=== PATIENT | male | born 1940 | race Caucasian/White ===

== ENCOUNTER → 2018-05-25 08:36 | Outpatient (CLI) | payer OTHER, SELFPAY ==
[2018-05-25 09:26] LABS: Add Manual Diff / Slide Review NO; Basophils Percent Auto 4.7 % (0-2); Eosinophils Percent Auto 2.5 % (2-4); Hematocrit 41.4 % (41-53); Hemoglobin 14.2 g/dL (13.5-17.5); Lymphocytes Percent Auto 19.8 % (25-40); Mean Corpuscular HGB Conc 34.2 % (30-36); Mean Corpuscular Hemoglobin 30.3 PG (26-34); Mean Corpuscular Volume 88.7 fL (80-100); Monocytes Percent Auto 8.4 % (3-14); Neutrophils Absolute Auto 4200 /uL (3000-5900); Neutrophils Percent Auto 64.6 % (50-75); Platelet Count 232 X10^3/uL (150-400); Red Blood Cell Count 4.67 X10^6/uL (4.5-5.9); Red Cell Distribution Width 13.8 % (11.6-14.8); White Blood Cell Count 6.6 X10^3/uL (4.5-11.0)
[2018-05-25 09:45] LABS: Alanine Aminotransferase 18 IU/L (21-72); Albumin 4.5 g/dL (3.5-5.0); Albumin Globulin Ratio 1.3 (1.0-2.8); Alkaline Phosphatase 52 U/L (38-126); Aspartate Aminotransferase 26 IU/L (17-59); BUN Creatinine Ratio 22.1 (6-22); Blood Urea Nitrogen 31 mg/dL (9-20); Calcium 9.9 mg/dL (8.4-10.2); Carbon Dioxide 29 mmol/L (22-32); Chloride 100 mmol/L (98-107); Cholesterol 155 mg/dL (140-199); Estimated Glomerular Filt Rate 49.4 mL/min (>60); Globulin 3.5 g/dL (1.7-4.1); Glucose 101 mg/dL (80-110); HDL Cholesterol 62 mg/dL (40-60); HEMOLYSIS < 15 (0-50); LDL Cholesterol Calculated 82 mg/dL (<100); Potassium 4.8 mmol/L (3.4-5.1); Sodium 141 mmol/L (137-145); Triglycerides 55 mg/dL (35-150)
[2018-05-25 10:20] LABS: Thyroid Stimulating Hormone 1.38 uIU/mL (0.47-4.68)
== END ==
PROVIDERS: PCP Family Medicine; Visit Provider Family Medicine
DX: E78.5 Hyperlipidemia, unspecified (principal); I10 Essential (primary) hypertension; K21.0 Gastro-esophageal reflux disease with esophagitis; K44.9 Diaphragmatic hernia without obstruction or gangrene; Z12.5 Encounter for screening for malignant neoplasm of prostate
CPT/HCPCS: 80053; 80061; 84153; 84443; 85025

== ENCOUNTER → 2018-07-05 09:41 | Outpatient (CLI) | payer OTHER, SELFPAY ==
[2018-07-05 09:57] LABS: Add Manual Diff / Slide Review NO; Eosinophils Percent Auto 1.9 % (2-4); Hematocrit 40.9 % (41-53); Hemoglobin 13.7 g/dL (13.5-17.5); Lymphocytes Percent Auto 26.1 % (25-40); Mean Corpuscular HGB Conc 33.6 % (30-36); Mean Corpuscular Hemoglobin 30.6 PG (26-34); Mean Corpuscular Volume 91.1 fL (80-100); Monocytes Percent Auto 9.1 % (3-14); Neutrophils Absolute Auto 5000 /uL (3000-5900); Neutrophils Percent Auto 61.9 % (50-75); Platelet Count 197 X10^3/uL (150-400); Red Blood Cell Count 4.49 X10^6/uL (4.5-5.9); Red Cell Distribution Width 13.5 % (11.6-14.8)
[2018-07-05 10:07] LABS: D Dimer 301 ng/mL (<230)
[2018-07-05 10:13] LABS: Blood Urea Nitrogen 22 mg/dL (9-20); Calcium 9.4 mg/dL (8.4-10.2); Carbon Dioxide 26 mmol/L (22-32); Chloride 102 mmol/L (98-107); Estimated Glomerular Filt Rate > 60.0 mL/min (>60); Glucose 93 mg/dL (80-110); HEMOLYSIS < 15 (0-50); Potassium 4.8 mmol/L (3.4-5.1); Sodium 140 mmol/L (137-145)
== END ==
PROVIDERS: Family Provider Family Medicine; PCP Family Medicine; Visit Provider Physician Assistant
DX: M79.89 Other specified soft tissue disorders (principal)
CPT/HCPCS: 36415; 80048; 85025; 85379

== ENCOUNTER → 2018-07-05 15:31 | Outpatient (CLI) | payer OTHER, SELFPAY ==
--- NOTE | 2018-07-05 15:32 | DI.US.S_ITS ---
PROCEDURE: US PERIPH VENOUS LOW EXTREM LT INDICATIONS: Left lower extremity swelling and bruising TECHNIQUE: Real-time imaging, as well as color and pulse Doppler interrogation, were performed of the lower extremity deep veins from the inguinal ligament to the popliteal fossa. COMPARISON: None. FINDINGS: The deep veins are normally compressible, and free of intraluminal thrombus. Color and pulse Doppler demonstrate normal phasic intraluminal flow. There is normal augmentation response to distal compression maneuver. IMPRESSION: No DVT found. Dictated by: Edgardo Quinonez M.D. on 07/05/2018 at 16:11 Approved by: Edgardo Quinonez M.D. on 07/05/2018 at 16:12
== END ==
PROVIDERS: Family Provider Family Medicine; PCP Family Medicine; Visit Provider Physician Assistant
DX: M79.89 Other specified soft tissue disorders (principal)
CPT/HCPCS: 36415; 80048; 85025; 85379; 93971

== ENCOUNTER → 2018-07-16 09:07 | Outpatient (CLI) | payer OTHER, SELFPAY ==
--- NOTE | 2018-07-16 | DI.US.S_ITS ---
PROCEDURE: US RENAL COMPLETE INDICATIONS: CHRONIC KIDNEY DISEASE TECHNIQUE: Real-time scanning was performed of the kidneys and bladder, with image documentation. COMPARISON: [facility], CT, ABDOMEN/PELVIS WITH CONTRAST, 02/21/2016, 1:14. [facility], US, ABDOMEN COMPLETE, 02/21/2016, 1:09. [facility], CT, ABDOMEN/PELVIS WITH CONTRAST, 05/15/2016, 2:42. FINDINGS: Kidneys: Kidneys are normal in size. Right kidney measures 10.6 cm long; left kidney measures 11.1 cm long. Right renal cortical thickness is 1.7 cm; left renal cortical thickness is 1.5 cm. Renal cortical echotexture is normal. No hydronephrosis or nephrolithiasis. No suspicious solid mass lesions. There is a 2.9 cm simple cyst in the superior pole of the left kidney. Bladder: Pre-void bladder volume is 800 mL. Post-void residual is 531 mL. Pre-void images demonstrate no intraluminal masses or stones. On pre-void images, both ureteral jets are noted with color Doppler interrogation. (Of note, ureteral jets may not be detectable in up to 25% of cases due to insufficient differences in specific gravity between ureteral and bladder urine). Miscellaneous: No free pelvic fluid. IMPRESSION: 1. No hydronephrosis. 2. A 2.8 cm simple cyst in the superior pole of the left kidney. 3. Large post void residual in the bladder suggesting bladder outlet obstruction. Dictated by: Kale Kearns M.D. on 07/16/2018 at 11:21 Approved by: Kale Kearns M.D. on 07/16/2018 at 11:25
== END ==
PROVIDERS: Family Provider Family Medicine; PCP Family Medicine; Visit Provider Student in an Organized Health Care Education/Training Program
DX: N18.3 Chronic kidney disease, stage 3 (moderate) (principal); N28.1 Cyst of kidney, acquired
CPT/HCPCS: 76770

== ENCOUNTER → 2018-08-04 14:26 | Outpatient (CLI) | payer OTHER, SELFPAY ==
[2018-08-04 14:50] LABS: Bacteria Urine None Seen; RBC Urine None Seen (0-5/HPF); WBC Urine None Seen (0-5/HPF)
[2018-08-04 15:17] LABS: Appearance Urine UA CLEAR; Bilirubin Urine UA NEGATIVE (NEGATIVE); Color Urine UA YELLOW; Glucose Urine UA NEGATIVE (Normal); Ketones Urine UA NEGATIVE (NEGATIVE); Leukocyte Esterase Urine UA NEGATIVE (NEGATIVE); Nitrite Urine UA NEGATIVE (Negative); Occult Blood Urine UA NEGATIVE (Negative); Protein Urine UA NEGATIVE (Negative); Urobilinogen Urine UA 0.2 E.U./dL (0.2); pH Urine UA 6.5 (4.5-8.0)
[2018-08-04 15:23] LABS: Culture Indicated Urine Cult Not Indicated; Urine Comments Microscopic Normal
[2018-08-04 15:37] LABS: Hemoglobin 13.7 g/dL (13.5-17.5)
[2018-08-04 15:38] LABS: HEMOLYSIS < 15 (0-50); Iron 72 ug/dL (49-181)
[2018-08-04 15:41] LABS: BUN Creatinine Ratio 21.7 (6-22); Blood Urea Nitrogen 26 mg/dL (9-20); Calcium 9.4 mg/dL (8.4-10.2); Carbon Dioxide 28 mmol/L (22-32); Chloride 104 mmol/L (98-107); Glucose 112 mg/dL (80-110); HEMOLYSIS < 15 (0-50); Phosphorous 4.5 mg/dL (2.3-3.7); Potassium 5.1 mmol/L (3.4-5.1); Sodium 143 mmol/L (137-145)
[2018-08-04 15:42] LABS: Creatinine Urine Random 53.1 mg/dL; Protein (Total) Urine Random 7 mg/dL (0-12); Protein Creatinine Ratio Urine 0.13 GRAM/24H
[2018-08-04 15:49] LABS: Percent Iron Saturation 22 % (20-50); Total Iron Binding Capacity 333 ug/dL (261-462); Transferrin 267 mg/dL (206-381)
[2018-08-04 16:16] LABS: Ferritin 43.8 ng/mL (17.9-464)
[2018-08-07 12:25] LABS: Parathyroid Hormone Int 77 pg/mL (14-64)
== END ==
PROVIDERS: PCP Family Medicine; Visit Provider Student in an Organized Health Care Education/Training Program
DX: N05.9 Unspecified nephritic syndrome with unspecified morphologic changes (principal); D50.0 Iron deficiency anemia secondary to blood loss (chronic); D64.9 Anemia, unspecified; E83.30 Disorder of phosphorus metabolism, unspecified; N25.81 Secondary hyperparathyroidism of renal origin; N30.00 Acute cystitis without hematuria; R80.9 Proteinuria, unspecified
CPT/HCPCS: 36415; 80048; 81001; 82570; 82728; 83540; 83550; 83970; 84100; 84156; 85014; 85018; 87086

== ENCOUNTER → 2018-09-13 07:53 | Outpatient (CLI) | payer OTHER, SELFPAY | PROVIDERS: Family Provider Family Medicine; PCP Family Medicine; Visit Provider Specialist | DX: N40.1 Benign prostatic hyperplasia with lower urinary tract symptoms (principal) | CPT/HCPCS: 36415; 84153 ==

== ENCOUNTER → 2018-12-15 12:09 | Outpatient (CLI) | payer OTHER, SELFPAY ==
[2018-12-15 12:33] LABS: Hemoglobin 12.8 g/dL (13.5-17.5)
[2018-12-15 12:44] LABS: BUN Creatinine Ratio 15.4 (6-22); Blood Urea Nitrogen 20 mg/dL (9-20); Calcium 8.8 mg/dL (8.4-10.2); Carbon Dioxide 25 mmol/L (22-32); Chloride 102 mmol/L (98-107); Estimated Glomerular Filt Rate 53.7 mL/min (>60); Glucose 119 mg/dL (80-110); HEMOLYSIS < 15 (0-50); Potassium 4.7 mmol/L (3.4-5.1); Sodium 136 mmol/L (137-145)
[2018-12-15 13:13] LABS: HEMOLYSIS < 15 (0-50); Iron 67 ug/dL (49-181)
[2018-12-15 13:24] LABS: Percent Iron Saturation 22 % (20-50); Total Iron Binding Capacity 300 ug/dL (261-462); Transferrin 230 mg/dL (206-381)
[2018-12-15 16:02] LABS: Creatinine Urine Random 53.1 mg/dL; Protein (Total) Urine Random 96 mg/dL (0-12)
[2018-12-18 16:17] LABS: Parathyroid Hormone Int 151 pg/mL (14-64)
== END ==
PROVIDERS: Family Provider Family Medicine; PCP Family Medicine; Visit Provider Student in an Organized Health Care Education/Training Program
DX: N05.9 Unspecified nephritic syndrome with unspecified morphologic changes (principal); D50.0 Iron deficiency anemia secondary to blood loss (chronic); D64.9 Anemia, unspecified; N25.81 Secondary hyperparathyroidism of renal origin; R80.9 Proteinuria, unspecified
CPT/HCPCS: 36415; 80048; 82570; 82728; 83540; 83550; 83970; 84156; 85014; 85018

== ENCOUNTER → 2019-01-12 12:11 | Outpatient (CLI) | payer OTHER, SELFPAY ==
[2019-01-12 13:54] LABS: Alanine Aminotransferase 21 IU/L (21-72); Albumin 4.1 g/dL (3.5-5.0); Albumin Globulin Ratio 1.3 (1.0-2.8); Alkaline Phosphatase 55 U/L (38-126); Aspartate Aminotransferase 23 IU/L (17-59); BUN Creatinine Ratio 22.5 (6-22); Bilirubin Total 0.8 mg/dL (0.2-1.3); Blood Urea Nitrogen 27 mg/dL (9-20); Calcium 9.8 mg/dL (8.4-10.2); Carbon Dioxide 27 mmol/L (22-32); Chloride 101 mmol/L (98-107); Cholesterol 151 mg/dL (140-199); Estimated Glomerular Filt Rate 58.9 mL/min (>60); Globulin 3.2 g/dL (1.7-4.1); Glucose 129 mg/dL (80-110); HDL Cholesterol 59 mg/dL (40-60); HEMOLYSIS < 15 (0-50); LDL Cholesterol Calculated 71 mg/dL (<100); Potassium 4.9 mmol/L (3.4-5.1); Sodium 137 mmol/L (137-145); Total Protein 7.3 g/dL (6.3-8.2); Triglycerides 104 mg/dL (35-150)
[2019-01-12 14:20] LABS: Prostate Specific Antigen 0.614 ng/mL (0.10-4.00)
== END ==
PROVIDERS: Family Provider Family Medicine; PCP Family Medicine; Visit Provider Specialist
DX: N40.1 Benign prostatic hyperplasia with lower urinary tract symptoms (principal); E78.5 Hyperlipidemia, unspecified; I10 Essential (primary) hypertension
CPT/HCPCS: 36415; 80053; 80061; 84153

== ENCOUNTER → 2019-04-13 08:40 | Outpatient (CLI) | payer OTHER, SELFPAY ==
[2019-04-13 08:54] LABS: Bacteria Urine None Seen; RBC Urine None Seen (0-5/HPF)
[2019-04-13 09:10] LABS: Hematocrit 42.5 % (41-53); Hemoglobin 14.3 g/dL (13.5-17.5)
[2019-04-13 09:21] LABS: BUN Creatinine Ratio 20.8 (6-22); Blood Urea Nitrogen 27 mg/dL (9-20); Calcium 9.6 mg/dL (8.4-10.2); Carbon Dioxide 28 mmol/L (22-32); Chloride 101 mmol/L (98-107); Estimated Glomerular Filt Rate 53.7 mL/min (>60); Glucose 97 mg/dL (80-110); HEMOLYSIS < 15 (0-50); Potassium 5.2 mmol/L (3.4-5.1); Sodium 138 mmol/L (137-145)
[2019-04-13 09:30] LABS: Appearance Urine UA CLEAR; Bilirubin Urine UA NEGATIVE (NEGATIVE); Color Urine UA YELLOW; Glucose Urine UA NEGATIVE (Negative); Ketones Urine UA NEGATIVE (NEGATIVE); Leukocyte Esterase Urine UA TRACE (NEGATIVE); Nitrite Urine UA NEGATIVE (Negative); Occult Blood Urine UA NEGATIVE (Negative); Protein Urine UA NEGATIVE (Negative); Specific Gravity Urine UA 1.015 (1.000-1.035); Urobilinogen Urine UA 0.2 E.U./dL (0.2); pH Urine UA 6.5 (4.5-8.0)
[2019-04-13 09:36] LABS: Culture Indicated Urine Cult Not Indicated; Squamous Epithelial Cell Urine 1-5 /HPF (0-5/HPF); WBC Urine 0-1/HPF (0-5/HPF)
[2019-04-13 09:52] LABS: Creatinine Urine Random 98.3 mg/dL; Protein (Total) Urine Random 14 mg/dL (0-12); Protein Creatinine Ratio Urine 0.14 GRAM/24H
[2019-04-16 16:55] LABS: Parathyroid Hormone Int 33 pg/mL (14-64)
== END ==
PROVIDERS: Family Provider Family Medicine; PCP Family Medicine; Visit Provider Student in an Organized Health Care Education/Training Program
DX: R80.9 Proteinuria, unspecified (principal); N30.00 Acute cystitis without hematuria; N25.81 Secondary hyperparathyroidism of renal origin; D64.9 Anemia, unspecified; N05.9 Unspecified nephritic syndrome with unspecified morphologic changes
CPT/HCPCS: 36415; 80048; 81001; 82570; 83970; 84156; 85014; 85018

== ENCOUNTER → 2019-04-28 14:16 | Outpatient (CLI) | payer OTHER, SELFPAY ==
[2019-04-28 14:57] LABS: Hemoglobin A1C% w Est Avg Glu 5.9 % (4.0-6.0)
[2019-04-28 15:25] LABS: Alanine Aminotransferase 19 IU/L (21-72); Albumin 3.9 g/dL (3.5-5.0); Albumin Globulin Ratio 1.2 (1.0-2.8); Alkaline Phosphatase 49 U/L (38-126); Aspartate Aminotransferase 24 IU/L (17-59); Bilirubin Total 0.6 mg/dL (0.2-1.3); Blood Urea Nitrogen 26 mg/dL (9-20); Calcium 9.6 mg/dL (8.4-10.2); Carbon Dioxide 29 mmol/L (22-32); Chloride 100 mmol/L (98-107); Estimated Glomerular Filt Rate 53.7 mL/min (>60); Globulin 3.2 g/dL (1.7-4.1); Glucose 105 mg/dL (80-110); HEMOLYSIS < 15 (0-50); Potassium 4.4 mmol/L (3.4-5.1); Sodium 137 mmol/L (137-145); Total Protein 7.1 g/dL (6.3-8.2)
== END ==
PROVIDERS: Family Provider Family Medicine; PCP Family Medicine; Visit Provider Student in an Organized Health Care Education/Training Program
DX: E87.5 Hyperkalemia (principal); I10 Essential (primary) hypertension; R73.9 Hyperglycemia, unspecified
CPT/HCPCS: 36415; 80053; 83036

== ENCOUNTER → 2019-05-06 14:25 | Outpatient (CLI) | payer OTHER, SELFPAY ==
[2019-05-06 15:20] LABS: Cholesterol 169 mg/dL (140-199); HDL Cholesterol 53 mg/dL (40-60); LDL Cholesterol Calculated 78 mg/dL (<100); Triglycerides 191 mg/dL (35-150)
== END ==
PROVIDERS: Family Provider Family Medicine; PCP Family Medicine; Visit Provider Internal Medicine Cardiovascular Disease
DX: I48.91 Unspecified atrial fibrillation (principal); I48.0 Paroxysmal atrial fibrillation; E78.2 Mixed hyperlipidemia
CPT/HCPCS: 36415; 80061

== ENCOUNTER → 2019-06-06 09:31 | Outpatient (CLI) | payer OTHER, SELFPAY ==
[2019-06-06 09:42] LABS: RBC Urine None Seen (0-5/HPF); WBC Urine None Seen (0-5/HPF)
[2019-06-06 10:42] LABS: Appearance Urine UA CLEAR; Bilirubin Urine UA NEGATIVE (NEGATIVE); Color Urine UA YELLOW; Glucose Urine UA NEGATIVE (Negative); Ketones Urine UA NEGATIVE (NEGATIVE); Leukocyte Esterase Urine UA NEGATIVE (NEGATIVE); Nitrite Urine UA NEGATIVE (Negative); Occult Blood Urine UA NEGATIVE (Negative); Protein Urine UA NEGATIVE (Negative); Specific Gravity Urine UA <=1.005 (1.000-1.035); Urobilinogen Urine UA 0.2 E.U./dL (0.2)
[2019-06-06 10:54] LABS: Bacteria Urine Occasional (0-1); Culture Indicated Urine Cult Not Indicated; Squamous Epithelial Cell Urine 0-1 /HPF (0-5/HPF)
== END ==
PROVIDERS: Family Provider Family Medicine; PCP Family Medicine; Visit Provider Specialist
DX: N39.0 Urinary tract infection, site not specified (principal)
CPT/HCPCS: 81001

== ENCOUNTER → 2019-06-08 08:58 | Outpatient (CLI) | payer OTHER, SELFPAY ==
[2019-06-08 09:35] LABS: Add Manual Diff / Slide Review NO; Basophils Absolute Auto 100 /uL (0-100); Basophils Percent Auto 1.1 % (0-2); Eosinophils Absolute Auto 100 /uL (0-450); Eosinophils Percent Auto 1.3 % (2-4); Hematocrit 41.5 % (41-53); Lymphocytes Absolute Auto 1400 /uL (1100-4500); Lymphocytes Percent Auto 23.7 % (25-40); Mean Corpuscular HGB Conc 33.8 % (30-36); Mean Corpuscular Hemoglobin 30.4 PG (26-34); Mean Corpuscular Volume 89.8 fL (80-100); Monocytes Absolute Auto 500 /uL (0-900); Monocytes Percent Auto 8.7 % (3-14); Neutrophils Absolute Auto 3900 /uL (1500-7000); Neutrophils Percent Auto 65.2 % (50-75); Platelet Count 188 X10^3/uL (150-400); Red Blood Cell Count 4.62 X10^6/uL (4.5-5.9); Red Cell Distribution Width 14.2 % (11.6-14.8); White Blood Cell Count 6.1 X10^3/uL (4.5-11.0)
[2019-06-08 09:46] LABS: Alanine Aminotransferase 20 IU/L (21-72); Albumin 4.4 g/dL (3.5-5.0); Albumin Globulin Ratio 1.1 (1.0-2.8); Alkaline Phosphatase 64 U/L (38-126); Aspartate Aminotransferase 27 IU/L (17-59); BUN Creatinine Ratio 19.2 (6-22); Bilirubin Total 1.1 mg/dL (0.2-1.3); Blood Urea Nitrogen 23 mg/dL (9-20); Calcium 9.5 mg/dL (8.4-10.2); Carbon Dioxide 29 mmol/L (22-32); Chloride 99 mmol/L (98-107); Estimated Glomerular Filt Rate 58.9 mL/min (>60); Glucose 103 mg/dL (80-110); HEMOLYSIS < 15 (0-50); Potassium 5.1 mmol/L (3.4-5.1); Sodium 137 mmol/L (137-145); Total Protein 8.4 g/dL (6.3-8.2)
--- NOTE | 2019-06-08 10:06 | DI.CT.S_ITS ---
PROCEDURE: CT ABDOMEN PELVIS W CON INDICATIONS: Abdominal pain TECHNIQUE: After the administration of intravenous contrast, 5 mm thick sections acquired from the diaphragm to the symphysis. 5 mm coronal and sagittal reformats were acquired. For radiation dose reduction, the following was used: automated exposure control, adjustment of mA and/or kV according to patient size. COMPARISON: [facility], CT, ABDOMEN/PELVIS WITH CONTRAST, 10/27/2015, 15:24. [facility], US, ABDOMEN LIMITED, 02/25/2016, 12:44. [facility], CT, ABDOMEN/PELVIS WITH CONTRAST, 02/21/2016, 1:14. [facility], CT, ABDOMEN/PELVIS WITH CONTRAST, 05/15/2016, 2:42. FINDINGS: Image quality: Excellent. ABDOMEN: Lung bases: Lung bases are clear. Heart size is normal. Small hiatal hernia. Solid organs: There is a 1.9 cm hyperenhancing mass in the inferior liver (segment 6), unchanged in size since 02/21/2016. There is mild diffuse hepatic fatty infiltration. Liver is normal in size. Gallbladder is surgically absent. Biliary system is non dilated. Pancreas enhances normally. Spleen is normal in size and contains multiple calcified granulomas. No adrenal nodules. Kidneys demonstrate normal size and enhancement, without hydronephrosis. There is a 2.7 cm cyst in the superior pole of the left kidney. Peritoneum and bowel: There are innumerable colonic diverticula. There is mild focal thickening and pericolonic stranding in sigmoid colon, consistent with acute diverticulitis. There is no fluid collections to suggest diverticula abscess. No free fluid or air. Nodes and vessels: No retroperitoneal or mesenteric adenopathy by size criteria. Aorta and inferior vena cava are normal in size. Moderate to severe atherosclerosis. Miscellaneous: Small ventral hernia containing part of the small intestine. Tiny umbilical hernia. PELVIS: Genitourinary: Bladder wall may be mildly thickened concentrically. Prostate is enlarged. There is a defect in the prostatic urethra, presumably related to TURP. Miscellaneous: No inguinal hernias or adenopathy. Bones: No suspicious bony lesions. No vertebral body compression fractures. Degenerative disc and facet disease in the lower lumbar spine. IMPRESSION: 1. Colonic diverticulosis and mild acute sigmoid diverticulitis. No diverticular abscess. 2. Stable 1.9 cm enhancing lesion in the inferior liver (segment 6). 3. Mild concentric thickening of the urinary bladder may be secondary to bladder outlet outpouchin. There is a defect in the prostatic urethra, presumably related to TURP. 4. Remote granulomatous disease of spleen. 5. Small ventral hernia and tiny umbilical hernia. No findings to suggest small bowel obstruction. 6. Small hiatal hernia. Dictated by: Kale Kearns M.D. on 06/08/2019 at 10:34 Approved by: Kale Kearns M.D. on 06/08/2019 at 10:51
== END ==
PROVIDERS: PCP Family Medicine; Visit Provider Family Medicine
DX: R10.9 Unspecified abdominal pain (principal); K57.32 Diverticulitis of large intestine without perforation or abscess without bleeding; N28.1 Cyst of kidney, acquired; K76.9 Liver disease, unspecified; K44.9 Diaphragmatic hernia without obstruction or gangrene; K43.9 Ventral hernia without obstruction or gangrene; Z90.49 Acquired absence of other specified parts of digestive tract
CPT/HCPCS: 36415; 74177; 80053; 85025; Q9967

== ENCOUNTER → 2019-10-28 07:15 | Outpatient (CLI) | payer OTHER, SELFPAY ==
[2019-10-28 07:53] LABS: Hematocrit 40.4 % (41-53); Hemoglobin 13.6 g/dL (13.5-17.5)
[2019-10-28 08:13] LABS: BUN Creatinine Ratio 22.5 (6-22); Blood Urea Nitrogen 27 mg/dL (9-20); Calcium 9.6 mg/dL (8.4-10.2); Carbon Dioxide 27 mmol/L (22-32); Chloride 102 mmol/L (98-107); Estimated Glomerular Filt Rate 58.7 mL/min (>60); Glucose 112 mg/dL (80-110); HEMOLYSIS < 15 (0-50); Potassium 4.7 mmol/L (3.4-5.1); Sodium 138 mmol/L (137-145)
[2019-10-28 08:15] LABS: Creatinine Urine Random 77.9 mg/dL; Protein (Total) Urine Random 10 mg/dL (0-12); Protein Creatinine Ratio Urine 0.12 GRAM/24H
[2019-11-04 07:33] LABS: Parathyroid Hormone Int 49 pg/mL (14-64)
== END ==
PROVIDERS: PCP Family Medicine; Referring Provider Student in an Organized Health Care Education/Training Program; Visit Provider Student in an Organized Health Care Education/Training Program
DX: R80.9 Proteinuria, unspecified (principal); N05.9 Unspecified nephritic syndrome with unspecified morphologic changes; D64.9 Anemia, unspecified; N25.81 Secondary hyperparathyroidism of renal origin
CPT/HCPCS: 36415; 80048; 82570; 83970; 84156; 85014; 85018

== ENCOUNTER → 2020-04-19 12:17 | Outpatient (CLI) | payer OTHER, SELFPAY | PROVIDERS: PCP Family Medicine; Referring Provider Specialist; Visit Provider Specialist | DX: N40.0 Benign prostatic hyperplasia without lower urinary tract symptoms (principal) | CPT/HCPCS: 36415; 84153 ==

== ENCOUNTER → 2020-07-05 14:04 | Outpatient (CLI) | payer OTHER, SELFPAY ==
[2020-07-05 14:45] LABS: Hematocrit 39.6 % (41-53); Hemoglobin 13.3 g/dL (13.5-17.5)
[2020-07-05 14:57] LABS: BUN Creatinine Ratio 24.4 (6-22); Blood Urea Nitrogen 31 mg/dL (9-20); Calcium 9.2 mg/dL (8.4-10.2); Carbon Dioxide 29 mmol/L (22-32); Chloride 105 mmol/L (98-107); Glucose 92 mg/dL (80-110); HEMOLYSIS 15 (0-50); Potassium 4.7 mmol/L (3.4-5.1); Sodium 138 mmol/L (137-145)
[2020-07-05 16:33] LABS: Creatinine Urine Random 137.2 mg/dL; Protein (Total) Urine Random 8 mg/dL (0-12); Protein Creatinine Ratio Urine 0.05 GRAM/24H
[2020-07-06 07:36] LABS: Parathyroid Hormone Int 64 pg/mL (15-65)
== END ==
PROVIDERS: PCP Family Medicine; Referring Provider Student in an Organized Health Care Education/Training Program; Visit Provider Student in an Organized Health Care Education/Training Program
DX: N05.9 Unspecified nephritic syndrome with unspecified morphologic changes (principal); D64.9 Anemia, unspecified; N25.81 Secondary hyperparathyroidism of renal origin; R80.9 Proteinuria, unspecified
CPT/HCPCS: 36415; 80048; 82570; 83970; 84156; 85014; 85018

== ENCOUNTER → 2021-03-01 13:30 | Outpatient (CLI) | payer OTHER, SELFPAY ==
[2021-03-01 14:44] LABS: Hematocrit 41.8 % (41-53); Hemoglobin 13.8 g/dL (13.5-17.5)
[2021-03-01 15:05] LABS: BUN Creatinine Ratio 17.7 (6-22); Blood Urea Nitrogen 23 mg/dL (9-20); Calcium 9.3 mg/dL (8.4-10.2); Carbon Dioxide 26 mmol/L (22-32); Chloride 104 mmol/L (98-107); Estimated Glomerular Filt Rate 53.4 mL/min (>60); Glucose 120 mg/dL (80-110); HEMOLYSIS < 15 (0-50); Potassium 4.3 mmol/L (3.4-5.1); Sodium 139 mmol/L (137-145)
[2021-03-01 15:37] LABS: Creatinine Urine Random 100.7 mg/dL; Protein (Total) Urine Random 8 mg/dL (0-12); Protein Creatinine Ratio Urine 0.07 GRAM/24H
[2021-03-02 12:09] LABS: Parathyroid Hormone Int 61 pg/mL (15-65)
== END ==
PROVIDERS: PCP Family Medicine; Referring Provider Student in an Organized Health Care Education/Training Program; Visit Provider Student in an Organized Health Care Education/Training Program
DX: N25.81 Secondary hyperparathyroidism of renal origin (principal); N05.9 Unspecified nephritic syndrome with unspecified morphologic changes; R80.9 Proteinuria, unspecified; D64.9 Anemia, unspecified
CPT/HCPCS: 36415; 80048; 82570; 83970; 84156; 85014; 85018

== ENCOUNTER → 2021-04-25 16:43 | Outpatient (CLI) | payer OTHER, SELFPAY ==
[2021-04-25 18:00] LABS: Prostate Specific Antigen 0.782 ng/mL (0.10-4.00)
== END ==
PROVIDERS: PCP Family Medicine; Referring Provider Specialist; Visit Provider Specialist
DX: N40.0 Benign prostatic hyperplasia without lower urinary tract symptoms (principal); R97.20 Elevated prostate specific antigen [PSA]
CPT/HCPCS: 36415; 84153

== ENCOUNTER → 2021-05-06 11:15 | Outpatient (CLI) | payer OTHER, SELFPAY ==
--- NOTE | 2021-05-06 11:17 | DI.RAD.S_ITS ---
PROCEDURE: XR SHOULDER LT MIN 2V INDICATIONS: fall TECHNIQUE: 3 views of the shoulder were acquired. COMPARISON: [facility], CR, CHEST 2 VIEW, 03/03/2016, 8:54. [facility], CT, PE STUDY (CTA CHEST), 02/28/2016, 20:14. [facility], CR, XR SCAPULA LT, 05/06/2021, 11:12. [facility], CR, XR RIBS RT MIN 3V W CXR 1V, 05/06/2021, 11:12. FINDINGS: Bones: No fractures or dislocations. No suspicious bony lesions. Visualized ribs appear intact. Degenerative changes are seen, with moderate subacromial spurring. Soft tissues: No suspicious soft tissue calcifications. The visualized lung demonstrates an unremarkable appearance. Atherosclerotic calcification of the aortic arch is noted. IMPRESSION: No acute plain film abnormality is seen. Degenerative changes are seen. If it would be helpful for clinical management decision making, please consider a dedicated, scheduled shoulder MRI for further evaluation (assuming that there is no contraindication). Dictated by: Omer Espinosa M.D. on 05/06/2021 at 10:35 Approved by: Omer Espinosa M.D. on 05/06/2021 at 10:36
--- NOTE | 2021-05-06 11:17 | DI.RAD.S_ITS ---
PROCEDURE: XR RIBS RT MIN 3V W CXR 1V INDICATIONS: fall TECHNIQUE: 3 views of the right ribs were acquired, along with a single view chest. COMPARISON: [facility], [place], CHEST 2 VIEW, 03/03/2016, 8:54. [facility], [place], XR SCAPULA LT, 05/06/2021, 11:12. [facility], [place], XR SHOULDER LT MIN 2V, 05/06/2021, 11:12. FINDINGS: Surgical changes and devices: Cholecystectomy clips are seen. Bones and chest wall: No fractures or dislocations. No suspicious bony lesions. Overlying soft tissues appear unremarkable. Age-appropriate bony degenerative changes are seen. Lungs and pleura: No pleural effusions or pneumothorax. Lungs appear clear. Mediastinum: Mediastinal contours appear normal. Heart size is normal. IMPRESSION: No displaced fractures can be seen. No pneumothorax is seen. Dictated by: Omer Espinosa M.D. on 05/06/2021 at 10:31 Approved by: Omer Espinosa M.D. on 05/06/2021 at 10:34
--- NOTE | 2021-05-06 11:17 | DI.RAD.S_ITS ---
PROCEDURE: XR SCAPULA LT INDICATIONS: fall TECHNIQUE: 2 views of the scapula were acquired. COMPARISON: [facility], CR, CHEST 2 VIEW, 03/03/2016, 8:54. [facility], CR, XR SHOULDER LT MIN 2V, 05/06/2021, 11:12. [facility], CR, XR RIBS RT MIN 3V W CXR 1V, 05/06/2021, 11:12. FINDINGS: Bones: No fractures or dislocations. No suspicious bony lesions. Visualized ribs appear intact. Soft tissues: Overlying soft tissues appear normal. IMPRESSION: Negative for fracture or dislocation. Dictated by: Omer Espinosa M.D. on 05/06/2021 at 10:34 Approved by: Omer Espinosa M.D. on 05/06/2021 at 10:35
== END ==
PROVIDERS: PCP Family Medicine; Referring Provider Nurse Practitioner Family; Visit Provider Nurse Practitioner Family
DX: R07.81 Pleurodynia (principal); M25.512 Pain in left shoulder
CPT/HCPCS: 71101; 73010; 73030

== ENCOUNTER 2021-05-07 12:09 | Outpatient (RCR) | payer OTHER, SELFPAY ==
--- NOTE | 2021-05-07 15:30 | OT.OP.EVAL ---
Visit Care Team Role Provider Type Deacon Weller DO Attending Provider Physician Primary Care Provider Referring Provider Specialty: Family Practice Address: [address] [place] [address], [id number] Email: [email or web address] Occupational Therapy Initial Evaluation OT Outpatient Adult Evaluation Start: 05/07/21 15:50 Freq: Status: Active Protocol: Document 05/07/21 15:53 AMS (Rec: 05/07/21 15:57 AMS [id number]) General Information Visit Start Time 12:30 Visit Stop Time 13:10 Total Visit Minutes 40 Insurance Information [facility] Treatment Setting Outpatient Care Note Type Initial Evaluation Assessment/Plan Treatment Assessment Patient is a 80 right hand dominant male who was referred to outpatient OT secondary to left finger injury by his PCP . Patient reported that referral occurred d/t difficulties with golf swing; patient's medical history is significant for arthritis and he reports that symptoms began several years ago. -10 degrees active ext of L DIP joint w/ 60 degrees active flex of L DIP joint; full extension w/ 55 degrees active flex of L PIPJ; and full extension and 95 degrees active flex of L MCP joint. Slight rotation of 2nd digit w / ulnar shift starting at PIP joint of 2nd digit. Denied h/o use of splint and reports excluding finger with most tasks d/t discomfort. 3 out of 10 indicated on Pain Assessment Grid also reported. Discussed basic joint protection principles, use of heat, and pain-free range of motion and custom splint to maintain/prevent further deformities of digit (possibly night splint). Informed of alternate clinic for fitting/ obtainng custom-splint. Given that Carlos's main concern was L shoulder pain/discomfort and limited ROM d/t recent fall (2nd fall in past several days), recommend d/c with patient seeing PCP for referral for L shoulder treatment and referral for custom splint for second digit (as well as splinting as needed to address central slip injuries presented bilaterally). Patient in agreement w/ desire to focus on getting L shoulder better. Patient Recommendations Discharge from Occupational Therapy Comment See PCP re: L shoulder; consider custom left 2nd splint
--- NOTE | 2021-05-10 16:08 | OT.OP.EVAL ---
Visit Care Team Role Provider Type Deacon Weller DO Attending Provider Physician Primary Care Provider Referring Provider Specialty: Family Practice Address: [address] [place] [address], [id number] Email: [email or web address] Occupational Therapy Initial Evaluation OT Outpatient Adult Evaluation Start: 05/07/21 15:50 Freq: Status: Active Protocol: Document 05/07/21 15:53 AMS (Rec: 05/07/21 15:57 AMS [id number]) General Information Visit Start Time 12:30 Visit Stop Time 13:10 Total Visit Minutes 40 Insurance Information [facility] Treatment Setting Outpatient Care Note Type Initial Evaluation Assessment/Plan Treatment Assessment Patient is a 80 right hand dominant male who was referred to outpatient OT secondary to left finger injury by his PCP . Patient reported that referral occurred d/t difficulties with golf swing; patient's medical history is significant for arthritis and he reports that symptoms began several years ago. -10 degrees active ext of L DIP joint w/ 60 degrees active flex of L DIP joint; full extension w/ 55 degrees active flex of L PIPJ; and full extension and 95 degrees active flex of L MCP joint. Slight rotation of 2nd digit w / ulnar shift starting at PIP joint of 2nd digit. Denied h/o use of splint and reports excluding finger with most tasks d/t discomfort. 3 out of 10 indicated on Pain Assessment Grid also reported. Discussed basic joint protection principles, use of heat, and pain-free range of motion and custom splint to maintain/prevent further deformities of digit (possibly night splint). Informed of alternate clinic for fitting/ obtainng custom-splint. Given that Carlos's main concern was L shoulder pain/discomfort and limited ROM d/t recent fall (2nd fall in past several days), recommend d/c with patient seeing PCP for referral for L shoulder treatment and referral for custom splint for second digit (as well as splinting as needed to address central slip injuries presented bilaterally). Patient in agreement w/ desire to focus on getting L shoulder better. Patient Recommendations Discharge from Occupational Therapy Comment See PCP re: L shoulder; consider custom left 2nd splint
== END 2021-05-13 08:20 | disposition home or self-care (01) ==
LOC: OT 12:09
PROVIDERS: PCP Family Medicine; Referring Provider Family Medicine; Visit Provider Family Medicine
DX: L84 Corns and callosities (principal); S69.92XA Unspecified injury of left wrist, hand and finger(s), initial encounter; R53.1 Weakness
CPT/HCPCS: 97165; 97530

== ENCOUNTER → 2021-10-28 13:47 | Outpatient (CLI) | payer OTHER, SELFPAY ==
[2021-10-28 16:06] LABS: Hematocrit 44.9 % (41-53); Hemoglobin 14.8 g/dL (13.5-17.5)
[2021-10-28 17:48] LABS: Protein (Total) Urine Random 10 mg/dL (0-12); Protein Creatinine Ratio Urine 0.11 GRAM/24H
[2021-10-28 17:50] LABS: Blood Urea Nitrogen 22 mg/dL (9-20); Calcium 9.2 mg/dL (8.4-10.2); Carbon Dioxide 28 mmol/L (22-32); Chloride 103 mmol/L (98-107); Estimated Glomerular Filt Rate > 60.0 mL/min (>60); Glucose 96 mg/dL (80-110); HEMOLYSIS < 15 (0-50); Potassium 4.9 mmol/L (3.4-5.1); Sodium 137 mmol/L (137-145)
[2021-10-29 07:36] LABS: Parathyroid Hormone Int 79 pg/mL (15-65)
== END ==
PROVIDERS: PCP Family Medicine; Referring Provider Student in an Organized Health Care Education/Training Program; Visit Provider Student in an Organized Health Care Education/Training Program
DX: N05.9 Unspecified nephritic syndrome with unspecified morphologic changes (principal); R80.9 Proteinuria, unspecified; D64.9 Anemia, unspecified; N25.81 Secondary hyperparathyroidism of renal origin
CPT/HCPCS: 36415; 80048; 82570; 83970; 84156; 85014; 85018

== ENCOUNTER → 2022-03-20 10:40 | Outpatient (CLI) | payer OTHER, SELFPAY ==
[2022-03-20 12:54] LABS: Prostate Specific Antigen Scrn 0.933 ng/mL (0.1-4.0)
== END ==
PROVIDERS: PCP Family Medicine; Referring Provider Family Medicine; Visit Provider Family Medicine
DX: Z12.5 Encounter for screening for malignant neoplasm of prostate (principal)
CPT/HCPCS: 36415; G0103

== ENCOUNTER → 2022-05-26 09:04 | Outpatient (CLI) | payer OTHER, SELFPAY ==
[2022-05-26 10:09] LABS: Hematocrit 43.9 % (41-53); Hemoglobin 15.1 g/dL (13.5-17.5)
[2022-05-26 10:27] LABS: BUN Creatinine Ratio 20.9 (6-22); Blood Urea Nitrogen 24 mg/dL (9-20); Calcium 9.1 mg/dL (8.4-10.2); Carbon Dioxide 28 mmol/L (22-32); Chloride 101 mmol/L (98-107); Estimated Glomerular Filt Rate > 60 mL/min (>60); Glucose 98 mg/dL (80-110); HEMOLYSIS < 15 (0-50); Potassium 4.6 mmol/L (3.4-5.1); Sodium 137 mmol/L (137-145)
[2022-05-26 16:19] LABS: Creatinine Urine Random 80.8 mg/dL
[2022-05-26 16:22] LABS: Microalbumi Creatinin Ratio Ur 60.6 ug/mg CR (<30); Microalbumin Urine Random 4.9 mg/dL (0-1.6)
[2022-05-28 07:01] LABS: Parathyroid Hormone Int 48 pg/mL (15-65)
== END ==
PROVIDERS: PCP Family Medicine; Referring Provider Student in an Organized Health Care Education/Training Program; Visit Provider Student in an Organized Health Care Education/Training Program
DX: N25.81 Secondary hyperparathyroidism of renal origin (principal); R80.9 Proteinuria, unspecified
CPT/HCPCS: 36415; 80048; 82043; 82570; 83970; 85014; 85018

== ENCOUNTER 2022-06-15 16:27 | Emergency (ER) | payer OTHER, SELFPAY ==
[2022-06-15 16:31] VITALS: BP 162/89; PULSE 66; RESP 20; TEMP 36.7; O2SAT 99
--- NOTE | 2022-06-15 18:50 | ED.EXTPRO ---
HPI - Extremity Problem General Chief complaint: Extremity Problem,Nontraumatic Stated complaint: ON ELIQUIS TWISTED ARM GETTING OUT OF BED Time Seen by Provider: 06/15/22 18:49 Source: patient Mode of arrival: Ambulatory History of Present Illness HPI Narrative: 81-year-old male former smoker with history of atrial fibrillation on Eliquis presents for evaluation of a hematoma on his right forearm further the past 4-5 days. He denies any memorable event or traumatic injury but questions whether not the way he pulls himself out of bed in the morning may have tweaked his elbow. He has full painless range of motion in elbow, shoulder and wrist. He denies any pain, numbness or tingling. His hematoma is dark purple and extends from the elbow to his hand. He denies any chest pain or shortness of breath. He is not dizzy nor weak or lightheaded. He had presented to the walk-in clinic a few days ago and was given antibiotics as there was some concern that perhaps there was an infection at the time. He denies any fever or chills. Related Data Home Medications Medication Instructions Recorded Confirmed calcium carbonate 200 mg calcium 200 mg PO BID 01/07/19 06/13/22 (500 mg) chewable tablet (Tums) cholecalciferol (vitamin D3) 50 50 mcg PO DAILY 11/25/19 06/13/22 mcg (2,000 unit) capsule apixaban 5 mg tablet (Eliquis) 5 mg PO BID 03/20/22 06/13/22 Previous Rx's Medication Instructions Recorded magnesium oxide 400 mg (241.3 mg 400 mg PO QDAY #90 tabs 02/16/19 magnesium) tablet gemfibrozil 600 mg tablet See Rx Instructions .Route 04/29/22 .COMPLEX #90 tabs metoprolol succinate 25 mg See Rx Instructions .Route 04/29/22 tablet,extended release 24 hr .COMPLEX #90 tabs cephalexin 500 mg capsule 1,000 mg PO BID Cellulitis 10 days 06/13/22 #40 caps Allergies Allergy/AdvReac Type Severity Reaction Status Date / Time morphine [MORPHINE] Allergy Intermediate RASH Verified 06/13/22 09:23 Review of Systems Review of Systems Narrative: GENERAL: Denies chills, fatigue, malaise, fever, sweats. HEENT: Denies sinus pain, ear pain, sore throat, difficulty swallowing, dizziness. RESPIRATORY: Denies dyspnea, cough, wheezing, hemoptysis, sputum. CARDIOVASCULAR: Denies chest pain, palpitations, orthopnea, edema, GASTROINTESTINAL: Denies nausea, vomiting, abdominal pain, diarrhea, constipation, melena. : Denies dysuria, frequency, incontinence, hematuria, urinary retention. MUSCULOSKELETAL: See HPI SKIN: See HPI NEUROLOGIC: Denies weakness, headache, numbness, change in speech, confusion, seizures, incoordination. PSYCHIATRIC: No concerning psychosocial issues. 12 point review of systems is negative except for those stated above Patient History Medical History Atrial fibrillation BPH (benign prostatic hyperplasia) BPH loc w/o ur obs/LUTS Cataracts, bilateral (~08/2016) Cerumen impaction Chronic atrial fibrillation Colon polyps Corns and callosities Diverticular disease Finger injury GERD (gastroesophageal reflux disease) GI bleed Hiatal hernia Hyperlipidemia Hypertension Left lower quadrant abdominal pain Osteopenia Renal insufficiency Ventral incisional hernia Well adult exam Surgical History History of repair of hiatal hernia Hx of cholecystectomy Hx of pyloroplasty Family History Father Heart disease Stroke Mother History of breast cancer Sister History of breast cancer Social History Smoking Status: Former smoker Smoking Status: Former smoker Exam Narrative Exam Narrative: GENERAL: [81] year old patient appears stated age. Well-developed patient, in mild distress. HEAD: Atraumatic. Normocephalic. EYES: Pupils equal round and reactive. Extraocular motions intact. No scleral icterus. No injection or drainage. ENT: Nose without bleeding, purulent drainage. Throat without erythema, tonsillar hypertrophy or exudate. Airway patent. NECK: Trachea midline. Non tender CARDIOVASCULAR: Regular rate and rhythm without murmurs, gallops, or rubs. RESPIRATORY: Clear to auscultation. Breath sounds equal bilaterally. No wheezes, rales, or rhonchi. GASTROINTESTINAL: Abdomen soft, non-tender, nondistended. EXTREMITIES: Dark purple hematoma from right elbow extending through forearm to the dorsum of his hand. Compartments are soft and nontender, warm. Cap refill less than 2 seconds, full painless range of motion of fingers, hand and wrist as well as elbow with flexion, extension, pronation and supination. BACK: Nontender without deformity or crepitance. No flank tenderness. NEURO: AOx3. SKIN: No rash or erythema of visible areas Initial Vital Signs Initial Vital Signs: Vital Signs Temperature 98.1 F 06/15/22 16:31 Pulse Rate 66 06/15/22 16:31 Respiratory Rate 20 06/15/22 16:31 Blood Pressure 162/89 H 06/15/22 16:31 Pulse Oximetry 99 06/15/22 16:31 Oxygen Delivery Method 06/15/22 16:31 Course Vital Signs Vital signs: Vital Signs - 8 hr 06/15/22 16:31 Temperature 98.1 F Pulse Rate 66 Respiratory Rate 20 Blood Pressure 162/89 H Pulse Oximetry 99 Oxygen Delivery Method Room Air MDM - Extremity (Nontraumatic) MDM Narrative Medical decision making narrative: Patient with reassuring history and physical exam in the absence of any memorable or traumatic event has painless ecchymosis in forearm. Compartments are soft and nontender. There is no evidence of compartment syndrome, infection or deep clot. Patient encouraged to compress, elevate, given extensive return precautions and questions answered to his apparent satisfaction Discharge Plan Departure Patient Disposition: Home Clinical Impression: Traumatic hematoma of right forearm Qualifiers: Encounter type: initial encounter Qualified Code(s): S50.11XA - Contusion of right forearm, initial encounter Instructions: DI for Hematoma (Bruise) Activity Restrictions/Additional Instructions: *You have been diagnosed with [hematoma of right forearm with no signs of active bleeding, deep clot or infection.] *What to do: *Please continue to take your regular medications as directed. [ ] New medication prescriptions sent to your pharmacy: [ ] [ ] New medication written as a paper prescription [ ] No new medications given *Please follow up with your escalator service mechanic this week as planned *use the RAJI wrap to apply compression for the next few days *Elevate your arm above the level of your heart as much as you can for the next 7 days and avoid any rigorous activity *Return to Emergency Department if you should have any new, worsening or concerning symptoms, such as [fever greater than 101 F, shaking chills, worsening pain, persistent vomiting or other bothersome symptoms] Prescriptions: No Action cephalexin 500 mg capsule 1,000 mg PO BID 10 Days Qty: 40 0RF magnesium oxide 400 mg (241.3 mg magnesium) tablet 400 mg PO QDAY Qty: 90 1RF gemfibrozil 600 mg tablet See Rx Instructions .ROUTE .COMPLEX Qty: 90 3RF Dose Instruction: take 1 tablet by mouth once daily Rx Instructions: take 1 tablet by mouth once daily metoprolol succinate 25 mg tablet extended release 24 hr See Rx Instructions .ROUTE .COMPLEX Qty: 90 3RF Dose Instruction: take 1 tablet by mouth once daily Rx Instructions: take 1 tablet by mouth once daily calcium carbonate [Tums] 200 mg calcium (500 mg) tablet,chewable 200 mg PO BID cholecalciferol (vitamin D3) 50 mcg (2,000 unit) capsule 50 mcg PO DAILY Eliquis 5 mg tablet 5 mg PO BID Referrals: Deacon Weller, [Primary Care Provider] -
[2022-06-15 19:29] VITALS: BP 156/81; PULSE 66; RESP 18; O2SAT 97
== END 2022-06-15 18:55 | disposition home or self-care (01) ==
PROVIDERS: Emergency Provider Emergency Medicine; PCP Family Medicine
DX: S50.11XA Contusion of right forearm, initial encounter (principal); X58.XXXA Exposure to other specified factors, initial encounter; Z79.01 Long term (current) use of anticoagulants
CPT/HCPCS: 99281; 99282

== ENCOUNTER → 2022-08-11 10:37 | Outpatient (CLI) | payer OTHER, SELFPAY ==
[2022-08-11 11:45] LABS: Influenza A - CEPHEID Flu A NEGATIVE (NEGATIVE); Influenza B - CEPHEID Flu B NEGATIVE (NEGATIVE); Respiratory Syncytial Virus Negative (Negative)
[2022-08-11 11:52] LABS: COVID-19 CEPHEID 4-PLEX PCR Negative (Negative)
== END ==
PROVIDERS: PCP Family Medicine; Visit Provider Registered Nurse
DX: R05.1 Acute cough (principal); Z20.822 Contact with and (suspected) exposure to COVID-19
CPT/HCPCS: 0241U

== ENCOUNTER → 2022-09-19 10:39 | Outpatient (CLI) | payer OTHER, SELFPAY ==
[2022-09-19 13:33] LABS: Blood Urea Nitrogen 24 mg/dL (9-20); Calcium 9.4 mg/dL (8.4-10.2); Carbon Dioxide 27 mmol/L (22-32); Chloride 100 mmol/L (98-107); Estimated Glomerular Filt Rate > 60 mL/min (>60); Glucose 80 mg/dL (80-110); HEMOLYSIS < 15 (0-50); Potassium 5.5 mmol/L (3.4-5.1); Sodium 137 mmol/L (137-145)
== END ==
PROVIDERS: PCP Family Medicine; Referring Provider Internal Medicine Cardiovascular Disease; Visit Provider Internal Medicine Cardiovascular Disease
DX: I48.3 Typical atrial flutter (principal); I50.20 Unspecified systolic (congestive) heart failure
CPT/HCPCS: 36415; 80048

== ENCOUNTER → 2022-10-15 10:26 | Outpatient (CLI) | payer OTHER, SELFPAY ==
[2022-10-15 11:41] LABS: BUN Creatinine Ratio 25.2 (6-22); Blood Urea Nitrogen 32 mg/dL (9-20); Calcium 9.3 mg/dL (8.4-10.2); Carbon Dioxide 29 mmol/L (22-32); Chloride 100 mmol/L (98-107); Estimated Glomerular Filt Rate 57 mL/min (>60); Glucose 96 mg/dL (80-110); HEMOLYSIS < 15 (0-50); Sodium 138 mmol/L (137-145)
[2022-10-15 11:49] LABS: Potassium 5.5 mmol/L (3.4-5.1)
== END ==
PROVIDERS: PCP Family Medicine; Referring Provider Nurse Practitioner; Visit Provider Nurse Practitioner
DX: I50.20 Unspecified systolic (congestive) heart failure (principal)
CPT/HCPCS: 36415; 80048

== ENCOUNTER → 2022-10-22 09:42 | Outpatient (CLI) | payer OTHER, SELFPAY ==
[2022-10-22 10:37] LABS: BUN Creatinine Ratio 21.6 (6-22); Blood Urea Nitrogen 27 mg/dL (9-20); Calcium 9.1 mg/dL (8.4-10.2); Carbon Dioxide 28 mmol/L (22-32); Chloride 101 mmol/L (98-107); Estimated Glomerular Filt Rate 58 mL/min (>60); Glucose 103 mg/dL (80-110); HEMOLYSIS < 15 (0-50); Potassium 5.2 mmol/L (3.4-5.1); Sodium 137 mmol/L (137-145)
== END ==
PROVIDERS: PCP Family Medicine; Referring Provider Nurse Practitioner; Visit Provider Nurse Practitioner
DX: I50.20 Unspecified systolic (congestive) heart failure (principal); I48.3 Typical atrial flutter; I10 Essential (primary) hypertension; I48.91 Unspecified atrial fibrillation
CPT/HCPCS: 36415; 80048

== ENCOUNTER → 2022-11-24 13:10 | Outpatient (CLI) | payer OTHER, SELFPAY ==
[2022-11-24 14:04] LABS: BUN Creatinine Ratio 21.6 (6-22); Blood Urea Nitrogen 35 mg/dL (9-20); Calcium 9.4 mg/dL (8.4-10.2); Carbon Dioxide 28 mmol/L (22-32); Chloride 99 mmol/L (98-107); Estimated Glomerular Filt Rate 43 mL/min (>60); Glucose 147 mg/dL (80-110); HEMOLYSIS 25 (0-50); Potassium 5.3 mmol/L (3.4-5.1); Sodium 135 mmol/L (137-145)
== END ==
PROVIDERS: PCP Family Medicine; Referring Provider Nurse Practitioner; Visit Provider Nurse Practitioner
DX: I50.20 Unspecified systolic (congestive) heart failure (principal); I48.3 Typical atrial flutter
CPT/HCPCS: 36415; 80048

== ENCOUNTER → 2022-12-15 07:08 | Outpatient (CLI) | payer OTHER, SELFPAY ==
[2022-12-15 09:13] LABS: BUN Creatinine Ratio 12.7 (6-22); Blood Urea Nitrogen 17 mg/dL (9-20); Calcium 9.2 mg/dL (8.4-10.2); Carbon Dioxide 26 mmol/L (22-32); Chloride 103 mmol/L (98-107); Estimated Glomerular Filt Rate 54 mL/min (>60); Glucose 106 mg/dL (80-110); HEMOLYSIS < 15 (0-50); Potassium 4.7 mmol/L (3.4-5.1); Sodium 136 mmol/L (137-145)
== END ==
PROVIDERS: PCP Family Medicine; Referring Provider Nurse Practitioner; Visit Provider Nurse Practitioner
DX: I50.20 Unspecified systolic (congestive) heart failure (principal); I48.3 Typical atrial flutter
CPT/HCPCS: 36415; 80048

== ENCOUNTER → 2022-12-18 14:02 | Outpatient (CLI) | payer OTHER, SELFPAY ==
[2022-12-18 15:04] LABS: Hemoglobin 13.7 g/dL (13.5-17.5)
[2022-12-18 15:59] LABS: BUN Creatinine Ratio 16.8 (6-22); Blood Urea Nitrogen 23 mg/dL (9-20); Calcium 9.3 mg/dL (8.4-10.2); Carbon Dioxide 27 mmol/L (22-32); Chloride 104 mmol/L (98-107); Estimated Glomerular Filt Rate 52 mL/min (>60); Glucose 102 mg/dL (80-110); HEMOLYSIS < 15 (0-50); Potassium 4.9 mmol/L (3.4-5.1); Sodium 137 mmol/L (137-145)
[2022-12-18 16:10] LABS: Creatinine Urine Random 74.4 mg/dL; Protein (Total) Urine Random 7 mg/dL (0-12); Protein Creatinine Ratio Urine 0.09 GRAM/24H
[2022-12-20 07:46] LABS: Parathyroid Hormone Int 80 pg/mL (15-65)
== END ==
PROVIDERS: PCP Family Medicine; Referring Provider Student in an Organized Health Care Education/Training Program; Visit Provider Student in an Organized Health Care Education/Training Program
DX: N05.9 Unspecified nephritic syndrome with unspecified morphologic changes (principal); D64.9 Anemia, unspecified; N25.81 Secondary hyperparathyroidism of renal origin; R80.9 Proteinuria, unspecified
CPT/HCPCS: 36415; 80048; 82570; 83970; 84156; 85014; 85018

== ENCOUNTER 2023-06-15 13:38 | Emergency (ER) | payer OTHER, SELFPAY ==
[2023-06-15] VITALS (13 sets, daily range): BP systolic 97–147; BP diastolic 61–86; PULSE 80–96; RESP 18–24; TEMP 36.6; O2SAT 91–98; BMI 26.4
[2023-06-15] MEDS: ONDANSETRON 4 MG/2 ML INJ IV (14:17)
[2023-06-15] MEDS: SODIUM CHLORIDE 0.9% 1,000 ML 1000 ML IV (14:17)
[2023-06-15 14:22] LABS: Add Manual Diff / Slide Review NO; Basophils Absolute Auto 0 /uL (0-100); Basophils Percent Auto 0.6 % (0-2); Eosinophils Absolute Auto 100 /uL (0-450); Eosinophils Percent Auto 0.8 % (2-4); Hematocrit 42.6 % (41-53); Hemoglobin 14.6 g/dL (13.5-17.5); Lymphocytes Absolute Auto 1300 /uL (1100-4500); Lymphocytes Percent Auto 19.2 % (25-40); Mean Corpuscular HGB Conc 34.4 % (30-36); Mean Corpuscular Hemoglobin 30.8 PG (26-34); Mean Corpuscular Volume 89.6 fL (80-100); Monocytes Absolute Auto 1000 /uL (0-900); Monocytes Percent Auto 13.8 % (3-14); Neutrophils Absolute Auto 4500 /uL (1500-7000); Neutrophils Percent Auto 65.6 % (50-75); Platelet Count 198 X10^3/uL (150-400); Red Blood Cell Count 4.76 X10^6/uL (4.5-5.9); Red Cell Distribution Width 13.5 % (11.6-14.8); White Blood Cell Count 6.9 X10^3/uL (4.5-11.0)
[2023-06-15 14:34] LABS: Alanine Aminotransferase 16 IU/L (<50); Albumin 3.9 g/dL (3.5-5.0); Alkaline Phosphatase 44 U/L (38-126); Aspartate Aminotransferase 27 IU/L (17-59); Bilirubin Total 1.3 mg/dL (0.2-1.3); Blood Urea Nitrogen 53 mg/dL (9-20); Calcium 10.1 mg/dL (8.4-10.2); Carbon Dioxide 27 mmol/L (22-32); Chloride 93 mmol/L (98-107); Estimated Glomerular Filt Rate 35 mL/min (>60); Globulin 3.8 g/dL (1.7-4.1); Glucose 105 mg/dL (80-110); HEMOLYSIS 48 (0-50); Lipase 56 U/L (23-300); Potassium 4.9 mmol/L (3.4-5.1); Sodium 130 mmol/L (137-145); Total Protein 7.7 g/dL (6.3-8.2)
[2023-06-15 14:35] LABS: Creatine Kinase 73 U/L (55-170)
[2023-06-15 14:45] LABS: Troponin I 0.014 ng/mL (0.01-0.034)
[2023-06-15 15:07] LABS: COVID19 -Nasal RAPID Negative (Negative)
--- NOTE | 2023-06-15 18:34 | ED_ITS ---
HPI - Nausea/Vomiting/Diarrhea General Chief complaint: Nausea/Vomiting/Diarrhea Stated complaint: V/D/ dehydration sent by Time Seen by Provider: 06/15/23 18:06 Source: patient Mode of arrival: Ambulatory History of Present Illness HPI Narrative: 82-year-old gentleman with a history of atrial fibrillation anticoagulated on apixaban, hypertension, hyperlipidemia, chronic renal insufficiency presents with diarrhea, vomiting, dizziness ongoing since June 12. There is report of antibiotics given on or about May 15 related to a dental procedure. He notes that the diarrhea has significantly slowed as of this morning and it has been almost 12 hours since he is had anymore diarrhea. He has not noticed any significant blood or black stools. He is had no fevers. Abdominal pain is related to cramping only. He is not having any shortness of breath, palpitations or fevers. Related Data Home Medications Medication Instructions Recorded Confirmed calcium carbonate 200 mg calcium 200 mg PO BID 01/07/19 04/20/23 (500 mg) chewable tablet (Tums) cholecalciferol (vitamin D3) 50 50 mcg PO DAILY 11/25/19 04/20/23 mcg (2,000 unit) capsule apixaban 5 mg tablet (Eliquis) 5 mg PO BID 03/20/22 04/20/23 Previous Rx's Medication Instructions Recorded magnesium oxide 400 mg (241.3 mg 400 mg PO QDAY #90 tabs 02/16/19 magnesium) tablet gemfibrozil 600 mg tablet See Rx Instructions .Route 04/20/23 .COMPLEX #90 tabs metoprolol succinate 25 mg See Rx Instructions .Route 04/20/23 tablet,extended release 24 hr .COMPLEX #90 tabs Allergies Allergy/AdvReac Type Severity Reaction Status Date / Time morphine [MORPHINE] Allergy Intermediate RASH Verified 06/15/23 14:03 Review of Systems Review of Systems Narrative: Pertinent positive and negative findings as per HPI Patient History Medical History Atrial fibrillation BPH (benign prostatic hyperplasia) BPH loc w/o ur obs/LUTS Bronchitis Cataracts, bilateral (~08/2016) Cerumen impaction Chronic atrial fibrillation Colon polyps Corns and callosities Diverticular disease Finger injury GERD (gastroesophageal reflux disease) GI bleed Hiatal hernia Hyperlipidemia Hypertension Left lower quadrant abdominal pain Osteopenia Renal insufficiency Seasonal allergic rhinitis Tricuspid regurgitation Ventral incisional hernia Well adult exam Surgical History History of repair of hiatal hernia Hx of cholecystectomy Hx of pyloroplasty Family History Father Heart disease Stroke Mother History of breast cancer Sister History of breast cancer Social History Smoking Status: Former smoker Smoking Status: Former smoker alcohol intake frequency: 0-2 drinks per day Substance Use Type: does not use Exam Initial Vital Signs Initial Vital Signs: Vital Signs Temperature 97.9 F 06/15/23 13:59 Pulse Rate 95 H 06/15/23 13:59 Respiratory Rate 18 06/15/23 13:59 Blood Pressure 97/64 06/15/23 13:59 Pulse Oximetry 97 06/15/23 13:59 Oxygen Delivery Method Room Air 06/15/23 13:59 General: Older-appearing gentleman in no acute distress. Able to give a complete and coherent history. Well-nourished well-developed HEENT: Moist mucous membranes, normal sclera with reactive pupils, Respiratory: Lungs are clear to auscultation, no wheezing no rales no rhonchi. Full and symmetrical air movement Cardiac: Regular rate and rhythm no murmurs no bruits Abdomen: Soft, nontender, no evidence of acute surgical abdomen or concerns for severe colitis. He has no flank pain. Skin: Warm and dry, no rashes Neurologic: Grossly neurologically intact with no obvious asymmetries or abnormalities Extremities: No trauma, Psych: Cooperative, appropriate insight and affect Course Orders Ordered: ED Orders 06/15/23 14:04 EKG-12 Lead Stat 06/15/23 14:10 Complete Blood Count AUTO DIFF Stat Comprehensive Metabolic Panel Stat Lipase Stat Troponin & CK Cardiac Panel Stat 06/15/23 14:20 COVID19 -Nasal RAPID Stat Ondansetron HCl (Ondansetron 4 Mg/2 Ml Inj) 4 mg IV NOW PRN PRN Reason: Nausea And Vomiting Last Admin: 06/15/23 14:17 Dose: 4 mg Documented By: KM Discontinued Medications Sodium Chloride (Normal Saline 0.9%) 1,000 mls @ 1,000 mls/hr IV BOLUS ONE Stop: 10/16/23 15:03 Last Infusion: 06/15/23 15:39 Dose: Infused Documented By: Admin: 06/15/23 14:17 Dose: 1,000 mls/hr Documented By: HARRIS Vital Signs Vital signs: Vital Signs - 8 hr 06/15/23 13:59 06/15/23 15:39 06/15/23 15:59 Temperature 97.9 F Pulse Rate 95 H 80 Respiratory Rate 18 18 Blood Pressure 97/64 130/68 139/86 Pulse Oximetry 97 96 Oxygen Delivery Method Room Air Room Air 06/15/23 15:59 06/15/23 16:00 06/15/23 16:29 Temperature Pulse Rate 81 83 Respiratory Rate Blood Pressure 137/81 Pulse Oximetry 95 95 Oxygen Delivery Method 06/15/23 16:29 06/15/23 16:30 06/15/23 16:30 Temperature Pulse Rate 90 87 Respiratory Rate 23 Blood Pressure 147/84 H Pulse Oximetry 93 96 Oxygen Delivery Method Room Air 06/15/23 17:00 06/15/23 17:00 06/15/23 17:30 Temperature Pulse Rate 85 86 Respiratory Rate 22 24 Blood Pressure 136/76 Pulse Oximetry 96 98 Oxygen Delivery Method Room Air Room Air 06/15/23 18:00 06/15/23 18:30 06/15/23 19:00 Temperature Pulse Rate 90 85 96 H Respiratory Rate 18 21 Blood Pressure Pulse Oximetry 98 97 94 Oxygen Delivery Method Room Air MDM - Nausea/Vomiting/Diarrhea Lab Data 06/15/23 14:10 06/15/23 14:10 Labs: Lab Results 06/15/23 06/15/23 Range/Units 14:10 14:20 WBC 6.9 (4.5-11.0) X10^3/uL RBC 4.76 (4.5-5.9) X10^6/uL Hgb 14.6 (13.5-17.5) g/dL Hct 42.6 (41-53) % MCV 89.6 (80-100) fL MCH 30.8 (26-34) PG MCHC 34.4 (30-36) % RDW 13.5 (11.6-14.8) % Plt Count 198 (150-400) X10^3/uL Neut % (Auto) 65.6 (50-75) % Lymph % (Auto) 19.2 L (25-40) % Mcmullen % (Auto) 13.8 (3-14) % Eos % (Auto) 0.8 L (2-4) % Baso % (Auto) 0.6 (0-2) % Neut # (Auto) 4500 (9274-8357) /uL Lymph # (Auto) 1300 (9606-2857) /uL Mcmullen # (Auto) 1000 H (0-900) /uL Eos # (Auto) 100 (0-450) /uL Baso # (Auto) 0 (0-100) /uL Sodium 130 L (137-145) mmol/L Potassium 4.9 (3.4-5.1) mmol/L Chloride 93 L (98-107) mmol/L Carbon Dioxide 27 (22-32) mmol/L BUN 53 H (9-20) mg/dL Creatinine 1.89 H (0.66-1.25) mg/dL Estimated GFR 35 L (>60) mL/min BUN/Creatinine Ratio 28.0 H (6-22) Glucose 105 (80-110) mg/dL Calcium 10.1 (8.4-10.2) mg/dL Total Bilirubin 1.3 (0.2-1.3) mg/dL AST 27 (17-59) IU/L ALT 16 (<50) IU/L Alkaline Phosphatase 44 (38-126) U/L Total Creatine Kinase 73 (55-170) U/L Troponin I 0.014 (0.01-0.034) ng/mL Total Protein 7.7 (6.3-8.2) g/dL Albumin 3.9 (3.5-5.0) g/dL Globulin 3.8 (1.7-4.1) g/dL Albumin/Globulin Ratio 1.0 (1.0-2.8) Lipase 56 (23-300) U/L SARS-CoV-2 (PCR) Negative (Negative) Urine Dip Bedside Urine Glucose Negative Bedside Urine Bilirubin - Negative Bedside Urine Ketone - Negative Urine Specific [place] 1.025 Bedside Urine Occult Blood - Negative Bedside Urine pH 6.0 Bedside Urine Protein - Negative Bedside Urine Urobilinogen - Negative Bedside Urine Nitrite - Negative Bedside Urine Leukocytes - Negative Esterase MDM Narrative Medical decision making narrative: CC: Nausea vomiting diarrhea hypotension present since 06/12 Complicating co-morbidities: Chronic atrial fibrillation, anticoagulated hypertension hyperlipidemia Data collected from: patient, Social determinants of health that may influence the patients condition: Medical records reviewed: Primary care note from March of 2023 is reviewed Differential considered: Viral diarrhea, C diff diarrhea, acute infectious colitis Exam documented above, pertinent findings include: Lab Test results independently reviewed as above. Pertinent findings: CBC is unremarkable no significant leukocytosis Chemistries show mild dehydration with a slight exacerbation of his acute kidney disease with creatinine increased to 1.9. Remainder of electrolytes are reassuring Troponin is undetectable Rapid COVID screen is unremarkable Treatments: IV fluid oral challenge Discussion: 82-year-old gentleman with acute diarrhea over the course of the weekend. Diarrhea has essentially stopped. He is not having fevers, abdominal pain, chest pain. He is anticoagulated has not noticed any black or red blood in the stool. He had a single episode of emesis approximately 72 hours ago but has had no further vomiting or nausea. At this point he is feeling significantly improved after a L of fluid here. He does have mild dehydration appreciated with slight exacerbation of his acute kidney injury. At this point he is able to eat and drink without any difficulties and with no diarrhea for over 12 hours I believe he is safe for discharge home. There is no evidence of an acute surgical abdomen or reason for additional imaging or hospitalization at this time. Patient did have antibiotics associated with a dental procedure on May 15. If the diarrhea persists checking for C diff would be appropriate. Discharge Plan Departure Patient Disposition: Home Clinical Impression: Diarrhea Qualifiers: Diarrhea type: unspecified type Qualified Code(s): R19.7 - Diarrhea, unspecified Instructions: DI for Viral Gastroenteritis -- Adult Activity Restrictions/Additional Instructions: Thank you for coming in today I am glad that the diarrhea seems to be slowing. There was no evidence of acute abdominal infection or need for surgical intervention. Your kidney function suggests mild dehydration and you were given a L of fluid in the emergency department. Now that you are able to eat and drink I would encourage you to stay as hydrated as you are able. With the antibiotic that you got in mid May related to your dental procedure, there is always a concern for antibiotic related diarrhea called Clostridium difficile. Typically this does not slow down and does have increasing abdominal pain. The fact that you have not had diarrhea for approximately 12 hours suggests more a viral picture than Clostridium difficile. 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 If it does continue collecting a stool sample to check for Clostridium difficile will be appropriate. Prescriptions: No Action magnesium oxide 400 mg (241.3 mg magnesium) tablet 400 mg PO QDAY Qty: 90 1RF calcium carbonate [Tums] 200 mg calcium (500 mg) tablet,chewable 200 mg PO BID cholecalciferol (vitamin D3) 50 mcg (2,000 unit) capsule 50 mcg PO DAILY Eliquis 5 mg tablet 5 mg PO BID metoprolol succinate 25 mg tablet extended release 24 hr See Rx Instructions .ROUTE .COMPLEX Qty: 90 3RF Dose Instruction: take 1 tablet by mouth once daily Rx Instructions: take 1 tablet by mouth once daily gemfibrozil 600 mg tablet See Rx Instructions .ROUTE .COMPLEX Qty: 90 3RF Dose Instruction: take 1 tablet by mouth once daily Rx Instructions: take 1 tablet by mouth once daily Referrals: Deacon Weller, [Primary Care Provider] - Stand Alone Forms: Patient Portal/API
== END 2023-06-15 20:15 | disposition home or self-care (01) ==
PROVIDERS: Emergency Medicine; Emergency Provider Emergency Medicine; PCP Family Medicine
DX: R19.7 Diarrhea, unspecified (principal); R10.9 Unspecified abdominal pain; Z20.822 Contact with and (suspected) exposure to COVID-19
CPT/HCPCS: 36415; 80053; 81003; 82550; 83690; 84484; 85025; 87635; 93005; 93010; 96361; 96374; 99284; C9803; J2405

== ENCOUNTER → 2023-07-02 14:00 | Outpatient (CLI) | payer OTHER, SELFPAY ==
[2023-07-02 15:14] LABS: Appearance Urine UA CLEAR; Bilirubin Urine UA NEGATIVE (NEGATIVE); Color Urine UA YELLOW; Glucose Urine UA NEGATIVE (Negative); Ketones Urine UA NEGATIVE (NEGATIVE); Leukocyte Esterase Urine UA NEGATIVE (NEGATIVE); Nitrite Urine UA NEGATIVE (Negative); Occult Blood Urine UA NEGATIVE (Negative); Protein Urine UA NEGATIVE (Negative); Specific Gravity Urine UA 1.025 (1.000-1.035); pH Urine UA 5.5 (4.5-8.0)
[2023-07-02 16:00] LABS: Bacteria Urine None Seen; Culture Indicated Urine Cult Not Indicated; RBC Urine 0-1/HPF (0-5/HPF); Squamous Epithelial Cell Urine 0-1 /HPF (0-5/HPF); WBC Urine 0-1/HPF (0-5/HPF)
== END ==
PROVIDERS: PCP Family Medicine; Referring Provider Family Medicine; Visit Provider Family Medicine
DX: R35.0 Frequency of micturition (principal)
CPT/HCPCS: 81001

== ENCOUNTER 2023-07-21 13:56 | Emergency (ER) | payer OTHER, SELFPAY ==
[2023-07-21 14:51] VITALS: BP 169/85; PULSE 68; RESP 18; TEMP 36.8; O2SAT 99; BMI 25.8
[2023-07-21 17:03] VITALS: BP 178/90; PULSE 66; RESP 30; TEMP 36.1; O2SAT 97
--- NOTE | 2023-07-21 17:11 | DI.RAD.S_ITS ---
PROCEDURE: XR CHEST 2V INDICATIONS: shortness of breath TECHNIQUE: 2 views of the chest were acquired. COMPARISON: [facility], CHEST 2 VIEW, 03/03/2016, 8:54. [facility], CHEST 1 VIEW, 02/28/2016, 12:09. FINDINGS: Surgical changes and devices: None. Lungs and pleura: Lungs are clear. No pleural effusions or pneumothorax. Mediastinum: Mediastinal contours are normal. Heart size is normal. Bones and chest wall: No suspicious bony abnormalities. Soft tissues appear unremarkable. IMPRESSION: No acute cardiopulmonary abnormality is seen. Dictated by: Ananth Rice M.D. on 07/21/2023 at 17:42 Approved by: Ananth Rice M.D. on 07/21/2023 at 17:42
--- NOTE | 2023-07-21 17:33 | DI.CT.S_ITS ---
PROCEDURE: CT HEAD/BRAIN WO CON INDICATIONS: fall on thinners, confusion TECHNIQUE: Noncontrast 4.5 mm thick angled axial sections acquired from the foramen magnum to the vertex, with coronal and sagittal reformats. For radiation dose reduction, the following was used: automated exposure control, adjustment of mA and/or kV according to patient size. COMPARISON: None. FINDINGS: Image quality: Excellent. CSF spaces: Basal cisterns are patent. No extra-axial fluid collections. Ventricles are normal in size and shape. Brain: No midline shift. No intracranial masses or hemorrhage. Payne-white matter interface is normal. Moderate cerebral and cerebellar volume loss with multifocal white matter chronic ischemic change noted. Atherosclerotic calcification noted associated with cavernous segments of both internal carotid arteries. Skull and face: Calvarium and visualized facial bones are intact, without suspicious lesions. Sinuses: Visualized sinuses and mastoids are clear. IMPRESSION: Atrophy and chronic ischemic change without intracranial hemorrhage or mass effect Approved by: Hai Peter M.D. on 07/21/2023 at 17:13
[2023-07-21 18:00] LABS: Add Manual Diff / Slide Review NO; Basophils Absolute Auto 100 /uL (0-100); Eosinophils Absolute Auto 100 /uL (0-450); Eosinophils Percent Auto 0.9 % (2-4); Hematocrit 40.3 % (41-53); Hemoglobin 13.8 g/dL (13.5-17.5); Lymphocytes Absolute Auto 2000 /uL (1100-4500); Lymphocytes Percent Auto 29.3 % (25-40); Mean Corpuscular HGB Conc 34.3 % (30-36); Mean Corpuscular Hemoglobin 30.8 PG (26-34); Mean Corpuscular Volume 89.6 fL (80-100); Monocytes Absolute Auto 600 /uL (0-900); Monocytes Percent Auto 8.3 % (3-14); Neutrophils Absolute Auto 4100 /uL (1500-7000); Neutrophils Percent Auto 60.5 % (50-75); Platelet Count 193 X10^3/uL (150-400); Red Cell Distribution Width 14.2 % (11.6-14.8); White Blood Cell Count 6.9 X10^3/uL (4.5-11.0)
[2023-07-21 18:12] LABS: Ammonia (NH3) < 9 umol/L (9-30)
[2023-07-21 18:14] LABS: Alanine Aminotransferase 21 IU/L (<50); Albumin 4.2 g/dL (3.5-5.0); Albumin Globulin Ratio 1.2 (1.0-2.8); Alkaline Phosphatase 66 U/L (38-126); Aspartate Aminotransferase 27 IU/L (17-59); BUN Creatinine Ratio 18.3 (6-22); Bilirubin Total 1.5 mg/dL (0.2-1.3); Blood Urea Nitrogen 20 mg/dL (9-20); Calcium 9.7 mg/dL (8.4-10.2); Carbon Dioxide 26 mmol/L (22-32); Chloride 91 mmol/L (98-107); Estimated Glomerular Filt Rate > 60 mL/min (>60); Globulin 3.5 g/dL (1.7-4.1); Glucose 101 mg/dL (80-110); HEMOLYSIS < 15 (0-50); Magnesium 1.4 mg/dL (1.6-2.3); Phosphorous 3.3 mg/dL (2.3-3.7); Potassium 4.8 mmol/L (3.4-5.1); Sodium 127 mmol/L (137-145); Total Protein 7.7 g/dL (6.3-8.2)
--- NOTE | 2023-07-21 18:28 | ED_ITS ---
HPI - Psych <Chica Crews PA-C - Last Filed: 07/21/23 19:40> General Chief Complaint: Psychiatric Symptoms Stated Complaint: SEVERE MENTAL BREAKDOWN Time Seen by Provider: 07/21/23 15:30 Source: patient and family Mode of arrival: Ambulatory History of Present Illness HPI Narrative: Patient is an 82-year-old male w/ history of atrial fibrillation anticoagulated on apixaban, hypertension, hyperlipidemia, chronic renal insufficiency who presents with 1 month of increasing anxiety, sleeplessness, difficulty communicating. He was seen on 06/15/2023 in the emergency room for diarrhea. He was diagnosed with mild dehydration and discharged home after normal saline bolus. and son reports that since after this episode, he is had increasing symptoms of confusion, disorientation, anxiety, sleeplessness, difficulty communicating and bad dreams. reports that he falls asleep relatively easily but wakes several hours later, very concerned about his dreams and seems confused about what is dream and what is reality. He has been eating and drinking, denies any fever, nausea vomiting, diarrhea or constipation. He has been taking his medications as prescribed. He has not started any new medications. reports a history of a period of transient global amnesia several years ago after which he fully recovered to his baseline function. No recent alcohol use. gave him tylenol PM several times but not in the past week. There is a question of a possible fall. Family members do not know when this might have happened but patient has talked about it intermittently. He takes Eliquis. Patient has an appointment with his primary care tomorrow (Dr. Weller) and is also under the care of a neuropsychologist. Related Data Home Medications Medication Instructions Recorded Confirmed calcium carbonate 200 mg calcium 200 mg PO BID 01/07/19 07/22/23 (500 mg) chewable tablet (Tums) cholecalciferol (vitamin D3) 50 50 mcg PO DAILY 11/25/19 07/22/23 mcg (2,000 unit) capsule apixaban 5 mg tablet (Eliquis) 5 mg PO BID 03/20/22 07/22/23 Previous Rx's Medication Instructions Recorded magnesium oxide 400 mg (241.3 mg 400 mg PO QDAY #90 tabs 02/16/19 magnesium) tablet gemfibrozil 600 mg tablet See Rx Instructions .Route 04/20/23 .COMPLEX #90 tabs metoprolol succinate 25 mg See Rx Instructions .Route 04/20/23 tablet,extended release 24 hr .COMPLEX #90 tabs trazodone 50 mg tablet 25 mg (1/2 x 50 mg) PO BEDTIME PRN 07/22/23 sleep #30 tabs Allergies Allergy/AdvReac Type Severity Reaction Status Date / Time morphine [MORPHINE] Allergy Intermediate RASH Verified 07/22/23 09:55 Review of Systems <Chica Crews PA-C - Last Filed: 07/21/23 19:40> Review of Systems ROS Unobtainable: All systems reviewed & are unremarkable except as noted in HPI and below Patient History <Chica Crews PA-C - Last Filed: 07/21/23 19:40> Medical History Gastroenteritis Tricuspid regurgitation Seasonal allergic rhinitis Bronchitis Cerumen impaction Chronic atrial fibrillation Ventral incisional hernia Corns and callosities Finger injury Well adult exam BPH loc w/o ur obs/LUTS GERD (gastroesophageal reflux disease) Left lower quadrant abdominal pain Renal insufficiency Osteopenia GI bleed Hiatal hernia Atrial fibrillation Cataracts, bilateral (~08/2016) Hypertension BPH (benign prostatic hyperplasia) Colon polyps Diverticular disease Hyperlipidemia Surgical History Hx of pyloroplasty Hx of cholecystectomy History of repair of hiatal hernia Family History Father Heart disease Stroke Mother History of breast cancer Sister History of breast cancer Social History Smoking Status: Former smoker Smoking Status: Former smoker alcohol intake frequency: 0-2 drinks per day Substance Use Type: does not use Exam <Chica Crews PA-C - Last Filed: 07/21/23 19:40> Narrative Exam Narrative: GENERAL: 82 year old patient appears stated age. Well-developed patient, pacing in the room. NEURO: AOx2, has difficulty with word finding, slow speech HEAD: Atraumatic. Normocephalic. EYES: Pupils equal round and reactive. Extraocular motions intact. No scleral icterus. No injection or drainage. ENT: Nose without bleeding or purulent drainage. Airway patent. NECK: Trachea midline. Non tender CARDIOVASCULAR: Regular rate and rhythm without murmurs, gallops, or rubs. RESPIRATORY: Clear to auscultation. Breath sounds equal bilaterally. No wheezes, rales, or rhonchi. GASTROINTESTINAL: Abdomen soft, non-tender, nondistended. EXTREMITIES: No edema or joint tenderness. SKIN: No rash or erythema of visible areas Initial Vital Signs Initial Vital Signs: Vital Signs Temperature 98.3 F 07/21/23 14:51 Pulse Rate 68 07/21/23 14:51 Respiratory Rate 18 07/21/23 14:51 Blood Pressure 169/85 H 07/21/23 14:51 Pulse Oximetry 99 07/21/23 14:51 Oxygen Delivery Method Room Air 07/21/23 14:51 <Laura Mcclendon DO - Last Filed: 07/23/23 07:33> Initial Vital Signs Initial Vital Signs: Vital Signs Temperature 98.3 F 07/21/23 14:51 Pulse Rate 68 07/21/23 14:51 Respiratory Rate 18 07/21/23 14:51 Blood Pressure 169/85 H 07/21/23 14:51 Pulse Oximetry 99 07/21/23 14:51 Oxygen Delivery Method Room Air 07/21/23 14:51 Course <Chica Crews PA-C - Last Filed: 07/21/23 19:40> Orders Ordered: ED Orders 07/21/23 17:11 CXR [XR chest 2V] Stat 07/21/23 17:33 CT head/brain wo con Stat 07/21/23 17:46 Ammonia (NH3) Stat CBC Auto Diff [Complete Blood Count AUTO DIFF] Stat CMP [Comprehensive Metabolic Panel] Stat Lipase Stat Magnesium Stat Phosphorous Stat 07/21/23 17:49 Respiratory Panel (Film Array) Stat Vital Signs Vital signs: Vital Signs - 8 hr 07/21/23 14:51 07/21/23 17:03 Temperature 98.3 F 97.0 F L Pulse Rate 68 66 Respiratory Rate 18 30 H Blood Pressure 169/85 H 178/90 H Pulse Oximetry 99 97 Oxygen Delivery Method Room Air Room Air <DO Lisa Summers Last Filed: 07/23/23 07:33> Orders Ordered: ED Orders 07/21/23 17:11 CXR [XR chest 2V] Stat 07/21/23 17:33 CT head/brain wo con Stat 07/21/23 17:46 Ammonia (NH3) Stat CBC Auto Diff [Complete Blood Count AUTO DIFF] Stat CMP [Comprehensive Metabolic Panel] Stat Lipase Stat Magnesium Stat Phosphorous Stat 07/21/23 17:49 Respiratory Panel (Film Array) Stat Vital Signs Vital signs: Vital Signs - 8 hr 07/21/23 14:51 07/21/23 17:03 Temperature 98.3 F 97.0 F L Pulse Rate 68 66 Respiratory Rate 18 30 H Blood Pressure 169/85 H 178/90 H Pulse Oximetry 99 97 Oxygen Delivery Method Room Air Room Air MDM - Psych <Chica Crews PA-C - Last Filed: 07/21/23 19:40> Lab Data 07/21/23 17:46 07/21/23 17:46 Labs: Lab Results 07/21/23 07/21/23 Range/Units 17:46 17:49 WBC 6.9 (4.5-11.0) X10^3/uL RBC 4.50 (4.5-5.9) X10^6/uL Hgb 13.8 (13.5-17.5) g/dL Hct 40.3 L (41-53) % MCV 89.6 (80-100) fL MCH 30.8 (26-34) PG MCHC 34.3 (30-36) % RDW 14.2 (11.6-14.8) % Plt Count 193 (150-400) X10^3/uL Neut % (Auto) 60.5 (50-75) % Lymph % (Auto) 29.3 (25-40) % [place] % (Auto) 8.3 (3-14) % Eos % (Auto) 0.9 L (2-4) % Baso % (Auto) 1.0 (0-2) % Neut # (Auto) 4100 (4277-0013) /uL Lymph # (Auto) 2000 (4772-6992) /uL [place] # (Auto) 600 (0-900) /uL Eos # (Auto) 100 (0-450) /uL Baso # (Auto) 100 (0-100) /uL Sodium 127 L (137-145) mmol/L Potassium 4.8 (3.4-5.1) mmol/L Chloride 91 L (98-107) mmol/L Carbon Dioxide 26 (22-32) mmol/L BUN 20 (9-20) mg/dL Creatinine 1.09 (0.66-1.25) mg/dL Estimated GFR > 60 (>60) mL/min BUN/Creatinine Ratio 18.3 (6-22) Glucose 101 (80-110) mg/dL Calcium 9.7 (8.4-10.2) mg/dL Phosphorus 3.3 (2.3-3.7) mg/dL Magnesium 1.4 L (1.6-2.3) mg/dL Total Bilirubin 1.5 H (0.2-1.3) mg/dL AST 27 (17-59) IU/L ALT 21 (<50) IU/L Alkaline Phosphatase 66 (38-126) U/L Ammonia < 9 L (9-30) umol/L Total Protein 7.7 (6.3-8.2) g/dL Albumin 4.2 (3.5-5.0) g/dL Globulin 3.5 (1.7-4.1) g/dL Albumin/Globulin Ratio 1.2 (1.0-2.8) Lipase 63 (23-300) U/L Chlamy pneumoniae PCR Not detected (Not Detect) Adenovirus (PCR) Not detected (Not Detect) B.parapertussis DNA PCR Not detected (Not Detecte) Coronavirus OC43 (PCR) Not detected (Not Detect) Coronavirus HKU1 (PCR) Not detected (Not Detect) Coronavirus 229E (PCR) Not detected (Not Detect) SARS-CoV-2 (PCR) Not detected (Not Detecte) Coronavirus NL63 (PCR) Not detected (Not Detect) Human Metapneumovir PCR Not detected (Not Detect) Influenza Type A (PCR) Not detected (Not Detect) Influenza Type B (PCR) Not detected (Not Detect) M. pneumoniae (PCR) Not detected (Not Detect) Parainfluenza 1 (PCR) Not detected (Not Detect) Parainfluenza 2 (PCR) Not detected (Not Detect) Parainfluenza 3 (PCR) Not detected (Not Detect) Parainfluenza 4 (PCR) Not detected (Not Detect) RSV (PCR) Not detected (Not Detect) Entero/Rhino (PCR) Not detected (Not Detect) Urine Dip Bedside Urine Glucose Negative Bedside Urine Bilirubin - Negative Bedside Urine Ketone - Negative Urine Specific [place] 1.01 Bedside Urine Occult Blood - Negative Bedside Urine pH 7 Bedside Urine Protein - Negative Bedside Urine Urobilinogen - Negative Bedside Urine Nitrite - Negative Bedside Urine Leukocytes - Negative Esterase Imaging Data CT scan - head: Radiologist's Impression: PROCEDURE: CT HEAD/BRAIN WO CON INDICATIONS: fall on thinners, confusion TECHNIQUE: Noncontrast 4.5 mm thick angled axial sections acquired from the foramen magnum to the vertex, with coronal and sagittal reformats. For radiation dose reduction, the following was used: automated exposure control, adjustment of mA and/or kV according to patient size. COMPARISON: None. FINDINGS: Image quality: Excellent. CSF spaces: Basal cisterns are patent. No extra-axial fluid collections. Ventricles are normal in size and shape. Brain: No midline shift. No intracranial masses or hemorrhage. Payne-white matter interface is normal. Moderate cerebral and cerebellar volume loss with multifocal white matter chronic ischemic change noted. Atherosclerotic calcification noted associated with cavernous segments of both internal carotid arteries. Skull and face: Calvarium and visualized facial bones are intact, without suspicious lesions. Sinuses: Visualized sinuses and mastoids are clear. IMPRESSION: Atrophy and chronic ischemic change without intracranial hemorrhage or mass effect Approved by: Hai Peter M.D. on 07/21/2023 at 17:13 Chest x-ray: Radiologist's Impression: PROCEDURE: XR CHEST 2V INDICATIONS: shortness of breath TECHNIQUE: 2 views of the chest were acquired. COMPARISON: [facility], CHEST 2 VIEW, 03/03/2016, 8:54. [facility], CHEST 1 VIEW, 02/28/2016, 12:09. FINDINGS: Surgical changes and devices: None. Lungs and pleura: Lungs are clear. No pleural effusions or pneumothorax. Mediastinum: Mediastinal contours are normal. Heart size is normal. Bones and chest wall: No suspicious bony abnormalities. Soft tissues appear unremarkable. IMPRESSION: No acute cardiopulmonary abnormality is seen. Dictated by: Ananth Rice M.D. on 07/21/2023 at 17:42 Approved by: Ananth Rice M.D. on 07/21/2023 at 17:42 [facility] Narrative Medical decision making narrative: Multiple etiologies for patient's symptoms considered including, but not limited to: Intracranial bleed after a fall, intoxication, medication side effect, psychiatric diagnosis, amnesia, infection, electrolyte abnormality, dementia, encephalitis. Labs without leukocytosis, no anemia. Sodium 127/chloride 91 which is essentially similar to 1 month ago in the emergency room. Good renal function. Magnesium slightly low at 1.4, total bilirubin mildly elevated at 1.5 without abdominal pain. Other liver studies are normal. Chest x-ray and head CT without acute abnormalities, atrophic changes noted on head CT. UA unremarkable. Discussed case with Dr. Mcclendon. Offered patient the option of inpatient hospitalization for altered mental status with hyponatremia; patient firmly states he will not stay in the hospital. During this conversation, I note that he is more alert, his affect is brighter, he is able to interact and answer more questions. Expresses his opinion. He still seems confused when trying to explain a complicated story but he is certainly more engaged than previously. His son also notes this. I prescribed a low dose of trazodone (25 mg) to be taken tonight, discussed risk of fall. Patient will follow up tomorrow with Gifty Diaz, who is seen him while his primary care is away, for reassessment. At that time, I advised them to discuss his current sleep issues with Gifty and whether or not an ongoing sleep aid would be a good choice for him. Discussed that there are many risks including potentially making him more delirious or having a fall. Patient and family given strict return precautions. Patient's symptoms improved over duration of stay with above-stated therapies. Findings and discharge diagnosis discussed with patient/family followed by verbalization of understanding <Laura Mcclendon, DO - Last Filed: 07/23/23 07:33> Lab Data Labs: Lab Results 07/21/23 07/21/23 Range/Units 17:46 17:49 WBC 6.9 (4.5-11.0) X10^3/uL RBC 4.50 (4.5-5.9) X10^6/uL Hgb 13.8 (13.5-17.5) g/dL Hct 40.3 L (41-53) % MCV 89.6 (80-100) fL MCH 30.8 (26-34) PG MCHC 34.3 (30-36) % RDW 14.2 (11.6-14.8) % Plt Count 193 (150-400) X10^3/uL Neut % (Auto) 60.5 (50-75) % Lymph % (Auto) 29.3 (25-40) % [place] % (Auto) 8.3 (3-14) % Eos % (Auto) 0.9 L (2-4) % Baso % (Auto) 1.0 (0-2) % Neut # (Auto) 4100 (6251-6116) /uL Lymph # (Auto) 2000 (4317-9816) /uL [place] # (Auto) 600 (0-900) /uL Eos # (Auto) 100 (0-450) /uL Baso # (Auto) 100 (0-100) /uL Sodium 127 L (137-145) mmol/L Potassium 4.8 (3.4-5.1) mmol/L Chloride 91 L (98-107) mmol/L Carbon Dioxide 26 (22-32) mmol/L BUN 20 (9-20) mg/dL Creatinine 1.09 (0.66-1.25) mg/dL Estimated GFR > 60 (>60) mL/min BUN/Creatinine Ratio 18.3 (6-22) Glucose 101 (80-110) mg/dL Calcium 9.7 (8.4-10.2) mg/dL Phosphorus 3.3 (2.3-3.7) mg/dL Magnesium 1.4 L (1.6-2.3) mg/dL Total Bilirubin 1.5 H (0.2-1.3) mg/dL AST 27 (17-59) IU/L ALT 21 (<50) IU/L Alkaline Phosphatase 66 (38-126) U/L Ammonia < 9 L (9-30) umol/L Total Protein 7.7 (6.3-8.2) g/dL Albumin 4.2 (3.5-5.0) g/dL Globulin 3.5 (1.7-4.1) g/dL Albumin/Globulin Ratio 1.2 (1.0-2.8) Lipase 63 (23-300) U/L Chlamy pneumoniae PCR Not detected (Not Detect) Adenovirus (PCR) Not detected (Not Detect) B.parapertussis DNA PCR Not detected (Not Detecte) Coronavirus OC43 (PCR) Not detected (Not Detect) Coronavirus HKU1 (PCR) Not detected (Not Detect) Coronavirus 229E (PCR) Not detected (Not Detect) SARS-CoV-2 (PCR) Not detected (Not Detecte) Coronavirus NL63 (PCR) Not detected (Not Detect) Human Metapneumovir PCR Not detected (Not Detect) Influenza Type A (PCR) Not detected (Not Detect) Influenza Type B (PCR) Not detected (Not Detect) M. pneumoniae (PCR) Not detected (Not Detect) Parainfluenza 1 (PCR) Not detected (Not Detect) Parainfluenza 2 (PCR) Not detected (Not Detect) Parainfluenza 3 (PCR) Not detected (Not Detect) Parainfluenza 4 (PCR) Not detected (Not Detect) RSV (PCR) Not detected (Not Detect) Entero/Rhino (PCR) Not detected (Not Detect) Urine Dip Bedside Urine Glucose Negative Bedside Urine Bilirubin - Negative Bedside Urine Ketone - Negative Urine Specific [place] 1.01 Bedside Urine Occult Blood - Negative Bedside Urine pH 7 Bedside Urine Protein - Negative Bedside Urine Urobilinogen - Negative Bedside Urine Nitrite - Negative Bedside Urine Leukocytes - Negative Esterase Discharge Plan Departure Patient Disposition: Home Clinical Impression: Cognitive changes, Disturbance, sleep Instructions: Mild Cognitive Impairment Activity Restrictions/Additional Instructions: *You have been diagnosed with cognitive changes. We did not find any evidence of infection, bleeding in your brain or other likely cause of your cognitive changes. Your sodium is a little bit low, so you can go ahead and eat salt with your food. You should follow-up with Gifty Diaz tomorrow as already discussed. I have prescribed a sleep medicine for you to use tonight. You should discuss with Gifty if this medication is appropriate for you in the group home. *What to do: *Please continue to take your regular medications as directed. [x] New medication prescriptions sent to your pharmacy: [facility] [ ] New medication written as a paper prescription [ ] No new medications given *Please follow up with your primary care provider in 2-3 days, call for an appointment. Let them know you were seen in the Emergency Department and that we ask that you be seen in follow up. We will electronically transmit a record of today's note if your PCP is in our system *If you do not have a primary care provider please contact the [facility] Resource line at [phone]. They will ask some questions about your medical history and help get you set up with a doctor in the community. *Return to Emergency Department if you should have any new, worsening or concerning symptoms, such as [fever greater than 101 F, shaking chills, worsening pain, persistent vomiting or other concerning symptoms]. Prescriptions: No Action magnesium oxide 400 mg (241.3 mg magnesium) tablet 400 mg PO QDAY Qty: 90 1RF calcium carbonate [Tums] 200 mg calcium (500 mg) tablet,chewable 200 mg PO BID cholecalciferol (vitamin D3) 50 mcg (2,000 unit) capsule 50 mcg PO DAILY Eliquis 5 mg tablet 5 mg PO BID metoprolol succinate 25 mg tablet extended release 24 hr See Rx Instructions .ROUTE .COMPLEX Qty: 90 3RF Dose Instruction: take 1 tablet by mouth once daily Rx Instructions: take 1 tablet by mouth once daily gemfibrozil 600 mg tablet See Rx Instructions .ROUTE .COMPLEX Qty: 90 3RF Dose Instruction: take 1 tablet by mouth once daily Rx Instructions: take 1 tablet by mouth once daily trazodone 50 mg tablet 25 mg PO BEDTIME PRN (Reason: sleep) Qty: 30 0RF Rx Instructions: Take 1/2 tablet at bedtime as needed for sleep Referrals: Deacon Weller DO [Primary Care Provider] - Stand Alone Forms: Patient Portal/API ED Sign-out <Laura Mcclendon DO - Last Filed: 07/23/23 07:33> Cosign ED Attending Cosgwenature Attestation: I was immediately available in the department for consultation. Case was discussed, discussed possible admission for cognitive change. Patient was reluctant to stay and has follow-up in the next day.
[2023-07-21 19:02] LABS: Adenovirus Not Detected (Not Detect); B. parapertussis Not Detected (Not Detecte); Bordetella pertussis Not Detected (Not Detect); Chlamydophila pneumoniae Not Detected (Not Detect); Coronavirus 229E Not Detected (Not Detect); Coronavirus HKU1 Not Detected (Not Detect); Coronavirus NL 63 Not Detected (Not Detect); Coronavirus OC43 Not Detected (Not Detect); Human Metapneumovirus Not Detected (Not Detect); Human Rhinovirus/Enterovirus Not Detected (Not Detect); Influenza A Not Detected (Not Detect); Influenza B Not Detected (Not Detect); Mycoplasma pneumoniae Not Detected (Not Detect); Parainfluenza Virus 1 Not Detected (Not Detect); Parainfluenza Virus 2 Not Detected (Not Detect); Parainfluenza Virus 3 Not Detected (Not Detect); Parainfluenza Virus 4 Not Detected (Not Detect); Respiratory Syncytial Virus Not Detected (Not Detect); SARS- CoV-2 Not Detected (Not Detecte)
[2023-07-21 19:15] LABS: Lipase 63 U/L (23-300)
[2023-07-21 19:36] VITALS: BP 171/94; PULSE 88; RESP 18; O2SAT 98
== END 2023-07-21 19:38 | disposition home or self-care (01) ==
PROVIDERS: Emergency Medicine; Emergency Provider Physician Assistant; PCP Family Medicine
DX: R41.89 Other symptoms and signs involving cognitive functions and awareness (principal); G47.9 Sleep disorder, unspecified; R41.0 Disorientation, unspecified; Z79.01 Long term (current) use of anticoagulants
CPT/HCPCS: 36415; 70450; 71046; 80053; 81003; 82140; 83690; 83735; 84100; 85025; 87633; 99284

== ENCOUNTER → 2023-07-22 10:38 | Outpatient (CLI) | payer OTHER, SELFPAY ==
[2023-07-22 11:50] LABS: TSH w/ Reflex to FT4 1.03 uIU/mL (0.47-4.68)
[2023-07-22 12:08] LABS: Vitamin B12 706 pg/mL (239-931)
== END ==
PROVIDERS: PCP Family Medicine; Visit Provider Physician Assistant
DX: R41.89 Other symptoms and signs involving cognitive functions and awareness (principal); G47.9 Sleep disorder, unspecified
CPT/HCPCS: 82607; 84443

== ENCOUNTER → 2023-07-28 10:14 | Outpatient (CLI) | payer OTHER, SELFPAY ==
--- NOTE | 2023-07-28 10:15 | DI.US.S_ITS ---
PROCEDURE: US CAROTID DOPPLER BI INDICATIONS: Cognitive changes TECHNIQUE: Color and pulse Doppler interrogation was performed of both carotid systems, with image documentation and velocity measurements. COMPARISON: None. FINDINGS: Stenosis calculations are based on SRU (Society of Radiologists in Ultras[employer]) criteria. Right side: Brachial blood pressure: 129/74 mm Hg. Common carotid artery peak systolic velocity: 80 cm/sec. Internal carotid artery peak systolic velocity: 53 cm/sec. Internal carotid artery end diastolic velocity: 20 cm/sec. External carotid artery peak systolic velocity: 68 cm/sec. ICA/CCA peak systolic ratio: 0.7 . Payne scale imaging description: Echogenic plaque present in the carotid body/proximal internal carotid artery is mild, less than 50%. Percent internal carotid artery stenosis: Mild, less than 50% . Vertebral artery: Flow direction is antegrade. Left side: Brachial blood pressure: 112/67 mm Hg. Common carotid artery peak systolic velocity: 76 cm/sec. Internal carotid artery peak systolic velocity: 68 cm/sec. Internal carotid artery end diastolic velocity: 7 cm/sec. External carotid artery peak systolic velocity: 62 cm/sec. ICA/CCA peak systolic ratio: 0.9 . Payne scale imaging description: Mild echogenic plaque in the carotid body/proximal right internal carotid artery, less than 50%. Percent internal carotid artery stenosis: Mild, less than 50%. . Vertebral artery: Flow direction is antegrade. IMPRESSION: Mild bilateral internal carotid artery stenosis, less than 50%. Dictated by: Toño Foster M.D. on 07/28/2023 at 15:31 Approved by: Toño Foster M.D. on 07/28/2023 at 15:41
== END ==
PROVIDERS: PCP Family Medicine; Referring Provider Physician Assistant; Visit Provider Physician Assistant
DX: R41.89 Other symptoms and signs involving cognitive functions and awareness (principal); I65.23 Occlusion and stenosis of bilateral carotid arteries
CPT/HCPCS: 93880

== ENCOUNTER → 2023-08-07 10:42 | Outpatient (CLI) | payer OTHER, SELFPAY ==
[2023-08-07 13:25] LABS: BUN Creatinine Ratio 22.5 (6-22); Blood Urea Nitrogen 25 mg/dL (9-20); Calcium 9.9 mg/dL (8.4-10.2); Carbon Dioxide 30 mmol/L (22-32); Chloride 100 mmol/L (98-107); Estimated Glomerular Filt Rate > 60 mL/min (>60); Glucose 93 mg/dL (80-110); HEMOLYSIS 20 (0-50); Sodium 133 mmol/L (137-145)
[2023-08-07 13:26] LABS: Potassium 5.6 mmol/L (3.4-5.1)
[2023-08-07 13:27] LABS: NT-proBNP (BNP-Adult 18+) 2110 pg/mL (<450)
== END ==
PROVIDERS: PCP Family Medicine; Referring Provider Nurse Practitioner; Visit Provider Nurse Practitioner
DX: I50.20 Unspecified systolic (congestive) heart failure (principal)
CPT/HCPCS: 36415; 80048; 83880

== ENCOUNTER → 2023-08-14 12:33 | Outpatient (CLI) | payer OTHER, SELFPAY ==
[2023-08-14 15:08] LABS: BUN Creatinine Ratio 24.3 (6-22); Blood Urea Nitrogen 28 mg/dL (9-20); Calcium 9.5 mg/dL (8.4-10.2); Carbon Dioxide 29 mmol/L (22-32); Chloride 104 mmol/L (98-107); Estimated Glomerular Filt Rate > 60 mL/min (>60); Glucose 108 mg/dL (80-110); HEMOLYSIS < 15 (0-50); Potassium 4.5 mmol/L (3.4-5.1); Sodium 140 mmol/L (137-145)
== END ==
PROVIDERS: PCP Family Medicine; Referring Provider Internal Medicine Cardiovascular Disease; Visit Provider Internal Medicine Cardiovascular Disease
DX: I48.0 Paroxysmal atrial fibrillation (principal)
CPT/HCPCS: 36415; 80048

== ENCOUNTER → 2023-09-28 08:52 | Outpatient (CLI) | payer OTHER, SELFPAY | PROVIDERS: Nurse Practitioner; PCP Family Medicine; Referring Provider Family Medicine; Visit Provider Family Medicine | DX: R19.7 Diarrhea, unspecified (principal); R19.5 Other fecal abnormalities; R68.83 Chills (without fever); R10.9 Unspecified abdominal pain | CPT/HCPCS: 87177 ==

== ENCOUNTER → 2023-11-11 10:07 | Outpatient (CLI) | payer OTHER, SELFPAY ==
[2023-11-11 11:00] LABS: Hematocrit 38.8 % (41-53); Hemoglobin 13.2 g/dL (13.5-17.5)
[2023-11-11 11:33] LABS: Alanine Aminotransferase 15 IU/L (<50); Albumin Globulin Ratio 1.1 (1.0-2.8); Alkaline Phosphatase 60 U/L (38-126); Aspartate Aminotransferase 27 IU/L (17-59); BUN Creatinine Ratio 19.4 (6-22); Bilirubin Total 1.2 mg/dL (0.2-1.3); Blood Urea Nitrogen 24 mg/dL (9-20); Calcium 9.3 mg/dL (8.4-10.2); Carbon Dioxide 30 mmol/L (22-32); Chloride 103 mmol/L (98-107); Estimated Glomerular Filt Rate 58 mL/min (>60); Globulin 3.7 g/dL (1.7-4.1); Glucose 80 mg/dL (80-110); HEMOLYSIS < 15 (0-50); Potassium 4.5 mmol/L (3.4-5.1); Sodium 138 mmol/L (137-145); Total Protein 7.7 g/dL (6.3-8.2)
[2023-11-11 12:12] LABS: Creatinine Urine Random 98.6 mg/dL; Protein (Total) Urine Random 11 mg/dL (0-12); Protein Creatinine Ratio Urine 0.11 GRAM/24H
[2023-11-14 12:09] LABS: Parathyroid Hormone Int 49 pg/mL (15-65)
== END ==
PROVIDERS: PCP Family Medicine; Referring Provider Student in an Organized Health Care Education/Training Program; Visit Provider Student in an Organized Health Care Education/Training Program
DX: N05.9 Unspecified nephritic syndrome with unspecified morphologic changes (principal); D64.9 Anemia, unspecified; N25.81 Secondary hyperparathyroidism of renal origin; R80.9 Proteinuria, unspecified; I10 Essential (primary) hypertension
CPT/HCPCS: 36415; 80053; 82570; 83970; 84156; 85014; 85018

== ENCOUNTER 2023-12-11 20:37 | Emergency (ER) | payer OTHER, SELFPAY ==
[2023-12-11] VITALS (8 sets, daily range): BP systolic 107–143; BP diastolic 52–76; PULSE 70–75; RESP 15–22; TEMP 35.9; O2SAT 70–100; BMI 25.4
[2023-12-11] MEDS: PANTOPRAZOLE 40 MG VIAL 80 MG IV (21:01)
[2023-12-11 21:08] LABS: Add Manual Diff / Slide Review NO; Basophils Absolute Auto 100 /uL (0-100); Basophils Percent Auto 0.9 % (0-2); Eosinophils Absolute Auto 100 /uL (0-450); Eosinophils Percent Auto 1.6 % (2-4); Hematocrit 35.8 % (41-53); Hemoglobin 12.1 g/dL (13.5-17.5); Lymphocytes Absolute Auto 1500 /uL (1100-4500); Lymphocytes Percent Auto 22.3 % (25-40); Mean Corpuscular HGB Conc 33.7 % (30-36); Mean Corpuscular Hemoglobin 31.3 PG (26-34); Monocytes Absolute Auto 600 /uL (0-900); Monocytes Percent Auto 9.7 % (3-14); Neutrophils Absolute Auto 4300 /uL (1500-7000); Neutrophils Percent Auto 65.5 % (50-75); Platelet Count 146 X10^3/uL (150-400); Red Blood Cell Count 3.85 X10^6/uL (4.5-5.9); Red Cell Distribution Width 14.9 % (11.6-14.8); White Blood Cell Count 6.6 X10^3/uL (4.5-11.0)
[2023-12-11 21:15] LABS: INR 1.4 (0.9-1.3); Prothrombin Time 16.5 SECONDS (9.4-12.5)
[2023-12-11 21:18] LABS: PTT Partial Thromboplastin Tim 47 SECONDS (25.1-36.5)
[2023-12-11 21:36] LABS: Alanine Aminotransferase 15 IU/L (<50); Albumin 3.9 g/dL (3.5-5.0); Albumin Globulin Ratio 1.3 (1.0-2.8); Alkaline Phosphatase 50 U/L (38-126); Aspartate Aminotransferase 24 IU/L (17-59); BUN Creatinine Ratio 27.3 (6-22); Bilirubin Total 0.8 mg/dL (0.2-1.3); Blood Urea Nitrogen 30 mg/dL (9-20); Carbon Dioxide 26 mmol/L (22-32); Chloride 109 mmol/L (98-107); Estimated Glomerular Filt Rate > 60 mL/min (>60); Globulin 2.9 g/dL (1.7-4.1); Glucose 113 mg/dL (80-110); HEMOLYSIS < 15 (0-50); Potassium 4.6 mmol/L (3.4-5.1); Sodium 139 mmol/L (137-145); Total Protein 6.8 g/dL (6.3-8.2)
--- NOTE | 2023-12-11 22:06 | ED.GIBLEED ---
HPI - GI Bleed General Chief complaint: GI Bleed Stated complaint: blood in urine/blood from rectum Time Seen by Provider: 12/11/23 21:25 Source: patient and family Mode of arrival: Ambulatory History of Present Illness HPI Narrative: 83-year-old male with history of AFib on Eliquis, hypertension, hyperlipidemia, mild dementia presents by private vehicle from home for bright red blood per rectum. Patient had a large bowel movement and filled the toilet bowl with bright red blood at home. Family members saw the bloody bowel movement and became concerned and brought him in for evaluation. Patient denies pain for previous history of bleeding. Last colonoscopy ?at least? 10 years ago, no abnormalities reported other than diverticular disease. Related Data Home Medications Medication Instructions Recorded Confirmed calcium carbonate 200 mg calcium 200 mg PO BID 01/07/19 12/07/23 (500 mg) chewable tablet (Tums) cholecalciferol (vitamin D3) 50 50 mcg PO DAILY 11/25/19 12/07/23 mcg (2,000 unit) capsule apixaban 5 mg tablet (Eliquis) 5 mg PO BID 03/20/22 12/07/23 metoprolol succinate 25 mg 25 mg PO DAILY 10/09/23 12/07/23 tablet,extended release 24 hr Previous Rx's Medication Instructions Recorded magnesium oxide 400 mg (241.3 mg 400 mg PO QDAY #90 tabs 02/16/19 magnesium) tablet gemfibrozil 600 mg tablet See Rx Instructions .Route 04/20/23 .COMPLEX #90 tabs memantine 5 mg tablet (Namenda) 5 mg PO BID #60 tabs 09/28/23 donepezil 10 mg tablet 10 mg PO DAILY #30 tabs 12/08/23 Allergies Allergy/AdvReac Type Severity Reaction Status Date / Time morphine [MORPHINE] Allergy Intermediate RASH Verified 12/07/23 16:04 Review of Systems Review of Systems Narrative: Negative except as noted above Patient History Medical History Chronic kidney disease Anemia Dementia Nightmares Gastroenteritis Tricuspid regurgitation Seasonal allergic rhinitis Bronchitis Cerumen impaction Chronic atrial fibrillation Ventral incisional hernia Corns and callosities Finger injury Well adult exam BPH loc w/o ur obs/LUTS GERD (gastroesophageal reflux disease) Left lower quadrant abdominal pain Renal insufficiency Osteopenia GI bleed Hiatal hernia Atrial fibrillation Cataracts, bilateral (~08/2016) Hypertension BPH (benign prostatic hyperplasia) Colon polyps Diverticular disease Hyperlipidemia Surgical History Hx of pyloroplasty Hx of cholecystectomy History of repair of hiatal hernia Family History Father Heart disease Stroke Mother History of breast cancer Sister History of breast cancer Social History Smoking Status: Former smoker Smoking Status: Former smoker alcohol intake frequency: 0-2 drinks per day Substance Use Type: does not use Exam Initial Vital Signs Initial Vital Signs: Vital Signs Temperature 96.7 F L 12/11/23 20:40 Pulse Rate 70 12/11/23 20:40 Respiratory Rate 18 12/11/23 20:40 Blood Pressure 129/69 12/11/23 20:40 Pulse Oximetry 100 12/11/23 20:40 Oxygen Delivery Method Room Air 12/11/23 20:40 Const: Awake, alert, no acute distress Cardiac: regular rate, regular rhythm RESP: unlabored, clear bilaterally, no wheezing GI: Soft, nontender, nondistended Rectal: Cut In Station Operator present, dried blood around rectum, tone intact Skin: Warm, Dry, intact, no rashes Neuro: AO x2, CN II-XII grossly intact, moves all extremities Course Orders Ordered: ED Orders 12/11/23 20:47 EKG-12 Lead Stat 12/11/23 20:55 Complete Blood Count AUTO DIFF Stat Comprehensive Metabolic Panel Stat PTT Partial Thromboplastin Andrzej Stat Prothrombin Time INR Stat Type and Screen Stat 12/11/23 22:06 CT angio Abd/Pel GI Bleed Stat 12/12/23 01:04 HH [Hemoglobin and Hematocrit] Stat 12/12/23 02:33 transfuse [Packed Cells] Stat 12/12/23 05:00 HH [Hemoglobin and Hematocrit] Stat Ondansetron HCl (Ondansetron 4 Mg/2 Ml Inj) 4 mg IV NOW PRN PRN Reason: Nausea And Vomiting Ondansetron HCl (Ondansetron 4 Mg Odt) 4 mg SL NOW PRN PRN Reason: Nausea And Vomiting Discontinued Medications Prothrombin Complex Concent ( Human) 4,500 unit/Miscellaneous 180 mls @ 545.4 mls/hr IV NOW ONE; Protocol Stop: 12/12/23 03:23 Prothrombin Complex Concent ( Human) 4,500 unit/Miscellaneous 180 mls @ 545.4 mls/hr IV NOW ONE; Protocol Stop: 12/12/23 03:34 Prothrombin Complex Concent ( Human) 2,000 unit/Miscellaneous 80 mls @ 545.4 mls/hr IV NOW ONE; Protocol Stop: 12/12/23 03:23 Last Infusion: 12/12/23 04:17 Dose: Infused Documented By: JUAN DAVID Admin: 12/12/23 04:00 Dose: 3 unit/kg/min, 545.4 mls/hr Documented By: JUAN DAVID Pantoprazole Sodium (Pantoprazole 40 Mg Vial) 80 mg IV NOW ONE Stop: 12/11/23 20:48 Last Admin: 12/11/23 21:01 Dose: 80 mg Documented By: NATHANIEL Vital Signs Vital signs: Vital Signs - 8 hr 12/11/23 21:26 12/11/23 21:26 12/11/23 21:30 Temperature Pulse Rate 74 72 Respiratory Rate 18 20 Blood Pressure 143/70 H Pulse Oximetry 99 98 12/11/23 21:30 12/11/23 22:00 12/11/23 22:00 Temperature Pulse Rate 75 Respiratory Rate 15 Blood Pressure 129/75 125/72 Pulse Oximetry 98 12/11/23 22:30 12/11/23 22:30 12/11/23 23:00 Temperature Pulse Rate 70 Respiratory Rate 19 Blood Pressure 129/63 Pulse Oximetry 98 70 L 12/11/23 23:03 12/11/23 23:03 12/11/23 23:30 Temperature Pulse Rate 72 Respiratory Rate 22 Blood Pressure 107/52 L 128/76 Pulse Oximetry 99 12/11/23 23:30 12/12/23 00:00 12/12/23 00:00 Temperature Pulse Rate 71 72 Respiratory Rate 21 20 Blood Pressure 119/70 Pulse Oximetry 98 97 12/12/23 00:30 12/12/23 00:30 12/12/23 01:00 Temperature Pulse Rate 85 75 Respiratory Rate 16 Blood Pressure 113/69 Pulse Oximetry 97 12/12/23 01:01 12/12/23 01:01 12/12/23 01:30 Temperature Pulse Rate 69 70 Respiratory Rate 12 16 Blood Pressure 109/55 L Pulse Oximetry 97 96 12/12/23 01:30 12/12/23 01:32 12/12/23 01:32 Temperature Pulse Rate 77 Respiratory Rate 15 Blood Pressure 84/55 L 90/54 L Pulse Oximetry 99 12/12/23 01:45 12/12/23 01:45 12/12/23 02:00 Temperature Pulse Rate 83 71 Respiratory Rate 17 17 Blood Pressure 98/77 Pulse Oximetry 96 95 12/12/23 02:00 12/12/23 02:15 12/12/23 02:15 Temperature Pulse Rate 77 Respiratory Rate 14 Blood Pressure 98/52 L 101/59 L Pulse Oximetry 95 12/12/23 02:30 12/12/23 02:31 12/12/23 02:31 Temperature Pulse Rate 82 79 Respiratory Rate 6 L 10 L Blood Pressure 72/53 L Pulse Oximetry 97 96 12/12/23 02:34 12/12/23 02:34 12/12/23 02:45 Temperature Pulse Rate 84 82 Respiratory Rate 20 17 Blood Pressure 90/50 L Pulse Oximetry 97 97 12/12/23 02:45 12/12/23 03:00 12/12/23 03:00 Temperature 97.0 F L 97 F L Pulse Rate 74 86 Respiratory Rate 16 18 Blood Pressure 98/54 L 98/54 L Pulse Oximetry 97 12/12/23 03:00 12/12/23 03:15 12/12/23 03:15 Temperature 97.2 F L Pulse Rate 74 79 Respiratory Rate 15 18 Blood Pressure 94/52 L 96/53 L Pulse Oximetry 97 12/12/23 03:15 12/12/23 03:19 12/12/23 03:19 Temperature Pulse Rate 78 Respiratory Rate 18 Blood Pressure 96/52 L 96/53 L Pulse Oximetry 96 12/12/23 03:30 12/12/23 03:30 12/12/23 03:45 Temperature Pulse Rate 79 76 Respiratory Rate 11 L 18 Blood Pressure 96/53 L Pulse Oximetry 96 97 12/12/23 03:45 12/12/23 04:00 12/12/23 04:00 Temperature Pulse Rate 82 Respiratory Rate 18 Blood Pressure 105/53 L 110/57 L Pulse Oximetry 99 12/12/23 04:15 12/12/23 04:15 12/12/23 04:30 Temperature Pulse Rate 83 Respiratory Rate 15 Blood Pressure 109/57 L 110/56 L Pulse Oximetry 98 12/12/23 04:30 Temperature Pulse Rate 81 Respiratory Rate 18 Blood Pressure Pulse Oximetry 97 MDM - GI Bleed Differential Diagnosis Differential diagnosis: Likely hemorrhoids, infectious diarrhea and esophageal varices Lab Data 12/12/23 01:04 12/11/23 20:55 Labs: Lab Results 12/11/23 12/12/23 Range/Units 20:55 01:04 WBC 6.6 (4.5-11.0) X10^3/uL RBC 3.85 L (4.5-5.9) X10^6/uL Hgb 12.1 L 10.7 L (13.5-17.5) g/dL Hct 35.8 L 32.6 L (41-53) % MCV 93.0 (80-100) fL MCH 31.3 (26-34) PG MCHC 33.7 (30-36) % RDW 14.9 H (11.6-14.8) % Plt Count 146 L (150-400) X10^3/uL Neut % (Auto) 65.5 (50-75) % Lymph % (Auto) 22.3 L (25-40) % [place] % (Auto) 9.7 (3-14) % Eos % (Auto) 1.6 L (2-4) % Baso % (Auto) 0.9 (0-2) % Neut # (Auto) 4300 (6646-9209) /uL Lymph # (Auto) 1500 (6139-0968) /uL [place] # (Auto) 600 (0-900) /uL Eos # (Auto) 100 (0-450) /uL Baso # (Auto) 100 (0-100) /uL PT 16.5 H (9.4-12.5) SECONDS INR 1.4 H (0.9-1.3) APTT 47 H (25.1-36.5) SECONDS Sodium 139 (137-145) mmol/L Potassium 4.6 (3.4-5.1) mmol/L Chloride 109 H (98-107) mmol/L Carbon Dioxide 26 (22-32) mmol/L BUN 30 H (9-20) mg/dL Creatinine 1.10 (0.66-1.25) mg/dL Estimated GFR > 60 (>60) mL/min BUN/Creatinine Ratio 27.3 H (6-22) Glucose 113 H (80-110) mg/dL Calcium 9.0 (8.4-10.2) mg/dL Total Bilirubin 0.8 (0.2-1.3) mg/dL AST 24 (17-59) IU/L ALT 15 (<50) IU/L Alkaline Phosphatase 50 (38-126) U/L Total Protein 6.8 (6.3-8.2) g/dL Albumin 3.9 (3.5-5.0) g/dL Globulin 2.9 (1.7-4.1) g/dL Albumin/Globulin Ratio 1.3 (1.0-2.8) Blood Type A Positive Antibody Screen Negative Crossmatch See Detail Imaging Data CT scan - abdomen/pelvis: Radiologist's Impression: PROCEDURE: CT ANGIO ABD/PEL GI BLEED INDICATIONS: BRIGHT RED BLOOD PER RECTUM TECHNIQUE: After the administration of intravenous contrast, 2.5 mm thick sections acquired from the diaphragm to the symphysis. 10 mm maximum-intensity projection (MIP) reformats were then acquired. For radiation dose reduction, the following was used: automated exposure control. COMPARISON: CT, ABDOMEN/PELVIS WITH CONTRAST, 05/15/2016, 2:42. [facility], CT, CT ABDOMEN PELVIS W CON, 06/08/2019, 9:38. FINDINGS: Image Quality: Diagnostic. Abdominal aorta: No aortic aneurysm. There is a small chronic dissection in the infrarenal abdominal aorta just above the bifurcation (series 5, image 87). Severe atherosclerosis. Mesenteric arteries: Patent without hemodynamically significant stenosis. Renal arteries: Patent without hemodynamically significant stenosis. OTHER: Lower Chest: Lung bases are clear. Mild cardiomegaly. Small hiatal hernia. Liver: There is a 0.9 cm enhancing nodule in the anterior aspect of the inferior liver, which is only seen on the arterial phase and not visible on portal venous phase, most likely a small flash hemangioma. Gallbladder: Surgically absent. Biliary ducts: No biliary dilation. Pancreas: No ductal dilation. Spleen: Size is within normal limits. Multiple calcified granulomas in spleen. Adrenal Glands: No adrenal nodules. Kidneys and Ureters: No hydronephrosis. No solid mass. There is a 3.5 cm simple cyst in the superior pole of the left kidney. No complex renal cystic lesion which requires follow up. Stomach and Bowel: Normal colonic caliber, without significant wall thickening. Peritoneum: No abnormal intraperitoneal fluid. No free air. Ventral Wall: There is a small hernia. A tiny fat containing umbilical hernia is noted. Abdominal Nodes: No retroperitoneal or mesenteric adenopathy by size criteria. Vessels: Aorta and inferior vena cava are normal in size. PELVIS: Pelvic Organs: Unremarkable. Bladder: Mild bladder wall thickening. Question TURP. Pelvic Nodes: No enlarged lymph nodes. Miscellaneous: No inguinal hernias are seen. Bones: No aggressive osseous abnormality. Trace anterolisthesis of L5 on S1. Mild degenerative disc disease and moderate facet arthropathy in lumbar spine. IMPRESSION: 1. Contrast blushing in the area of the hepatic fracture, consistent with acute bleed. There is a diverticulum in the area. The source of bleeding is most likely related to diverticular disease. 2. A small chronic infrarenal aortic dissection. 3. Severe atherosclerosis. 4. Diverticulosis without diverticulitis. 5. A large amount of stool in colon. 6. Multiple calcified granulomas in spleen. Dictated by: Kale Kearns M.D. on 12/12/2023 at 0:39 Approved by: Kale Kearns M.D. on 12/12/2023 at 1:29 MDM Narrative Medical decision making narrative: Bright red blood per rectum this afternoon. Family members brought a bowl from home filled with what appears to be bright red blood. Patient currently hemodynamically stable, abdomen is soft with no significant reproducible tenderness to light or deep palpation. History of diverticular disease but no recent colonoscopy. Dried blood on rectum. Type and screen sent to lab, we will order CT angio of the abdomen and pelvis to look for active bleed. Laboratory work today shows hemoglobin 12.1, patient's baseline hemoglobin is 13 to 14. Other labs significant for WBC count 6.6, platelets 146, sodium 139, potassium 4.6, creatinine 1.1, GFR greater than 60, liver enzymes within normal limits. Pending CT angio of the abdomen and pelvis. While waiting for results of CT scan patient had large bloody bowel movement in the bathroom. While standing after bowel movement he became orthostatic and briefly blacked out, however ED staff was present and patient did not fall or hit his head. Repeat H&H ordered. CT of the abdomen and pelvis shows blush of contrast at the hepatic flexure concerning for active bleeding. Repeat H&H 10.7. With an active blush of bleeding we will consult with Interventional Radiology. We did not have GI or interventional radiology at our facility. While pending call back from interventional radiology patient had several episodes of hypotension with systolic blood pressure in the 80s and map less than 65. Even though hemoglobin most recently is 10.7, with hypotension a unit of packed red blood cells ordered for transfusion. Discussed case with Dr. Flanagan's of interventional radiology at [facility]. He recommended reversal of Eliquis with Kcentra as well as agrees to see patient in consult if he was transferred to hospital. [id number] - [facility] arrived to take patient. He has received blood products and Kcentra. No further episodes of bleeding. BP improved after blood transfusion. Critical Care Time Critical Care Time Critical Care Time: Yes Total Critical Care Time: 41 Attestation: Lower GI bleed requiring transfusion of packed red blood cells, correction of anticoagulation, discussion with Interventional Radiology and transfer for higher level of care Discharge Plan Departure Patient Disposition: [facility] Clinical Impression: Acute lower gastrointestinal bleeding, Anemia, Chronic anticoagulation Prescriptions: No Action magnesium oxide 400 mg (241.3 mg magnesium) tablet 400 mg PO QDAY Qty: 90 1RF metoprolol succinate 25 mg tablet extended release 24 hr 25 mg PO DAILY Rx Instructions: 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 then continue twice a day Eliquis 5 mg tablet 5 mg PO BID gemfibrozil 600 mg tablet See Rx Instructions .ROUTE .COMPLEX Qty: 90 3RF Dose Instruction: take 1 tablet by mouth once daily Rx Instructions: take 1 tablet by mouth once daily Referrals: Deacon Weller, [Primary Care Provider] -
[2023-12-12] VITALS (23 sets, daily range): BP systolic 72–119; BP diastolic 50–77; PULSE 69–86; RESP 6–24; TEMP 36.1–36.3; O2SAT 95–99
--- NOTE | 2023-12-12 01:06 | PC.NURSE ---
Pt ambulated to bathroom. Placed hat in toilet, Pt Had over 1000ml out of dark red blood out of rectum. he stated he couldn't stop and he was becoming dizzy. had second nurse bring wheel chair and assist pt to stand and provide pericare. during this time pt became clammy and did not follow directions. 2 nurses able to get patient into w/c and back to bed.
[2023-12-12 01:23] LABS: Hematocrit 32.6 % (41-53); Hemoglobin 10.7 g/dL (13.5-17.5)
--- NOTE | 2023-12-12 02:09 | PC.NURSE ---
Pt needs to be transferred to a facility with IR: [id number]-[facility] waitlist [id number]-[facility] waitlist [id number]- Prov has no beds but they are looking at [facility] and paging out the surgeon for a consult [id number]- no beds 0150- [facility] doc was paged for a consult in hopes to transfer
[2023-12-12] MEDS: PROTHROMBIN CPLX(PCC)4FACT 2,000 UNIT in ISOOSMOTIC VEHICLE 0 ML 545.4 UNIT IV (04:00)
== END 2023-12-12 05:07 | disposition short-term general hospital (02) ==
PROVIDERS: Emergency Provider Emergency Medicine; PCP Family Medicine
DX: K92.2 Gastrointestinal hemorrhage, unspecified (principal); D64.9 Anemia, unspecified; I95.9 Hypotension, unspecified; R79.89 Other specified abnormal findings of blood chemistry; Z79.01 Long term (current) use of anticoagulants; Z79.899 Other long term (current) drug therapy
CPT/HCPCS: 36415; 36430; 74174; 80053; 85014; 85018; 85025; 85610; 85730; 86850; 86900; 86901; 93005; 93010; 96365; 96375; 99285; 99291; P9016; C9113; J7168; Q9967

== ENCOUNTER → 2023-12-17 09:12 | Outpatient (CLI) | payer OTHER, SELFPAY ==
[2023-12-17 10:25] LABS: Add Manual Diff / Slide Review NO; Basophils Absolute Auto 0 /uL (0-100); Basophils Percent Auto 1.1 % (0-2); Eosinophils Absolute Auto 100 /uL (0-450); Eosinophils Percent Auto 1.7 % (2-4); Hematocrit 28.5 % (41-53); Hemoglobin 9.6 g/dL (13.5-17.5); Lymphocytes Absolute Auto 900 /uL (1100-4500); Lymphocytes Percent Auto 21.2 % (25-40); Mean Corpuscular HGB Conc 33.8 % (30-36); Mean Corpuscular Hemoglobin 31.5 PG (26-34); Monocytes Absolute Auto 400 /uL (0-900); Monocytes Percent Auto 10.3 % (3-14); Neutrophils Absolute Auto 2800 /uL (1500-7000); Neutrophils Percent Auto 65.7 % (50-75); Platelet Count 165 X10^3/uL (150-400); Red Blood Cell Count 3.06 X10^6/uL (4.5-5.9); Red Cell Distribution Width 14.3 % (11.6-14.8); White Blood Cell Count 4.3 X10^3/uL (4.5-11.0)
== END ==
LOC: LAB 09:14
PROVIDERS: PCP Family Medicine; Referring Provider Physician Assistant; Visit Provider Physician Assistant
DX: D64.9 Anemia, unspecified (principal); N28.9 Disorder of kidney and ureter, unspecified; K62.5 Hemorrhage of anus and rectum
CPT/HCPCS: 36415; 85025

== ENCOUNTER → 2024-04-08 07:26 | Outpatient (CLI) | payer OTHER, SELFPAY ==
[2024-04-08 07:50] LABS: Add Manual Diff / Slide Review NO; Basophils Absolute Auto 0 /uL (0-100); Basophils Percent Auto 0.8 % (0-2); Eosinophils Absolute Auto 100 /uL (0-450); Eosinophils Percent Auto 2.4 % (2-4); Hematocrit 40.6 % (41-53); Hemoglobin 13.5 g/dL (13.5-17.5); Lymphocytes Absolute Auto 1800 /uL (1100-4500); Mean Corpuscular HGB Conc 33.2 % (30-36); Mean Corpuscular Hemoglobin 29.6 PG (26-34); Mean Corpuscular Volume 89.3 fL (80-100); Monocytes Absolute Auto 600 /uL (0-900); Monocytes Percent Auto 10.2 % (3-14); Neutrophils Absolute Auto 3300 /uL (1500-7000); Neutrophils Percent Auto 56.6 % (50-75); Platelet Count 148 X10^3/uL (150-400); Red Blood Cell Count 4.55 X10^6/uL (4.5-5.9); Red Cell Distribution Width 14.9 % (11.6-14.8); White Blood Cell Count 5.9 X10^3/uL (4.5-11.0)
[2024-04-08 08:17] LABS: HEMOLYSIS < 15 (0-50); Iron 107 ug/dL (49-181)
[2024-04-08 08:18] LABS: Alanine Aminotransferase 21 IU/L (<50); Albumin 3.9 g/dL (3.5-5.0); Albumin Globulin Ratio 1.1 (1.0-2.8); Alkaline Phosphatase 61 U/L (38-126); Aspartate Aminotransferase 31 IU/L (17-59); BUN Creatinine Ratio 19.5 (6-22); Bilirubin Total 1.4 mg/dL (0.2-1.3); Blood Urea Nitrogen 23 mg/dL (9-20); Calcium 9.2 mg/dL (8.4-10.2); Carbon Dioxide 26 mmol/L (22-32); Chloride 103 mmol/L (98-107); Estimated Glomerular Filt Rate > 60 mL/min (>60); Globulin 3.5 g/dL (1.7-4.1); Glucose 96 mg/dL (80-110); HEMOLYSIS < 15 (0-50); Potassium 4.6 mmol/L (3.4-5.1); Sodium 136 mmol/L (137-145); Total Protein 7.4 g/dL (6.3-8.2)
[2024-04-08 08:28] LABS: Percent Iron Saturation 31 % (20-50); Total Iron Binding Capacity 343 ug/dL (261-462); Transferrin 252 mg/dL (206-381)
[2024-04-08 09:07] LABS: Vitamin B12 758 pg/mL (239-931)
== END ==
PROVIDERS: PCP Family Medicine; Referring Provider Family Medicine; Visit Provider Family Medicine
DX: D64.9 Anemia, unspecified (principal); I48.20 Chronic atrial fibrillation, unspecified; N40.0 Benign prostatic hyperplasia without lower urinary tract symptoms; I10 Essential (primary) hypertension
CPT/HCPCS: 36415; 80053; 82607; 83540; 83550; 85025

== ENCOUNTER → 2024-05-29 11:30 | Outpatient (CLI) | payer OTHER, SELFPAY ==
[2024-05-29 12:26] LABS: Influenza A - CEPHEID Flu A NEGATIVE (NEGATIVE); Influenza B - CEPHEID Flu B NEGATIVE (NEGATIVE); Respiratory Syncytial Virus Negative (Negative)
[2024-05-29 12:28] LABS: COVID-19 CEPHEID 4-PLEX PCR Negative (Negative)
== END ==
PROVIDERS: PCP Family Medicine; Visit Provider Nurse Practitioner Family
DX: R05.9 Cough, unspecified (principal)
CPT/HCPCS: 0241U

== ENCOUNTER → 2024-06-23 14:59 | Outpatient (CLI) | payer OTHER, SELFPAY ==
--- NOTE | 2024-06-23 15:00 | DI.RAD.S_ITS ---
PROCEDURE: XR CHEST 2V INDICATIONS: chronic productive cough TECHNIQUE: 2 views of the chest were acquired. COMPARISON: [facility], CR, XR CHEST 2V, 07/21/2023, 17:18. FINDINGS: Surgical changes and devices: None. Lungs and pleura: Lungs are clear. No pleural effusions or pneumothorax. Mediastinum: Mediastinal contours are normal. Heart size is normal. Bones and chest wall: No suspicious bony abnormalities. Soft tissues appear unremarkable. IMPRESSION: No acute cardiopulmonary abnormality is seen. Dictated by: Ananth Rice M.D. on 06/23/2024 at 16:45 Approved by: Ananth Rice M.D. on 06/23/2024 at 16:45
== END ==
LOC: RAD 15:00
PROVIDERS: PCP Family Medicine; Referring Provider Family Medicine; Visit Provider Family Medicine
DX: R05.8 Other specified cough (principal); R05.3 Chronic cough
CPT/HCPCS: 71046

== ENCOUNTER → 2024-09-19 13:04 | Outpatient (CLI) | payer OTHER, SELFPAY ==
[2024-09-19 14:12] LABS: Hematocrit 42.2 % (41-53)
[2024-09-19 14:25] LABS: BUN Creatinine Ratio 17.9 (6-22); Blood Urea Nitrogen 24 mg/dL (9-20); Calcium 9.2 mg/dL (8.4-10.2); Carbon Dioxide 28 mmol/L (22-32); Chloride 106 mmol/L (98-107); Estimated Glomerular Filt Rate 53 mL/min (>60); Glucose 71 mg/dL (80-110); HEMOLYSIS < 15 (0-50); Potassium 4.8 mmol/L (3.4-5.1); Sodium 140 mmol/L (137-145)
[2024-09-19 14:34] LABS: Creatinine Urine Random 103.63 mg/dL; Protein (Total) Urine Random 6 mg/dL (0-12); Protein Creatinine Ratio Urine 0.05 GRAM/24H
[2024-09-21 08:36] LABS: Parathyroid Hormone Int 67 pg/mL (15-65)
== END ==
PROVIDERS: PCP Family Medicine; Referring Provider Student in an Organized Health Care Education/Training Program; Visit Provider Student in an Organized Health Care Education/Training Program
DX: D70.9 Neutropenia, unspecified (principal); N05.9 Unspecified nephritic syndrome with unspecified morphologic changes; D63.1 Anemia in chronic kidney disease; N25.81 Secondary hyperparathyroidism of renal origin; R80.9 Proteinuria, unspecified
CPT/HCPCS: 36415; 80048; 82570; 83970; 84156; 85014; 85018

== ENCOUNTER 2024-10-09 02:10 | Emergency (ER) | payer OTHER, SELFPAY ==
[2024-10-09] VITALS (26 sets, daily range): BP systolic 91–153; BP diastolic 53–76; PULSE 62–92; RESP 16–31; TEMP 36.5; O2SAT 93–99; BMI 28.4
--- NOTE | 2024-10-09 02:27 | ED_ITS ---
HPI - GI Bleed <Imtiaz Backwilmer, - Last Filed: 10/09/24 06:51> General Chief complaint: GI Bleed Stated complaint: Rectal bleeding Time Seen by Provider: 10/09/24 02:27 Source: patient Mode of arrival: Ambulatory History of Present Illness HPI Narrative: 83-year-old male with a history of AFib on Eliquis, hypertension hyperlipidemia mild dementia presents from home for evaluation of bright red blood per rectum, states that approximately 1 hour ago he woke up and there was a significant amount of blood in the bed at bedside states that this has happened previously. Patient states that at that time they presented here and was sent to another hospital where he had a procedure done. To note patient has had a Watchman placed and is supposed to stop his Eliquis in a proximally 1 month. He denies any abdominal pain. Related Data Home Medications Medication Instructions Recorded Confirmed calcium carbonate (Tums) 200 mg PO BID 01/07/19 06/23/24 cholecalciferol (vitamin D3) 50 50 mcg PO DAILY 11/25/19 06/23/24 mcg (2,000 unit) capsule apixaban 5 mg tablet (Eliquis) 5 mg PO BID 03/20/22 06/23/24 melatonin 5 mg capsule 5 mg PO .hs PRN 12/16/23 06/23/24 metoprolol succinate 25 mg 12.5 mg PO DAILY 12/28/23 06/23/24 tablet,extended release 24 hr rosuvastatin 10 mg tablet 10 mg PO ONCE PM 12/28/23 06/23/24 ketorolac 0.5 % eye drops drp EYE-BOTH 06/23/24 06/23/24 prednisolone acetate 1 % eye drp EYE-BOTH 06/23/24 06/23/24 drops,suspension Previous Rx's Medication Instructions Recorded magnesium oxide 400 mg (241.3 mg 400 mg PO QDAY #90 tabs 02/16/19 magnesium) tablet gemfibrozil 600 mg tablet See Rx Instructions .Route 04/21/24 .COMPLEX #90 tabs benzonatate 200 mg capsule 200 mg PO BID PRN cough #28 caps 05/29/24 azithromycin 250 mg tablet See Rx Instructions PO .COMPLEX #6 06/23/24 tabs donepezil 10 mg tablet 10 mg PO DAILY #30 tabs 08/26/24 memantine 5 mg tablet 5 mg PO BID #60 tabs 09/26/24 Allergies Allergy/AdvReac Type Severity Reaction Status Date / Time morphine [MORPHINE] Allergy Intermediate RASH Verified 06/23/24 14:14 Review of Systems <Imtiaz Andrews DO - Last Filed: 10/09/24 06:51> Review of Systems Narrative: General: Denies fever, chills, weight loss HEENT: Denies headache, eye drainage, eye irritation, head trauma, sore throat, voice change Cardiovascular: Denies any chest pain, palpitations, shortness of breath, tachycardia Respiratory: Denies any shortness of breath, cough, wheeze, stridor GI/: Positive bright red blood per rectum, Denies any abdominal pain, nausea, vomiting, diarrhea, melanotic stools, urinary frequency, urinary retention, dysuria, hematuria MSK: Denies any joint pain, muscle pains, swelling Skin: Denies any rashes, lesions, discoloration Neuro: Denies any headache, lightheadedness, dizziness, fainting, weakness Psych: Denies SI/HI Patient History <Imtiaz Andrews DO - Last Filed: 10/09/24 06:51> Medical History (Updated 10/09/24 @ 16:12 by Demetrius Brannon MD) Chronic bronchitis with productive mucopurulent cough Chronic kidney disease Anemia Dementia Nightmares Gastroenteritis Tricuspid regurgitation Seasonal allergic rhinitis Bronchitis Cerumen impaction Chronic atrial fibrillation Ventral incisional hernia Corns and callosities Finger injury Well adult exam BPH loc w/o ur obs/LUTS GERD (gastroesophageal reflux disease) Left lower quadrant abdominal pain Renal insufficiency Osteopenia GI bleed Hiatal hernia Atrial fibrillation Cataracts, bilateral (~08/2016) Hypertension BPH (benign prostatic hyperplasia) Colon polyps Diverticular disease Hyperlipidemia Surgical History Hx of pyloroplasty Hx of cholecystectomy History of repair of hiatal hernia Family History Father Heart disease Stroke Mother History of breast cancer Sister History of breast cancer Social History Smoking Status: Former smoker Smoking Status: Former smoker alcohol intake frequency: 0-2 drinks per day Exam <Imtiaz Andrews DO - Last Filed: 10/09/24 06:51> Narrative Exam Narrative: General: Cooperative, comfortable, well-developed, not in acute distress HEENT: Normocephalic, atraumatic, PERRLA, normal sclera, eyelids normal, Neck: Active full range of motion, atraumatic Chest: Normal to inspection, negative crepitus, no overlying erythema ecchymosis Respiratory: Normal respiratory effort, not in acute respiratory distress, clear to auscultation bilaterally negative cough, wheeze, tachypnea, rhonchi, rales Cardiology: Regular rate rhythm negative gallop, murmur, rubs GI/: Normal to inspection, soft, nonrigid, no tenderness to palpation, patient with bright red blood per rectum no internal external hemorrhoids noted, no anal fissures, Hemoccult positive MSK: Full range of active range of motion of all 4 extremities, atraumatic Skin: No rashes lesions noted Neuro: Alert awake oriented x3, moves all 4 extremities spontaneously, cranial nerves intact, able to answer all questions appropriately follows commands appropriately Psych: Cooperative, negative suicidal or homicidal ideations Initial Vital Signs Initial Vital Signs: Vital Signs Pulse Oximetry 95 10/09/24 02:21 <Demetrius Brannon MD - Last Filed: 10/09/24 19:58> Initial Vital Signs Initial Vital Signs: Vital Signs Pulse Oximetry 95 10/09/24 02:21 Course <Imtiaz Andrews DO - Last Filed: 10/09/24 06:51> Orders Ordered: Discontinued Medications Prothrombin Complex Concent ( Human) 2,000 unit/Miscellaneous 80 mls @ 620.518 mls/hr IV NOW ONE; Protocol Stop: 10/09/24 04:47 Last Infusion: 10/09/24 05:18 Dose: Infused Documented By: Admin: 10/09/24 05:04 Dose: 3 unit/kg/min, 620.518 mls/hr Documented By: KEIKO Lidocaine HCl (Lidocaine 2% (Glydo) 6 Ml Gel) 6 ml TOP NOW ONE Stop: 10/09/24 11:03 Last Admin: 10/09/24 11:05 Dose: 6 ml Documented By: MARIO Vital Signs Vital signs: Vital Signs - 8 hr 10/09/24 02:21 10/09/24 02:22 10/09/24 02:22 Temperature Pulse Rate 77 Respiratory Rate Blood Pressure 144/76 H Pulse Oximetry 95 95 Oxygen Delivery Method 10/09/24 02:23 10/09/24 02:30 10/09/24 02:30 Temperature 97.7 F Pulse Rate 69 70 Respiratory Rate 20 Blood Pressure 144/76 H 146/75 H Pulse Oximetry 97 98 Oxygen Delivery Method Room Air 10/09/24 03:08 10/09/24 03:30 10/09/24 04:00 Temperature Pulse Rate 79 68 62 Respiratory Rate 18 Blood Pressure Pulse Oximetry 98 96 95 Oxygen Delivery Method Room Air 10/09/24 04:30 10/09/24 04:51 10/09/24 04:51 Temperature Pulse Rate 73 80 Respiratory Rate 16 Blood Pressure 139/68 Pulse Oximetry 97 98 Oxygen Delivery Method Room Air 10/09/24 05:00 10/09/24 05:00 10/09/24 05:30 Temperature Pulse Rate 72 80 Respiratory Rate 16 Blood Pressure 116/60 Pulse Oximetry 96 97 Oxygen Delivery Method Room Air 10/09/24 05:30 10/09/24 06:00 10/09/24 06:00 Temperature Pulse Rate 65 Respiratory Rate 16 Blood Pressure 116/66 117/70 Pulse Oximetry 96 Oxygen Delivery Method Room Air 10/09/24 06:30 10/09/24 06:30 10/09/24 07:00 Temperature Pulse Rate 73 Respiratory Rate 18 Blood Pressure 118/67 104/61 Pulse Oximetry 96 Oxygen Delivery Method Room Air 10/09/24 07:00 10/09/24 07:30 10/09/24 07:30 Temperature Pulse Rate 74 87 Respiratory Rate Blood Pressure 153/67 H Pulse Oximetry 97 97 Oxygen Delivery Method Room Air 10/09/24 08:00 10/09/24 08:01 10/09/24 08:01 Temperature Pulse Rate 86 86 Respiratory Rate 27 H 25 H Blood Pressure 121/70 Pulse Oximetry 97 97 Oxygen Delivery Method Room Air 10/09/24 08:30 10/09/24 08:30 10/09/24 09:00 Temperature Pulse Rate 90 88 Respiratory Rate 18 18 Blood Pressure 111/71 Pulse Oximetry 96 95 Oxygen Delivery Method 10/09/24 09:00 10/09/24 09:30 10/09/24 09:30 Temperature Pulse Rate 87 Respiratory Rate 20 Blood Pressure 122/58 L 121/66 Pulse Oximetry 97 Oxygen Delivery Method 10/09/24 10:00 10/09/24 10:00 Temperature Pulse Rate 86 Respiratory Rate 19 Blood Pressure 117/59 L Pulse Oximetry 96 Oxygen Delivery Method <Demetrius Brannon MD - Last Filed: 10/09/24 19:58> Orders Ordered: Discontinued Medications Prothrombin Complex Concent ( Human) 2,000 unit/Miscellaneous 80 mls @ 620.518 mls/hr IV NOW ONE; Protocol Stop: 10/09/24 04:47 Last Infusion: 10/09/24 05:18 Dose: Infused Documented By: Admin: 10/09/24 05:04 Dose: 3 unit/kg/min, 620.518 mls/hr Documented By: KEIKO Lidocaine HCl (Lidocaine 2% (Glydo) 6 Ml Gel) 6 ml TOP NOW ONE Stop: 10/09/24 11:03 Last Admin: 10/09/24 11:05 Dose: 6 ml Documented By: MARIO Vital Signs Vital signs: Vital Signs - 8 hr 10/09/24 02:21 10/09/24 02:22 10/09/24 02:22 Temperature Pulse Rate 77 Respiratory Rate Blood Pressure 144/76 H Pulse Oximetry 95 95 Oxygen Delivery Method 10/09/24 02:23 10/09/24 02:30 10/09/24 02:30 Temperature 97.7 F Pulse Rate 69 70 Respiratory Rate 20 Blood Pressure 144/76 H 146/75 H Pulse Oximetry 97 98 Oxygen Delivery Method Room Air 10/09/24 03:08 10/09/24 03:30 10/09/24 04:00 Temperature Pulse Rate 79 68 62 Respiratory Rate 18 Blood Pressure Pulse Oximetry 98 96 95 Oxygen Delivery Method Room Air 10/09/24 04:30 10/09/24 04:51 10/09/24 04:51 Temperature Pulse Rate 73 80 Respiratory Rate 16 Blood Pressure 139/68 Pulse Oximetry 97 98 Oxygen Delivery Method Room Air 10/09/24 05:00 10/09/24 05:00 10/09/24 05:30 Temperature Pulse Rate 72 80 Respiratory Rate 16 Blood Pressure 116/60 Pulse Oximetry 96 97 Oxygen Delivery Method Room Air 10/09/24 05:30 10/09/24 06:00 10/09/24 06:00 Temperature Pulse Rate 65 Respiratory Rate 16 Blood Pressure 116/66 117/70 Pulse Oximetry 96 Oxygen Delivery Method Room Air 10/09/24 06:30 10/09/24 06:30 10/09/24 07:00 Temperature Pulse Rate 73 Respiratory Rate 18 Blood Pressure 118/67 104/61 Pulse Oximetry 96 Oxygen Delivery Method Room Air 10/09/24 07:00 10/09/24 07:30 10/09/24 07:30 Temperature Pulse Rate 74 87 Respiratory Rate Blood Pressure 153/67 H Pulse Oximetry 97 97 Oxygen Delivery Method Room Air 10/09/24 08:00 10/09/24 08:01 10/09/24 08:01 Temperature Pulse Rate 86 86 Respiratory Rate 27 H 25 H Blood Pressure 121/70 Pulse Oximetry 97 97 Oxygen Delivery Method Room Air 10/09/24 08:30 10/09/24 08:30 10/09/24 09:00 Temperature Pulse Rate 90 88 Respiratory Rate 18 18 Blood Pressure 111/71 Pulse Oximetry 96 95 Oxygen Delivery Method 10/09/24 09:00 10/09/24 09:30 10/09/24 09:30 Temperature Pulse Rate 87 Respiratory Rate 20 Blood Pressure 122/58 L 121/66 Pulse Oximetry 97 Oxygen Delivery Method 10/09/24 10:00 10/09/24 10:00 Temperature Pulse Rate 86 Respiratory Rate 19 Blood Pressure 117/59 L Pulse Oximetry 96 Oxygen Delivery Method MDM - GI Bleed <Imtiaz Andrews, DO - Last Filed: 10/09/24 06:51> Differential Diagnosis Differential diagnosis: Likely Upper gastrointestinal hemorrhage, Lower gastrointestinal hemorrhage, hematochezia, melena and other (Anemia) Lab Data 10/09/24 06:53 10/09/24 02:28 Labs: Lab Results 10/09/24 10/09/24 10/09/24 Range/Units 02:28 04:33 06:53 WBC 6.7 (4.5-11.0) X10^3/uL RBC 4.29 L (4.5-5.9) X10^6/uL Hgb 13.5 11.6 L 11.2 L (13.5-17.5) g/dL Hct 40.2 L 34.5 L 33.2 L (41-53) % MCV 93.7 (80-100) fL MCH 31.4 (26-34) PG MCHC 33.5 (30-36) % RDW 14.1 (11.6-14.8) % Plt Count 160 (150-400) X10^3/uL Neut % (Auto) 57.0 (50-75) % Lymph % (Auto) 29.0 (25-40) % [place] % (Auto) 10.8 (3-14) % Eos % (Auto) 2.1 (2-4) % Baso % (Auto) 1.1 (0-2) % Neut # (Auto) 3800 (7710-3090) /uL Lymph # (Auto) 1900 (7838-1821) /uL [place] # (Auto) 700 (0-900) /uL Eos # (Auto) 100 (0-450) /uL Baso # (Auto) 100 (0-100) /uL PT 16.2 H (9.4-12.5) SECONDS INR 1.4 H (0.9-1.3) APTT 41 H (25.1-36.5) SECONDS Sodium 141 (137-145) mmol/L Potassium 5.1 (3.4-5.1) mmol/L Chloride 108 H (98-107) mmol/L Carbon Dioxide 24 (22-32) mmol/L BUN 32 H (9-20) mg/dL Creatinine 1.32 H (0.66-1.25) mg/dL Estimated GFR 54 L (>60) mL/min BUN/Creatinine Ratio 24.2 H (6-22) Glucose 100 (80-110) mg/dL Lactate 1.0 (0.7-2.1) mmol/L Calcium 9.1 (8.4-10.2) mg/dL Blood Type A Positive Antibody Screen Negative Imaging Data CT angio abdomen/pelvis: Radiologist's Impression: Preliminary read showing no active GI bleeding, extensive colonic diverticula without diverticulitis MDM Narrative Medical decision making narrative: 84-year-old male with a past medical history of AFib on Eliquis with recent implantation of Watchman device still currently on Eliquis for the next 1-1/2 months, hyperlipidemia hypertension dementia comes into the ED via private vehicle from home for evaluation of bright red blood per rectum. Patient states that he woke up at around 1:30 a.m. felt like he had soiled himself at bedside states they looked and there was a ?large volume of bright red blood in the bed:. Patient denies any trauma or falls not complaining of any abdominal pain, not complaining of any other symptoms at this time. Review of records show that patient was seen here for similar symptoms on 12/11/2023. Patient had active extravasation on CT scan and was transferred to tertiary hospital for IR intervention. He was sent to [facility] at that time. 0432: Patient was re-evaluated no new complaints at this time, did have mild amount of bright red blood to brief, CTA not showing any active extravasation but extensive colonic diverticula most likely the etiology of the patient's bleed. 0445: Did discuss case with Dr. Armas ([facility]), agrees patient should be transferred for colonoscopy, agrees of reversing patient with Kcentra given continuous bleed, I did have risks benefits with the patient and at bedside, they understand and agree with the risk of reversing him however in the scenario with patient having continuous bleeding they would like to reverse his Eliquis. We will call [facility] for possible transfer and admission 0448: Repeat hemoglobin was obtained, patient dropped 2 g 13.5-11.6, given significant drop will initiate transfer to tertiary care site in which IR may be available, we will attempt [facility] given patient previously therefore the same. At this time patient not hypotensive not tachycardic is currently being reversed on Kcentra, therefore no indication for PRBC at this time. 0500: Obtained blood consent for possible blood transfusion, at this time no indication to administer transfusion we will reverse patient with Kcentra 0700: Patient was signed out to oncoming provider, patient with lower GI bleed AFib on Eliquis who has been reversed with Kcentra, he is pending transfer to higher level care with GI given patient dropped 2 g hemoglobin here while in the emergency department. He has not require transfusion at this time however would consider administration if patient is still dropping, consent has already been obtained for this. <Demetrius Brannon MD - Last Filed: 10/09/24 19:58> Lab Data Labs: Lab Results 10/09/24 10/09/24 10/09/24 Range/Units 02:28 04:33 06:53 WBC 6.7 (4.5-11.0) X10^3/uL RBC 4.29 L (4.5-5.9) X10^6/uL Hgb 13.5 11.6 L 11.2 L (13.5-17.5) g/dL Hct 40.2 L 34.5 L 33.2 L (41-53) % MCV 93.7 (80-100) fL MCH 31.4 (26-34) PG MCHC 33.5 (30-36) % RDW 14.1 (11.6-14.8) % Plt Count 160 (150-400) X10^3/uL Neut % (Auto) 57.0 (50-75) % Lymph % (Auto) 29.0 (25-40) % [place] % (Auto) 10.8 (3-14) % Eos % (Auto) 2.1 (2-4) % Baso % (Auto) 1.1 (0-2) % Neut # (Auto) 3800 (6836-2242) /uL Lymph # (Auto) 1900 (9021-1152) /uL [place] # (Auto) 700 (0-900) /uL Eos # (Auto) 100 (0-450) /uL Baso # (Auto) 100 (0-100) /uL PT 16.2 H (9.4-12.5) SECONDS INR 1.4 H (0.9-1.3) APTT 41 H (25.1-36.5) SECONDS Sodium 141 (137-145) mmol/L Potassium 5.1 (3.4-5.1) mmol/L Chloride 108 H (98-107) mmol/L Carbon Dioxide 24 (22-32) mmol/L BUN 32 H (9-20) mg/dL Creatinine 1.32 H (0.66-1.25) mg/dL Estimated GFR 54 L (>60) mL/min BUN/Creatinine Ratio 24.2 H (6-22) Glucose 100 (80-110) mg/dL Lactate 1.0 (0.7-2.1) mmol/L Calcium 9.1 (8.4-10.2) mg/dL Blood Type A Positive Antibody Screen Negative MDM Narrative Medical decision making narrative: 84-year-old male with a past medical history of AFib on Eliquis with recent implantation of Watchman device still currently on Eliquis for the next 1-1/2 months, hyperlipidemia hypertension dementia comes into the ED via private vehicle from home for evaluation of bright red blood per rectum. Patient states that he woke up at around 1:30 a.m. felt like he had soiled himself at bedside states they looked and there was a ?large volume of bright red blood in the bed:. Patient denies any trauma or falls not complaining of any abdominal pain, not complaining of any other symptoms at this time. Review of records show that patient was seen here for similar symptoms on 12/11/2023. Patient had active extravasation on CT scan and was transferred to tertiary hospital for IR intervention. He was sent to [facility] at that time. 0432: Patient was re-evaluated no new complaints at this time, did have mild amount of bright red blood to brief, CTA not showing any active extravasation but extensive colonic diverticula most likely the etiology of the patient's bleed. 0445: Did discuss case with Dr. Armas ([facility]), agrees patient should be transferred for colonoscopy, agrees of reversing patient with Kcentra given continuous bleed, I did have risks benefits with the patient and at bedside, they understand and agree with the risk of reversing him however in the scenario with patient having continuous bleeding they would like to reverse his Eliquis. We will call [facility] for possible transfer and admission 0448: Repeat hemoglobin was obtained, patient dropped 2 g 13.5-11.6, given significant drop will initiate transfer to tertiary care site in which IR may be available, we will attempt [facility] given patient previously therefore the same. At this time patient not hypotensive not tachycardic is currently being reversed on Kcentra, therefore no indication for PRBC at this time. 0500: Obtained blood consent for possible blood transfusion, at this time no indication to administer transfusion we will reverse patient with Kcentra 0700: Patient was signed out to oncoming provider, patient with lower GI bleed AFib on Eliquis who has been reversed with Kcentra, he is pending transfer to higher level care with GI given patient dropped 2 g hemoglobin here while in the emergency department. He has not require transfusion at this time however would consider administration if patient is still dropping, consent has already been obtained for this. 10/09/24, 07Clovis Alcazar. Signout from Dr. Andrews. Awaiting transfer to GI capable facility. 84-year-old male with history of atrial fibrillation on chronic Eliquis anticoagulation, status post Watchman procedure 2 months but still on oral anticoagulation for another planned month, history of diverticular bleed requiring IR intervention in the past, having diarrhea episode overnight that was bloody, no recent fevers, no abdominal pain, initial hemoglobin 13.1 here decreased without IV fluids to 11, given IV Kcentra, still having some oozing loose stools type and screen, no transfusion thus far although consent has been signed. CTA abdomen and pelvis showed no acute changes, no obvious source of bleeding, diffuse colonic diverticulosis noted. Repeat hemoglobin 11.2 this morning stable, slight decrease from second Hb level. Hemodynamically stable. No transfusion for now. Pages have been made for transfer to higher level of care facilities with IR/GI capabilities not available here. Awaiting callbacks. Assumed care. 0850, case discussed with [facility] hospitalist Dr. Ramírez who accepts patient for transfer, await bed assignment 0930, bed assigned [facility] Si[facility], we will arrange ground ambulance transport transferred by ground EMS to Critical Care Time <Demetrius Brannon MD - Last Filed: 10/09/24 19:58> Critical Care Time Critical Care Time: Yes Total Critical Care Time: 35 Attestation: The high probability of a clinically significant, sudden or life threatening deterioration of the [gastrointestinal, hematologic] systems required full and direct attention, intervention and personal management. The aggregate critical care time was [35] minutes. This time is in addition to time spent performing reported procedures but includes the following: [x] Data Review and interpretation [x] Patient assessment and monitoring of vital signs [x] Documentation [x] Medication orders and management Discharge Plan Departure Patient Disposition: [facility] Clinical Impression: Acute lower GI bleeding Prescriptions: No Action benzonatate 200 mg capsule 200 mg PO BID PRN (Reason: cough) Qty: 28 0RF magnesium oxide 400 mg (241.3 mg magnesium) tablet 400 mg PO QDAY Qty: 90 1RF metoprolol succinate 25 mg tablet extended release 24 hr 12.5 mg PO DAILY Rx Instructions: this was changed by patient's button maker and installer gemfibrozil 600 mg tablet See Rx Instructions .ROUTE .COMPLEX Qty: 90 3RF Dose Instruction: take 1 tablet by mouth once daily Rx Instructions: take 1 tablet by mouth once daily donepezil 10 mg tablet 10 mg PO DAILY Qty: 30 2RF Rx Instructions: start taking 10 mg daily memantine 5 mg tablet 5 mg PO BID Qty: 60 5RF calcium carbonate [Tums] 200 mg calcium (500 mg) tablet,chewable 200 mg PO BID cholecalciferol (vitamin D3) 50 mcg (2,000 unit) capsule 50 mcg PO DAILY ketorolac 0.5 % drops EYE-BOTH prednisolone acetate 1 % drops,suspension EYE-BOTH azithromycin 250 mg tablet See Rx Instructions PO .COMPLEX Qty: 6 0RF Rx Instructions: For 250 mg dose pack: take 500 mg today (day 1), then 250 mg for 4 days (days 2-5) PO Eliquis 5 mg tablet 5 mg PO BID melatonin 5 mg capsule 5 mg PO .hs PRN rosuvastatin 10 mg tablet 10 mg PO ONCE PM Referrals: Deacon Weller DO [Primary Care Provider] -
[2024-10-09 02:40] LABS: Add Manual Diff / Slide Review NO; Basophils Absolute Auto 100 /uL (0-100); Basophils Percent Auto 1.1 % (0-2); Eosinophils Absolute Auto 100 /uL (0-450); Eosinophils Percent Auto 2.1 % (2-4); Hematocrit 40.2 % (41-53); Hemoglobin 13.5 g/dL (13.5-17.5); Lymphocytes Absolute Auto 1900 /uL (1100-4500); Mean Corpuscular HGB Conc 33.5 % (30-36); Mean Corpuscular Hemoglobin 31.4 PG (26-34); Mean Corpuscular Volume 93.7 fL (80-100); Monocytes Absolute Auto 700 /uL (0-900); Monocytes Percent Auto 10.8 % (3-14); Neutrophils Absolute Auto 3800 /uL (1500-7000); Platelet Count 160 X10^3/uL (150-400); Red Blood Cell Count 4.29 X10^6/uL (4.5-5.9); Red Cell Distribution Width 14.1 % (11.6-14.8); White Blood Cell Count 6.7 X10^3/uL (4.5-11.0)
[2024-10-09 02:44] LABS: INR 1.4 (0.9-1.3); Prothrombin Time 16.2 SECONDS (9.4-12.5)
[2024-10-09 02:47] LABS: PTT Partial Thromboplastin Tim 41 SECONDS (25.1-36.5)
[2024-10-09 02:49] LABS: BUN Creatinine Ratio 24.2 (6-22); Blood Urea Nitrogen 32 mg/dL (9-20); Calcium 9.1 mg/dL (8.4-10.2); Carbon Dioxide 24 mmol/L (22-32); Chloride 108 mmol/L (98-107); Estimated Glomerular Filt Rate 54 mL/min (>60); Glucose 100 mg/dL (80-110); HEMOLYSIS 21 (0-50); Potassium 5.1 mmol/L (3.4-5.1); Sodium 141 mmol/L (137-145)
--- NOTE | 2024-10-09 02:50 | PC.NURSE ---
Pt to imaging via ED stretcher with electrocardiographic technician
--- NOTE | 2024-10-09 03:12 | DI.CT.S_ITS ---
PROCEDURE: CT ANGIO ABD/PEL GI BLEED INDICATIONS: Lower GI bleed history of varices TECHNIQUE: After the administration of intravenous contrast, 2.5 mm thick sections acquired from the diaphragm to the symphysis. 10 mm maximum-intensity projection (MIP) reformats were then acquired. For radiation dose reduction, the following was used: automated exposure control. COMPARISON: [facility], CT, CT ANGIO ABD/PEL GI BLEED, 12/11/2023, 22:32. FINDINGS: Image Quality: Diagnostic. Abdominal aorta: Moderate atherosclerotic calcifications are noted in abdominal aorta. No abdominal aortic aneurysm. Small short segmental dissection involving infrarenal abdominal aorta just proximal to the bifurcation unchanged from previous study. Mesenteric arteries: Patent without hemodynamically significant stenosis. Renal arteries: Patent without hemodynamically significant stenosis. OTHER: Lower Chest: No significant findings. Liver: 9 mm enhancing nodule in anterior aspect of inferior liver unchanged from prior study and may represent small flash hemangioma. Gallbladder: Gallbladder is surgically absent. Biliary ducts: No biliary dilation. Pancreas: No ductal dilation. Spleen: Size is within normal limits. Calcified granuloma is noted in anterior aspect of spleen. Adrenal Glands: No adrenal nodules. Kidneys and Ureters: No hydronephrosis. No solid mass. Simple appearing left upper pole renal cyst is seen unchanged from prior study. No complex renal cystic lesion which requires follow up. Stomach and Bowel: Extensive colonic diverticulosis without CT evidence of acute diverticulitis. No bowel obstruction. No abnormal bowel wall thickening or mesenteric fat stranding. No area of contrast accumulation to suggest active bleeding. No abscess collection. Peritoneum: No abnormal intraperitoneal fluid. No free air. Ventral Wall: Small umbilical hernia is seen containing a short segment of small bowel loop. Abdominal Nodes: No retroperitoneal or mesenteric adenopathy by size criteria. Vessels: Aorta and inferior vena cava are normal in size. PELVIS: Pelvic Organs: Mildly enlarged prostate gland with mass effect on floor of urinary bladder. Bladder: Small bladder wall diverticulum on the left side is seen. Mild diffuse bladder wall thickening. Pelvic Nodes: No enlarged lymph nodes. Miscellaneous: No inguinal hernias are seen. Bones: No aggressive osseous abnormality. IMPRESSION: 1. Moderate atherosclerotic calcifications in abdominal aorta. No abdominal aortic aneurysm. 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 2. Colonic diverticulosis without CT evidence of acute diverticulitis. No area of active contrast extravasation to suggest active GI bleed. 3. No bowel obstruction or abnormal bowel wall thickening. No free fluid or free air. 4. Stable possible flash hemangioma in anterior aspect of inferior liver and measures 9 mm in size. 5. Mild diffuse bladder wall thickening with left-sided bladder diverticuli suggestive of chronic outlet obstruction unchanged from prior study. No significant discrepancies from preliminary reading. Dictated by: Pete Diaz M.D. on 10/09/2024 at 7:59 Approved by: Pete Diaz M.D. on 10/09/2024 at 8:06
--- NOTE | 2024-10-09 04:34 | PC.NURSE ---
Repeat labs drawn from existing IV line without complications.
[2024-10-09 04:37] LABS: Hematocrit 34.5 % (41-53); Hemoglobin 11.6 g/dL (13.5-17.5)
--- NOTE | 2024-10-09 04:50 | PC.NURSE ---
Pt unsure about amount, if any, continued bleeding. Checked brief and noted a large amount of blood with clots. Dr. Andrews made aware. Pt changed, cleaned, and new brief placed at this time.
[2024-10-09] MEDS: PROTHROMBIN CPLX(PCC)4FACT 2,000 UNIT in ISOOSMOTIC VEHICLE 0 ML 620.518 UNIT IV (05:04)
--- NOTE | 2024-10-09 06:55 | PC.NURSE ---
Repeat labs drawn from existing IV line without complications. Large amount of bleeding noted in brief at this time. Dr. Andrews made aware.
[2024-10-09 06:58] LABS: Hematocrit 33.2 % (41-53); Hemoglobin 11.2 g/dL (13.5-17.5)
--- NOTE | 2024-10-09 10:45 | PC.NURSE ---
Pt had more bloody bowel movement. I went to change pt and he requests to stand to urinate as he cannot urinate without standing. Pt able to sit up at bedside and stand on his own. Pt standing and started to fall backwards. I grabbed pt and assisted him to lay back gently on the stretcher. BP was 91/53. Pt immediately responsive and trying to sit up. I kept patient lying down and pt was assisted by 3 staff up into bed. 2nd IV placed 18g. Changed pt into clean gown and new brief. PT was able to urinate 200cc before syncopal event. His abdomen is distended. Bedside bladder scan performed with reading of 560cc. Dr. Brannon was notified. Pt was catheterized.
[2024-10-09] MEDS: LIDOCAINE 2% (GLYDO) 6 ML GEL TOP (11:05)
--- NOTE | 2024-10-09 11:55 | PC.NURSE ---
Provided hospital address to pt's spouse. Rae Siu Chilmark Accepted by Dr. Desiree MD Room J 1105 RN-RN #[phone] [id number] I gave report to the charge nurse Lexy.
== END 2024-10-09 11:25 | disposition short-term general hospital (02) ==
PROVIDERS: Student in an Organized Health Care Education/Training Program; Emergency Provider Emergency Medicine; PCP Family Medicine
DX: K92.2 Gastrointestinal hemorrhage, unspecified (principal); I48.91 Unspecified atrial fibrillation; I10 Essential (primary) hypertension; E78.5 Hyperlipidemia, unspecified; F03.A0 Unspecified dementia, mild, without behavioral disturbance, psychotic disturbance, mood disturbance, and anxiety; Z95.818 Presence of other cardiac implants and grafts; Z79.01 Long term (current) use of anticoagulants; Z87.891 Personal history of nicotine dependence
CPT/HCPCS: 36415; 51798; 74174; 80048; 83605; 85014; 85018; 85025; 85610; 85730; 86850; 86900; 86901; 96374; 99284; 99291; J7168; Q9967

== ENCOUNTER → 2024-11-10 11:06 | Outpatient (CLI) | payer OTHER, SELFPAY ==
[2024-11-10 11:55] LABS: Hematocrit 31.3 % (41-53); Hemoglobin 10.2 g/dL (13.5-17.5); Mean Corpuscular HGB Conc 32.7 % (30-36); Mean Corpuscular Hemoglobin 29.4 PG (26-34); Mean Corpuscular Volume 89.9 fL (80-100); Platelet Count 137 X10^3/uL (150-400); Red Blood Cell Count 3.48 X10^6/uL (4.5-5.9); Red Cell Distribution Width 14.4 % (11.6-14.8); White Blood Cell Count 5.7 X10^3/uL (4.5-11.0)
[2024-11-10 12:09] LABS: HEMOLYSIS < 15 (0-50); Iron 35 ug/dL (49-181)
[2024-11-10 12:12] LABS: Alanine Aminotransferase 21 IU/L (<50); Albumin Globulin Ratio 1.3 (1.0-2.8); Alkaline Phosphatase 73 U/L (38-126); Aspartate Aminotransferase 32 IU/L (17-59); BUN Creatinine Ratio 18.1 (6-22); Bilirubin Total 1.6 mg/dL (0.2-1.3); Blood Urea Nitrogen 28 mg/dL (9-20); Carbon Dioxide 23 mmol/L (22-32); Chloride 102 mmol/L (98-107); Estimated Glomerular Filt Rate 44 mL/min (>60); Globulin 3.1 g/dL (1.7-4.1); Glucose 116 mg/dL (80-110); HEMOLYSIS < 15 (0-50); Potassium 5.3 mmol/L (3.4-5.1); Sodium 134 mmol/L (137-145); Total Protein 7.1 g/dL (6.3-8.2)
[2024-11-10 12:25] LABS: Percent Iron Saturation 9 % (20-50); Total Iron Binding Capacity 398 ug/dL (261-462); Transferrin 316 mg/dL (206-381)
[2024-11-10 13:01] LABS: Vitamin B12 910 pg/mL (239-931)
== END ==
LOC: LAB 11:07
PROVIDERS: PCP Family Medicine; Referring Provider Nurse Practitioner; Visit Provider Nurse Practitioner
DX: K92.2 Gastrointestinal hemorrhage, unspecified (principal); I12.9 Hypertensive chronic kidney disease with stage 1 through stage 4 chronic kidney disease, or unspecified chronic kidney disease; Z95.818 Presence of other cardiac implants and grafts; N18.9 Chronic kidney disease, unspecified; D64.9 Anemia, unspecified
CPT/HCPCS: 36415; 80053; 82607; 83540; 83550; 83735; 85027

== ENCOUNTER → 2024-11-23 12:18 | Outpatient (CLI) | payer OTHER, SELFPAY ==
[2024-11-23 12:47] LABS: Add Manual Diff / Slide Review NO; Basophils Absolute Auto 100 /uL (0-100); Basophils Percent Auto 1.1 % (0-2); Eosinophils Absolute Auto 0 /uL (0-450); Eosinophils Percent Auto 0.7 % (2-4); Hematocrit 31.4 % (41-53); Hemoglobin 10.2 g/dL (13.5-17.5); Lymphocytes Absolute Auto 900 /uL (1100-4500); Lymphocytes Percent Auto 12.8 % (25-40); Mean Corpuscular HGB Conc 32.6 % (30-36); Mean Corpuscular Hemoglobin 28.5 PG (26-34); Mean Corpuscular Volume 87.6 fL (80-100); Monocytes Absolute Auto 900 /uL (0-900); Monocytes Percent Auto 12.8 % (3-14); Neutrophils Absolute Auto 4900 /uL (1500-7000); Neutrophils Percent Auto 72.6 % (50-75); Platelet Count 173 X10^3/uL (150-400); Red Blood Cell Count 3.58 X10^6/uL (4.5-5.9); Red Cell Distribution Width 15.2 % (11.6-14.8); White Blood Cell Count 6.7 X10^3/uL (4.5-11.0)
[2024-11-23 13:06] LABS: BUN Creatinine Ratio 16.1 (6-22); Blood Urea Nitrogen 22 mg/dL (9-20); Calcium 8.9 mg/dL (8.4-10.2); Carbon Dioxide 22 mmol/L (22-32); Chloride 98 mmol/L (98-107); Estimated Glomerular Filt Rate 52 mL/min (>60); Glucose 101 mg/dL (80-110); HEMOLYSIS < 15 (0-50); Potassium 4.9 mmol/L (3.4-5.1); Sodium 130 mmol/L (137-145)
[2024-11-23 13:57] LABS: Vitamin B12 900 pg/mL (239-931)
== END ==
PROVIDERS: PCP Family Medicine; Referring Provider Physician Assistant; Visit Provider Physician Assistant
DX: R60.0 Localized edema (principal); W19.XXXA Unspecified fall, initial encounter; S40.011A Contusion of right shoulder, initial encounter; R53.83 Other fatigue
CPT/HCPCS: 36415; 80048; 82607; 85025

== ENCOUNTER → 2024-12-12 10:23 | Outpatient (CLI) | payer OTHER, SELFPAY ==
[2024-12-12 11:18] LABS: Hematocrit 31.6 % (41-53); Hemoglobin 10.4 g/dL (13.5-17.5); Mean Corpuscular HGB Conc 32.9 % (30-36); Mean Corpuscular Hemoglobin 28.1 PG (26-34); Mean Corpuscular Volume 85.4 fL (80-100); Platelet Count 168 X10^3/uL (150-400); Red Blood Cell Count 3.71 X10^6/uL (4.5-5.9); Red Cell Distribution Width 15.9 % (11.6-14.8); White Blood Cell Count 5.1 X10^3/uL (4.5-11.0)
== END ==
PROVIDERS: PCP Family Medicine; Referring Provider Nurse Practitioner; Visit Provider Nurse Practitioner
DX: K92.2 Gastrointestinal hemorrhage, unspecified (principal); Z95.818 Presence of other cardiac implants and grafts
CPT/HCPCS: 36415; 85027

== ENCOUNTER 2024-12-20 11:23 | Inpatient (IN) | payer OTHER, SELFPAY ==
[2024-12-20] VITALS (23 sets, daily range): BP systolic 103–128; BP diastolic 51–60; PULSE 65–89; RESP 16–24; TEMP 36.2–37; O2SAT 92–100; BMI 29.7
--- NOTE | 2024-12-20 11:31 | EKG_ITS ---
[facility] [address] [place] [id number] Test Date: 2024-12-20 Pat Name: Carlos Love Department: [facility] Room: Gender: Male Records Administrator: : [id number] Requested By: Order Number: [id number] Reading MD: Margarito Goldsmith MD Measurements Intervals [place] Rate: 69 P: [place]: QRS: 8 QRSD: 84 T: -14 QT: 400 QTc: 428 Interpretive Statements Atrial fibrillation Electronically Signed On 12-20-2024 12:12:33 PDT by Margarito Goldsmith MD
--- NOTE | 2024-12-20 11:31 | DI.RAD.S_ITS ---
PROCEDURE: XR CHEST 1V INDICATIONS: chest pain TECHNIQUE: One view of the chest was acquired. COMPARISON: [facility], CR, XR CHEST 2V, 06/23/2024, 15:03. [facility], CR, XR CHEST 2V, 07/21/2023, 17:18. FINDINGS: Surgical changes and devices: None. Lungs and pleura: Lungs are clear. No pleural effusions or pneumothorax. Mediastinum: Mediastinal contours appear normal. Heart size is normal. Bones and chest wall: No suspicious bony lesions. Overlying soft tissues appear unremarkable. IMPRESSION: No acute cardiopulmonary abnormality is seen. Dictated by: Osmin Lagunas M.D. on 12/20/2024 at 12:44 Approved by: Osmin Lagunas M.D. on 12/20/2024 at 12:45
[2024-12-20 11:59] LABS: Add Manual Diff / Slide Review NO; Basophils Absolute Auto 100 /uL (0-100); Eosinophils Absolute Auto 0 /uL (0-450); Eosinophils Percent Auto 0.2 % (2-4); Hemoglobin 8.2 g/dL (13.5-17.5); Lymphocytes Absolute Auto 1200 /uL (1100-4500); Lymphocytes Percent Auto 15.5 % (25-40); Mean Corpuscular Hemoglobin 28.1 PG (26-34); Monocytes Absolute Auto 900 /uL (0-900); Monocytes Percent Auto 11.4 % (3-14); Neutrophils Absolute Auto 5400 /uL (1500-7000); Neutrophils Percent Auto 71.9 % (50-75); Platelet Count 200 X10^3/uL (150-400); Red Blood Cell Count 2.94 X10^6/uL (4.5-5.9); Red Cell Distribution Width 16.4 % (11.6-14.8); White Blood Cell Count 7.5 X10^3/uL (4.5-11.0)
[2024-12-20 12:07] LABS: INR 1.3 (0.9-1.3); Prothrombin Time 14.7 SECONDS (9.4-12.5)
[2024-12-20 12:10] LABS: PTT Partial Thromboplastin Tim 36 SECONDS (25.1-36.5)
[2024-12-20 12:16] LABS: Alanine Aminotransferase 20 IU/L (<50); Albumin 3.5 g/dL (3.5-5.0); Albumin Globulin Ratio 1.1 (1.0-2.8); Alkaline Phosphatase 75 U/L (38-126); Aspartate Aminotransferase 34 IU/L (17-59); Blood Urea Nitrogen 59 mg/dL (9-20); Calcium 9.1 mg/dL (8.4-10.2); Carbon Dioxide 24 mmol/L (22-32); Chloride 99 mmol/L (98-107); Creatine Kinase 126 U/L (55-170); Estimated Glomerular Filt Rate 53 mL/min (>60); Globulin 3.2 g/dL (1.7-4.1); Glucose 103 mg/dL (70-99); HEMOLYSIS < 15 (0-50); Lipase 81 U/L (23-300); Magnesium 1.8 mg/dL (1.6-2.3); Sodium 130 mmol/L (137-145); Total Protein 6.7 g/dL (6.3-8.2)
[2024-12-20 12:18] LABS: Potassium 5.4 mmol/L (3.4-5.1)
[2024-12-20 12:28] LABS: NT-proBNP (BNP-Adult 18+) 1490 pg/mL (<450); Troponin I 0.013 ng/mL (0.01-0.034)
--- NOTE | 2024-12-20 12:52 | ED.GIBLEED ---
HPI - GI Bleed General Chief complaint: GI Bleed Stated complaint: Weak, Low blood pressure , blood in Bowels Time Seen by Provider: 12/20/24 12:52 Source: patient, RN notes reviewed and old records reviewed Mode of arrival: Ambulatory Limitations: no limitations History of Present Illness HPI Narrative: 84-year-old male with a history atrial fibrillation, dyslipidemia, hypertension of prior GI bleeds has had prior scopes clear source was not found in the past used to be on Eliquis but that was stopped patient had a Watchman last July has been on aspirin Plavix since for atrial fibrillation with a goal to stop his Plavix follow up in January. Patient states he was had blood in his stool the last several days describes it as black and dark stools that have been very loose but has had some bright red intermittently today. He was felt lightheaded has not had any syncope. No chest pain or pressure, has shortness of breath that is been slowly worsening over the last several weeks. He has had increased swelling in his extremities but was started on a diuretic and that is been improving. Denies any nausea or vomiting. No new urinary issues but does have difficulty urinating. Current meds include aspirin, Plavix, HCTZ, metoprolol succinate, rosuvastatin, valsartan. Patient has had prior Watchman, scopes, prior abdominal surgeries including pyloroplasty, cholecystectomy and repair of hiatal hernia. Remote history of tobacco, rare alcohol, no recreational drugs. Dr. Weller is his primary care physician. He follows with Cardiology through [facility]. Related Data Home Medications Medication Instructions Recorded Confirmed calcium carbonate (Tums) 200 mg PO BID 01/07/19 12/02/24 cholecalciferol (vitamin D3) 50 50 mcg PO DAILY 11/25/19 12/02/24 mcg (2,000 unit) capsule melatonin 5 mg capsule 5 mg PO .hs PRN 12/16/23 12/02/24 aspirin 81 mg tablet,delayed 81 mg PO DAILY 11/01/24 12/02/24 release (Adult Low Dose Aspirin) cetirizine [Zyrtec] PO 11/01/24 12/02/24 clopidogrel 75 mg tablet mg PO DAILY 11/01/24 12/02/24 Previous Rx's Medication Instructions Recorded magnesium oxide 400 mg (241.3 mg 400 mg PO QDAY #90 tabs 02/16/19 magnesium) tablet gemfibrozil 600 mg tablet See Rx Instructions .Route 04/21/24 .COMPLEX #90 tabs memantine 5 mg tablet 5 mg PO BID #60 tabs 09/26/24 donepezil 10 mg tablet 10 mg PO DAILY #90 tabs 10/25/24 valsartan 40 mg tablet 40 mg PO DAILY #90 tabs 11/04/24 hydrochlorothiazide 25 mg tablet 25 mg PO DAILY #90 tabs 12/02/24 metoprolol succinate 25 mg 12.5 mg (1/2 x 25 mg) PO DAILY #90 12/02/24 tablet,extended release 24 hr tabs rosuvastatin 10 mg tablet 10 mg PO ONCE PM #90 tabs 12/16/24 Allergies Allergy/AdvReac Type Severity Reaction Status Date / Time morphine [MORPHINE] Allergy Intermediate RASH Verified 12/02/24 10:03 Review of Systems Review of Systems ROS Unobtainable: All systems reviewed & are unremarkable except as noted in HPI and below Patient History Medical History Leg edema Lower GI bleed Chronic bronchitis with productive mucopurulent cough Chronic kidney disease Anemia Dementia Nightmares Gastroenteritis Tricuspid regurgitation Seasonal allergic rhinitis Bronchitis Cerumen impaction Chronic atrial fibrillation Ventral incisional hernia Corns and callosities Finger injury Well adult exam BPH loc w/o ur obs/LUTS GERD (gastroesophageal reflux disease) Left lower quadrant abdominal pain Renal insufficiency Osteopenia GI bleed Hiatal hernia Atrial fibrillation Cataracts, bilateral (~08/2016) Hypertension BPH (benign prostatic hyperplasia) Colon polyps Diverticular disease Hyperlipidemia Surgical History Hx of pyloroplasty Hx of cholecystectomy History of repair of hiatal hernia Family History Father Heart disease Stroke Mother History of breast cancer Sister History of breast cancer Social History Smoking Status: Former smoker Smoking Status: Former smoker alcohol intake frequency: 0-2 drinks per day Exam Narrative Exam Narrative: GENERAL: Alert and oriented x three, elderly male mild distress HEENT: Head normocephalic, atraumatic, EOMI, pupils reactive, face symmetric, moist mucous membranes NECK: Supple, full range of motion CARDIOVASCULAR: Irregularly irregular rate and rhythm without murmurs, rubs or gallops. Bilateral lower extremity edema. RESPIRATORY: Breath sounds equal bilaterally, no wheezes rales or rhonchi. No tachypnea. Patient does have what sounds like upper respiratory wheeze. ABDOMEN: Soft, nontender. Normoactive bowel sounds all 4 quadrants. No guarding or rebound, rigidity, no mass, stool guaiac is positive. : No CVA tenderness EXTREMITIES: Normal range of motion, no clubbing or edema. Neurovascularly intact NEUROLOGICAL: Cranial nerves II through XII grossly intact. Moving all extremities SKIN: Warm, dry, no petechiae, no rashes or lesions. Initial Vital Signs Initial Vital Signs: Vital Signs Temperature 97.5 F L 12/20/24 11:32 Pulse Rate 79 12/20/24 11:32 Respiratory Rate 16 12/20/24 11:32 Blood Pressure 122/60 12/20/24 11:32 Pulse Oximetry 97 12/20/24 11:32 Oxygen Delivery Method Room Air 12/20/24 11:32 Course Orders Ordered: ED Orders 12/20/24 11:31 XR chest 1V Stat EKG-12 Lead Stat 12/20/24 11:50 Complete Blood Count AUTO DIFF Stat Comprehensive Metabolic Panel Stat Lipase Stat Magnesium Stat NT-proBNP (BNP-Adult 18+) Stat PTT Partial Thromboplastin Andrzej Stat Prothrombin Time INR Stat Troponin & CK Cardiac Panel Stat Type and Screen Stat Discontinued Medications Aspirin (Aspirin 81 Mg Chew Tab) 324 mg PO NOW ONE Stop: 12/20/24 11:32 Last Admin: 12/20/24 12:21 Dose: Not Given Documented By: KESHAV Pantoprazole Sodium (Pantoprazole 40 Mg Vial) 80 mg IV NOW ONE Stop: 12/20/24 16:51 Vital Signs Vital signs: Vital Signs - 8 hr 12/20/24 11:32 12/20/24 11:38 12/20/24 11:39 Temperature 97.5 F L Pulse Rate 79 79 Respiratory Rate 16 Blood Pressure 122/60 118/55 L Pulse Oximetry 97 Oxygen Delivery Method Room Air 12/20/24 11:39 12/20/24 12:00 12/20/24 12:01 Temperature Pulse Rate 68 Respiratory Rate 20 Blood Pressure 122/60 107/53 L Pulse Oximetry Oxygen Delivery Method 04/22/25 12:01 12/20/24 12:30 12/20/24 13:00 Temperature Pulse Rate 67 68 66 Respiratory Rate 21 21 20 Blood Pressure 108/55 L 103/51 L Pulse Oximetry 96 100 100 Oxygen Delivery Method 12/20/24 13:30 12/20/24 14:00 12/20/24 14:30 Temperature Pulse Rate 65 66 72 Respiratory Rate 19 24 23 Blood Pressure 116/57 L 112/55 L 121/59 L Pulse Oximetry 100 100 100 Oxygen Delivery Method 12/20/24 15:06 12/20/24 15:07 12/20/24 15:30 Temperature Pulse Rate 74 77 77 Respiratory Rate 23 24 24 Blood Pressure 128/60 113/57 L Pulse Oximetry 97 93 92 Oxygen Delivery Method 12/20/24 16:00 12/20/24 16:01 12/20/24 16:30 Temperature Pulse Rate 78 82 78 Respiratory Rate 24 20 20 Blood Pressure 123/59 L 124/59 L Pulse Oximetry 97 100 97 Oxygen Delivery Method MDM - GI Bleed Lab Data 12/20/24 11:50 12/20/24 11:50 Labs: Lab Results 12/20/24 Range/Units 11:50 WBC 7.5 (4.5-11.0) X10^3/uL RBC 2.94 L (4.5-5.9) X10^6/uL Hgb 8.2 L (13.5-17.5) g/dL Hct 25.0 L (41-53) % MCV 85.0 (80-100) fL MCH 28.1 (26-34) PG MCHC 33.0 (30-36) % RDW 16.4 H (11.6-14.8) % Plt Count 200 (150-400) X10^3/uL Neut % (Auto) 71.9 (50-75) % Lymph % (Auto) 15.5 L (25-40) % [place] % (Auto) 11.4 (3-14) % Eos % (Auto) 0.2 L (2-4) % Baso % (Auto) 1.0 (0-2) % Neut # (Auto) 5400 (0433-6483) /uL Lymph # (Auto) 1200 (0046-5541) /uL [place] # (Auto) 900 (0-900) /uL Eos # (Auto) 0 (0-450) /uL Baso # (Auto) 100 (0-100) /uL PT 14.7 H (9.4-12.5) SECONDS INR 1.3 (0.9-1.3) APTT 36 (25.1-36.5) SECONDS Sodium 130 L (137-145) mmol/L Potassium 5.4 H (3.4-5.1) mmol/L Chloride 99 (98-107) mmol/L Carbon Dioxide 24 (22-32) mmol/L BUN 59 H (9-20) mg/dL Creatinine 1.34 H (0.66-1.25) mg/dL Estimated GFR 53 L (>60) mL/min BUN/Creatinine Ratio 44.0 H (6-22) Glucose 103 H (70-99) mg/dL Calcium 9.1 (8.4-10.2) mg/dL Magnesium 1.8 (1.6-2.3) mg/dL Total Bilirubin 1.0 (0.2-1.3) mg/dL AST 34 (17-59) IU/L ALT 20 (<50) IU/L Alkaline Phosphatase 75 (38-126) U/L Total Creatine Kinase 126 (55-170) U/L Troponin I 0.013 (0.01-0.034) ng/mL NT-Pro-B Natriuret Pep 1490 H (<450) pg/mL Total Protein 6.7 (6.3-8.2) g/dL Albumin 3.5 (3.5-5.0) g/dL Globulin 3.2 (1.7-4.1) g/dL Albumin/Globulin Ratio 1.1 (1.0-2.8) Lipase 81 (23-300) U/L Blood Type A Positive Antibody Screen Negative Point of Care Testing Stool Occult Blood Positive ECG Data Attestation: I personally reviewed and interpreted this ECG as follows: Prior ECG tracings: available for review Interpretation: AFib rate of 69, QRS 84 QTC of 428, no acute ST elevation depression. Patient was prior from 12/11/2023 which appears similar. [facility] Narrative Medical decision making narrative: 84-year-old male presents with concern for GI bleed, patient's blood pressures has been soft intermittently down to the 100 systolic range, no tachycardia but patient is on a beta jason which we will likely want his reflex tachycardia. He does take an aspirin daily. Patient November 2023 had active extravasation of blood and was transferred for IR intervention at [facility] had scope they did not show a source. Patient was then transferred in October 2024 to [facility] did not find a source for embolization did have a scope and received blood at that time. Labs show white count of 7.5 hemoglobin is 8.2 was 10.4 in November as well as October of 2024 was 11 in October and 13-14 before that in August. Platelets are 200. INR is 1.3. Chemistry shows sodium 130 appears consistent with priors in October potassium is elevated 5.4 with no hemolysis. Chloride and CO2 are normal BUN 59 creatinine is 1.34 appears consistent with priors fairly recently although BUN is elevated from priors. Glucose is 103, LFTs are negative troponin 0.013 with a BNP of 14 90 lipase is 81. Patient is guaiac positive. Chest x-ray negative for acute change AFib rate of 69 Patient is guaiac positive. Spoke with Dr. Stack general surgery at 1637 reviewed patient's last 2 hospitalizations had blush on CT angio in November of 2024 at that time was shipped did not have embolization had scope source of bleed was not found. Patient was also shift this October did not have flush or active extravasation on CTA was scope did not find a source but did receive blood in the emergency department. Reviewed findings from today he feels comfortable with the patient coming in gentle fluids plan for prep in the morning with scope on . If develops hypotension we will give blood products. Dr. Patel, hospitalist accepts for observation reviewed Dr. Stack's recommendations plan for scope. Discharge Plan Departure Patient Disposition: Admitted as Observation Clinical Impression: GI bleed, Symptomatic anemia Admit Date/Time: 12/20/24 16:47 Admit Provider: Imtiaz Patel
[2024-12-20] MEDS: PANTOPRAZOLE 40 MG VIAL 80 MG IV (17:00)
[2024-12-20] MEDS: PANTOPRAZOLE 40 MG VIAL IV (20:33)
[2024-12-20] MEDS: ACETAMINOPHEN 325 MG TABLET 650 MG PO (20:33)
[2024-12-20 21:51] LABS: Hemoglobin 6.8 g/dL (13.5-17.5)
[2024-12-20 21:52] LABS: Hematocrit 20.6 % (41-53)
[2024-12-21] VITALS (12 sets, daily range): BP systolic 96–129; BP diastolic 46–68; PULSE 74–99; RESP 16–24; TEMP 36–36.6; O2SAT 98–100
[2024-12-21] MEDS: guaiFENesin Solution 100 MG/5 ML UDC 200 MG PO (00:06)
[2024-12-21 05:46] LABS: Add Manual Diff / Slide Review NO; Basophils Absolute Auto 100 /uL (0-100); Basophils Percent Auto 1.5 % (0-2); Eosinophils Absolute Auto 100 /uL (0-450); Eosinophils Percent Auto 0.8 % (2-4); Hematocrit 22.9 % (41-53); Hemoglobin 7.9 g/dL (13.5-17.5); Lymphocytes Absolute Auto 1200 /uL (1100-4500); Mean Corpuscular HGB Conc 34.7 % (30-36); Mean Corpuscular Hemoglobin 29.9 PG (26-34); Monocytes Absolute Auto 700 /uL (0-900); Monocytes Percent Auto 10.9 % (3-14); Neutrophils Absolute Auto 4700 /uL (1500-7000); Neutrophils Percent Auto 69.8 % (50-75); Platelet Count 105 X10^3/uL (150-400); Red Blood Cell Count 2.66 X10^6/uL (4.5-5.9); Red Cell Distribution Width 16.6 % (11.6-14.8); White Blood Cell Count 6.8 X10^3/uL (4.5-11.0)
[2024-12-21 06:08] LABS: BUN Creatinine Ratio 53.6 (6-22); Blood Urea Nitrogen 60 mg/dL (9-20); Calcium 8.3 mg/dL (8.4-10.2); Carbon Dioxide 22 mmol/L (22-32); Chloride 104 mmol/L (98-107); Estimated Glomerular Filt Rate > 60 mL/min (>60); Glucose 91 mg/dL (70-99); HEMOLYSIS 34 (0-50); Potassium 4.8 mmol/L (3.4-5.1); Sodium 131 mmol/L (137-145)
--- NOTE | 2024-12-21 08:12 | P.HP_ITS ---
History of Present Illness History of Present Illness Chief complaint: Weak, Low blood pressure , blood in Bowels Narrative: 84-year-old male with past medical history of atrial fibrillation previously on Eliquis now off due to GI bleed, dementia dyslipidemia, hypertension, Watchman procedure placement July 2024 on aspirin and Plavix for atrial fibrillation, presents with bloody stool. Per report, the patient had a prior GI bleed with negative endoscopy to identify the source of bleeding. Patient is currently still on aspirin and Plavix in the plan was to stop Plavix after follow-up this January. The patient reports that he has been stable the last few days I did black but now become more bright red today. The patient admitted to have fatigue but denies any chest pain, shortness of breath, fever, chills, nausea, vomiting or diarrhea. In the emergency room, the patient was hemodynamically stable. Labs shows a hemoglobin of 8.2 which is down from 10 last month sodium 130 potassium 5.4 creatinine 1.3. INR is 1.3. Troponin was negative. Patient is glad was positive. I ER physician spoke to Dr. Stack from general surgery who recommended that we admit the patient here to monitor patient's hemoglobin, GI bleed and the plan is to scope the patient on . PFSH Medical History Leg edema Lower GI bleed Chronic bronchitis with productive mucopurulent cough Chronic kidney disease Anemia Dementia Nightmares Gastroenteritis Tricuspid regurgitation Seasonal allergic rhinitis Bronchitis Cerumen impaction Chronic atrial fibrillation Ventral incisional hernia Corns and callosities Finger injury Well adult exam BPH loc w/o ur obs/LUTS GERD (gastroesophageal reflux disease) Left lower quadrant abdominal pain Renal insufficiency Osteopenia GI bleed Hiatal hernia Atrial fibrillation Cataracts, bilateral (~08/2016) Hypertension BPH (benign prostatic hyperplasia) Colon polyps Diverticular disease Hyperlipidemia Surgical History Hx of pyloroplasty Hx of cholecystectomy History of repair of hiatal hernia Family History Father Heart disease Stroke Mother History of breast cancer Sister History of breast cancer Social History household members: spouse Smoking Status: Former smoker Meds Home Medications and Allergies Home Medications Medication Instructions Recorded Confirmed Type cholecalciferol (vitamin D3) 50 50 mcg PO DAILY 11/25/19 12/20/24 History mcg (2,000 unit) capsule gemfibrozil 600 mg tablet See Rx Instructions .Route 04/21/24 12/20/24 Rx .COMPLEX #90 tabs aspirin 81 mg tablet,delayed 81 mg PO DAILY 11/01/24 12/20/24 History release (Adult Low Dose Aspirin) clopidogrel 75 mg tablet 75 mg PO DAILY 11/01/24 12/20/24 History donepezil 10 mg tablet 10 mg PO DAILY 12/20/24 12/20/24 History hydrochlorothiazide 25 mg tablet 25 mg PO DAILY 12/20/24 12/20/24 History inulin 2 gram chewable tablet 2 g PO BEDTIME 12/20/24 12/20/24 History magnesium gluconate 12.5 mg 1,000 mg PO BEDTIME 12/20/24 12/20/24 History magnesium (250 mg) tablet memantine 5 mg tablet 5 mg PO BID 12/20/24 12/20/24 History metoprolol succinate 25 mg 12.5 mg PO BEDTIME 12/20/24 12/20/24 History tablet,extended release 24 hr multivitamin v-vxywiipa-vvcbrcm 1 tab PO DAILY 12/20/24 12/20/24 History fumarate 18 mg-vitamin K 25 mcg tablet rosuvastatin 10 mg tablet 10 mg PO QPM 12/20/24 12/20/24 History valsartan 40 mg tablet 40 mg PO DAILY 12/20/24 12/20/24 History Allergies Allergy/AdvReac Type Severity Reaction Status Date / Time morphine [MORPHINE] Allergy Intermediate RASH Verified 12/02/24 10:03 Review of Systems Review of Systems ROS: Yes All systems reviewed with the patient and are negative except as otherwise documented Exam Vital Signs (past 8 hours): - 12/21/24 00:59 12/21/24 01:04 12/21/24 01:19 Temperature 97.4 F L 97.4 F L 97.4 F L Pulse Rate 90 90 89 Respiratory Rate 16 16 16 Blood Pressure 105/54 L 105/54 L 101/50 L Pulse Oximetry Oxygen Delivery Method 12/21/24 02:00 12/21/24 03:40 12/21/24 06:00 Temperature 96.8 F L Pulse Rate 76 Respiratory Rate 16 Blood Pressure 115/58 L Pulse Oximetry 100 100 Oxygen Delivery Method Room Air Room Air Oxygen Delivery Method Room Air Oxygen Flow Rate 0 Narrative Exam Narrative: Physical Exam: GENERAL: The patient is not in any acute distressed. Awake and alert. HEENT: Nonicteric sclerae, PERRLA, EOMI. Oropharynx clear. Moist mucous membranes. Conjunctivae appear well perfused. HEART: Regular rate and rhythm without murmurs. No lower extremities edema. LUNGS: Clear to auscultation bilaterally. No wheezing, crackles or rhonchi ABDOMEN: Soft, positive bowel sounds, nontender. SKIN: No rash, no excessive bruising, petechiae, or purpura. NEUROLOGIC: AxO x 2. Cranial nerves II-XII intact without motor/sensory deficit. Objective Labs 12/21/24 05:18 12/21/24 05:18 Labs: Laboratory Results - last 24 hr 12/20/24 12/20/24 12/21/24 11:50 21:33 05:18 WBC 7.5 6.8 RBC 2.94 L 2.66 L Hgb 8.2 L 6.8 L* 7.9 L Hct 25.0 L 20.6 L* 22.9 L MCV 85.0 86.0 MCH 28.1 29.9 MCHC 33.0 34.7 RDW 16.4 H 16.6 H Plt Count 200 105 L Neut % (Auto) 71.9 69.8 Lymph % (Auto) 15.5 L 17.0 L [place] % (Auto) 11.4 10.9 Eos % (Auto) 0.2 L 0.8 L Baso % (Auto) 1.0 1.5 Neut # (Auto) 5400 4700 Lymph # (Auto) 1200 1200 [place] # (Auto) 900 700 Eos # (Auto) 0 100 Baso # (Auto) 100 100 PT 14.7 H INR 1.3 APTT 36 Sodium 130 L 131 L Potassium 5.4 H 4.8 Chloride 99 104 Carbon Dioxide 24 22 BUN 59 H 60 H Creatinine 1.34 H 1.12 Estimated GFR 53 L > 60 BUN/Creatinine Ratio 44.0 H 53.6 H Glucose 103 H 91 Calcium 9.1 8.3 L Magnesium 1.8 Total Bilirubin 1.0 AST 34 ALT 20 Alkaline Phosphatase 75 Total Creatine Kinase 126 Troponin I 0.013 NT-Pro-B Natriuret Pep 1490 H Total Protein 6.7 Albumin 3.5 Globulin 3.2 Albumin/Globulin Ratio 1.1 Lipase 81 Blood Type A Positive Antibody Screen Negative Crossmatch See Detail Assessment & Plan Assessment & Plan narrative: GI bleed. Unclear source. Admit the patient to medical telemetry. NPO. IV fluids. Will monitor for any active bleeding. Will transfuse if patient's hemoglobin drop less than 7. Appreciate Dr. Stack's further input and management. Plan for possible scope on . Acute blood loss anemia. Again patient hemoglobin last month was 10.4 and today 8.4. Will continue to monitor serial hemoglobin and transfuse accordingly as above. Hypertension. Hold off blood pressure medication due to's in the setting of GI bleed. Monitor blood pressure and if very elevated will consider treating. Hyperlipidemia. Resume home statin. Dementia. Resume donepezil and memantine. DVT prophylaxis SCDs due to GIB CODE STATUS DNR/DNI. Disposition likely home in 2 days. - As the provider of this telehealth evaluation, requested by the patient's evaluating physician, I attest that I introduced myself to the patient, provided my credentials and determined that telemedicine via a real-time, 2 way interactive audio and video platform is an appropriate and effective means of providing this service. - I reviewed the patient's chart and had a discussion with the member of the patient's treatment team. - The patient and I mutually agreed with continuation of this evaluation via telemedicine. The patient consented for the telemedicine evaluation. - This virtual encounter was taken place from [place]. The encounter was approximately 35 minutes. The nurse was present during the entire time of the encounter and was able to move the stethoscope in appropriate directions. The patient was evaluated at [facility]. Time-Based Coding :: [TOTAL MINUTES] spent with patient and on the chart (including review of chart, obtaining history, exam, reviewing outside data, placing orders, documenting exam and treatment plan, and counseling patient) on [DATE]. Quality VTE Deep Vein Thrombosis/Pulmonary Embolism Present on Admission: No
--- NOTE | 2024-12-21 08:12 | PM.PN.1 ---
Subjective Subjective Interval history: Summary: Admitted with GIB. S: He ate a normal breakfast today denies any further rectal bleeding. Nursing does note some rectal blood overnight and 2 units of blood. I discussed the situation with surgery, he was hemodynamically stable. We will prep him tonight for colonoscopy and probable upper endoscopy tomorrow. He has a history of 2 previous colonoscopies for rectal bleeding and has known diverticulosis. He was on Eliquis, this was recently stopped. The patient is currently on Plavix and underwent a Watchman procedure, he may be able to come off from Plavix in January. Exam Vital Signs (past 8 hours): - 12/21/24 00:59 12/21/24 01:04 12/21/24 01:19 Temperature 97.4 F L 97.4 F L 97.4 F L Pulse Rate 90 90 89 Respiratory Rate 16 16 16 Blood Pressure 105/54 L 105/54 L 101/50 L Pulse Oximetry Oxygen Delivery Method 12/21/24 02:00 12/21/24 03:40 12/21/24 06:00 Temperature 96.8 F L Pulse Rate 76 Respiratory Rate 16 Blood Pressure 115/58 L Pulse Oximetry 100 100 Oxygen Delivery Method Room Air Room Air Oxygen Delivery Method Room Air Oxygen Flow Rate 0 Narrative Exam Narrative: NAD, alert and oriented. Fluent speech. Lungs are clear, normal rate and effort. Heart is regular, no murmur gallop or rub. Abdomen is soft, non distended. Extremities are free of edema. Objective Labs 12/21/24 05:18 12/21/24 05:18 Labs: Laboratory Results - last 24 hr 12/20/24 12/20/24 12/21/24 11:50 21:33 05:18 WBC 7.5 6.8 RBC 2.94 L 2.66 L Hgb 8.2 L 6.8 L* 7.9 L Hct 25.0 L 20.6 L* 22.9 L MCV 85.0 86.0 MCH 28.1 29.9 MCHC 33.0 34.7 RDW 16.4 H 16.6 H Plt Count 200 105 L Neut % (Auto) 71.9 69.8 Lymph % (Auto) 15.5 L 17.0 L [place] % (Auto) 11.4 10.9 Eos % (Auto) 0.2 L 0.8 L Baso % (Auto) 1.0 1.5 Neut # (Auto) 5400 4700 Lymph # (Auto) 1200 1200 [place] # (Auto) 900 700 Eos # (Auto) 0 100 Baso # (Auto) 100 100 PT 14.7 H INR 1.3 APTT 36 Sodium 130 L 131 L Potassium 5.4 H 4.8 Chloride 99 104 Carbon Dioxide 24 22 BUN 59 H 60 H Creatinine 1.34 H 1.12 Estimated GFR 53 L > 60 BUN/Creatinine Ratio 44.0 H 53.6 H Glucose 103 H 91 Calcium 9.1 8.3 L Magnesium 1.8 Total Bilirubin 1.0 AST 34 ALT 20 Alkaline Phosphatase 75 Total Creatine Kinase 126 Troponin I 0.013 NT-Pro-B Natriuret Pep 1490 H Total Protein 6.7 Albumin 3.5 Globulin 3.2 Albumin/Globulin Ratio 1.1 Lipase 81 Blood Type A Positive Antibody Screen Negative Crossmatch See Detail PFSH Medical History Leg edema Lower GI bleed Chronic bronchitis with productive mucopurulent cough Chronic kidney disease Anemia Dementia Nightmares Gastroenteritis Tricuspid regurgitation Seasonal allergic rhinitis Bronchitis Cerumen impaction Chronic atrial fibrillation Ventral incisional hernia Corns and callosities Finger injury Well adult exam BPH loc w/o ur obs/LUTS GERD (gastroesophageal reflux disease) Left lower quadrant abdominal pain Renal insufficiency Osteopenia GI bleed Hiatal hernia Atrial fibrillation Cataracts, bilateral (~08/2016) Hypertension BPH (benign prostatic hyperplasia) Colon polyps Diverticular disease Hyperlipidemia Surgical History Hx of pyloroplasty Hx of cholecystectomy History of repair of hiatal hernia Family History Father Heart disease Stroke Mother History of breast cancer Sister History of breast cancer Social History household members: spouse Smoking Status: Former smoker Assessment & Plan Assessment & Plan narrative: 1. GIB, present on admission and active. 2. Acute blood loss anemia, present on admission and active. PLAN: -serial H&H, blood products as needed. -discussed with General surgery today, plan is prep for colonoscopy on December 22 -regular lunch, clear liquids for dinner and then prep as noted. NEETU: 12/22 afternoon if doing well. Time-Based Coding :: [TOTAL MINUTES] spent with patient and on the chart (including review of chart, obtaining history, exam, reviewing outside data, placing orders, documenting exam and treatment plan, and counseling patient) on [DATE]. Quality VTE Deep Vein Thrombosis/Pulmonary Embolism Present on Admission: No
[2024-12-21] MEDS: MEMANTINE HCL 5 MG TABLET PO ×2 (08:41→20:57)
[2024-12-21] MEDS: DONEPEZIL 5 MG TABLET 10 MG PO (08:41)
[2024-12-21] MEDS: PANTOPRAZOLE 40 MG VIAL IV ×2 (08:42→20:59)
--- NOTE | 2024-12-21 13:40 | CM.DANOTE ---
B DCP Assessment note Pt is an 84yo M admitted with suspected GI bleed/blood in stool. PCP Deacon Weller Payer [facility] and self pay [employer] W[employer] TECHNICIAN reviewed EMR per chart review, pt lives indep with spouse in [place]. no DME at baseline. A/I. Per nursing staff/chart review/provider in morning rounds, plan for scope tomorrow. may dc tomorrow after EGD if pt is medically stable. Per RN, no obvious/anticipated DCP/CM needs. P: anticipate return home when medically stable with spouse support, earline vs Fri likely. alert TCM at dc. will continue to follow closely in case any DCP needs arise. ALYCE Weaver Discharge Planning/Care Management CM Discharge Assessment Start: 12/21/24 13:39 Freq: Status: Active Protocol: Document 12/21/24 13:40 SL (Rec: 12/21/24 13:40 SL Desktop) Discharge Planning Assessment Assigned Trim Stencil Maker ALCYE Menon DPOA/Assigned Designee Name Meagan spouse Contact Information [phone] Advance Directives? No History Provided By Patient,Family Member Prior Living Arrangements House Household Members spouse Type of transporation used prior to Drives own vehicle admit Independent with ADL's Yes Is patient alert and oriented? Yes Discharge Plan Home Referrals Initiated None needed Review Status In Process Please Provide Date Initial DC 12/21/24 Assessment Was Performed Next Review Type Continued Stay Review
[2024-12-21 17:46] LABS: Hematocrit 24.9 % (41-53); Hemoglobin 8.2 g/dL (13.5-17.5)
[2024-12-21] MEDS: ACETAMINOPHEN 325 MG TABLET 650 MG PO (18:07)
--- NOTE | 2024-12-21 20:24 | PM.CN.IH.1 ---
History of Present Illness Consult details Date Patient Seen: 12/21/24 Chief complaint: Weak, Low blood pressure , blood in Bowels Narrative: Carlos is an 84-year-old man who presents with anemia and melena. He has had prior colonoscopies within the past year for what was presumed to be diverticular bleeding but no definitive sources of open found. He had been transitioned from Eliquis to aspirin and Plavix recently. See the history and physical for more details. Meds Home Medications and Allergies Home Medications Medication Instructions Recorded Confirmed Type cholecalciferol (vitamin D3) 50 50 mcg PO DAILY 11/25/19 12/20/24 History mcg (2,000 unit) capsule gemfibrozil 600 mg tablet See Rx Instructions .Route 04/21/24 12/20/24 Rx .COMPLEX #90 tabs aspirin 81 mg tablet,delayed 81 mg PO DAILY 11/01/24 12/20/24 History release (Adult Low Dose Aspirin) clopidogrel 75 mg tablet 75 mg PO DAILY 11/01/24 12/20/24 History donepezil 10 mg tablet 10 mg PO DAILY 12/20/24 12/20/24 History hydrochlorothiazide 25 mg tablet 25 mg PO DAILY 12/20/24 12/20/24 History inulin 2 gram chewable tablet 2 g PO BEDTIME 12/20/24 12/20/24 History magnesium gluconate 12.5 mg 1,000 mg PO BEDTIME 12/20/24 12/20/24 History magnesium (250 mg) tablet memantine 5 mg tablet 5 mg PO BID 12/20/24 12/20/24 History metoprolol succinate 25 mg 12.5 mg PO BEDTIME 12/20/24 12/20/24 History tablet,extended release 24 hr multivitamin h-gkeghurd-zslsggy 1 tab PO DAILY 12/20/24 12/20/24 History fumarate 18 mg-vitamin K 25 mcg tablet rosuvastatin 10 mg tablet 10 mg PO QPM 12/20/24 12/20/24 History valsartan 40 mg tablet 40 mg PO DAILY 12/20/24 12/20/24 History Allergies Allergy/AdvReac Type Severity Reaction Status Date / Time morphine [MORPHINE] Allergy Intermediate RASH Verified 12/02/24 10:03 Exam Vital Signs (past 8 hours): - 12/21/24 16:00 12/21/24 16:00 Temperature 97.6 F Pulse Rate 87 Respiratory Rate 16 Blood Pressure 122/63 Pulse Oximetry 99 99 Oxygen Delivery Method Room Air Oxygen Flow Rate 0 0 Oxygen Delivery Method Room Air Oxygen Flow Rate 0 Const General: No acute distress Objective Labs 12/21/24 17:40 12/21/24 05:18 Labs: Laboratory Results - last 24 hr 12/20/24 12/20/24 12/21/24 11:50 21:33 05:18 WBC 6.8 RBC 2.66 L Hgb 6.8 L* 7.9 L Hct 20.6 L* 22.9 L MCV 86.0 MCH 29.9 MCHC 34.7 RDW 16.6 H Plt Count 105 L Neut % (Auto) 69.8 Lymph % (Auto) 17.0 L [place] % (Auto) 10.9 Eos % (Auto) 0.8 L Baso % (Auto) 1.5 Neut # (Auto) 4700 Lymph # (Auto) 1200 [place] # (Auto) 700 Eos # (Auto) 100 Baso # (Auto) 100 Sodium 131 L Potassium 4.8 Chloride 104 Carbon Dioxide 22 BUN 60 H Creatinine 1.12 Estimated GFR > 60 BUN/Creatinine Ratio 53.6 H Glucose 91 Calcium 8.3 L Blood Type A Positive Antibody Screen Negative Crossmatch See Detail 12/21/24 17:40 WBC RBC Hgb 8.2 L Hct 24.9 L MCV MCH MCHC RDW Plt Count Neut % (Auto) Lymph % (Auto) [place] % (Auto) Eos % (Auto) Baso % (Auto) Neut # (Auto) Lymph # (Auto) [place] # (Auto) Eos # (Auto) Baso # (Auto) Sodium Potassium Chloride Carbon Dioxide BUN Creatinine Estimated GFR BUN/Creatinine Ratio Glucose Calcium Blood Type Antibody Screen Crossmatch [facility] Medical History Leg edema Lower GI bleed Chronic bronchitis with productive mucopurulent cough Chronic kidney disease Anemia Dementia Nightmares Gastroenteritis Tricuspid regurgitation Seasonal allergic rhinitis Bronchitis Cerumen impaction Chronic atrial fibrillation Ventral incisional hernia Corns and callosities Finger injury Well adult exam BPH loc w/o ur obs/LUTS GERD (gastroesophageal reflux disease) Left lower quadrant abdominal pain Renal insufficiency Osteopenia GI bleed Hiatal hernia Atrial fibrillation Cataracts, bilateral (~08/2016) Hypertension BPH (benign prostatic hyperplasia) Colon polyps Diverticular disease Hyperlipidemia Surgical History Hx of pyloroplasty Hx of cholecystectomy History of repair of hiatal hernia Family History Father Heart disease Stroke Mother History of breast cancer Sister History of breast cancer Social History household members: spouse Tobacco & Substance Use Smoking Status: Former smoker Assessment & Plan Assessment and plan (1) Symptomatic anemia: Status: Acute (2) GI bleed: Qualifiers: GI bleed type/associated pathology: unspecified gastrointestinal hemorrhage type Qualified Code(s): K92.2 - Gastrointestinal hemorrhage, unspecified Status: Acute Plan Prep for EGD and colonoscopy tomorrow. Time-Based Coding :: [TOTAL MINUTES] spent with patient and on the chart (including review of chart, obtaining history, exam, reviewing outside data, placing orders, documenting exam and treatment plan, and counseling patient) on [DATE]. PROFEE Charge Codes Inpatient or Observation consultation: [id number]
[2024-12-21] MEDS: PEG3350/SOD SULF,BICARB,CL/KCL 4,000 ML SOLUTION 2000 ML PO (20:56)
[2024-12-21] MEDS: METOPROLOL ER 25 MG TABLET 12.5 MG PO (20:57)
[2024-12-21] MEDS: ATORVASTATIN 20 MG TABLET PO (20:57)
[2024-12-22] VITALS (8 sets, daily range): BP systolic 111–129; BP diastolic 57–69; PULSE 58–99; RESP 12–20; TEMP 36–36.6; O2SAT 92–100
[2024-12-22 05:17] LABS: Add Manual Diff / Slide Review NO; Basophils Absolute Auto 100 /uL (0-100); Basophils Percent Auto 1.2 % (0-2); Eosinophils Absolute Auto 100 /uL (0-450); Hematocrit 21.5 % (41-53); Hemoglobin 7.2 g/dL (13.5-17.5); Lymphocytes Absolute Auto 1100 /uL (1100-4500); Mean Corpuscular HGB Conc 33.2 % (30-36); Mean Corpuscular Hemoglobin 28.7 PG (26-34); Mean Corpuscular Volume 86.5 fL (80-100); Monocytes Absolute Auto 700 /uL (0-900); Monocytes Percent Auto 11.3 % (3-14); Neutrophils Absolute Auto 4400 /uL (1500-7000); Neutrophils Percent Auto 69.5 % (50-75); Platelet Count 172 X10^3/uL (150-400); Red Blood Cell Count 2.49 X10^6/uL (4.5-5.9); Red Cell Distribution Width 16.7 % (11.6-14.8); White Blood Cell Count 6.4 X10^3/uL (4.5-11.0)
[2024-12-22 05:26] LABS: BUN Creatinine Ratio 45.6 (6-22); Blood Urea Nitrogen 52 mg/dL (9-20); Calcium 8.1 mg/dL (8.4-10.2); Carbon Dioxide 26 mmol/L (22-32); Chloride 100 mmol/L (98-107); Estimated Glomerular Filt Rate > 60 mL/min (>60); Glucose 113 mg/dL (70-99); HEMOLYSIS < 15 (0-50); Potassium 4.4 mmol/L (3.4-5.1); Sodium 131 mmol/L (137-145)
--- NOTE | 2024-12-22 07:01 | PC.NURSE ---
Patient had Golytely per order.
--- NOTE | 2024-12-22 07:38 | PM.PN.1 ---
Subjective Subjective Interval history: S: No rectal bleeding overnight, he was incomplete stool prep. He was finished 2 L of GoLYTELY. Hemoglobin was 7.2 this morning with a repeat pending at noon. Exam Vital Signs (past 8 hours): - 12/22/24 00:00 12/22/24 04:00 Temperature 96.8 F L 97.0 F L Pulse Rate 74 99 H Respiratory Rate 12 20 Blood Pressure 129/68 122/69 Pulse Oximetry 93 92 Oxygen Flow Rate 0 0 Oxygen Delivery Method Room Air Oxygen Flow Rate 0 Narrative Exam Narrative: NAD, alert and oriented. Fluent speech. Lungs are clear, normal rate and effort. Heart is regular, no murmur gallop or rub. Abdomen is soft, non distended. Extremities are free of edema. Objective Labs 12/22/24 04:42 12/22/24 04:42 Labs: Laboratory Results - last 24 hr 12/21/24 12/22/24 17:40 04:42 WBC 6.4 RBC 2.49 L Hgb 8.2 L 7.2 L Hct 24.9 L 21.5 L MCV 86.5 MCH 28.7 MCHC 33.2 RDW 16.7 H Plt Count 172 Neut % (Auto) 69.5 Lymph % (Auto) 17.0 L [place] % (Auto) 11.3 Eos % (Auto) 1.0 L Baso % (Auto) 1.2 Neut # (Auto) 4400 Lymph # (Auto) 1100 [place] # (Auto) 700 Eos # (Auto) 100 Baso # (Auto) 100 Sodium 131 L Potassium 4.4 Chloride 100 Carbon Dioxide 26 BUN 52 H Creatinine 1.14 Estimated GFR > 60 BUN/Creatinine Ratio 45.6 H Glucose 113 H Calcium 8.1 L PFSH Medical History Leg edema Lower GI bleed Chronic bronchitis with productive mucopurulent cough Chronic kidney disease Anemia Dementia Nightmares Gastroenteritis Tricuspid regurgitation Seasonal allergic rhinitis Bronchitis Cerumen impaction Chronic atrial fibrillation Ventral incisional hernia Corns and callosities Finger injury Well adult exam BPH loc w/o ur obs/LUTS GERD (gastroesophageal reflux disease) Left lower quadrant abdominal pain Renal insufficiency Osteopenia GI bleed Hiatal hernia Atrial fibrillation Cataracts, bilateral (~08/2016) Hypertension BPH (benign prostatic hyperplasia) Colon polyps Diverticular disease Hyperlipidemia Surgical History Hx of pyloroplasty Hx of cholecystectomy History of repair of hiatal hernia Family History Father Heart disease Stroke Mother History of breast cancer Sister History of breast cancer Social History household members: spouse Smoking Status: Former smoker Assessment & Plan Assessment & Plan narrative: 1. GIB, present on admission and active. 2. Acute blood loss anemia, present on admission and active. 3. Previous GI bleeds on Eliquis, felt to likely be diverticular. Now on Plavix (being held). 4. PAF with recent Watchman procedure and consideration of stopping Plavix as of January 29. 5. Hypertension, present on admission and stable. PLAN: -serial H&H, blood products as needed. -continue GoLYTELY with a 2nd 2 L until clear. -new and H&H, anticipate another unit of blood. He received 2 units for hemoglobin of 6.8 at the time of admission. -monitor breathing and for evidence of chest pain. -Plavix is on hold. He needs another midnight of care to continue to monitor hemoglobin regardless of scope findings. NEETU is December 23 if no rectal bleeding overnight. Time-Based Coding :: [TOTAL MINUTES] spent with patient and on the chart (including review of chart, obtaining history, exam, reviewing outside data, placing orders, documenting exam and treatment plan, and counseling patient) on [DATE]. Quality VTE Deep Vein Thrombosis/Pulmonary Embolism Present on Admission: No
[2024-12-22] MEDS: MEMANTINE HCL 5 MG TABLET PO ×2 (09:10→20:23)
[2024-12-22] MEDS: DONEPEZIL 5 MG TABLET 10 MG PO (09:10)
[2024-12-22] MEDS: PANTOPRAZOLE 40 MG VIAL IV ×2 (09:11→20:27)
[2024-12-22 12:54] LABS: Hematocrit 23.1 % (41-53); Hemoglobin 7.8 g/dL (13.5-17.5)
--- NOTE | 2024-12-22 13:48 | CM.DPNOTE ---
DCP Cont Reviewed chart. Patient discussed in multidisciplinary rounds. According to Dr Stephenson, patient will have a scope today, may also need a blood transfusion. NEETU 12/23 if not rectal bleeding overnight. Plan remains discharge home w/spouse w/close outpatient follow up. CM team following clinical course closely in case any discharge needs or concerns arise. CADENCE
--- NOTE | 2024-12-22 17:33 | PC.NURSE ---
PATIENT WORKING ON SECOND 2000ML BOTTLE OF [place], COMPLETED 1ST , NOT SCANNED
[2024-12-22] MEDS: METOPROLOL ER 25 MG TABLET 12.5 MG PO (20:23)
[2024-12-22] MEDS: ATORVASTATIN 20 MG TABLET PO (20:23)
[2024-12-22] MEDS: SODIUM CHLORIDE 0.9% FLUSH 10 ML IV (20:28)
[2024-12-23] VITALS (16 sets, daily range): BP systolic 101–128; BP diastolic 45–75; PULSE 7–87; RESP 14–20; TEMP 36.1–36.9; O2SAT 92–100; BMI 30.4
--- NOTE | 2024-12-23 | PATH_ITS ---
[facility] Accession Number: [id number] No. of containers..02 Tissue . 01 Material submitted: . PART A: stomach - ANTRUM PART B: stomach - GASTRIC BODY BIOPSY . 01 Diagnosis: Part A: ANTRUM : Gastric mucosa with mild chronic inflammation and features of reactive gastropathy. No Helicobacter organisms identified. No intestinal metaplasia, dysplasia, or malignancy identified. . Part B: GASTRIC BODY BIOPSY: Gastric mucosa with mild features of reactive gastropathy. No Helicobacter organisms identified. No intestinal metaplasia, dysplasia, or malignancy identified. STO 12/28/20241730 Local . 01 Electronically signed: . Agapito Mtz MD, Pathologist NPI- [id number] . 01 Gross description: . Part A: ANTRUM : Received in formalin are 4 fragment(s) of acharya, soft tissue measuring 0.1 x 0.1 x 0.1 cm to 0.3 x 0.3 x 0.2 cm submitted entirely in 1 cassette(s) . Part B: GASTRIC BODY BIOPSY: Received in formalin are 2 fragment(s) of acharya, soft tissue measuring 0.1 x 0.1 x 0.1 cm to 0.4 x 0.2 x 0.2 cm submitted entirely in 1 cassette(s) /AHSAN 12/28/2024 173 Local . 01 Microscopic: . Part A: ANTERUM : An immunohistochemical stain was performed to evaluate for Helicobacter organisms and is negative. The control stains appropriately. * This test was developed and the performance characteristics were validated by [employer]. It has not been cleared or approved by the Food and Drug Administration. . 01 Pathologist provided ICD-10: K29.60 . 01 CPT . 336741, 372193, Y39491 Specimen Comment: A courtesy copy of this report has been sent to [phone] Performed at: [address] [facility] [address] [place] [address], [place], [place] [id number] MD Agapito Mtz MD Phone: [phone]
[2024-12-23 06:19] LABS: BUN Creatinine Ratio 27.9 (6-22); Blood Urea Nitrogen 31 mg/dL (9-20); Calcium 8.2 mg/dL (8.4-10.2); Carbon Dioxide 28 mmol/L (22-32); Chloride 100 mmol/L (98-107); Estimated Glomerular Filt Rate > 60 mL/min (>60); Glucose 102 mg/dL (70-99); HEMOLYSIS < 15 (0-50); Potassium 3.8 mmol/L (3.4-5.1); Sodium 133 mmol/L (137-145)
[2024-12-23 06:20] LABS: Add Manual Diff / Slide Review NO; Basophils Absolute Auto 100 /uL (0-100); Basophils Percent Auto 1.7 % (0-2); Eosinophils Absolute Auto 100 /uL (0-450); Eosinophils Percent Auto 1.7 % (2-4); Lymphocytes Absolute Auto 700 /uL (1100-4500); Lymphocytes Percent Auto 18.4 % (25-40); Mean Corpuscular HGB Conc 33.3 % (30-36); Mean Corpuscular Hemoglobin 28.8 PG (26-34); Mean Corpuscular Volume 86.5 fL (80-100); Monocytes Absolute Auto 500 /uL (0-900); Monocytes Percent Auto 12.1 % (3-14); Neutrophils Absolute Auto 2700 /uL (1500-7000); Neutrophils Percent Auto 66.1 % (50-75); Platelet Count 167 X10^3/uL (150-400); Red Blood Cell Count 2.34 X10^6/uL (4.5-5.9); Red Cell Distribution Width 17.1 % (11.6-14.8); White Blood Cell Count 4.1 X10^3/uL (4.5-11.0)
[2024-12-23 06:22] LABS: Hematocrit 20.2 % (41-53); Hemoglobin 6.7 g/dL (13.5-17.5)
--- NOTE | 2024-12-23 07:41 | PM.PN.1 ---
Subjective Subjective Interval history: Summary: He was admitted with a rectal bleed. He was on Plavix and had a Watchman recently. He may be able to come off from Plavix as of early January when he sees Cardiology again. Has a history of 2 previous rectal bleeds which were presumed to relate to diverticulosis on endoscopy. At that time he was on anticoagulation, he was no longer anticoagulated. His colonoscopy was delayed at the last part of the day on December 22 due to incomplete prep. He was hemoglobin drifted to under 7 overnight and he was receiving 1 unit of blood today. He will have endoscopy today. S: Doing well, no abdominal pain, dyspnea, or chest pain. Exam Vital Signs (past 8 hours): - 12/23/24 00:00 12/23/24 04:00 Temperature 97.6 F 97.1 F L Pulse Rate 86 87 Respiratory Rate 18 18 Blood Pressure 123/61 107/45 L Pulse Oximetry 99 98 Oxygen Flow Rate 0 0 Oxygen Delivery Method Room Air Oxygen Flow Rate 0 Narrative Exam Narrative: NAD, alert and oriented. Fluent speech. Lungs are clear, normal rate and effort. Heart is regular, no murmur gallop or rub. Abdomen is soft, non distended. Extremities are free of edema. Objective Labs 12/23/24 05:10 12/23/24 05:10 Labs: Laboratory Results - last 24 hr 12/22/24 12/23/24 12:45 05:10 WBC 4.1 L RBC 2.34 L Hgb 7.8 L 6.7 L* Hct 23.1 L 20.2 L* MCV 86.5 MCH 28.8 MCHC 33.3 RDW 17.1 H Plt Count 167 Neut % (Auto) 66.1 Lymph % (Auto) 18.4 L [place] % (Auto) 12.1 Eos % (Auto) 1.7 L Baso % (Auto) 1.7 Neut # (Auto) 2700 Lymph # (Auto) 700 L [place] # (Auto) 500 Eos # (Auto) 100 Baso # (Auto) 100 Sodium 133 L Potassium 3.8 Chloride 100 Carbon Dioxide 28 BUN 31 H Creatinine 1.11 Estimated GFR > 60 BUN/Creatinine Ratio 27.9 H Glucose 102 H Calcium 8.2 L PFSH Medical History Leg edema Lower GI bleed Chronic bronchitis with productive mucopurulent cough Chronic kidney disease Anemia Dementia Nightmares Gastroenteritis Tricuspid regurgitation Seasonal allergic rhinitis Bronchitis Cerumen impaction Chronic atrial fibrillation Ventral incisional hernia Corns and callosities Finger injury Well adult exam BPH loc w/o ur obs/LUTS GERD (gastroesophageal reflux disease) Left lower quadrant abdominal pain Renal insufficiency Osteopenia GI bleed Hiatal hernia Atrial fibrillation Cataracts, bilateral (~08/2016) Hypertension BPH (benign prostatic hyperplasia) Colon polyps Diverticular disease Hyperlipidemia Surgical History Hx of pyloroplasty Hx of cholecystectomy History of repair of hiatal hernia Family History Father Heart disease Stroke Mother History of breast cancer Sister History of breast cancer Social History household members: spouse Smoking Status: Former smoker Assessment & Plan Assessment & Plan narrative: 1. GIB, present on admission and active. 2. Acute blood loss anemia, present on admission and active. 3. Previous GI bleeds on Eliquis, felt to likely be diverticular. Now on Plavix (being held). 4. PAF with recent Watchman procedure and consideration of stopping Plavix as of January 29. 5. Hypertension, present on admission and stable. PLAN: -serial H&H, blood products as needed. 1 unit of PRBC this AM. -Colonoscopy today. -Plavix is on hold. He needs another midnight of care to continue to monitor hemoglobin regardless of scope findings. NEETU: 12/24 if no evidence of rectal bleeding and stable hemoglobin. He lives in [place] with his . Time-Based Coding :: [TOTAL MINUTES] spent with patient and on the chart (including review of chart, obtaining history, exam, reviewing outside data, placing orders, documenting exam and treatment plan, and counseling patient) on [DATE]. Quality VTE Deep Vein Thrombosis/Pulmonary Embolism Present on Admission: No
[2024-12-23] MEDS: DONEPEZIL 5 MG TABLET 10 MG PO (08:49)
[2024-12-23] MEDS: SODIUM CHLORIDE 0.9% FLUSH 10 ML IV ×2 (08:49→20:47)
[2024-12-23] MEDS: PANTOPRAZOLE 40 MG VIAL IV ×2 (08:49→20:46)
[2024-12-23] MEDS: MEMANTINE HCL 5 MG TABLET PO ×2 (08:50→20:47)
--- NOTE | 2024-12-23 13:04 | CM.DPNOTE ---
DCP Cont Reviewed chart. Patient discussed in multidisciplinary rounds. Scope was delayed yesterday, poor prep. Patient is scheduled for scope today. Plan remains discharge home w/family w/close outpatient follow up. CM team following clinical course closely in case any discharge needs or concerns arise. CADENCE
--- NOTE | 2024-12-23 14:36 | PM.PREOP ---
Pre-operative Note COVID-19 COVID-19 status: Not tested Interval Note History & Physical reviewed/Exam performed by Physician: Yes Changes to H&P: No ASA Class (for procedural sedation): III
[2024-12-23 14:52] LABS: Hematocrit 24.1 % (41-53)
--- NOTE | 2024-12-23 15:28 | PM.OP.EC ---
Operative Date/Time/Diagnoses Date of procedure: 12/23/24 Time of procedure: 15:28 Pre-op diagnosis: Anemia Post-op diagnosis: same Procedure & Clinicians Study performed: Esophagogastroduodenoscopy and colonoscopy Same procedure as scheduled: Yes Surgeon: Osito Stack Procedure Notes Procedure in detail: Surgeon: Osito Stack MD Anesthesia: Ruddy Hyde D.O. Procedure in detail: A timeout was performed. A bite blocked was placed and monitors were attached to the patient. The patient was positioned in the left lateral decubitus position. Sedation was administered. Once the patient was sedated the endoscope was inserted through the bite block and passed through the esophagus and stomach and into the duodenum. There was a large ulcer in the duodenal bulb. There was no active bleeding but there appeared to be some fresh clot loosely attached to the ulcer base. The clot was gently irrigated away and there was no visible vessel within the base of the ulcer. The ulcer appeared to be in the anterior superior portion of the lumen. We then withdrew the scope into the stomach. There was some antritis and biopsies were taken of the antrum with cold forceps. The endoscope was retroflexed and there was some moderate proximal gastritis and biopsies were taken with the cold forceps of the gastric body mucosa. There also appeared to be a moderately sized hiatal hernia. The endoscope was straightned and withdrawn into the esophagus. No other abnormalities were found in the esophagus. EGD findings: Large ulcer in the duodenal bulb, antritis, gastritis and hiatal hernia Next we repositioned the patient for a colonoscopy. A digital rectal exam was performed and was normal. The colonoscope was inserted and advanced to the cecum. The appendiceal orifice was identified and photographed. The prep was marginal but there was no evidence of blood in the colon. There was pandiverticulosis. The scope was retroflexed in the rectum and no other abnormalities were seen. Colonoscopy findings: Marginal prep, pandiverticulosis, no obvious lower GI bleeding Total procedural EBL: 5 mL Scope withdrawal time: 5 minutes Sedation minutes: 21 minutes Post-procedure Disposition: PACU
[2024-12-23] MEDS: METOPROLOL ER 25 MG TABLET 12.5 MG PO (20:46)
[2024-12-23] MEDS: ATORVASTATIN 20 MG TABLET PO (20:47)
[2024-12-24] VITALS (10 sets, daily range): BP systolic 98–129; BP diastolic 52–65; PULSE 64–87; RESP 14–18; TEMP 36.2–36.7; O2SAT 96–98
[2024-12-24 05:53] LABS: Mean Corpuscular Hemoglobin 28.7 PG (26-34); Mean Corpuscular Volume 84.4 fL (80-100); Platelet Count 135 X10^3/uL (150-400); Red Blood Cell Count 2.39 X10^6/uL (4.5-5.9); Red Cell Distribution Width 17.2 % (11.6-14.8); White Blood Cell Count 4.6 X10^3/uL (4.5-11.0)
[2024-12-24 05:55] LABS: Hematocrit 20.2 % (41-53)
[2024-12-24 05:56] LABS: Hemoglobin 6.8 g/dL (13.5-17.5)
[2024-12-24 06:01] LABS: Blood Urea Nitrogen 21 mg/dL (9-20); Calcium 8.1 mg/dL (8.4-10.2); Carbon Dioxide 25 mmol/L (22-32); Chloride 99 mmol/L (98-107); Estimated Glomerular Filt Rate > 60 mL/min (>60); Glucose 96 mg/dL (70-99); HEMOLYSIS < 15 (0-50); Sodium 129 mmol/L (137-145)
--- NOTE | 2024-12-24 08:27 | PC.NURSE ---
Late entry: 15 min VS at 0924 on 12/23/24 were 112/54 97.5, 70, 16, no signs of transfusion reaction
[2024-12-24] MEDS: DONEPEZIL 5 MG TABLET 10 MG PO (08:59)
[2024-12-24] MEDS: MEMANTINE HCL 5 MG TABLET PO ×2 (08:59→20:13)
[2024-12-24] MEDS: PANTOPRAZOLE 40 MG VIAL IV ×2 (08:59→20:14)
[2024-12-24] MEDS: SODIUM CHLORIDE 0.9% FLUSH 10 ML IV ×2 (09:00→20:14)
--- NOTE | 2024-12-24 10:19 | P.PN_ITS ---
Subjective Subjective Date Patient Seen: 12/24/24 Time Patient Seen: 10:20 Interval history: No further hematochezia or melena overnight. His hemoglobin did drop again this morning and he is getting a unit of blood now. Exam Vital Signs (past 8 hours): - 12/24/24 04:00 12/24/24 08:00 12/24/24 08:11 Temperature 97.3 F L 97.4 F L 97.4 F L Pulse Rate 77 85 85 Respiratory Rate 16 17 16 Blood Pressure 106/53 L 119/59 L 119/59 L Pulse Oximetry 96 98 Oxygen Flow Rate 0 Oxygen Delivery Method Room Air Oxygen Flow Rate 0 Const General: comfortable Resp Effort & Inspection: normal respiratory effort Objective Labs 12/24/24 04:40 12/24/24 04:40 Labs: Laboratory Results - last 24 hr 12/20/24 12/23/24 12/24/24 11:50 14:45 04:40 WBC 4.6 RBC 2.39 L Hgb 8.0 L 6.8 L* Hct 24.1 L 20.2 L* MCV 84.4 MCH 28.7 MCHC 34.0 RDW 17.2 H Plt Count 135 L Sodium 129 L Potassium 4.0 Chloride 99 Carbon Dioxide 25 BUN 21 H Creatinine 1.05 Estimated GFR > 60 BUN/Creatinine Ratio 20.0 Glucose 96 Calcium 8.1 L Blood Type A Positive A Positive Antibody Screen Negative Negative Crossmatch See Detail See Detail [facility] Medical History Leg edema Lower GI bleed Chronic bronchitis with productive mucopurulent cough Chronic kidney disease Anemia Dementia Nightmares Gastroenteritis Tricuspid regurgitation Seasonal allergic rhinitis Bronchitis Cerumen impaction Chronic atrial fibrillation Ventral incisional hernia Corns and callosities Finger injury Well adult exam BPH loc w/o ur obs/LUTS GERD (gastroesophageal reflux disease) Left lower quadrant abdominal pain Renal insufficiency Osteopenia GI bleed Hiatal hernia Atrial fibrillation Cataracts, bilateral (~08/2016) Hypertension BPH (benign prostatic hyperplasia) Colon polyps Diverticular disease Hyperlipidemia Surgical History Hx of pyloroplasty Hx of cholecystectomy History of repair of hiatal hernia Family History Father Heart disease Stroke Mother History of breast cancer Sister History of breast cancer Social History household members: spouse Smoking Status: Former smoker Assessment & Plan Assessment and plan (1) Duodenal ulcer: Status: Acute Plan No evidence of continued bleeding from his ulcer. I suspect his drop in hemoglobin is just lag effect from bleeding earlier in the week. I recommend he stay off aspirin, NSAIDs and all blood thinners until the ulcer has fully healed. Time-Based Coding :: [TOTAL MINUTES] spent with patient and on the chart (including review of chart, obtaining history, exam, reviewing outside data, placing orders, documenting exam and treatment plan, and counseling patient) on [DATE]. Quality VTE Deep Vein Thrombosis/Pulmonary Embolism Present on Admission: No [employer]isher Document charge(s): No
--- NOTE | 2024-12-24 11:55 | PC.NURSE ---
Dr. Patel notified of changes in vital signs during blood transfusion. Order to keep infusing. Blood infused without sxs of blood transfusion reaction.
--- NOTE | 2024-12-24 12:39 | P.PN_ITS ---
Subjective Subjective Interval history: 84-year-old male with a fib previously on Eliquis (off d/t GIB), dementia dyslipidemia, hypertension, Watchman procedure placement 2023 on aspirin and Plavix for atrial fibrillation, presents with bloody stool. Reportedly had a negative EGD/[place] previously. On ASA/plavix. Patient had a decrease in his hemoglobin overnight and received 1 unit of packed red blood cells this morning. He has not passed any dark tarry stools or had any hematemesis. He reports he is overall feeling about the same. Notes no difference in how he feels after he received the transfusion. He denies any lightheadedness or dizziness. Denies any shortness a breath or edema worse than baseline. He is disappointed he will not be discharging home today. Spouse is at bedside. Exam Vital Signs (past 8 hours): - 12/23/24 12:00 12/23/24 13:29 12/23/24 14:46 Temperature 97.5 F L 97.7 F 98.3 F Pulse Rate 74 71 72 Respiratory Rate 18 16 14 Blood Pressure 121/64 116/62 128/75 Pulse Oximetry 92 Oxygen Delivery Method Room Air Oxygen Flow Rate 0 12/23/24 15:28 12/23/24 15:35 12/23/24 15:40 Temperature 98.5 F Pulse Rate 74 78 77 Respiratory Rate 18 14 15 Blood Pressure 101/59 L 110/48 L 104/50 L Pulse Oximetry 99 98 100 Oxygen Delivery Method Nasal Cannula Nasal Cannula Room Air Oxygen Flow Rate 2 2 12/23/24 15:46 12/23/24 17:00 Temperature 97 F L 97.5 F L Pulse Rate 77 87 Respiratory Rate 14 20 Blood Pressure 106/48 L Pulse Oximetry 94 96 Oxygen Delivery Method Room Air Oxygen Flow Rate 0 Oxygen Delivery Method Room Air Oxygen Flow Rate 0 Narrative Exam Narrative: GEN: Very pleasant elderly male, Alert and oriented x 3, NAD HEENT:NC, Face symmetric, cheeks flushed CHEST: Respiratory excursions symmetric, CTAB CV: RRR, no M/R/G ABD: Soft, NT/ND, BT present in all 4 quadrants, no organomegaly or masses EXTR: warm, well perfused, no C/C, 2+ bilateral lower extremity pitting edema SKIN: warm and dry, no rash NEURO: Alert and oriented x 3, nonfocal Objective Labs 12/24/24 04:40 12/24/24 04:40 Labs: Laboratory Results - last 24 hr 12/20/24 12/23/24 12/23/24 11:50 05:10 14:45 WBC 4.1 L RBC 2.34 L Hgb 6.7 L* 8.0 L Hct 20.2 L* 24.1 L MCV 86.5 MCH 28.8 MCHC 33.3 RDW 17.1 H Plt Count 167 Neut % (Auto) 66.1 Lymph % (Auto) 18.4 L [place] % (Auto) 12.1 Eos % (Auto) 1.7 L Baso % (Auto) 1.7 Neut # (Auto) 2700 Lymph # (Auto) 700 L [place] # (Auto) 500 Eos # (Auto) 100 Baso # (Auto) 100 Sodium 133 L Potassium 3.8 Chloride 100 Carbon Dioxide 28 BUN 31 H Creatinine 1.11 Estimated GFR > 60 BUN/Creatinine Ratio 27.9 H Glucose 102 H Calcium 8.2 L Blood Type A Positive Antibody Screen Negative Crossmatch See Detail [facility] Medical History Leg edema Lower GI bleed Chronic bronchitis with productive mucopurulent cough Chronic kidney disease Anemia Dementia Nightmares Gastroenteritis Tricuspid regurgitation Seasonal allergic rhinitis Bronchitis Cerumen impaction Chronic atrial fibrillation Ventral incisional hernia Corns and callosities Finger injury Well adult exam BPH loc w/o ur obs/LUTS GERD (gastroesophageal reflux disease) Left lower quadrant abdominal pain Renal insufficiency Osteopenia GI bleed Hiatal hernia Atrial fibrillation Cataracts, bilateral (~08/2016) Hypertension BPH (benign prostatic hyperplasia) Colon polyps Diverticular disease Hyperlipidemia Surgical History Hx of pyloroplasty Hx of cholecystectomy History of repair of hiatal hernia Family History Father Heart disease Stroke Mother History of breast cancer Sister History of breast cancer Social History household members: spouse Smoking Status: Former smoker Assessment & Plan Assessment & Plan narrative: 1. UGIB Pt was found to have a large duodenal bulb ulcer, antritis and gastritis on EGD. This occurred on ASA/plavix. He previously had diverticular bleeds x 2 while on apixaban (colonoscopy showed pandiverticulosis). Discuss with him that he may ultimately have to remain off of anticoagulation given he has now had 2 lower GI bleeds on apixaban and 1 upper GI bleed secondary to a large duodenal ulcer on aspirin and Plavix. He continues on pantoprazole 40 mg IV b.i.d.. Will transition to p.o. dosing. 2. Acute blood loss anemia, present on admission and active. His hemoglobin did decrease down to 6.8 this morning from 8.0 yesterday. This is likely secondary to equilibration. We will repeat again in the morning. If it remained stable through the day, advised he will be able to discharge home. 3. Previous GI bleeds on Eliquis, felt to likely be diverticular. Now on Plavix (being held). 4. PAF with recent Watchman procedure Advised that since he has had the Watchman procedure and complications with both apixaban and combination of aspirin and Plavix, he may need to permanently be off of anticoagulation/antiplatelet agents. He has a follow-up appointment with Cardiology in January and plans to discuss it further at that time. level today. 5. Hypertension He is on hydrochlorothiazide and metoprolol as well as valsartan on an outpatient basis. Blood pressures are stable. Code status Full Prophylaxis Chemical prophylaxis contraindicated due to GI bleeding Disposition Likely discharge home tomorrow. Will work on increasing activity Time-Based Coding :: [TOTAL MINUTES] spent with patient and on the chart (including review of chart, obtaining history, exam, reviewing outside data, placing orders, documenting exam and treatment plan, and counseling patient) on [DATE]. Quality VTE Deep Vein Thrombosis/Pulmonary Embolism Present on Admission: No
--- NOTE | 2024-12-24 13:08 | CM.DPNOTE ---
DCP Cont Reviewed EMR. Pt POD1 EGD/colonoscopy. no GI bleed from colonoscopy, from EGD, large ulcer in the duodenal bulb, antritis, gastritis and hiatal hernia getting transfusion today. per provider in morning rounds, anticipate dc tomorrow. Plan remains discharge home w/family w/close outpatient follow up. CM team following clinical course closely in case any discharge needs or concerns arise. ALYCE Weaver
[2024-12-24] MEDS: METOPROLOL ER 25 MG TABLET 12.5 MG PO (20:13)
[2024-12-24] MEDS: dilTIAZem CD 180 MG CAP PO (20:13)
[2024-12-24] MEDS: ATORVASTATIN 20 MG TABLET PO (20:14)
[2024-12-25 03:00] VITALS: BP 114/52; PULSE 72; RESP 18; TEMP 36.2; O2SAT 97
[2024-12-25 03:56] LABS: BUN Creatinine Ratio 19.6 (6-22); Blood Urea Nitrogen 20 mg/dL (9-20); Calcium 8.2 mg/dL (8.4-10.2); Carbon Dioxide 26 mmol/L (22-32); Chloride 99 mmol/L (98-107); Estimated Glomerular Filt Rate > 60 mL/min (>60); Glucose 107 mg/dL (70-99); HEMOLYSIS < 15 (0-50); Sodium 129 mmol/L (137-145)
[2024-12-25 04:00] LABS: Hematocrit 23.3 % (41-53); Hemoglobin 7.9 g/dL (13.5-17.5); Mean Corpuscular HGB Conc 33.8 % (30-36); Mean Corpuscular Hemoglobin 28.3 PG (26-34); Mean Corpuscular Volume 83.8 fL (80-100); Platelet Count 134 X10^3/uL (150-400); Red Blood Cell Count 2.78 X10^6/uL (4.5-5.9); Red Cell Distribution Width 17.8 % (11.6-14.8); White Blood Cell Count 4.9 X10^3/uL (4.5-11.0)
[2024-12-25 08:00] VITALS: BP 129/63; PULSE 74; RESP 16; TEMP 36.2; O2SAT 97
[2024-12-25] MEDS: dilTIAZem CD 180 MG CAP PO (08:44)
[2024-12-25] MEDS: MEMANTINE HCL 5 MG TABLET PO (08:44)
[2024-12-25] MEDS: DONEPEZIL 5 MG TABLET 10 MG PO (08:44)
[2024-12-25] MEDS: PANTOPRAZOLE 40 MG VIAL IV (08:45)
[2024-12-25] MEDS: SODIUM CHLORIDE 0.9% FLUSH 10 ML IV (08:45)
[2024-12-25 11:20] LABS: Add Manual Diff / Slide Review NO; Basophils Absolute Auto 0 /uL (0-100); Basophils Percent Auto 0.8 % (0-2); Eosinophils Absolute Auto 0 /uL (0-450); Eosinophils Percent Auto 0.7 % (2-4); Hematocrit 24.8 % (41-53); Hemoglobin 8.3 g/dL (13.5-17.5); Lymphocytes Absolute Auto 1000 /uL (1100-4500); Lymphocytes Percent Auto 17.8 % (25-40); Mean Corpuscular HGB Conc 33.4 % (30-36); Mean Corpuscular Hemoglobin 28.2 PG (26-34); Mean Corpuscular Volume 84.5 fL (80-100); Monocytes Absolute Auto 800 /uL (0-900); Monocytes Percent Auto 13.8 % (3-14); Neutrophils Absolute Auto 3900 /uL (1500-7000); Neutrophils Percent Auto 66.9 % (50-75); Platelet Count 158 X10^3/uL (150-400); Red Blood Cell Count 2.93 X10^6/uL (4.5-5.9); Red Cell Distribution Width 17.5 % (11.6-14.8); White Blood Cell Count 5.9 X10^3/uL (4.5-11.0)
--- NOTE | 2024-12-25 11:46 | PC.NURSE ---
Pt is dressed and ready for discharge home with Spouse. IV's have been removed. Went over d/c instructions with Pt and Spouse-discussed d/c meds, time of last dose, reviewed stroke education, advised Pt not to drive until cleared by MD due to low blood count and recent falls. Discussed follow up with Quality Control and PCP and taking his d/c papers with them to the follow up appointments. Reviewed CHF guidelines sheeet and reminded Spouse to watch for increased shortness of breath or dizziness as well as blood in stool. Encouraged Pt to drink fluids to prevent constipation or dehydration being conscious of CHF hx. Pt and Spouse denied further questions. Pt had H/H drawn to recheck blood count prior to leaving and plans to eat his lunch before he goes. Pt agrees to call for assistance as needed.
--- NOTE | 2024-12-25 14:05 | CM.DPNOTE ---
DC Note Discharge home w/sp. Patient eager to return home. IMM provided. Spouse states understanding and remains agreeable to plan. No addtl SW needs identified. Transport via spouse. JW
--- NOTE | 2025-01-01 20:21 | PM.DS.1 ---
History of Present Illness History of Present Illness Chief complaint: Weak, Low blood pressure , blood in Bowels Narrative: Per H&P: 84-year-old male with past medical history of atrial fibrillation previously on Eliquis now off due to GI bleed, dementia dyslipidemia, hypertension, Watchman procedure placement July 2024 on aspirin and Plavix for atrial fibrillation, presents with bloody stool. Per report, the patient had a prior GI bleed with negative endoscopy to identify the source of bleeding. Patient is currently still on aspirin and Plavix in the plan was to stop Plavix after follow-up this January. The patient reports that he has been stable the last few days I did black but now become more bright red today. The patient admitted to have fatigue but denies any chest pain, shortness of breath, fever, chills, nausea, vomiting or diarrhea. In the emergency room, the patient was hemodynamically stable. Labs shows a hemoglobin of 8.2 which is down from 10 last month sodium 130 potassium 5.4 creatinine 1.3. INR is 1.3. Troponin was negative. Patient is glad was positive. I ER physician spoke to Dr. Stack from general surgery who recommended that we admit the patient here to monitor patient's hemoglobin, GI bleed and the plan is to scope the patient on . Discharge Providers Provider Date of admission: 12/22/24 10:48 Discharge Date: 12/25/24 Primary care physician: Deacon Weller DO Consults: 12/20/24 16:50 Consult to General Surgery Routine Comment: Consulting Provider: Osito Stack Reason for consultation: gi bleed Has provider been notified: Yes Discharge provider: Jelly Pisano MD Summary Hospital Course Discharge Diagnosis: 1. UGIB d/t large duodenal bulb ulcer, antritis and gastritis while on ASA and Plavix 2. Acute blood loss anemia 3. Previous hx of diverticular bleeds x 2 while on Eliquis (colonoscopy showed pandiverticulosis) 4. PAF with recent Watchman procedure 5. Hypertension Hospital Course: Pt presented to the ED w/ complaints of bloody stools in the setting of treatment w/ASA and plavix. He'd previously been on apixaban but had 2 prior diverticular bleeds. He underwent a Watchman procedure and his EP physician recommended ASA and Plavix after the LGIBs. He has f/u appt in January of 2025 after which the plan was to d/c plavix. He was found to have a large duodenal bulb ulcer, antritis and gastritis on EGD. He required a total of 4 units of PRBCs while hospitalized. His Hgb was stable at 8.3 and he had normotensive BP and stable VS at d/c. Status at Discharge Cognitive/behavioral status at discharge: at baseline, oriented Overall status at discharge: patient is progressing back to baseline Time Spent with Patient Time spent: Greater than 30 minutes Exam Vital Signs (past 8 hours): Oxygen Delivery Method Room Air Oxygen Flow Rate 0 Narrative Exam Narrative: GEN: Very pleasant elderly male, Alert and oriented x 3, NAD, sitting up in chair eating breakfast HEENT:NC, Face symmetric, CHEST: Respiratory excursions symmetric, CTAB CV: RRR, no M/R/G ABD: Soft, NT/ND, BT present in all 4 quadrants, no organomegaly or masses EXTR: warm, well perfused, no C/C, 2+ bilateral lower extremity pitting edema SKIN: warm and dry, no rash NEURO: Alert and oriented x 3, nonfocal Objective Labs 12/25/24 11:14 12/25/24 03:20 [facility] Medical History Leg edema Lower GI bleed Chronic bronchitis with productive mucopurulent cough Chronic kidney disease Anemia Dementia Nightmares Gastroenteritis Tricuspid regurgitation Seasonal allergic rhinitis Bronchitis Cerumen impaction Chronic atrial fibrillation Ventral incisional hernia Corns and callosities Finger injury Well adult exam BPH loc w/o ur obs/LUTS GERD (gastroesophageal reflux disease) Left lower quadrant abdominal pain Renal insufficiency Osteopenia GI bleed Hiatal hernia Atrial fibrillation Cataracts, bilateral (~08/2016) Hypertension BPH (benign prostatic hyperplasia) Colon polyps Diverticular disease Hyperlipidemia Surgical History Hx of pyloroplasty Hx of cholecystectomy History of repair of hiatal hernia Family History Father Heart disease Stroke Mother History of breast cancer Sister History of breast cancer Social History household members: spouse Discharge Plan Discharge Plan Patient Disposition: Home Provider Discharge Comment: You were admitted with a bleeding duodenal ulcer. You required 4 units of blood while you were hospitalized. STOP aspirin and clopidogrel (Plavix). DO NOT TAKE: Ibuprofen or Naproxen; steroids (prednisone, dexamethasone) AVOID: alcohol, coffee. Please let your biomass facilitator and PCP know about your bleeding ulcer and that you have been advised to stop the aspirin and plavix. Return to the ED: If you pass black, tarry, maroon or bloody stool. If you vomit and the vomit looks like coffee grounds or has blood or blood clots in it. If you are unable to hold down food or fluids. If you develop progressive shortness of breath or dizziness. Discharge orders & Medications Prescriptions: New diltiazem HCl [Cardizem CD] 180 mg Capsule,Extended Release 24hr 180 mg PO BID Qty: 60 0RF pantoprazole [Protonix] 40 mg tablet,delayed release (DR/EC) 40 mg PO BID Qty: 60 0RF Rx Instructions: Take for your ulcer; refill requests to be faxed to PCP sucralfate [Carafate] 100 mg/mL suspension 10 ml PO QACHS Qty: 420 0RF Continued gemfibrozil 600 mg tablet See Rx Instructions .ROUTE .COMPLEX Qty: 90 3RF Dose Instruction: take 1 tablet by mouth once daily Rx Instructions: take 1 tablet by mouth once daily at bedtime cholecalciferol (vitamin D3) 50 mcg (2,000 unit) capsule 50 mcg PO DAILY donepezil 10 mg tablet 10 mg PO DAILY metoprolol succinate 25 mg tablet extended release 24 hr 12.5 mg PO BEDTIME valsartan 40 mg tablet 40 mg PO DAILY rosuvastatin 10 mg tablet 10 mg PO QPM memantine 5 mg tablet 5 mg PO BID magnesium gluconate 12.5 mg magne- sium (250 mg) Tablet 1,000 mg PO BEDTIME vmbeggnv-uue-kmth-vitamin K 18 mg iron-25 mcg Tablet 1 tab PO DAILY Discontinued clopidogrel 75 mg tablet 75 mg PO DAILY aspirin [Adult Low Dose Aspirin] 81 mg tablet,delayed release (DR/EC) 81 mg PO DAILY No Action acetaminophen 500 mg tablet 500 mg PO DAILY PRN (Reason: pain) cetirizine [Zyrtec] 10 mg tablet 10 mg PO DAILY PRN (Reason: allergies) inulin 2 gram tablet,chewable 2 g PO BEDTIME Follow up/Referrals: Deacon Weller, [Primary Care Provider] - Discharge Health Status Multidrug resistant organism: No MDRO Diet/Activity/Treatments Diet: Diet as Tolerated and Regular Oxygen: N/A Visit Report/Discharge Packet Instructions: Duodenal Ulcer, High-Fiber Diet, DI for Heart Failure, DI for Gastroesophageal Reflux Disease (GERD), DI for Gastritis, DI for Gastric Ulcer, Gastrointestinal Bleeding, Pantoprazole, Sucralfate, Diltiazem Stand Alone Forms: Congestive Heart Failure, Patient Portal/API, Stroke Signs & Symptoms, Colonoscopy Result: Isld Surg, EGD Result: Isld Surg Discharge Data Primary Care Provider: Deacon Weller Quality VTE Deep Vein Thrombosis/Pulmonary Embolism Present on Admission: No
== END 2024-12-25 12:44 | disposition home or self-care (01) | DRG 378 ==
LOC: ED 15:15 → AC 16:48
PROVIDERS: Family Medicine; Hospitalist; Nurse Anesthetist, Certified Registered; Surgery; Admitting Provider Internal Medicine; Emergency Provider Emergency Medicine; PCP Family Medicine; Referring Provider Emergency Medicine; Visit Provider Internal Medicine
PROC: 0DJD8ZZ Inspection of Lower Intestinal Tract, Via Natural or Artificial Opening Endoscopic (ICD-10-PCS; CPT 45378; principal; 2024-12-23 13:45)
PROC: 0DJ08ZZ Inspection of Upper Intestinal Tract, Via Natural or Artificial Opening Endoscopic (ICD-10-PCS; 2024-12-23 13:45)
DX: K26.4 Chronic or unspecified duodenal ulcer with hemorrhage (principal); D62 Acute posthemorrhagic anemia; Z95.812 Presence of fully implantable artificial heart; Z66 Do not resuscitate; K57.30 Diverticulosis of large intestine without perforation or abscess without bleeding; K29.50 Unspecified chronic gastritis without bleeding; K44.9 Diaphragmatic hernia without obstruction or gangrene; Z79.82 Long term (current) use of aspirin; Z79.02 Long term (current) use of antithrombotics/antiplatelets; Z87.891 Personal history of nicotine dependence; I48.0 Paroxysmal atrial fibrillation; E78.5 Hyperlipidemia, unspecified; Z88.5 Allergy status to narcotic agent; F03.90 Unspecified dementia, unspecified severity, without behavioral disturbance, psychotic disturbance, mood disturbance, and anxiety; I12.9 Hypertensive chronic kidney disease with stage 1 through stage 4 chronic kidney disease, or unspecified chronic kidney disease; N18.9 Chronic kidney disease, unspecified
CPT/HCPCS: 36415; 36430; 43239; 45378; 71045; 80048; 80053; 82272; 82550; 83690; 83735; 83880; 84484; 85014; 85018; 85025; 85027; 85610; 85730; 86850; 86900; 86901; 93005; 93010; 96374; 99231; 99232; 99284; G0378; P9016; J2470; J2704

== ENCOUNTER 2024-12-26 14:27 | Inpatient (IN) | payer OTHER, SELFPAY ==
[2024-12-20 17:05] VITALS: BMI 29.7
[2024-12-26] VITALS (62 sets, daily range): BP systolic 89–118; BP diastolic 49–68; PULSE 47–67; RESP 16–37; TEMP 36.2; O2SAT 79–100; BMI 36.8
--- NOTE | 2024-12-26 15:00 | EKG_ITS ---
[facility] [address] [place] [address] Test Date: 2024-12-26 Pat Name: Carlos Love Department: 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
[2024-12-26 15:03] LABS: Add Manual Diff / Slide Review NO; Basophils Absolute Auto 0 /uL (0-100); Basophils Percent Auto 0.3 % (0-2); Eosinophils Absolute Auto 0 /uL (0-450); Eosinophils Percent Auto 0.1 % (2-4); Hematocrit 24.8 % (41-53); Hemoglobin 8.2 g/dL (13.5-17.5); Lymphocytes Absolute Auto 500 /uL (1100-4500); Lymphocytes Percent Auto 5.7 % (25-40); Mean Corpuscular HGB Conc 32.8 % (30-36); Mean Corpuscular Volume 85.3 fL (80-100); Monocytes Absolute Auto 1000 /uL (0-900); Monocytes Percent Auto 11.7 % (3-14); Neutrophils Absolute Auto 6800 /uL (1500-7000); Neutrophils Percent Auto 82.2 % (50-75); Platelet Count 203 X10^3/uL (150-400); Red Blood Cell Count 2.91 X10^6/uL (4.5-5.9); Red Cell Distribution Width 17.4 % (11.6-14.8); White Blood Cell Count 8.2 X10^3/uL (4.5-11.0)
--- NOTE | 2024-12-26 15:08 | DI.CT.S_ITS ---
Moderate aortic atherosclerotic calcifications. PROCEDURE: CT ANGIO CHEST ABDOMEN PELVIS INDICATIONS: hypoxia hypotensive recent gi bleed TECHNIQUE: Precontrast 5 mm thick sections acquired from the lung apices to the iliac crests. After the administration of intravenous contrast, 2.5 mm thick sections again acquired from the lung apices to the iliac crests. Maximum intensity projection (MIP) oblique sagittal and coronal reformats were then acquired. For radiation dose reduction, the following was used: automated exposure control. COMPARISON: [facility], CT, CT ANGIO ABD/PEL GI BLEED, 10/09/2024, 2:38. FINDINGS: Image quality: Diagnostic. AORTA: [id number] atherosclerotic calcifications. 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 No aneurysmal dilatation. Iliofemoral atherosclerotic calcifications without high-grade stenosis. CHEST: Lower Neck: No enlarged lymph nodes. Thyroid: No thyroid nodules which require sonographic evaluation. Axillae: No enlarged lymph nodes. Chest Wall: Unremarkable. Lungs and Pleura: Trace right pleural effusion. No left pleural effusion. No pneumothorax. Benign calcified right lower lobe nodules. No consolidation or suspicious nodules. Heart: Heart is enlarged. Three-vessel coronary artery calcifications. Left atrial occlusion device is present. No pericardial effusion. Thoracic Vessels: Pulmonary arteries demonstrate normal size. Mediastinum and Magy: No enlarged lymph nodes. Small amount of fluid is seen in the lower mediastinum Esophagus: No wall thickening. No hiatal hernia. ABDOMEN: Liver: Small focus of arterial hyperenhancement in segment 4 B measuring up to 1 cm (5/158), stable and most likely a flash filling hemangioma. No other focus of arterial hyperenhancement. Gallbladder: Status post cholecystectomy. Biliary ducts: No biliary dilation. Pancreas: No ductal dilation. Spleen: Size is within normal limits. Coarse calcifications are seen in the spleen. Adrenal Glands: No adrenal nodules. Kidneys and Ureters: No hydronephrosis. No solid mass. No complex renal cystic lesion which requires follow up. Benign left superior pole renal cyst. Stomach and Bowel: Surgical suture material seen along the distal stomach. Numerous diverticula in the colon without focal diverticulitis. Prominent fluid-filled loops of small bowel throughout the central abdomen measuring up to 3.8 cm in diameter. There is transition to decompressed bowel at the level of a ventral hernia. Additional ventral hernias are seen containing short segments of small bowel. Peritoneum: No abnormal intraperitoneal fluid. No free air. Ventral Wall: Multiple small ventral hernias containing at least one wall of bowel. A supraumbilical hernia contains a short segment of small bowel. Abdominal Nodes: No retroperitoneal or mesenteric adenopathy by size criteria. Vessels: Inferior vena cava is normal in size. PELVIS: Pelvic Organs: Postsurgical changes in the prostate.. Bladder: Diffuse bladder wall thickening again seen likely related to chronic outlet obstruction.. Pelvic Nodes: No enlarged lymph nodes. Miscellaneous: Fat containing bilateral inguinal hernias, greater on the left than on the right. Bones: Unremarkable. IMPRESSION: 1. No acute arterial abnormality. No extravasation of contrast material into the bowel lumen. 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 2. Dilated fluid-filled loops of small bowel throughout the abdomen suspicious for bowel obstruction. Apparent transition point at the level of a supraumbilical ventral hernia. 3. Extensive colonic diverticulosis without acute diverticulitis. 4. Cardiomegaly. Coronary artery calcifications. Approved by: Wilfred Gandhi M.D. on 12/26/2024 at 16:55
[2024-12-26 15:09] LABS: INR 1.2 (0.9-1.3); Prothrombin Time 13.4 SECONDS (9.4-12.5)
[2024-12-26] MEDS: PANTOPRAZOLE 40 MG VIAL 80 MG IV (15:10)
[2024-12-26 15:12] LABS: PTT Partial Thromboplastin Tim 25 SECONDS (25.1-36.5)
[2024-12-26 15:14] LABS: Alanine Aminotransferase 27 IU/L (<50); Albumin 3.4 g/dL (3.5-5.0); Albumin Globulin Ratio 1.3 (1.0-2.8); Alkaline Phosphatase 68 U/L (38-126); Aspartate Aminotransferase 38 IU/L (17-59); BUN Creatinine Ratio 20.1 (6-22); Bilirubin Total 1.9 mg/dL (0.2-1.3); Blood Urea Nitrogen 32 mg/dL (9-20); Calcium 8.1 mg/dL (8.4-10.2); Carbon Dioxide 21 mmol/L (22-32); Chloride 96 mmol/L (98-107); Creatine Kinase 74 U/L (55-170); Estimated Glomerular Filt Rate 43 mL/min (>60); Globulin 2.7 g/dL (1.7-4.1); Glucose 127 mg/dL (70-99); HEMOLYSIS < 15 (0-50); Lactate (Lactic Acid) 2.6 mmol/L (0.7-2.1); Potassium 4.7 mmol/L (3.4-5.1); Sodium 125 mmol/L (137-145); Total Protein 6.1 g/dL (6.3-8.2)
[2024-12-26 15:25] LABS: Troponin I < 0.012 ng/mL (0.01-0.034)
--- NOTE | 2024-12-26 15:41 | PC.NURSE ---
Pt reports large episode of vomiting last night. He has bilateral pitting edema of legs that is 3+. He denies chest pain. Pt is no longer on oxygen and is at 99% on RA. Provider Corine made aware.
[2024-12-26 16:11] LABS: NT-proBNP (BNP-Adult 18+) 2520 pg/mL (<450)
--- NOTE | 2024-12-26 16:15 | PC.NURSE ---
Pt had small amount of emesis. Dr Pool notified. Verbal order received for ondansetron.
[2024-12-26] MEDS: ONDANSETRON 4 MG/2 ML INJ IV (16:30)
[2024-12-26 16:34] LABS: Reflexed Lactate in 2 Hours Y
--- NOTE | 2024-12-26 16:40 | ED.GIBLEED ---
HPI - GI Bleed General Chief complaint: GI Bleed Stated complaint: Hypotensive/ Recent GI Bleed Time Seen by Provider: 12/26/24 14:32 Source: family and EMS Mode of arrival: EMS History of Present Illness HPI Narrative: Patient is a 84-year-old male history of atrial fibrillation on Eliquis off due to secondary GI bleed, now has a Watchman in on aspirin and Plavix, dementia dyslipidemia hypertension presenting today with hypotension. He was recently admitted to the hospital 12/20/2024 discharge on 12/25/2024 with GI bleed. He had diverticular bleeds and was recently found to have a duodenal bleed required blood transfusion during admission. Now presenting today with low blood pressure in the 90s. He was initially thought to be hypoxic as well who ever upon repositioning does not appear to need oxygen at this time. Denies any bloody stool no nausea no vomiting no real chest pain but does have some shortness of breath. Feels little dizzy and lightheaded as well. Patient's reports that he has been very lethargic he vomited a couple of times last night. Related Data Home Medications Medication Instructions Recorded Confirmed cholecalciferol (vitamin D3) 50 50 mcg PO DAILY 11/25/19 12/26/24 mcg (2,000 unit) capsule donepezil 10 mg tablet 10 mg PO DAILY 12/20/24 12/26/24 hydrochlorothiazide 25 mg tablet 25 mg PO DAILY 12/20/24 12/26/24 inulin 2 gram chewable tablet 2 g PO BEDTIME 12/20/24 12/26/24 magnesium gluconate 12.5 mg 1,000 mg PO BEDTIME 12/20/24 12/26/24 magnesium (250 mg) tablet memantine 5 mg tablet 5 mg PO BID 12/20/24 12/26/24 metoprolol succinate 25 mg 12.5 mg PO BEDTIME 12/20/24 12/26/24 tablet,extended release 24 hr multivitamin [id number] 1 tab PO DAILY 12/20/24 12/26/24 fumarate 18 mg-vitamin K 25 mcg tablet rosuvastatin 10 mg tablet 10 mg PO QPM 12/20/24 12/26/24 valsartan 40 mg tablet 40 mg PO DAILY 12/20/24 12/26/24 Previous Rx's Medication Instructions Recorded gemfibrozil 600 mg tablet See Rx Instructions .Route 04/21/24 .COMPLEX #90 tabs diltiazem HCl 180 mg 180 mg PO BID #60 caps 12/25/24 capsule,extended release 24 hr (Cardizem CD) pantoprazole 40 mg tablet,delayed 40 mg PO BID Ulcer #60 tabs 12/25/24 release (Protonix) sucralfate 100 mg/mL oral 10 ml PO QACHS #420 mL 12/25/24 suspension (Carafate) Allergies Allergy/AdvReac Type Severity Reaction Status Date / Time morphine [MORPHINE] Allergy Intermediate RASH Verified 12/02/24 10:03 Patient History Medical History Leg edema Lower GI bleed Chronic bronchitis with productive mucopurulent cough Chronic kidney disease Anemia Dementia Nightmares Gastroenteritis Tricuspid regurgitation Seasonal allergic rhinitis Bronchitis Cerumen impaction Chronic atrial fibrillation Ventral incisional hernia Corns and callosities Finger injury Well adult exam BPH loc w/o ur obs/LUTS GERD (gastroesophageal reflux disease) Left lower quadrant abdominal pain Renal insufficiency Osteopenia GI bleed Hiatal hernia Atrial fibrillation Cataracts, bilateral (~08/2016) Hypertension BPH (benign prostatic hyperplasia) Colon polyps Diverticular disease Hyperlipidemia Surgical History Hx of pyloroplasty Hx of cholecystectomy History of repair of hiatal hernia Family History Father Heart disease Stroke Mother History of breast cancer Sister History of breast cancer Social History household members: spouse alcohol intake frequency: 0-2 drinks per day Exam Initial Vital Signs Initial Vital Signs: Vital Signs Pulse Rate 61 12/26/24 14:33 Pulse Oximetry 84 L 12/26/24 14:33 Oxygen Delivery Method Room Air 12/26/24 14:33 GENERAL: Alert slightly ill 84-year-old male HEENT: Head atraumatic,EOMI, pupils reactive, face symmetric, moist mucous membranes CARDIOVASCULAR: Regular rate and rhythm without murmurs, rubs or gallops. RESPIRATORY: Wheezing throughout decreased breath sounds no significant respiratory distress ABDOMEN: Soft, nontender. Normoactive bowel sounds all 4 quadrants. No guarding or rebound. EXTREMITIES: Normal range of motion, no clubbing.+ 2 pitting edema Neurovascularly intact NEUROLOGICAL: Alert and oriented x4.Normal gait and speech. Cranial nerves II through XII grossly intact. SKIN: Warm, dry, no laceration, no petechiae, no rashes or lesions. Course Orders Ordered: ED Orders 12/26/24 14:32 EKG-12 Lead Stat 12/26/24 14:45 BNP [NT-proBNP (BNP-Adult 18+)] Stat CBC Auto Diff [Complete Blood Count AUTO DIFF] Stat CMP [Comprehensive Metabolic Panel] Stat Lactate (Lactic Acid) Stat PT [Prothrombin Time INR] Stat PTT Partial Thromboplastin Andrzej Stat Troponin & CK Cardiac Panel Stat Type and Screen Stat 12/26/24 15:08 CT angio chest abdomen pelvis Stat 12/26/24 17:32 Consult to Physician Stat 12/26/24 18:15 XR chest 1V Stat 12/26/24 18:22 XR chest 1V Stat 12/27/24 06:00 XR KUB Stat Sodium Chloride (Normal Saline 0.9%) 1,000 mls @ 100 mls/hr IV CONT CLAUDIO Last Infusion: 12/26/24 19:23 Dose: Infused Documented By: Admin: 12/26/24 18:22 Dose: 100 mls/hr Documented By: Discontinued Medications Sodium Chloride (Normal Saline 0.9%) 1,000 mls @ 1,000 mls/hr IV BOLUS ONE Stop: 12/26/24 18:30 Last Admin: 12/26/24 17:49 Dose: 1,000 mls/hr Documented By: Lidocaine HCl (Lidocaine 2% (Glydo) 6 Ml Gel) 6 ml TOP NOW ONE Stop: 12/26/24 17:49 Last Admin: 12/26/24 18:14 Dose: 6 ml Documented By: Ondansetron HCl (Ondansetron 4 Mg/2 Ml Inj) 4 mg IV NOW ONE Stop: 12/26/24 16:26 Last Admin: 12/26/24 16:30 Dose: 4 mg Documented By: Pantoprazole Sodium (Pantoprazole 40 Mg Vial) 80 mg IV NOW ONE Stop: 12/26/24 14:56 Last Admin: 12/26/24 15:10 Dose: 80 mg Documented By: Vital Signs Vital signs: Vital Signs - 8 hr 12/26/24 14:33 12/26/24 14:34 12/26/24 14:34 Pulse Rate 61 52 L Respiratory Rate 21 Blood Pressure 98/50 L Pulse Oximetry 84 L 97 Oxygen Delivery Method Room Air Nasal Cannula Oxygen Flow Rate 6 12/26/24 14:51 12/26/24 14:51 12/26/24 14:57 Pulse Rate 51 L 50 L Respiratory Rate 22 16 Blood Pressure 90/54 L 90/54 L Pulse Oximetry 95 92 Oxygen Delivery Method Nasal Cannula Room Air Oxygen Flow Rate 6 12/26/24 15:00 12/26/24 15:00 12/26/24 15:06 Pulse Rate 50 L 48 L Respiratory Rate 23 24 Blood Pressure 93/51 L Pulse Oximetry 89 L 88 L Oxygen Delivery Method Nasal Cannula Nasal Cannula Oxygen Flow Rate 6 6 12/26/24 15:06 12/26/24 15:11 12/26/24 15:11 Pulse Rate 58 L Respiratory Rate 32 H Blood Pressure 94/55 L 99/57 L Pulse Oximetry 99 Oxygen Delivery Method Oxygen Flow Rate 12/26/24 15:15 12/26/24 15:15 12/26/24 15:20 Pulse Rate 56 L Respiratory Rate 25 H Blood Pressure 100/55 L 101/58 L Pulse Oximetry 93 Oxygen Delivery Method Oxygen Flow Rate 12/26/24 15:20 12/26/24 15:23 12/26/24 15:23 Pulse Rate 51 L 49 L Respiratory Rate 24 22 Blood Pressure 107/53 L Pulse Oximetry 79 L 100 Oxygen Delivery Method Nasal Cannula Oxygen Flow Rate 6 12/26/24 15:25 12/26/24 15:25 12/26/24 15:30 Pulse Rate 48 L Respiratory Rate 22 Blood Pressure 101/51 L 94/54 L Pulse Oximetry 100 Oxygen Delivery Method Oxygen Flow Rate 12/26/24 15:30 12/26/24 15:33 12/26/24 15:35 Pulse Rate 48 L 49 L Respiratory Rate 30 H 32 H Blood Pressure Pulse Oximetry 100 100 100 Oxygen Delivery Method Room Air Oxygen Flow Rate 12/26/24 15:35 12/26/24 15:41 12/26/24 15:41 Pulse Rate 47 L Respiratory Rate 32 H Blood Pressure 92/50 L 98/55 L Pulse Oximetry 100 Oxygen Delivery Method Room Air Blow By Oxygen Flow Rate 12/26/24 15:45 12/26/24 15:45 12/26/24 15:50 Pulse Rate 47 L Respiratory Rate 23 Blood Pressure 97/54 L 98/50 L Pulse Oximetry 100 Oxygen Delivery Method Oxygen Flow Rate 12/26/24 15:50 12/26/24 15:55 12/26/24 15:55 Pulse Rate 53 L 48 L Respiratory Rate 27 H 24 Blood Pressure 102/52 L Pulse Oximetry 99 100 Oxygen Delivery Method Room Air Oxygen Flow Rate 12/26/24 16:00 12/26/24 16:00 12/26/24 16:06 Pulse Rate 50 L Respiratory Rate 27 H Blood Pressure 102/52 L 105/54 L Pulse Oximetry 100 Oxygen Delivery Method Oxygen Flow Rate 12/26/24 16:06 12/26/24 16:10 12/26/24 16:10 Pulse Rate 47 L 48 L Respiratory Rate 23 31 H Blood Pressure 94/53 L Pulse Oximetry 97 97 Oxygen Delivery Method Oxygen Flow Rate 12/26/24 16:15 12/26/24 16:15 12/26/24 16:21 Pulse Rate 50 L 48 L Respiratory Rate 25 H 29 H Blood Pressure 94/50 L Pulse Oximetry 100 96 Oxygen Delivery Method Oxygen Flow Rate 12/26/24 16:21 12/26/24 16:25 12/26/24 16:25 Pulse Rate 61 Respiratory Rate 37 H Blood Pressure 101/55 L 110/56 L Pulse Oximetry 99 Oxygen Delivery Method Room Air Oxygen Flow Rate 12/26/24 16:30 12/26/24 16:30 12/26/24 16:35 Pulse Rate 50 L 52 L Respiratory Rate 22 21 Blood Pressure 110/57 L Pulse Oximetry 98 100 Oxygen Delivery Method Oxygen Flow Rate 12/26/24 16:35 12/26/24 16:40 12/26/24 16:40 Pulse Rate 51 L Respiratory Rate 21 Blood Pressure 99/57 L 96/54 L Pulse Oximetry 100 Oxygen Delivery Method Oxygen Flow Rate 12/26/24 16:45 12/26/24 16:45 12/26/24 16:50 Pulse Rate 49 L 49 L Respiratory Rate 25 H 26 H Blood Pressure 93/52 L Pulse Oximetry 98 99 Oxygen Delivery Method Oxygen Flow Rate 12/26/24 16:50 12/26/24 16:55 12/26/24 16:55 Pulse Rate 48 L Respiratory Rate 22 Blood Pressure 91/54 L 91/53 L Pulse Oximetry 96 Oxygen Delivery Method Oxygen Flow Rate 12/26/24 17:00 12/26/24 17:00 12/26/24 17:06 Pulse Rate 49 L Respiratory Rate 18 Blood Pressure 89/68 L 89/54 L Pulse Oximetry 98 Oxygen Delivery Method Oxygen Flow Rate 12/26/24 17:06 12/26/24 17:11 12/26/24 17:11 Pulse Rate 51 L 49 L Respiratory Rate 22 23 Blood Pressure 103/51 L Pulse Oximetry 100 100 Oxygen Delivery Method Oxygen Flow Rate 12/26/24 17:15 12/26/24 17:15 12/26/24 17:20 Pulse Rate 47 L Respiratory Rate 19 Blood Pressure 99/50 L 101/56 L Pulse Oximetry 100 Oxygen Delivery Method Oxygen Flow Rate 12/26/24 17:20 12/26/24 17:25 12/26/24 17:25 Pulse Rate 51 L 50 L Respiratory Rate 27 H 24 Blood Pressure 96/51 L Pulse Oximetry 100 100 Oxygen Delivery Method Oxygen Flow Rate 12/26/24 17:30 12/26/24 17:30 12/26/24 17:35 Pulse Rate 47 L 48 L Respiratory Rate 22 19 Blood Pressure 98/54 L Pulse Oximetry 100 100 Oxygen Delivery Method Oxygen Flow Rate 12/26/24 17:35 12/26/24 17:40 12/26/24 17:40 Pulse Rate 47 L Respiratory Rate 23 Blood Pressure 103/57 L 105/55 L Pulse Oximetry 100 Oxygen Delivery Method Oxygen Flow Rate 12/26/24 17:45 12/26/24 17:45 12/26/24 17:50 Pulse Rate 53 L Respiratory Rate 24 Blood Pressure 100/58 L 103/53 L Pulse Oximetry 100 Oxygen Delivery Method Oxygen Flow Rate 12/26/24 17:50 12/26/24 17:55 12/26/24 17:55 Pulse Rate 53 L 55 L Respiratory Rate 24 25 H Blood Pressure 99/53 L Pulse Oximetry 100 100 Oxygen Delivery Method Oxygen Flow Rate 12/26/24 18:00 12/26/24 18:00 12/26/24 18:05 Pulse Rate 54 L 59 L Respiratory Rate 20 23 Blood Pressure 98/57 L Pulse Oximetry 100 99 Oxygen Delivery Method Oxygen Flow Rate 12/26/24 18:05 12/26/24 18:10 12/26/24 18:10 Pulse Rate 61 Respiratory Rate 32 H Blood Pressure 95/52 L 112/59 L Pulse Oximetry 99 Oxygen Delivery Method Oxygen Flow Rate 12/26/24 18:15 12/26/24 18:15 12/26/24 18:20 Pulse Rate 57 L Respiratory Rate 23 Blood Pressure 110/57 L 103/51 L Pulse Oximetry 100 Oxygen Delivery Method Oxygen Flow Rate 12/26/24 18:20 12/26/24 18:25 12/26/24 18:25 Pulse Rate 57 L 63 Respiratory Rate 23 33 H Blood Pressure 107/59 L Pulse Oximetry 100 90 L Oxygen Delivery Method Oxygen Flow Rate 12/26/24 18:30 12/26/24 18:30 12/26/24 18:35 Pulse Rate 61 56 L Respiratory Rate 22 27 H Blood Pressure 110/55 L Pulse Oximetry 100 98 Oxygen Delivery Method Oxygen Flow Rate 12/26/24 18:35 12/26/24 18:40 12/26/24 18:40 Pulse Rate 58 L Respiratory Rate 28 H Blood Pressure 102/57 L 108/51 L Pulse Oximetry 84 L Oxygen Delivery Method Oxygen Flow Rate 12/26/24 18:45 12/26/24 18:45 Pulse Rate 52 L Respiratory Rate 25 H Blood Pressure 101/53 L Pulse Oximetry 87 L Oxygen Delivery Method Oxygen Flow Rate MDM - GI Bleed Lab Data 12/26/24 14:45 12/26/24 14:45 Labs: Lab Results 12/26/24 12/26/24 Range/Units 14:45 16:50 WBC 8.2 (4.5-11.0) X10^3/uL RBC 2.91 L (4.5-5.9) X10^6/uL Hgb 8.2 L (13.5-17.5) g/dL Hct 24.8 L (41-53) % MCV 85.3 (80-100) fL MCH 28.0 (26-34) PG MCHC 32.8 (30-36) % RDW 17.4 H (11.6-14.8) % Plt Count 203 (150-400) X10^3/uL Neut % (Auto) 82.2 H (50-75) % Lymph % (Auto) 5.7 L (25-40) % [place] % (Auto) 11.7 (3-14) % Eos % (Auto) 0.1 L (2-4) % Baso % (Auto) 0.3 (0-2) % Neut # (Auto) 6800 (7391-9527) /uL Lymph # (Auto) 500 L (7870-2322) /uL [place] # (Auto) 1000 H (0-900) /uL Eos # (Auto) 0 (0-450) /uL Baso # (Auto) 0 (0-100) /uL PT 13.4 H (9.4-12.5) SECONDS INR 1.2 (0.9-1.3) APTT 25 L (25.1-36.5) SECONDS Sodium 125 L (137-145) mmol/L Potassium 4.7 (3.4-5.1) mmol/L Chloride 96 L (98-107) mmol/L Carbon Dioxide 21 L (22-32) mmol/L BUN 32 H (9-20) mg/dL Creatinine 1.59 H (0.66-1.25) mg/dL Estimated GFR 43 L (>60) mL/min BUN/Creatinine Ratio 20.1 (6-22) Glucose 127 H (70-99) mg/dL Lactate 2.6 H 1.5 (0.7-2.1) mmol/L Calcium 8.1 L (8.4-10.2) mg/dL Total Bilirubin 1.9 H (0.2-1.3) mg/dL AST 38 (17-59) IU/L ALT 27 (<50) IU/L Alkaline Phosphatase 68 (38-126) U/L Total Creatine Kinase 74 (55-170) U/L Troponin I < 0.012 (0.01-0.034) ng/mL NT-Pro-B Natriuret Pep 2520 H (<450) pg/mL Total Protein 6.1 L (6.3-8.2) g/dL Albumin 3.4 L (3.5-5.0) g/dL Globulin 2.7 (1.7-4.1) g/dL Albumin/Globulin Ratio 1.3 (1.0-2.8) Blood Type A Positive Antibody Screen Negative Imaging Data CT scan - abdomen/pelvis: Radiologist's Impression: Moderate aortic atherosclerotic calcifications. PROCEDURE: CT ANGIO CHEST ABDOMEN PELVIS INDICATIONS: hypoxia hypotensive recent gi bleed TECHNIQUE: Precontrast 5 mm thick sections acquired from the lung apices to the iliac crests. After the administration of intravenous contrast, 2.5 mm thick sections again acquired from the lung apices to the iliac crests. Maximum intensity projection (MIP) oblique sagittal and coronal reformats were then acquired. For radiation dose reduction, the following was used: automated exposure control. COMPARISON: [facility], CT, CT ANGIO ABD/PEL GI BLEED, 10/09/2024, 2:38. FINDINGS: Image quality: Diagnostic. AORTA: [id number] atherosclerotic calcifications. 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 No aneurysmal dilatation. Iliofemoral atherosclerotic calcifications without high-grade stenosis. CHEST: Lower Neck: No enlarged lymph nodes. Thyroid: No thyroid nodules which require sonographic evaluation. Axillae: No enlarged lymph nodes. Chest Wall: Unremarkable. Lungs and Pleura: Trace right pleural effusion. No left pleural effusion. No pneumothorax. Benign calcified right lower lobe nodules. No consolidation or suspicious nodules. Heart: Heart is enlarged. Three-vessel coronary artery calcifications. Left atrial occlusion device is present. No pericardial effusion. Thoracic Vessels: Pulmonary arteries demonstrate normal size. Mediastinum and Magy: No enlarged lymph nodes. Small amount of fluid is seen in the lower mediastinum Esophagus: No wall thickening. No hiatal hernia. ABDOMEN: Liver: Small focus of arterial hyperenhancement in segment 4 B measuring up to 1 cm (5/158), stable and most likely a flash filling hemangioma. No other focus of arterial hyperenhancement. Gallbladder: Status post cholecystectomy. Biliary ducts: No biliary dilation. Pancreas: No ductal dilation. Spleen: Size is within normal limits. Coarse calcifications are seen in the spleen. Adrenal Glands: No adrenal nodules. Kidneys and Ureters: No hydronephrosis. No solid mass. No complex renal cystic lesion which requires follow up. Benign left superior pole renal cyst. Stomach and Bowel: Surgical suture material seen along the distal stomach. Numerous diverticula in the colon without focal diverticulitis. Prominent fluid-filled loops of small bowel throughout the central abdomen measuring up to 3.8 cm in diameter. There is transition to decompressed bowel at the level of a ventral hernia. Additional ventral hernias are seen containing short segments of small bowel. Peritoneum: No abnormal intraperitoneal fluid. No free air. Ventral Wall: Multiple small ventral hernias containing at least one wall of bowel. A supraumbilical hernia contains a short segment of small bowel. Abdominal Nodes: No retroperitoneal or mesenteric adenopathy by size criteria. Vessels: Inferior vena cava is normal in size. PELVIS: Pelvic Organs: Postsurgical changes in the prostate.. Bladder: Diffuse bladder wall thickening again seen likely related to chronic outlet obstruction.. Pelvic Nodes: No enlarged lymph nodes. Miscellaneous: Fat containing bilateral inguinal hernias, greater on the left than on the right. Bones: Unremarkable. IMPRESSION: 1. No acute arterial abnormality. No extravasation of contrast material into the bowel lumen. 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 2. Dilated fluid-filled loops of small bowel throughout the abdomen suspicious for bowel obstruction. Apparent transition point at the level of a supraumbilical ventral hernia. 3. Extensive colonic diverticulosis without acute diverticulitis. 4. Cardiomegaly. Coronary artery calcifications. Approved by: Wilfred Gandhi M.D. on 12/26/2024 at 16:55 ECG Data Attestation: I personally reviewed and interpreted this ECG as follows: Prior ECG tracings: available for review Interpretation: Junctional rhythm rate 50 wrong no ischemia is limited previous EKGs 12/20/2024 MDM Narrative Medical decision making narrative: MDM CC: Weakness Complicating co-morbidities: Atrial fibrillation with Watchman, recent GI bleed mild dementia Data collected from: Medical records reviewed: Recent admission Differential considered: CHF pulmonary embolism pneumothorax pneumonia GI bleed anemia Exam documented above, pertinent findings include: Alert 84-year-old male abdomen mildly tender no significant distention mild wheezing on gross sounds but no significant tachypnea or respiratory distress mild peripheral edema in lower extremities +2 pitting edema Lab Test results independently reviewed as above. Pertinent findings: WBC 8.2 hemoglobin 8.2 hematocrit 24.8 platelets 203 Sodium 125 previously 129, potassium 4.7 chloride 96 carbon dioxide 21 BUN 32 creatinine 1.59 previously 1.0 glucose 127 Lactate 2.6-->1.5 Troponin negative, BNP 2520 Independently reviewed EKG as above Junctional similar to prior Imaging studies independently reviewed: CT chest abdomen pelvis shows no active extravasation for active bleeding. However there is dilated filled loops of small bowel apparent transition point of supraumbilical ventral hernia. Cardiomegaly with coronary artery calcification Consultations: Omar Andrade, surgeon updated patient's symptoms test results in ED to see and evaluate patient placed NG himself recommends hospitalist admission Dr. Patel, kindly accepts admission Treatments: IV fluids Re-evaluations: Initially patient was not given IV fluids due to some possible hypoxia fluid overload symptoms so fluids were held. However it was found that patient was not actually hypoxic and is able to tolerate room air. Discussion: Patient 84-year-old male presenting today with some episodes of nausea vomiting and lethargy found to be hypotensive blood pressure in the 90s. Initially thought for GI bleeding since he was recently here for GI bleeding. Liver reports that he has not had any further bleeding hemoglobin is stable. CT does show concern for SBO with a transition point. However abdomen is soft he has had very few episodes of vomiting. He does have some AMY with an elevated creatinine as well BNP is slightly elevated at 2501 initially was were held however with hypotension in AMY he was given a small amount of fluids. Surgery was in the ED for evaluation hospitalist agreed for admission 1736 Dr. Andrade Discharge Plan Departure Patient Disposition: Admitted As Inpatient Clinical Impression: SBO (small bowel obstruction), AMY (acute kidney injury) Admit Date/Time: 12/26/24 18:47 Admit Provider: Imtiaz Patel
[2024-12-26 17:09] LABS: Lactate 2HR (Lactic Acid Rflx) 1.5 mmol/L (0.7-2.1)
--- NOTE | 2024-12-26 17:18 | PC.NURSE ---
BP 89/54. Dr Pool notified.
[2024-12-26] MEDS: SODIUM CHLORIDE 0.9% 1,000 ML 1000 ML IV (17:49)
[2024-12-26] MEDS: LIDOCAINE 2% (GLYDO) 6 ML GEL TOP (18:14)
--- NOTE | 2024-12-26 18:15 | DI.RAD.S_ITS ---
PROCEDURE: XR CHEST 1V INDICATIONS: NG tube position TECHNIQUE: One view of the chest was acquired. COMPARISON: [facility], CR, XR CHEST 1V, 12/20/2024, 12:24. FINDINGS: Surgical changes and devices: Nasogastric tube is present with distal tip at the gastroesophageal junction. Lungs and pleura: Lungs are clear. No pleural effusions or pneumothorax. Mediastinum: Mediastinal contours appear normal. Heart size is enlarged. Bones and chest wall: No suspicious bony lesions. Overlying soft tissues appear unremarkable. IMPRESSION: Recommend forward advancement nasogastric tube approximately 7-8 cm. Dictated by: Nikki Weiss M.D. on 12/26/2024 at 18:58 Approved by: Nikki Weiss M.D. on 12/26/2024 at 18:59
--- NOTE | 2024-12-26 18:18 | P.HP_ITS ---
History of Present Illness History of Present Illness Date Patient Seen: 12/26/24 Time Patient Seen: 18:18 Chief complaint: Hypotensive/ Recent GI Bleed Narrative: 84-year-old male with past medical history of atrial fibrillation previously on Eliquis now off due to GI bleed, dementia dyslipidemia, hypertension, Watchman procedure placement July 2024 on aspirin and Plavix for atrial fibrillation, presents with hypotension, lethargy after recent discharge for GI bleed. During that admission he was noted to have an ulcer that required transfusion. H/h was stable at discharge. Denies melena or BRBPR currently. Mainly complains of dizziness and light headedness. Spouse stated he vomited a couple of times last night in bed but no bowel movements since he left the hospital yesterday when he had two. Today he was very lethargic, slightly confused, and she checked his BP which was as low as 85 systolic. Patient is not clear about what is going on at the moment. In the ER patient's BP was 99/53, initially on 6L but poor O2 sat reading and actually did not require O2, Pulse was in the 50-60 range. Labs showed Cr 1.59 (up from baseline of 1). LA 2.6 improved to 1.5 on repeat.Tbili was 1.9. Na was 125. He was given 1L IV fluids. CT scan showed possible early bowel obstruction with transition point in a ventral hernia. Given patient's underlying medical issues surgeon recommended medicine admission. NG tube was placed in the ER. [facility] Medical History Leg edema Lower GI bleed Chronic bronchitis with productive mucopurulent cough Chronic kidney disease Anemia Dementia Nightmares Gastroenteritis Tricuspid regurgitation Seasonal allergic rhinitis Bronchitis Cerumen impaction Chronic atrial fibrillation Ventral incisional hernia Corns and callosities Finger injury Well adult exam BPH loc w/o ur obs/LUTS GERD (gastroesophageal reflux disease) Left lower quadrant abdominal pain Renal insufficiency Osteopenia GI bleed Hiatal hernia Atrial fibrillation Cataracts, bilateral (~08/2016) Hypertension BPH (benign prostatic hyperplasia) Colon polyps Diverticular disease Hyperlipidemia Surgical History Hx of pyloroplasty Hx of cholecystectomy History of repair of hiatal hernia Family History Father Heart disease Stroke Mother History of breast cancer Sister History of breast cancer Social History household members: spouse Meds Home Medications and Allergies Home Medications Medication Instructions Recorded Confirmed Type cholecalciferol (vitamin D3) 50 50 mcg PO DAILY 11/25/19 12/20/24 History mcg (2,000 unit) capsule gemfibrozil 600 mg tablet See Rx Instructions .Route 04/21/24 12/20/24 Rx .COMPLEX #90 tabs donepezil 10 mg tablet 10 mg PO DAILY 12/20/24 12/20/24 History hydrochlorothiazide 25 mg tablet 25 mg PO DAILY 12/20/24 12/20/24 History inulin 2 gram chewable tablet 2 g PO BEDTIME 12/20/24 12/20/24 History magnesium gluconate 12.5 mg 1,000 mg PO BEDTIME 12/20/24 12/20/24 History magnesium (250 mg) tablet memantine 5 mg tablet 5 mg PO BID 12/20/24 12/20/24 History metoprolol succinate 25 mg 12.5 mg PO BEDTIME 12/20/24 12/20/24 History tablet,extended release 24 hr multivitamin [id number] 1 tab PO DAILY 12/20/24 12/20/24 History fumarate 18 mg-vitamin K 25 mcg tablet rosuvastatin 10 mg tablet 10 mg PO QPM 12/20/24 12/20/24 History valsartan 40 mg tablet 40 mg PO DAILY 12/20/24 12/20/24 History diltiazem HCl 180 mg 180 mg PO BID #60 caps 12/25/24 Rx capsule,extended release 24 hr (Cardizem CD) pantoprazole 40 mg tablet,delayed 40 mg PO BID Ulcer #60 tabs 12/25/24 Rx release (Protonix) sucralfate 100 mg/mL oral 10 ml PO QACHS #420 mL 12/25/24 Rx suspension (Carafate) Allergies Allergy/AdvReac Type Severity Reaction Status Date / Time morphine [MORPHINE] Allergy Intermediate RASH Verified 12/02/24 10:03 Review of Systems Review of Systems Narrative: All other systems reviewed with the patient and are negative unless otherwise stated. Exam Vital Signs (past 8 hours): - 12/26/24 14:33 12/26/24 14:34 12/26/24 14:34 Pulse Rate 61 52 L Respiratory Rate 21 Blood Pressure 98/50 L Pulse Oximetry 84 L 97 Oxygen Delivery Method Room Air Nasal Cannula Oxygen Flow Rate 6 12/26/24 14:51 12/26/24 14:51 12/26/24 14:57 Pulse Rate 51 L 50 L Respiratory Rate 22 16 Blood Pressure 90/54 L 90/54 L Pulse Oximetry 95 92 Oxygen Delivery Method Nasal Cannula Room Air Oxygen Flow Rate 6 12/26/24 15:00 12/26/24 15:00 12/26/24 15:06 Pulse Rate 50 L 48 L Respiratory Rate 23 24 Blood Pressure 93/51 L Pulse Oximetry 89 L 88 L Oxygen Delivery Method Nasal Cannula Nasal Cannula Oxygen Flow Rate 6 6 12/26/24 15:06 12/26/24 15:11 12/26/24 15:11 Pulse Rate 58 L Respiratory Rate 32 H Blood Pressure 94/55 L 99/57 L Pulse Oximetry 99 Oxygen Delivery Method Oxygen Flow Rate 12/26/24 15:15 12/26/24 15:15 12/26/24 15:20 Pulse Rate 56 L Respiratory Rate 25 H Blood Pressure 100/55 L 101/58 L Pulse Oximetry 93 Oxygen Delivery Method Oxygen Flow Rate 12/26/24 15:20 12/26/24 15:23 12/26/24 15:23 Pulse Rate 51 L 49 L Respiratory Rate 24 22 Blood Pressure 107/53 L Pulse Oximetry 79 L 100 Oxygen Delivery Method Nasal Cannula Oxygen Flow Rate 6 12/26/24 15:25 12/26/24 15:25 12/26/24 15:30 Pulse Rate 48 L Respiratory Rate 22 Blood Pressure 101/51 L 94/54 L Pulse Oximetry 100 Oxygen Delivery Method Oxygen Flow Rate 12/26/24 15:30 12/26/24 15:33 12/26/24 15:35 Pulse Rate 48 L 49 L Respiratory Rate 30 H 32 H Blood Pressure Pulse Oximetry 100 100 100 Oxygen Delivery Method Room Air Oxygen Flow Rate 12/26/24 15:35 12/26/24 15:41 12/26/24 15:41 Pulse Rate 47 L Respiratory Rate 32 H Blood Pressure 92/50 L 98/55 L Pulse Oximetry 100 Oxygen Delivery Method Room Air Blow By Oxygen Flow Rate 12/26/24 15:45 12/26/24 15:45 12/26/24 15:50 Pulse Rate 47 L Respiratory Rate 23 Blood Pressure 97/54 L 98/50 L Pulse Oximetry 100 Oxygen Delivery Method Oxygen Flow Rate 12/26/24 15:50 12/26/24 15:55 12/26/24 15:55 Pulse Rate 53 L 48 L Respiratory Rate 27 H 24 Blood Pressure 102/52 L Pulse Oximetry 99 100 Oxygen Delivery Method Room Air Oxygen Flow Rate 12/26/24 16:00 12/26/24 16:00 12/26/24 16:06 Pulse Rate 50 L Respiratory Rate 27 H Blood Pressure 102/52 L 105/54 L Pulse Oximetry 100 Oxygen Delivery Method Oxygen Flow Rate 12/26/24 16:06 12/26/24 16:10 12/26/24 16:10 Pulse Rate 47 L 48 L Respiratory Rate 23 31 H Blood Pressure 94/53 L Pulse Oximetry 97 97 Oxygen Delivery Method Oxygen Flow Rate 12/26/24 16:15 12/26/24 16:15 12/26/24 16:21 Pulse Rate 50 L 48 L Respiratory Rate 25 H 29 H Blood Pressure 94/50 L Pulse Oximetry 100 96 Oxygen Delivery Method Oxygen Flow Rate 12/26/24 16:21 12/26/24 16:25 12/26/24 16:25 Pulse Rate 61 Respiratory Rate 37 H Blood Pressure 101/55 L 110/56 L Pulse Oximetry 99 Oxygen Delivery Method Room Air Oxygen Flow Rate 12/26/24 16:30 12/26/24 16:30 12/26/24 16:35 Pulse Rate 50 L 52 L Respiratory Rate 22 21 Blood Pressure 110/57 L Pulse Oximetry 98 100 Oxygen Delivery Method Oxygen Flow Rate 12/26/24 16:35 12/26/24 16:40 12/26/24 16:40 Pulse Rate 51 L Respiratory Rate 21 Blood Pressure 99/57 L 96/54 L Pulse Oximetry 100 Oxygen Delivery Method Oxygen Flow Rate 12/26/24 16:45 12/26/24 16:45 12/26/24 16:50 Pulse Rate 49 L 49 L Respiratory Rate 25 H 26 H Blood Pressure 93/52 L Pulse Oximetry 98 99 Oxygen Delivery Method Oxygen Flow Rate 12/26/24 16:50 12/26/24 16:55 12/26/24 16:55 Pulse Rate 48 L Respiratory Rate 22 Blood Pressure 91/54 L 91/53 L Pulse Oximetry 96 Oxygen Delivery Method Oxygen Flow Rate 12/26/24 17:00 12/26/24 17:00 12/26/24 17:06 Pulse Rate 49 L Respiratory Rate 18 Blood Pressure 89/68 L 89/54 L Pulse Oximetry 98 Oxygen Delivery Method Oxygen Flow Rate 12/26/24 17:06 12/26/24 17:11 12/26/24 17:11 Pulse Rate 51 L 49 L Respiratory Rate 22 23 Blood Pressure 103/51 L Pulse Oximetry 100 100 Oxygen Delivery Method Oxygen Flow Rate 12/26/24 17:15 12/26/24 17:15 12/26/24 17:20 Pulse Rate 47 L Respiratory Rate 19 Blood Pressure 99/50 L 101/56 L Pulse Oximetry 100 Oxygen Delivery Method Oxygen Flow Rate 12/26/24 17:20 12/26/24 17:25 12/26/24 17:25 Pulse Rate 51 L 50 L Respiratory Rate 27 H 24 Blood Pressure 96/51 L Pulse Oximetry 100 100 Oxygen Delivery Method Oxygen Flow Rate 12/26/24 17:30 12/26/24 17:30 12/26/24 17:35 Pulse Rate 47 L 48 L Respiratory Rate 22 19 Blood Pressure 98/54 L Pulse Oximetry 100 100 Oxygen Delivery Method Oxygen Flow Rate 12/26/24 17:35 12/26/24 17:40 12/26/24 17:40 Pulse Rate 47 L Respiratory Rate 23 Blood Pressure 103/57 L 105/55 L Pulse Oximetry 100 Oxygen Delivery Method Oxygen Flow Rate 12/26/24 17:45 12/26/24 17:45 12/26/24 17:50 Pulse Rate 53 L Respiratory Rate 24 Blood Pressure 100/58 L 103/53 L Pulse Oximetry 100 Oxygen Delivery Method Oxygen Flow Rate 12/26/24 17:50 12/26/24 17:55 12/26/24 17:55 Pulse Rate 53 L 55 L Respiratory Rate 24 25 H Blood Pressure 99/53 L Pulse Oximetry 100 100 Oxygen Delivery Method Oxygen Flow Rate 12/26/24 18:00 12/26/24 18:00 12/26/24 18:05 Pulse Rate 54 L 59 L Respiratory Rate 20 23 Blood Pressure 98/57 L Pulse Oximetry 100 99 Oxygen Delivery Method Oxygen Flow Rate 12/26/24 18:05 12/26/24 18:10 12/26/24 18:10 Pulse Rate 61 Respiratory Rate 32 H Blood Pressure 95/52 L 112/59 L Pulse Oximetry 99 Oxygen Delivery Method Oxygen Flow Rate Oxygen Delivery Method Room Air Oxygen Flow Rate 6 Narrative Exam Narrative: Physical Exam: GENERAL: The patient is not in any acute distressed. Appears lethargic and mildly pale. HEENT: Nonicteric sclerae, PERRLA, EOMI. Oropharynx clear. Moist mucous membranes. Conjunctivae appear well perfused. HEART: Regular rate and rhythm without murmurs. 1+ edema b/l LE LUNGS: Clear to auscultation bilaterally. No wheezing, crackles or rhonchi ABDOMEN: Soft, non-tender, moderate distension SKIN: No rash, no excessive bruising, petechiae, or purpura. NEUROLOGIC: AxO x 2. Cranial nerves II-XII intact without motor/sensory deficit. Objective ECG Impression: Atrial fibrillation with slow ventricular response, rate 51. No acute ischemia. Labs 12/26/24 14:45 12/26/24 14:45 Labs: Laboratory Results - last 24 hr 12/26/24 12/26/24 14:45 16:50 WBC 8.2 RBC 2.91 L Hgb 8.2 L Hct 24.8 L MCV 85.3 MCH 28.0 MCHC 32.8 RDW 17.4 H Plt Count 203 Neut % (Auto) 82.2 H Lymph % (Auto) 5.7 L Bailey % (Auto) 11.7 Eos % (Auto) 0.1 L Baso % (Auto) 0.3 Neut # (Auto) 6800 Lymph # (Auto) 500 L Bailey # (Auto) 1000 H Eos # (Auto) 0 Baso # (Auto) 0 PT 13.4 H INR 1.2 APTT 25 L Sodium 125 L Potassium 4.7 Chloride 96 L Carbon Dioxide 21 L BUN 32 H Creatinine 1.59 H Estimated GFR 43 L BUN/Creatinine Ratio 20.1 Glucose 127 H Lactate 2.6 H 1.5 Calcium 8.1 L Total Bilirubin 1.9 H AST 38 ALT 27 Alkaline Phosphatase 68 Total Creatine Kinase 74 Troponin I < 0.012 NT-Pro-B Natriuret Pep 2520 H Total Protein 6.1 L Albumin 3.4 L Globulin 2.7 Albumin/Globulin Ratio 1.3 Blood Type A Positive Antibody Screen Negative Assessment & Plan Assessment & Plan narrative: 1. SBO, acute, POA - NPO/IVF, continue NG tube - general surgery to consult, ER provider discussed with surgeon. - monitor fluid status carefully, has 1+ edema b/l LE, may fluid overload quickly. - CT reviewed, consistent with SBO with transition point in ventral hernia. 2. AMY, POA - secondary to hypovolemia - f/u BMP and trend Cr - continue IV fluids 3. Recently noted duodenal ulcer on EGD, recent GI bleeding. - will start IV PPI BID for now, no reported melena or bowel movements since here in the hospital 4. Chronic atrial fibrillation, off anticoagulation. - will need to hold home medications of metoprolol and cardizem. - IV metoprolol if RVR develops. 5. Hyponatremia, acute - given presentation likely due to hypovolemia - will repeat BMP at 2300, again in AM - consider urine sodium and osm if sodium drops - hold HCTZ #Hypertension. Hold off blood pressure medication due to's in the setting of hypotension. Monitor blood pressure and if very elevated will consider treating. #Hyperlipidemia. hold home statin. #Dementia. need to donepezil and memantine. Code: Full, surrogate is patient's spouse DVT: SCDs I have utilized all available immediate resources to obtain, update, or review the patient's current medications. Dispo: patient admitted under inpatient status. Anticipate discharge home but timing is currently unclear. Additional history obtained via discussions with the ER provider and patient's spouse. These discussions contributed to the creation of the above assessment and plan. I have reviewed patient's presenting documentation, labs, and imaging personally. Time-Based Coding :: [TOTAL MINUTES] spent with patient and on the chart (including review of chart, obtaining history, exam, reviewing outside data, placing orders, documenting exam and treatment plan, and counseling patient) on [DATE].
[2024-12-26] MEDS: SODIUM CHLORIDE 0.9% 1,000 ML 100 ML IV (18:22)
--- NOTE | 2024-12-26 18:22 | DI.RAD.S_ITS ---
PROCEDURE: XR CHEST 1V INDICATIONS: NG placement confirmation TECHNIQUE: One view of the chest was acquired. COMPARISON: [facility], , XR CHEST 1V, 12/26/2024, 18:14. FINDINGS: Surgical changes and devices: Nasogastric tube remains unchanged in position. Lungs and pleura: Lungs are clear. No pleural effusions or pneumothorax. Mediastinum: Mediastinal contours appear normal. Heart size is enlarged. Bones and chest wall: No suspicious bony lesions. Overlying soft tissues appear unremarkable. IMPRESSION: Unchanged appearance of nasogastric tube. Forward advancement is recommended. Dictated by: Nikki Weiss M.D. on 12/26/2024 at 19:52 Approved by: Nikki Weiss M.D. on 12/26/2024 at 19:52
--- NOTE | 2024-12-26 18:35 | PM.CN.IH.1 ---
History of Present Illness Consult details Chief complaint: Hypotensive/ Recent GI Bleed Narrative: 84-year-old debilitated male recently hospitalized for bleeding duodenal ulcer. He was discharged about 2 days ago. He got weak and dizzy at home and was brought to the ED by family. He experienced a couple episodes of nausea. His last bowel movement was yesterday. He thinks he has passed some flatus. CT chest abdomen pelvis demonstrated findings potentially consistent with a small-bowel obstruction. Also noted was hypovolemia and a sodium of 125. I am consulted to render surgical opinion regarding potential need for intervention in ileus versus partial small-bowel obstruction. Meds Home Medications and Allergies Home Medications Medication Instructions Recorded Confirmed Type cholecalciferol (vitamin D3) 50 50 mcg PO DAILY 11/25/19 12/20/24 History mcg (2,000 unit) capsule gemfibrozil 600 mg tablet See Rx Instructions .Route 04/21/24 12/20/24 Rx .COMPLEX #90 tabs donepezil 10 mg tablet 10 mg PO DAILY 12/20/24 12/20/24 History hydrochlorothiazide 25 mg tablet 25 mg PO DAILY 12/20/24 12/20/24 History inulin 2 gram chewable tablet 2 g PO BEDTIME 12/20/24 12/20/24 History magnesium gluconate 12.5 mg 1,000 mg PO BEDTIME 12/20/24 12/20/24 History magnesium (250 mg) tablet memantine 5 mg tablet 5 mg PO BID 12/20/24 12/20/24 History metoprolol succinate 25 mg 12.5 mg PO BEDTIME 12/20/24 12/20/24 History tablet,extended release 24 hr multivitamin [id number] 1 tab PO DAILY 12/20/24 12/20/24 History fumarate 18 mg-vitamin K 25 mcg tablet rosuvastatin 10 mg tablet 10 mg PO QPM 12/20/24 12/20/24 History valsartan 40 mg tablet 40 mg PO DAILY 12/20/24 12/20/24 History diltiazem HCl 180 mg 180 mg PO BID #60 caps 12/25/24 Rx capsule,extended release 24 hr (Cardizem CD) pantoprazole 40 mg tablet,delayed 40 mg PO BID Ulcer #60 tabs 12/25/24 Rx release (Protonix) sucralfate 100 mg/mL oral 10 ml PO QACHS #420 mL 12/25/24 Rx suspension (Carafate) Allergies Allergy/AdvReac Type Severity Reaction Status Date / Time morphine [MORPHINE] Allergy Intermediate RASH Verified 12/02/24 10:03 Review of Systems Review of Systems Narrative: Comprehensive review of systems negative to direct questioning with the exception of the previously mentioned chronic medical conditions. Recent weakness and dizziness noted. Exam Vital Signs (past 8 hours): - 12/26/24 14:33 12/26/24 14:34 12/26/24 14:34 Pulse Rate 61 52 L Respiratory Rate 21 Blood Pressure 98/50 L Pulse Oximetry 84 L 97 Oxygen Delivery Method Room Air Nasal Cannula Oxygen Flow Rate 6 12/26/24 14:51 12/26/24 14:51 12/26/24 14:57 Pulse Rate 51 L 50 L Respiratory Rate 22 16 Blood Pressure 90/54 L 90/54 L Pulse Oximetry 95 92 Oxygen Delivery Method Nasal Cannula Room Air Oxygen Flow Rate 6 12/26/24 15:00 12/26/24 15:00 12/26/24 15:06 Pulse Rate 50 L 48 L Respiratory Rate 23 24 Blood Pressure 93/51 L Pulse Oximetry 89 L 88 L Oxygen Delivery Method Nasal Cannula Nasal Cannula Oxygen Flow Rate 6 6 12/26/24 15:06 12/26/24 15:11 12/26/24 15:11 Pulse Rate 58 L Respiratory Rate 32 H Blood Pressure 94/55 L 99/57 L Pulse Oximetry 99 Oxygen Delivery Method Oxygen Flow Rate 12/26/24 15:15 12/26/24 15:15 12/26/24 15:20 Pulse Rate 56 L Respiratory Rate 25 H Blood Pressure 100/55 L 101/58 L Pulse Oximetry 93 Oxygen Delivery Method Oxygen Flow Rate 12/26/24 15:20 12/26/24 15:23 12/26/24 15:23 Pulse Rate 51 L 49 L Respiratory Rate 24 22 Blood Pressure 107/53 L Pulse Oximetry 79 L 100 Oxygen Delivery Method Nasal Cannula Oxygen Flow Rate 6 12/26/24 15:25 12/26/24 15:25 12/26/24 15:30 Pulse Rate 48 L Respiratory Rate 22 Blood Pressure 101/51 L 94/54 L Pulse Oximetry 100 Oxygen Delivery Method Oxygen Flow Rate 12/26/24 15:30 12/26/24 15:33 12/26/24 15:35 Pulse Rate 48 L 49 L Respiratory Rate 30 H 32 H Blood Pressure Pulse Oximetry 100 100 100 Oxygen Delivery Method Room Air Oxygen Flow Rate 12/26/24 15:35 12/26/24 15:41 12/26/24 15:41 Pulse Rate 47 L Respiratory Rate 32 H Blood Pressure 92/50 L 98/55 L Pulse Oximetry 100 Oxygen Delivery Method Room Air Blow By Oxygen Flow Rate 12/26/24 15:45 12/26/24 15:45 12/26/24 15:50 Pulse Rate 47 L Respiratory Rate 23 Blood Pressure 97/54 L 98/50 L Pulse Oximetry 100 Oxygen Delivery Method Oxygen Flow Rate 12/26/24 15:50 12/26/24 15:55 12/26/24 15:55 Pulse Rate 53 L 48 L Respiratory Rate 27 H 24 Blood Pressure 102/52 L Pulse Oximetry 99 100 Oxygen Delivery Method Room Air Oxygen Flow Rate 12/26/24 16:00 12/26/24 16:00 12/26/24 16:06 Pulse Rate 50 L Respiratory Rate 27 H Blood Pressure 102/52 L 105/54 L Pulse Oximetry 100 Oxygen Delivery Method Oxygen Flow Rate 12/26/24 16:06 12/26/24 16:10 12/26/24 16:10 Pulse Rate 47 L 48 L Respiratory Rate 23 31 H Blood Pressure 94/53 L Pulse Oximetry 97 97 Oxygen Delivery Method Oxygen Flow Rate 12/26/24 16:15 12/26/24 16:15 12/26/24 16:21 Pulse Rate 50 L 48 L Respiratory Rate 25 H 29 H Blood Pressure 94/50 L Pulse Oximetry 100 96 Oxygen Delivery Method Oxygen Flow Rate 12/26/24 16:21 12/26/24 16:25 12/26/24 16:25 Pulse Rate 61 Respiratory Rate 37 H Blood Pressure 101/55 L 110/56 L Pulse Oximetry 99 Oxygen Delivery Method Room Air Oxygen Flow Rate 12/26/24 16:30 12/26/24 16:30 12/26/24 16:35 Pulse Rate 50 L 52 L Respiratory Rate 22 21 Blood Pressure 110/57 L Pulse Oximetry 98 100 Oxygen Delivery Method Oxygen Flow Rate 12/26/24 16:35 12/26/24 16:40 12/26/24 16:40 Pulse Rate 51 L Respiratory Rate 21 Blood Pressure 99/57 L 96/54 L Pulse Oximetry 100 Oxygen Delivery Method Oxygen Flow Rate 12/26/24 16:45 12/26/24 16:45 12/26/24 16:50 Pulse Rate 49 L 49 L Respiratory Rate 25 H 26 H Blood Pressure 93/52 L Pulse Oximetry 98 99 Oxygen Delivery Method Oxygen Flow Rate 12/26/24 16:50 12/26/24 16:55 12/26/24 16:55 Pulse Rate 48 L Respiratory Rate 22 Blood Pressure 91/54 L 91/53 L Pulse Oximetry 96 Oxygen Delivery Method Oxygen Flow Rate 12/26/24 17:00 12/26/24 17:00 12/26/24 17:06 Pulse Rate 49 L Respiratory Rate 18 Blood Pressure 89/68 L 89/54 L Pulse Oximetry 98 Oxygen Delivery Method Oxygen Flow Rate 12/26/24 17:06 12/26/24 17:11 12/26/24 17:11 Pulse Rate 51 L 49 L Respiratory Rate 22 23 Blood Pressure 103/51 L Pulse Oximetry 100 100 Oxygen Delivery Method Oxygen Flow Rate 12/26/24 17:15 12/26/24 17:15 12/26/24 17:20 Pulse Rate 47 L Respiratory Rate 19 Blood Pressure 99/50 L 101/56 L Pulse Oximetry 100 Oxygen Delivery Method Oxygen Flow Rate 12/26/24 17:20 12/26/24 17:25 12/26/24 17:25 Pulse Rate 51 L 50 L Respiratory Rate 27 H 24 Blood Pressure 96/51 L Pulse Oximetry 100 100 Oxygen Delivery Method Oxygen Flow Rate 12/26/24 17:30 12/26/24 17:30 12/26/24 17:35 Pulse Rate 47 L 48 L Respiratory Rate 22 19 Blood Pressure 98/54 L Pulse Oximetry 100 100 Oxygen Delivery Method Oxygen Flow Rate 12/26/24 17:35 12/26/24 17:40 12/26/24 17:40 Pulse Rate 47 L Respiratory Rate 23 Blood Pressure 103/57 L 105/55 L Pulse Oximetry 100 Oxygen Delivery Method Oxygen Flow Rate 12/26/24 17:45 12/26/24 17:45 12/26/24 17:50 Pulse Rate 53 L Respiratory Rate 24 Blood Pressure 100/58 L 103/53 L Pulse Oximetry 100 Oxygen Delivery Method Oxygen Flow Rate 12/26/24 17:50 12/26/24 17:55 12/26/24 17:55 Pulse Rate 53 L 55 L Respiratory Rate 24 25 H Blood Pressure 99/53 L Pulse Oximetry 100 100 Oxygen Delivery Method Oxygen Flow Rate 12/26/24 18:00 12/26/24 18:00 12/26/24 18:05 Pulse Rate 54 L 59 L Respiratory Rate 20 23 Blood Pressure 98/57 L Pulse Oximetry 100 99 Oxygen Delivery Method Oxygen Flow Rate 12/26/24 18:05 12/26/24 18:10 12/26/24 18:10 Pulse Rate 61 Respiratory Rate 32 H Blood Pressure 95/52 L 112/59 L Pulse Oximetry 99 Oxygen Delivery Method Oxygen Flow Rate Oxygen Delivery Method Room Air Oxygen Flow Rate 6 Narrative Exam Narrative: Head is normocephalic and atraumatic. Neck is supple without paraspinal or spinous process tenderness. Back is without CVA or spinous process tenderness lungs are clear to auscultation heart has a regular rate and rhythm with no murmur or gallop. Abdomen is mildly distended soft and nontender with hypoactive bowel sounds. There is a reducible incisional hernia. Extremities are without deformity. There is limited range of motion at the shoulders and elbows with 4 or 5 strength. Neurological exam is grossly nonfocal. Skin is clear there is no adenopathy. Objective Imaging CT scan - abdomen: My impression: CT findings potentially consistent with partial small-bowel obstruction versus ileus. Clinically the hernia is reducible, soft and nontender. Labs 12/26/24 14:45 12/26/24 14:45 Labs: Laboratory Results - last 24 hr 12/26/24 12/26/24 14:45 16:50 WBC 8.2 RBC 2.91 L Hgb 8.2 L Hct 24.8 L MCV 85.3 MCH 28.0 MCHC 32.8 RDW 17.4 H Plt Count 203 Neut % (Auto) 82.2 H Lymph % (Auto) 5.7 L [place] % (Auto) 11.7 Eos % (Auto) 0.1 L Baso % (Auto) 0.3 Neut # (Auto) 6800 Lymph # (Auto) 500 L [place] # (Auto) 1000 H Eos # (Auto) 0 Baso # (Auto) 0 PT 13.4 H INR 1.2 APTT 25 L Sodium 125 L Potassium 4.7 Chloride 96 L Carbon Dioxide 21 L BUN 32 H Creatinine 1.59 H Estimated GFR 43 L BUN/Creatinine Ratio 20.1 Glucose 127 H Lactate 2.6 H 1.5 Calcium 8.1 L Total Bilirubin 1.9 H AST 38 ALT 27 Alkaline Phosphatase 68 Total Creatine Kinase 74 Troponin I < 0.012 NT-Pro-B Natriuret Pep 2520 H Total Protein 6.1 L Albumin 3.4 L Globulin 2.7 Albumin/Globulin Ratio 1.3 Blood Type A Positive Antibody Screen Negative [facility] Medical History Leg edema Lower GI bleed Chronic bronchitis with productive mucopurulent cough Chronic kidney disease Anemia Dementia Nightmares Gastroenteritis Tricuspid regurgitation Seasonal allergic rhinitis Bronchitis Cerumen impaction Chronic atrial fibrillation Ventral incisional hernia Corns and callosities Finger injury Well adult exam BPH loc w/o ur obs/LUTS GERD (gastroesophageal reflux disease) Left lower quadrant abdominal pain Renal insufficiency Osteopenia GI bleed Hiatal hernia Atrial fibrillation Cataracts, bilateral (~08/2016) Hypertension BPH (benign prostatic hyperplasia) Colon polyps Diverticular disease Hyperlipidemia Surgical History Hx of pyloroplasty Hx of cholecystectomy History of repair of hiatal hernia Family History Father Heart disease Stroke Mother History of breast cancer Sister History of breast cancer Social History household members: spouse Assessment & Plan Assessment and plan (1) Abnormal CT of the abdomen: Status: Acute Plan: Patient has no fever, denies abdominal pain, has no leukocytosis. He is hyponatremic and hypovolemic. I do not detect a transition point commented upon by the radiologist. His report seems to indicate that it is in association with an incisional hernia. The incisional hernia is reduced at this time. I believe the individual is best served with NG suction and IV fluid resuscitation. His abdominal exam is innocuous at this time and we will repeat a KUB in the morning. Time-Based Coding :: [TOTAL MINUTES] spent with patient and on the chart (including review of chart, obtaining history, exam, reviewing outside data, placing orders, documenting exam and treatment plan, and counseling patient) on [DATE]. PROFEE Charge Codes Inpatient or Observation consultation: 10399
--- NOTE | 2024-12-26 19:24 | PC.NURSE ---
Attempted to place NG tube [address] without tube coiling in esophagus. Dr Patel in room placed OG tube as he was unable to place NG tube. Pt vomiting and struggling while tube being placed through mouth.
[2024-12-26] MEDS: PANTOPRAZOLE 40 MG VIAL IV (21:54)
[2024-12-26 23:26] LABS: BUN Creatinine Ratio 19.5 (6-22); Blood Urea Nitrogen 37 mg/dL (9-20); Calcium 7.6 mg/dL (8.4-10.2); Carbon Dioxide 23 mmol/L (22-32); Chloride 96 mmol/L (98-107); Estimated Glomerular Filt Rate 35 mL/min (>60); Glucose 110 mg/dL (70-99); HEMOLYSIS < 15 (0-50); Potassium 4.6 mmol/L (3.4-5.1); Sodium 126 mmol/L (137-145)
[2024-12-27] VITALS (9 sets, daily range): BP systolic 87–115; BP diastolic 44–55; PULSE 66–84; RESP 16–22; TEMP 36.2–36.6; O2SAT 91–100
[2024-12-27] MEDS: HYDROMORPHONE 0.5 MG INJ IV ×2 (05:02→08:45)
[2024-12-27 06:04] LABS: Add Manual Diff / Slide Review NO; Basophils Absolute Auto 0 /uL (0-100); Basophils Percent Auto 0.8 % (0-2); Eosinophils Absolute Auto 100 /uL (0-450); Eosinophils Percent Auto 1.7 % (2-4); Hematocrit 21.7 % (41-53); Hemoglobin 7.3 g/dL (13.5-17.5); Lymphocytes Absolute Auto 700 /uL (1100-4500); Lymphocytes Percent Auto 16.4 % (25-40); Mean Corpuscular HGB Conc 33.9 % (30-36); Mean Corpuscular Hemoglobin 28.4 PG (26-34); Mean Corpuscular Volume 83.9 fL (80-100); Monocytes Absolute Auto 800 /uL (0-900); Monocytes Percent Auto 18.5 % (3-14); Neutrophils Absolute Auto 2600 /uL (1500-7000); Neutrophils Percent Auto 62.6 % (50-75); Platelet Count 175 X10^3/uL (150-400); Red Blood Cell Count 2.58 X10^6/uL (4.5-5.9); Red Cell Distribution Width 16.8 % (11.6-14.8); White Blood Cell Count 4.2 X10^3/uL (4.5-11.0)
[2024-12-27 06:17] LABS: BUN Creatinine Ratio 18.9 (6-22); Blood Urea Nitrogen 40 mg/dL (9-20); Calcium 7.5 mg/dL (8.4-10.2); Carbon Dioxide 22 mmol/L (22-32); Chloride 98 mmol/L (98-107); Estimated Glomerular Filt Rate 30 mL/min (>60); Glucose 100 mg/dL (70-99); HEMOLYSIS < 15 (0-50); Magnesium 1.6 mg/dL (1.6-2.3); Potassium 4.4 mmol/L (3.4-5.1); Sodium 127 mmol/L (137-145)
--- NOTE | 2024-12-27 07:42 | P.PN_ITS ---
Subjective Subjective Interval history: Patient complains of a sore throat this morning. Orogastric tube has remained in place. The nurse notes oliguria. Exam Vital Signs (past 8 hours): - 12/27/24 00:58 12/27/24 02:49 12/27/24 04:00 Temperature 97.7 F 97.9 F Pulse Rate 67 71 Respiratory Rate 18 18 Blood Pressure 92/46 L 96/49 L Pulse Oximetry 96 92 94 Oxygen Delivery Method Nasal Cannula Oxygen Flow Rate 6 12/27/24 06:22 Temperature Pulse Rate Respiratory Rate Blood Pressure Pulse Oximetry 94 Oxygen Delivery Method Room Air Oxygen Flow Rate Oxygen Delivery Method Room Air Oxygen Flow Rate 6 Narrative Exam Narrative: Head is normocephalic and atraumatic. Orogastric tube remains in place. Lungs are clear to auscultation. Heart has a regular rate and rhythm with no murmur or gallop. Abdomen is soft and nontender with hypoactive bowel sounds improved over yesterday evening. KUB is pending at the time of this narrative. Objective Labs 12/27/24 05:00 12/27/24 05:00 Labs: Laboratory Results - last 24 hr 12/26/24 12/26/24 12/26/24 14:45 16:50 23:00 WBC 8.2 RBC 2.91 L Hgb 8.2 L Hct 24.8 L MCV 85.3 MCH 28.0 MCHC 32.8 RDW 17.4 H Plt Count 203 Neut % (Auto) 82.2 H Lymph % (Auto) 5.7 L [place] % (Auto) 11.7 Eos % (Auto) 0.1 L Baso % (Auto) 0.3 Neut # (Auto) 6800 Lymph # (Auto) 500 L [place] # (Auto) 1000 H Eos # (Auto) 0 Baso # (Auto) 0 PT 13.4 H INR 1.2 APTT 25 L Sodium 125 L 126 L Potassium 4.7 4.6 Chloride 96 L 96 L Carbon Dioxide 21 L 23 BUN 32 H 37 H Creatinine 1.59 H 1.90 H Estimated GFR 43 L 35 L BUN/Creatinine Ratio 20.1 19.5 Glucose 127 H 110 H Lactate 2.6 H 1.5 Calcium 8.1 L 7.6 L Magnesium Total Bilirubin 1.9 H AST 38 ALT 27 Alkaline Phosphatase 68 Total Creatine Kinase 74 Troponin I < 0.012 NT-Pro-B Natriuret Pep 2520 H Total Protein 6.1 L Albumin 3.4 L Globulin 2.7 Albumin/Globulin Ratio 1.3 Blood Type A Positive Antibody Screen Negative 12/27/24 05:00 WBC 4.2 L RBC 2.58 L Hgb 7.3 L Hct 21.7 L MCV 83.9 MCH 28.4 MCHC 33.9 RDW 16.8 H Plt Count 175 Neut % (Auto) 62.6 Lymph % (Auto) 16.4 L [place] % (Auto) 18.5 H Eos % (Auto) 1.7 L Baso % (Auto) 0.8 Neut # (Auto) 2600 Lymph # (Auto) 700 L [place] # (Auto) 800 Eos # (Auto) 100 Baso # (Auto) 0 PT INR APTT Sodium 127 L Potassium 4.4 Chloride 98 Carbon Dioxide 22 BUN 40 H Creatinine 2.12 H Estimated GFR 30 L BUN/Creatinine Ratio 18.9 Glucose 100 H Lactate Calcium 7.5 L Magnesium 1.6 Total Bilirubin AST ALT Alkaline Phosphatase Total Creatine Kinase Troponin I NT-Pro-B Natriuret Pep Total Protein Albumin Globulin Albumin/Globulin Ratio Blood Type Antibody Screen [facility] Medical History Leg edema Lower GI bleed Chronic bronchitis with productive mucopurulent cough Chronic kidney disease Anemia Dementia Nightmares Gastroenteritis Tricuspid regurgitation Seasonal allergic rhinitis Bronchitis Cerumen impaction Chronic atrial fibrillation Ventral incisional hernia Corns and callosities Finger injury Well adult exam BPH loc w/o ur obs/LUTS GERD (gastroesophageal reflux disease) Left lower quadrant abdominal pain Renal insufficiency Osteopenia GI bleed Hiatal hernia Atrial fibrillation Cataracts, bilateral (~08/2016) Hypertension BPH (benign prostatic hyperplasia) Colon polyps Diverticular disease Hyperlipidemia Surgical History Hx of pyloroplasty Hx of cholecystectomy History of repair of hiatal hernia Family History Father Heart disease Stroke Mother History of breast cancer Sister History of breast cancer Social History household members: spouse Assessment & Plan Assessment and plan (1) SBO (small bowel obstruction): Status: Acute Plan KUB. I will order this at this time. We will monitor renal function. The patient's abdomen remains soft and nontender. His bowel sounds are improving. His electrolyte profile is improving. There is no acute indication for surgical intervention at this time. Time-Based Coding :: [TOTAL MINUTES] spent with patient and on the chart (including review of chart, obtaining history, exam, reviewing outside data, placing orders, documenting exam and treatment plan, and counseling patient) on [DATE]. Quality VTE Deep Vein Thrombosis/Pulmonary Embolism Present on Admission: No IH PROFEE Enterprise Integration Developer Document charge(s): Yes
--- NOTE | 2024-12-27 07:46 | DI.RAD.S_ITS ---
PROCEDURE: XR KUB INDICATIONS: OG tube placement/ Small bowel obstruction versus ileus TECHNIQUE: One view of the abdomen acquired. COMPARISON: None. FINDINGS: Surgical changes and devices: Orogastric tube with tip projecting over the upper mediastinum. Bowel: Dilated loops of bowel.. Soft tissues: Contrast within the colon. No suspicious abdominal calcifications. Visualized solid organ contours appear normal in size. Bones: No suspicious bony lesions. IMPRESSION: Orogastric tube with tip projecting over the upper mediastinum. Recommend repositioning. Dilated loops of bowel. Possible left basilar atelectasis versus small effusion, not well evaluated. Dictated by: Osmin Lagunas M.D. on 12/27/2024 at 8:55 Approved by: Osmin Lagunas M.D. on 12/27/2024 at 8:56
[2024-12-27] MEDS: PANTOPRAZOLE 40 MG VIAL IV ×2 (08:45→21:01)
[2024-12-27] MEDS: SODIUM CHLORIDE 0.9% 1,000 ML 100 ML IV (09:28)
--- NOTE | 2024-12-27 13:52 | PM.PN.1 ---
Subjective Subjective Interval history: 84 M admitted with possible bowel obstruction. NG tube was removed this morning. He is not nauseous, he may have passed gas but cannot recall. No melena. Developing some swelling in LE today. Exam Vital Signs (past 8 hours): - 12/27/24 06:22 12/27/24 08:00 12/27/24 12:00 Temperature 97.6 F 97.1 F L Pulse Rate 66 69 Respiratory Rate 22 16 Blood Pressure 87/44 L 99/55 L Pulse Oximetry 94 91 93 Oxygen Delivery Method Room Air Oxygen Flow Rate 2.5 2.5 Oxygen Delivery Method Room Air Oxygen Flow Rate 2.5 Narrative Exam Narrative: Physical Exam: GENERAL: The patient is not in any acute distressed. Appears lethargic and mildly pale. HEENT: Nonicteric sclerae, PERRLA, EOMI. Oropharynx clear. Moist mucous membranes. Conjunctivae appear well perfused. HEART: Regular rate and rhythm without murmurs. 1+ edema b/l LE LUNGS: Clear to auscultation bilaterally. No wheezing, crackles or rhonchi ABDOMEN: Soft, non-tender, non-distended SKIN: No rash, no excessive bruising, petechiae, or purpura. NEUROLOGIC: AxO x 2. Cranial nerves II-XII intact without motor/sensory deficit. Objective Labs 12/27/24 05:00 12/27/24 05:00 Labs: Laboratory Results - last 24 hr 12/26/24 12/26/24 12/26/24 14:45 16:50 23:00 WBC 8.2 RBC 2.91 L Hgb 8.2 L Hct 24.8 L MCV 85.3 MCH 28.0 MCHC 32.8 RDW 17.4 H Plt Count 203 Neut % (Auto) 82.2 H Lymph % (Auto) 5.7 L [place] % (Auto) 11.7 Eos % (Auto) 0.1 L Baso % (Auto) 0.3 Neut # (Auto) 6800 Lymph # (Auto) 500 L [place] # (Auto) 1000 H Eos # (Auto) 0 Baso # (Auto) 0 PT 13.4 H INR 1.2 APTT 25 L Sodium 125 L 126 L Potassium 4.7 4.6 Chloride 96 L 96 L Carbon Dioxide 21 L 23 BUN 32 H 37 H Creatinine 1.59 H 1.90 H Estimated GFR 43 L 35 L BUN/Creatinine Ratio 20.1 19.5 Glucose 127 H 110 H Lactate 2.6 H 1.5 Calcium 8.1 L 7.6 L Magnesium Total Bilirubin 1.9 H AST 38 ALT 27 Alkaline Phosphatase 68 Total Creatine Kinase 74 Troponin I < 0.012 NT-Pro-B Natriuret Pep 2520 H Total Protein 6.1 L Albumin 3.4 L Globulin 2.7 Albumin/Globulin Ratio 1.3 Blood Type A Positive Antibody Screen Negative 12/27/24 05:00 WBC 4.2 L RBC 2.58 L Hgb 7.3 L Hct 21.7 L MCV 83.9 MCH 28.4 MCHC 33.9 RDW 16.8 H Plt Count 175 Neut % (Auto) 62.6 Lymph % (Auto) 16.4 L [place] % (Auto) 18.5 H Eos % (Auto) 1.7 L Baso % (Auto) 0.8 Neut # (Auto) 2600 Lymph # (Auto) 700 L [place] # (Auto) 800 Eos # (Auto) 100 Baso # (Auto) 0 PT INR APTT Sodium 127 L Potassium 4.4 Chloride 98 Carbon Dioxide 22 BUN 40 H Creatinine 2.12 H Estimated GFR 30 L BUN/Creatinine Ratio 18.9 Glucose 100 H Lactate Calcium 7.5 L Magnesium 1.6 Total Bilirubin AST ALT Alkaline Phosphatase Total Creatine Kinase Troponin I NT-Pro-B Natriuret Pep Total Protein Albumin Globulin Albumin/Globulin Ratio Blood Type Antibody Screen [facility] Medical History Leg edema Lower GI bleed Chronic bronchitis with productive mucopurulent cough Chronic kidney disease Anemia Dementia Nightmares Gastroenteritis Tricuspid regurgitation Seasonal allergic rhinitis Bronchitis Cerumen impaction Chronic atrial fibrillation Ventral incisional hernia Corns and callosities Finger injury Well adult exam BPH loc w/o ur obs/LUTS GERD (gastroesophageal reflux disease) Left lower quadrant abdominal pain Renal insufficiency Osteopenia GI bleed Hiatal hernia Atrial fibrillation Cataracts, bilateral (~08/2016) Hypertension BPH (benign prostatic hyperplasia) Colon polyps Diverticular disease Hyperlipidemia Surgical History Hx of pyloroplasty Hx of cholecystectomy History of repair of hiatal hernia Family History Father Heart disease Stroke Mother History of breast cancer Sister History of breast cancer Social History household members: spouse Assessment & Plan Assessment & Plan narrative: 1. SBO, acute, POA - NG tube now removed, abdomen less distended. Okay for clears this afternoon. - appreciate surgery consultation. - monitor fluid status carefully, has 1+ edema b/l LE, may fluid overload quickly. 2. AMY, POA - secondary to hypovolemia, possibly volume overload given worsening today. - f/u BMP and trend Cr. Cr is rising today slightly to 2.12. - stopping IV fluids today given volume overload on exam. 3. Recently noted duodenal ulcer on EGD, recent GI bleeding. - will start IV PPI BID for now, no reported melena or bowel movements since here in the hospital - Hg to 7.3 today, possibly dilutional from IV fluids, continue to monitor, no melena or BRBPR. 4. Chronic atrial fibrillation, off anticoagulation. - will need to hold home medications of metoprolol and cardizem given low normal BP, rate is controlled today.. - IV metoprolol if RVR develops. 5. Hyponatremia, acute on chronic - given presentation likely due to hypovolemia - sodium now improved to 127 after initial IV fluids. - consider urine sodium and osm if sodium drops - hold HCTZ #Hypertension. Hold off blood pressure medication due to's in the setting of hypotension. Monitor blood pressure and if very elevated will consider treating. #Hyperlipidemia. hold home statin. #Dementia. need to donepezil and memantine. Code: Full, surrogate is patient's spouse DVT: SCDs I have utilized all available immediate resources to obtain, update, or review the patient's current medications. Dispo: patient admitted under inpatient status. Anticipate discharge home but timing is currently unclear. I have reviewed patient's presenting documentation, labs, and imaging personally. Time-Based Coding :: [TOTAL MINUTES] spent with patient and on the chart (including review of chart, obtaining history, exam, reviewing outside data, placing orders, documenting exam and treatment plan, and counseling patient) on [DATE]. Quality VTE Deep Vein Thrombosis/Pulmonary Embolism Present on Admission: No
--- NOTE | 2024-12-27 15:54 | CM.DANOTE ---
DCP Assessment Note pt is a 84yo M recently admitted with GI bleed 12/22/24-12/25/24, discharged home now returning with possible SBO. hypotension/AMY. PCP Nithin Asencio [facility] and self pay MARKETING STRATEGY MANAGER reviewed EMR. per chart, pt dc'd home last admission no CM needs. per chart/provider in morning rounds, pt H&H downtrending, concerns for potential GI bleed again. NEETU unknown. had NG tube, now out. currently on 2.5ltrs O2. per PN, A/Ox2. MARKETING STRATEGY MANAGER entered room and introduced self and role. Pt accompanied by spouse and other family at bedside. Pt [place]. Primary participant in DCP conversation was spouse Meagan. Pt and spouse live together in [facility] [address] in [facility]. pt does not use DME at baseline but they have a walker/shower chair from previous family members. no oxygen at baseline. per spouse, pt was a 2P assist with nursing staff today, very different from his normal. MARKETING STRATEGY MANAGER reviewed SNF/HH options. no hx of HH or SNF. open to more information pending PT/OT recs. hopeful to return home if safe. Denies other DCP/CM questions at this time. Per provider, ordered PT/OT evals for tomorrow. P: DCP pending medical POC/therapy recs/pt and family preference. [facility] with family support. update TCM at [facility]. ALYCE Weaver Discharge Planning/Care Management CM Discharge Assessment Start: 12/27/24 15:50 Freq: Status: Active Protocol: Document 12/27/24 15:50 SL (Rec: 12/27/24 15:52 SL Desktop) Discharge Planning Assessment Assigned Agriculture Department Chair ALYCE Menon DPOA/Assigned Designee Name paty Rhodes Contact Information [phone] Advance Directives? No History Provided By Patient,Family Member Prior Living Arrangements House Household Members spouse Type of transporation used prior to Relies on Others admit Independent with ADL's Yes Needs Assistance With Home Chores / Shopping DME Already Rented / Owned Bath Bench,FWW / Walker Comment own walker and shower chair from previous family members, does not use at this time. Discharge Plan Home Referrals Initiated None needed Whiteboard Updated in Patient Room with Yes name and ext. # of Agriculture Department Chair Review Status In Process Please Provide Date Initial DC 12/27/24 Assessment Was Performed Next Review Type Continued Stay Review
[2024-12-28] VITALS: O2SAT 96
[2024-12-28 01:02] VITALS: BP 101/57; PULSE 74; RESP 20; TEMP 36.1; O2SAT 99
[2024-12-28 04:00] VITALS: O2SAT 90
[2024-12-28 04:12] VITALS: BP 103/56; PULSE 89; RESP 22; TEMP 36.4; O2SAT 99
[2024-12-28 05:48] LABS: Add Manual Diff / Slide Review NO; Basophils Absolute Auto 0 /uL (0-100); Basophils Percent Auto 0.9 % (0-2); Eosinophils Absolute Auto 100 /uL (0-450); Eosinophils Percent Auto 1.5 % (2-4); Hemoglobin 7.8 g/dL (13.5-17.5); Lymphocytes Absolute Auto 600 /uL (1100-4500); Lymphocytes Percent Auto 12.3 % (25-40); Mean Corpuscular HGB Conc 34.1 % (30-36); Mean Corpuscular Hemoglobin 28.4 PG (26-34); Mean Corpuscular Volume 83.4 fL (80-100); Monocytes Absolute Auto 700 /uL (0-900); Monocytes Percent Auto 15.5 % (3-14); Neutrophils Absolute Auto 3300 /uL (1500-7000); Neutrophils Percent Auto 69.8 % (50-75); Platelet Count 190 X10^3/uL (150-400); Red Blood Cell Count 2.76 X10^6/uL (4.5-5.9); Red Cell Distribution Width 16.8 % (11.6-14.8); White Blood Cell Count 4.7 X10^3/uL (4.5-11.0)
[2024-12-28 05:55] LABS: BUN Creatinine Ratio 23.6 (6-22); Blood Urea Nitrogen 39 mg/dL (9-20); Calcium 7.9 mg/dL (8.4-10.2); Carbon Dioxide 23 mmol/L (22-32); Chloride 100 mmol/L (98-107); Estimated Glomerular Filt Rate 41 mL/min (>60); Glucose 90 mg/dL (70-99); HEMOLYSIS < 15 (0-50); Magnesium 1.9 mg/dL (1.6-2.3); Potassium 3.9 mmol/L (3.4-5.1); Sodium 129 mmol/L (137-145)
[2024-12-28 05:56] LABS: Alanine Aminotransferase 21 IU/L (<50); Alkaline Phosphatase 70 U/L (38-126); Aspartate Aminotransferase 30 IU/L (17-59); Bilirubin Total 1.9 mg/dL (0.2-1.3); Bilirubin Unconjugated 1.3 mg/dL (0.0-1.1); Globulin 2.9 g/dL (1.7-4.1); HEMOLYSIS < 15 (0-50); Total Protein 5.9 g/dL (6.3-8.2)
--- NOTE | 2024-12-28 07:40 | PM.PN.IH.1 ---
Subjective Subjective Interval history: Feels much better. Large BM at 0230 with return of flatus. Has tolerated clears. Exam Vital Signs (past 8 hours): - 12/28/24 00:00 12/28/24 01:02 12/28/24 04:00 Temperature 96.9 F L Pulse Rate 74 Respiratory Rate 20 Blood Pressure 101/57 L Pulse Oximetry 96 99 90 L Oxygen Delivery Method Room Air Room Air Oxygen Flow Rate 0 12/28/24 04:12 Temperature 97.5 F L Pulse Rate 89 Respiratory Rate 22 Blood Pressure 103/56 L Pulse Oximetry 99 Oxygen Delivery Method Oxygen Flow Rate 0 Oxygen Delivery Method Room Air Oxygen Flow Rate 0 Narrative Exam Narrative: Lung-CTA CV-RRR without m/g Abd-soft, nontender with normal BS. No distention. Objective Labs 12/28/24 05:20 12/28/24 05:20 Labs: Laboratory Results - last 24 hr 12/28/24 05:20 WBC 4.7 RBC 2.76 L Hgb 7.8 L Hct 23.0 L MCV 83.4 MCH 28.4 MCHC 34.1 RDW 16.8 H Plt Count 190 Neut % (Auto) 69.8 Lymph % (Auto) 12.3 L [place] % (Auto) 15.5 H Eos % (Auto) 1.5 L Baso % (Auto) 0.9 Neut # (Auto) 3300 Lymph # (Auto) 600 L [place] # (Auto) 700 Eos # (Auto) 100 Baso # (Auto) 0 Sodium 129 L Potassium 3.9 Chloride 100 Carbon Dioxide 23 BUN 39 H Creatinine 1.65 H Estimated GFR 41 L BUN/Creatinine Ratio 23.6 H Glucose 90 Calcium 7.9 L Magnesium 1.9 Total Bilirubin 1.9 H Conjugated Bilirubin 0.0 Unconjugated Bilirubin 1.3 H AST 30 ALT 21 Alkaline Phosphatase 70 Total Protein 5.9 L Albumin 3.0 L Globulin 2.9 Albumin/Globulin Ratio 1.0 PFSH Medical History Leg edema Lower GI bleed Chronic bronchitis with productive mucopurulent cough Chronic kidney disease Anemia Dementia Nightmares Gastroenteritis Tricuspid regurgitation Seasonal allergic rhinitis Bronchitis Cerumen impaction Chronic atrial fibrillation Ventral incisional hernia Corns and callosities Finger injury Well adult exam BPH loc w/o ur obs/LUTS GERD (gastroesophageal reflux disease) Left lower quadrant abdominal pain Renal insufficiency Osteopenia GI bleed Hiatal hernia Atrial fibrillation Cataracts, bilateral (~08/2016) Hypertension BPH (benign prostatic hyperplasia) Colon polyps Diverticular disease Hyperlipidemia Surgical History Hx of pyloroplasty Hx of cholecystectomy History of repair of hiatal hernia Family History Father Heart disease Stroke Mother History of breast cancer Sister History of breast cancer Social History household members: spouse Assessment & Plan Assessment and plan (1) Ileus: Problem details: resolved Status: Acute Plan GI function returned with correction of electrolytes and volume status. Tolerant of POs. Recommend advancement of diet as tolerated with consideration of DC once regular diet achieved. Nothing surgical indicated at this time. I am of the opinion that he would not tolerate laparotomy/enterolysis well in any case. Will sign off at this time. Please call with questions or concerns. Time-Based Coding :: [TOTAL MINUTES] spent with patient and on the chart (including review of chart, obtaining history, exam, reviewing outside data, placing orders, documenting exam and treatment plan, and counseling patient) on [DATE]. Quality VTE Deep Vein Thrombosis/Pulmonary Embolism Present on Admission: No IH PROFEE Metal Riveter Document charge(s): Yes
[2024-12-28 09:37] VITALS: BP 121/63; PULSE 65; RESP 15; TEMP 36.6; O2SAT 95
[2024-12-28] MEDS: PANTOPRAZOLE 40 MG VIAL IV (09:51)
[2024-12-28] MEDS: SODIUM CHLORIDE 0.9% FLUSH 10 ML IV (09:52)
--- NOTE | 2024-12-28 10:35 | PT.IIE ---
Current Diagnoses Unspecified intestinal obstruction, unspecified as to partial versus complete obstruction (12/26/24) Ileus, unspecified (12/26/24) Abnormal findings on diagnostic imaging of other abdominal regions, including retroperitoneum (12/26/24) Surgical History (Last Reviewed 12/22/24 @ 07:39 by Josiah Stephenson MD) History of repair of hiatal hernia Hx of cholecystectomy Hx of pyloroplasty Medical History (Last Reviewed 12/22/24 @ 07:39 by Josiah Stephenson MD) Anemia Atrial fibrillation BPH (benign prostatic hyperplasia) BPH loc w/o ur obs/LUTS Bronchitis Cataracts, bilateral (~08/2016) Cerumen impaction Chronic atrial fibrillation Chronic bronchitis with productive mucopurulent cough Chronic kidney disease Colon polyps Corns and callosities Dementia Diverticular disease Finger injury Gastroenteritis GERD (gastroesophageal reflux disease) GI bleed Hiatal hernia Hyperlipidemia Hypertension Left lower quadrant abdominal pain Leg edema Lower GI bleed Nightmares Osteopenia Renal insufficiency Seasonal allergic rhinitis Tricuspid regurgitation Ventral incisional hernia Well adult exam Physical Therapy Inpatient Evaluation/Re-Eval M1 PT/OT-IP Prior Functional Status Start: 12/28/24 12:32 Freq: NEEDED Status: Active Protocol: Document 12/28/24 10:35 AB (Rec: 12/28/24 12:43 AB [id number]) Medical Review Prior Functional Status Medical History Reviewed Yes Communication able to make needs known; with confusion Mobility and Gait spouse stated that pt was independent with all mobilities and ambulation without AD Social History Household Members spouse Living Arrangements Apartment/Condo Number of Floors (Floors) One Floor Number of Stairs To Enter/Railing? no steps to enter Home Environment High Toilet,Tub/Shower,Bidet Home Equipment Four Wheel Walker,Straight Cane,Grab Bars In Shower M2 PT-IP Current Condition Start: 12/28/24 12:32 Freq: NEEDED Status: Active Protocol: Document 12/28/24 10:35 AB (Rec: 12/28/24 12:43 AB [id number]) Physical Therapy Current Condition Current Condition Evaluation Date 12/28/24 Treatment Diagnosis SBO; difficulty in walking Onset Date 12/26/24 M3 PT-IP Subjective Start: 12/28/24 12:32 Freq: NEEDED Status: Active Protocol: Document 12/28/24 10:35 AB (Rec: 12/28/24 12:43 AB [id number]) Subjective Physical Therapy Visit Type Type Initial Evaluation Visit Start Time 10:35 Visit Stop Time 11:05 Number of VACUUM METALIZING SUPERVISOR Visits 0 M4 PT-IP Mobility and Gait Start: 12/28/24 12:32 Freq: NEEDED Status: Active Protocol: Document 12/28/24 10:35 AB (Rec: 12/28/24 12:43 AB [id number]) PT-Bed Mobility Assessment Supine to Sit Supine to Sit Standby Assistance Sit to Supine Sit to Supine Standby Assistance PT-Transfer Assessment Sit to and From Stand Sit to and from Stand Standby Assistance,1 Person Assistance,Use of Upper Extremities Equipment Transfer Assistive Device None,Gait Belt Orthotic/Prosthetic Devices or Brace: No Transfers Transfer Destination Chair Transfer Technique Stand Step Pivot Transfer Ability Level of Assist Standby Assistance,1 Person Assistance,Use of Upper Extremities Comments Mobility Comments pt standing by the sink with OT. pt completed ADLs and PT took over pt's care. pt ambulated to EOB SBA to CGA without AD. BP: 104/56 O2 sat : 94%. obtained PLOF and home set up from spouse. pt agreed to ambulate more in room and completed ~ 30 ft without AD SBA to CGA. presents with unsteady antalgic gait but without LOB. pt stated that he has a R foot/toe callus that is tender when he walks affecting his ambulation. Assessed ambulation using 4WW and pt completed SBA. pt with steadier gait and better ivania. informed pt and spouse to use 4WW for uneven surface / long distance ambulation. both agreed. pt completed sit<>supine SBA. sit to stand from EOB SBA and step transfer to chair SBA. positioned pt on the chair. call light and table placed within reach. Left pt with spouse. Gait Assessment Gait Gait Assistance Required: Standby Assistance,Contact Guard Assist Distance (Feet) 30 Able to Maintain Weight Bearing Status Yes During Gait Assistive Devices Assistive Device None,Gait Belt,4 Wheeled Walker Orthotic/Prosthetic Devices or Brace: No Gait Deviations General Gait Pattern Antalgic,Decreased Stride Length,Decreased Feet Clearance Factors Limiting Gait Function Factors Limiting Gait Function Abnormal Tonal Influences, Decreased Activity Tolerance, Decreased Strength,Difficulty Following Directions,Limited Range of Motion,Pain,Poor Balance,Poor Safety Awareness PT-Balance Assessment Sitting Balance and Reactions Static Sitting Balance Ability Normal Dynamic Sitting Balance Ability Good Standing Balance and Reactions Static Standing Balance Ability Fair Dynamic Standing Balance Ability Fair Device Used without AD M5 PT-IP Objective Assessments Start: 12/28/24 12:32 Freq: NEEDED Status: Active Protocol: Document 12/28/24 10:35 AB (Rec: 12/28/24 12:43 AB [id number]) Orientation Orientation/Cognition Level of Alertness Alert Orientation Name,Situation Language Function Ability Hard of Hearing Safety Awareness Decreased Safety Awareness Memory Description Short Term Impaired Comments with slight confusion Gross Range of Motion Lower Extremity ROM Assessment Within Functional Limits Strength Lower Extremity Strength Assessment Within Functional Limits Coordination Assessment Gross Coordination Gross Coordination WNL Muscle Tone Muscle Tone WNL Yes M6 PT-IP Treatment Start: 12/28/24 12:32 Freq: NEEDED Status: Active Protocol: Document 12/28/24 10:35 AB (Rec: 12/28/24 12:43 AB [id number]) Physical Therapy Treatment Education Education Provided Safety M7 PT-IP Assessment and Plan Start: 12/28/24 12:32 Freq: NEEDED Status: Active Protocol: Document 12/28/24 10:35 AB (Rec: 12/28/24 12:43 AB [id number]) PT Summary Assessment and Plan Potential Rehabilitation Potential Fair Status of Condition at Evaluation Stable Summary Impairments Pain,ROM,Strength,Balance, Coordination,Sensation, Cognition,Bed Mobility, Transfers,Gait,Activity Tolerance Assessment Summary pt is an 84 y/o M who is admitted for SBO. pt requiring SBA to CGA with mobility without AD. Recommending use of 4WW at this time. pt plans to go home and spouse to assist. Goals Bed Mobility Goal Independent Transfer Goal Independent Gait Goal Independent Gait Distance 200 Days to Meet Goals 10 Frequency of Treatment Frequency Of Treatment Once a Day Treatment Plan Physical Therapy Treatment Plan Bed Mobility Training,Transfer Training,Gait Training, Therapeutic Exercise,Balance Retraining,Discharge Planning, Hot or Cold Pack,Neuromuscular Re-ed,Coordination Retraining ,Manual Therapy Precautions Other Precautions falls Recommendations To Nursing Amount of Assist Needed 1 Person Assist Discharge Recommendations PT Discharge Recommendations Home with Assistance, Outpatient PT Transportation Needs at Discharge Private Vehicle - PT assist 1
--- NOTE | 2024-12-28 11:00 | OT.IP.EVAL ---
Current Diagnoses Unspecified intestinal obstruction, unspecified as to partial versus complete obstruction (12/26/24) Ileus, unspecified (12/26/24) Abnormal findings on diagnostic imaging of other abdominal regions, including retroperitoneum (12/26/24) Past Medical History (Last Reviewed 12/22/24 @ 07:39 by Josiah Stephenson MD) Anemia Atrial fibrillation BPH (benign prostatic hyperplasia) BPH loc w/o ur obs/LUTS Bronchitis Cataracts, bilateral (~08/2016) Cerumen impaction Chronic atrial fibrillation Chronic bronchitis with productive mucopurulent cough Chronic kidney disease Colon polyps Corns and callosities Dementia Diverticular disease Finger injury Gastroenteritis GERD (gastroesophageal reflux disease) GI bleed Hiatal hernia Hyperlipidemia Hypertension Left lower quadrant abdominal pain Leg edema Lower GI bleed Nightmares Osteopenia Renal insufficiency Seasonal allergic rhinitis Tricuspid regurgitation Ventral incisional hernia Well adult exam Surgical History (Last Reviewed 12/22/24 @ 07:39 by Josiah Stephenson MD) History of repair of hiatal hernia Hx of cholecystectomy Hx of pyloroplasty Occupational Therapy Inpatient Evaluation/Re-Eval M1 PT/OT-IP Prior Functional Status Start: 12/28/24 12:32 Freq: NEEDED Status: Active Protocol: Document 12/28/24 10:35 AB (Rec: 12/28/24 12:43 AB [id number]) Medical Review Prior Functional Status Medical History Reviewed Yes Communication able to make needs known; with confusion Mobility and Gait spouse stated that pt was independent with all mobilities and ambulation without AD Social History Household Members spouse Living Arrangements Apartment/Condo Number of Floors (Floors) One Floor Number of Stairs To Enter/Railing? no steps to enter Home Environment High Toilet,Tub/Shower,Bidet Home Equipment Four Wheel Walker,Straight Cane,Grab Bars In Shower M2 OT-IP Current Condition Start: 12/28/24 12:31 Freq: Status: Active Protocol: Document 12/28/24 12:31 CCC (Rec: 12/28/24 13:10 [facility] Desktop) Occupational Therapy Current Condition Current Condition Evaluation Date 12/28/24 Treatment Diagnosis ILeus Diagnosis Onset Date 12/26/24 M3 OT- IP Subjective and Pain Start: 12/28/24 12:31 Freq: Status: Active Protocol: Document 12/28/24 12:31 CCC (Rec: 12/28/24 13:10 [facility] Desktop) OT- Subjective Occupational Therapy Visit Type Type Initial Evaluation Visit Start Time 10:08 Visit Stop Time 11:47 Notes Pt seen from [id number], [id number] Occupational Therapy Visit Comments Patient Comments Pt agreed to get up to brush his teeth. Patient/Caregiver Goals TO go home. OT Pain Assessment Pain When Pain Assessed At Rest Pain Present Pain Present Denied Pain M4 OT- IP ADL's Start: 12/28/24 12:31 Freq: Status: Active Protocol: Document 12/28/24 12:31 [facility] (Rec: 12/28/24 13:10 [facility] Desktop) OT [id number] Comments OT Self-Feeding Comments Not at meal time. OT ADL-Grooming General Evaluation Grooming Ability Standby Assistance Areas Needing Assistance Retrieving/Set-up of Grooming Items Comments OT Grooming Comments Pt having difficulty with set- up and needing reminders for sequence of the task. OT ADL-Oral Care General Eval Oral Care Ability Standby Assistance Comments Oral Care Comments Able to do while standing. OT ADL-Dressing General Eval Lower Body Dressing Ability Standby Assistance Comments OT Dressing Comments Pt able to agustin his socks while seated with increased time. Able to show pt use of sock aid. OT ADL-Toileting Comments OT Toileting Comments Not performed. Pt having to get reassurance from his that he did use the toilet earlier as having difficulty to remember. OT ADL-Bathing Comments OT Bathing Comments Pt prefers to use the tub/ shower at home, but the shower chair is too big to fit inside. Suggested to see if the chair would fit sideways or just get a smaller shower chair. M5 OT- IP IADL's Start: 12/28/24 12:31 Freq: Status: Active Protocol: Document 12/28/24 12:31 [facility] (Rec: 12/28/24 13:10 [facility] Desktop) OT-Instrumental Activities of Daily Living Home Safety Awareness Awareness of Need for Assistance at Home Decreased Awareness Ability to Problem Solve Emergency Unable to Problem Solve Situations Home Safety Comments Pt does not feel that he has any safety issues and felt that he could drive. Pt able to answer home safety situation questions correctly at 50%. Medication Management Medication Management Comments AT this time best for his to assist. Money Management Money Management Caregiver Provides Assistance Meal Preparation Meal Preparation Caregiver Provides Assist Dermatologist Managing Partner Dermatologist Managing Partner Caregiver Provides Assist Driving Driving Concerns Identified Regarding Safety M6 OT- IP Functional Cognition Start: 12/28/24 12:31 Freq: Status: Active Protocol: Document 12/28/24 12:31 [facility] (Rec: 12/28/24 13:10 [facility] Desktop) Cognitive Factors Limiting Selfcare Function Cognitive Ability Level of Alertness Alert Patient Orientation Name,Place Attention Span Ability Capable of Focused Attention, Capable of Sustained Attention Ability to Follow Commands Able to Follow One Step Commands Memory Description Short Term Impaired,Working Impaired Problem Solving Ability Needs Assist to Identify Solutions Executive Function Ability Unable to Remember Details Cognitive Tests SLUMS Pt scored 5/30 which implies dementia. Pt's states that pt's only able to recall information for 3 minutes in the past 1-1/2 years. Pt able to figure out it was Wed after increased time, say the state we are in , able to add 20+3, and only able to recall 3 animals in one minute, and answer 1/4 questions right after paragraph read. Cognitive Comments Cognitive Assessment Comments Pt's feels that pt is not at his baseline cognitively, however prior has difficulty with STM. Pt scored 563seconds for 1/2 of [place] [employer] Part B which implies severe impairments for mental flexibility, executive functioning, speed of processing, task switching, and visual attention. Pt strongly suggested not to drive at this time, pt's in agreement. OT- Vision and Hearing OT- Hearing Assessment OT- Hearing Assessment Hearing Impaired OT- Vision Assessment Visual Acuity Glasses For Reading Occular Pursuits Impaired Horizontal Vision Assessment Comments Pt having difficulty to scan is eyes and delayed response noted. M7 OT- IP Mobility and Balance Start: 12/28/24 12:31 Freq: Status: Active Protocol: Document 12/28/24 12:31 [facility] (Rec: 12/28/24 13:10 [facility] Desktop) OT-Transfer Assessment Transfers Transfer Ability Standby Assistance Technique Transfer Destination Bed Transfer Technique Stand Step Pivot Devices Transfer Assistive Devices Gait Belt Comments Mobility Comments SBA to stand and able to walk to the sink and back. Pt will benefit from 4ww for long distances. OT- Balance Assessment Sitting Balance and Reactions Static Sitting Balance Ability Normal Dynamic Sitting Balance Ability Good Standing Balance and Reactions Static Standing Balance Ability Good Dynamic Standing Balance Ability Fair M8 OT- IP Objective Assessments Start: 12/28/24 12:31 Freq: Status: Active Protocol: Document 12/28/24 12:31 [facility] (Rec: 12/28/24 13:10 [facility] Desktop) OT Gross Range of Motion Upper Extremity Range of Motion ROM Impairments Pt raises his BUE in scaption. OT Strength Upper Extremity Strength Assessment Bilaterally Impaired Comments Strength Comments Grossly 4-/5 OT- Coordination Assessment Upper Extremity Finger to Nose Test Left UE Impaired Comments Coordination Comments LUE mildly decreased. Noted slight tremor and right hand pilling. OT Sensation Assessment Comments Summary Comments Intact for light touch. Increased time for diadochokinesis. M9 OT- IP Assessment and Plan Start: 12/28/24 12:31 Freq: Status: Active Protocol: Document 12/28/24 12:31 [facility] (Rec: 12/28/24 13:10 [facility] Desktop) OT Summary Assessment and Plan Potential Rehabilitation Potential Good Analytic Complexity at Evaluation Moderate Summary OT Impairments Strength,Balance,Functional Cognition,Functional Mobility, Self-Feeding,Grooming,Dressing ,Toileting,Bathing,Toilet Transfers Progress Towards Goals Slow Progress due to Medical Issues,Slow Progress due to Cognition Assessment Summary Pt MOD complexity and main barriers are decreased dynamic balance, cognition, and FMS. Pt has a supportive to assist him at home. Pt scored 5/30 on the SLUMS which implies dementia. Pt however states has had poor memory retention for the past 1-1/2 years. Pt states also has not slept or eaten well. To reassess his cognition again tomorrow. Goals Self-Feeding Goal Independent Grooming Goal Independent Dressing Goal Independent Toileting Goal Independent Bathing Goal Standby Assistance Toilet Transfer Goal Independent Shower Transfer Goal Standby Assistance Days to Meet Goals 5 Frequency of Treatment Other frequency 5x/week Treatment Plan OT Treatment Plan ADL Training,Functional Cognition Training,IADL Training,Patient/Family Education,Discharge Planning Other Treatment Recommendations and Next reassess SLUMS Treatment Focus Discharge Recommendations OT Discharge Recommendations Home with 23/03 Assist Available Transportation Needs at Discharge Private Vehicle
--- NOTE | 2024-12-28 12:19 | CM.DPNOTE ---
DCP Cont Reviewed chart. Patient discussed in multidisciplinary rounds. According to Dr Patel, medical mangement continues, patient is slowly improving. Therapy evals pending today. According to OT; cognitive deficits may be the biggest safety issue to consider, patient is moving well. OT recommending home w/spouse not SNF. CM team following clinical course closely. Patient and spouse will likely benefit from discussion about in home care options and referral to HH. JW
[2024-12-28 13:00] VITALS: BP 111/54; PULSE 90; RESP 16; TEMP 36.2; O2SAT 95; O2SAT 96
--- NOTE | 2024-12-28 15:10 | P.DS_ITS ---
History of Present Illness History of Present Illness Date Patient Seen: 12/28/24 Time Patient Seen: 15:10 Chief complaint: Hypotensive/ Recent GI Bleed Narrative: 84-year-old male with past medical history of atrial fibrillation previously on Eliquis now off due to GI bleed, dementia dyslipidemia, hypertension, Watchman procedure placement July 2024 on aspirin and Plavix for atrial fibrillation, presents with hypotension, lethargy after recent discharge for GI bleed. During that admission he was noted to have an ulcer that required transfusion. H/h was stable at discharge. Denies melena or BRBPR currently. Mainly complains of dizziness and light headedness. Spouse stated he vomited a couple of times last night in bed but no bowel movements since he left the hospital yesterday when he had two. Today he was very lethargic, slightly confused, and she checked his BP which was as low as 85 systolic. Patient is not clear about what is going on at the moment. In the ER patient's BP was 99/53, initially on 6L but poor O2 sat reading and actually did not require O2, Pulse was in the 50-60 range. Labs showed Cr 1.59 (up from baseline of 1). LA 2.6 improved to 1.5 on repeat.Tbili was 1.9. Na was 125. He was given 1L IV fluids. CT scan showed possible early bowel obstruction with transition point in a ventral hernia. Given patient's underlying medical issues surgeon recommended medicine admission. NG tube was placed in the ER. Discharge Providers Provider Date of admission: 12/26/24 18:47 Discharge Date: 12/28/24 Primary care physician: Deacon Weller DO Consults: 12/26/24 17:32 Consult to Physician Stat Comment: Consulting Provider: Ezekiel Andrade Reason for consultation: SBO Has provider been notified: Yes 12/27/24 15:56 Consult to Occupational Therapy Evaluate & Treat Comment: Physician Instructions: Evaluate and treat Consult to Physical Therapy Evaluate & Treat Comment: Physician Instructions: Evaluate and Treat Discharge provider: Imtiaz Patel DO Summary Hospital Course Discharge Diagnosis: 1. SBO, acute, POA 2. AMY, POA 3. Recently noted duodenal ulcer on EGD, recent GI bleeding.. 4. Chronic atrial fibrillation, off anticoagulation. 5. Hyponatremia, acute on chronic #Hypertension. Hold off blood pressure medication due to's in the setting of hypotension. Monitor blood pressure and if very elevated will consider treating. #Hyperlipidemia. hold home statin. #Dementia. need to donepezil and memantine. Hospital Course: This is an 84 year old male with PMH of chronic afib, HTN, HLD, dementia who was admitted with nausea and vomiting and small bowel obstruction noted on CT imaging. He had an NG tube placed, with eventual resolution of symptoms and resumption of bowel function. He was also hyponatremic on admission, but this was presumed secondary to hypovolemia given improvement with fluids. It is not clear if hyponatremia lead to an ileus, or if obstruction led to hyponatremia at this time. His Cr peaked at 2.12, but then quickly improved to 1.65 after he had two bowel movements and began taking reliable oral intake. He had been recently admitted for GI bleed, and initial Hg fell to 7.3 but this was likely dilutional due to IV fluids. IV PPI was continued initially. His h/h trended up on the day of discharge after cessation of fluids and he had no melena or BRBPR this admission. Once patient was tolerating a diet, we discussed continued observation given his anemia, unclear etiology vs discharge home and the patient elected for discharge home. He was seen by occupational therapy during admission, with SLUMS score of 5/30. He was counselled to consider stopping driving. Time Spent with Patient Time spent: Greater than 30 minutes Exam Vital Signs (past 8 hours): - 12/28/24 09:37 12/28/24 09:37 12/28/24 13:00 Temperature 98 F Pulse Rate 65 Respiratory Rate 15 Blood Pressure 121/63 Pulse Oximetry 95 95 95 Oxygen Delivery Method Room Air Room Air Oxygen Flow Rate 0 0 12/28/24 13:00 Temperature 97.1 F L Pulse Rate 90 Respiratory Rate 16 Blood Pressure 111/54 L Pulse Oximetry 96 Oxygen Delivery Method Oxygen Flow Rate 0 Oxygen Delivery Method Room Air Oxygen Flow Rate 0 Narrative Exam Narrative: Physical Exam: GENERAL: The patient is not in any acute distressed. Appears lethargic and mildly pale. HEENT: Nonicteric sclerae, PERRLA, EOMI. Oropharynx clear. Moist mucous membranes. Conjunctivae appear well perfused. HEART: Regular rate and rhythm without murmurs. 1+ edema b/l LE LUNGS: Clear to auscultation bilaterally. No wheezing, crackles or rhonchi ABDOMEN: Soft, non-tender, non-distended SKIN: No rash, no excessive bruising, petechiae, or purpura. NEUROLOGIC: AxO x 2. Cranial nerves II-XII intact without motor/sensory deficit. Objective Labs 12/28/24 05:20 12/28/24 05:20 Labs: Laboratory Results - last 24 hr 12/28/24 05:20 WBC 4.7 RBC 2.76 L Hgb 7.8 L Hct 23.0 L MCV 83.4 MCH 28.4 MCHC 34.1 RDW 16.8 H Plt Count 190 Neut % (Auto) 69.8 Lymph % (Auto) 12.3 L [place] % (Auto) 15.5 H Eos % (Auto) 1.5 L Baso % (Auto) 0.9 Neut # (Auto) 3300 Lymph # (Auto) 600 L [place] # (Auto) 700 Eos # (Auto) 100 Baso # (Auto) 0 Sodium 129 L Potassium 3.9 Chloride 100 Carbon Dioxide 23 BUN 39 H Creatinine 1.65 H Estimated GFR 41 L BUN/Creatinine Ratio 23.6 H Glucose 90 Calcium 7.9 L Magnesium 1.9 Total Bilirubin 1.9 H Conjugated Bilirubin 0.0 Unconjugated Bilirubin 1.3 H AST 30 ALT 21 Alkaline Phosphatase 70 Total Protein 5.9 L Albumin 3.0 L Globulin 2.9 Albumin/Globulin Ratio 1.0 PFSH Medical History Leg edema Lower GI bleed Chronic bronchitis with productive mucopurulent cough Chronic kidney disease Anemia Dementia Nightmares Gastroenteritis Tricuspid regurgitation Seasonal allergic rhinitis Bronchitis Cerumen impaction Chronic atrial fibrillation Ventral incisional hernia Corns and callosities Finger injury Well adult exam BPH loc w/o ur obs/LUTS GERD (gastroesophageal reflux disease) Left lower quadrant abdominal pain Renal insufficiency Osteopenia GI bleed Hiatal hernia Atrial fibrillation Cataracts, bilateral (~08/2016) Hypertension BPH (benign prostatic hyperplasia) Colon polyps Diverticular disease Hyperlipidemia Surgical History Hx of pyloroplasty Hx of cholecystectomy History of repair of hiatal hernia Family History Father Heart disease Stroke Mother History of breast cancer Sister History of breast cancer Social History household members: spouse Discharge Plan Discharge Plan Patient Disposition: Home Provider Discharge Comment: You were admitted to the hospital with possible bowel obstruction which improved with NG tube and rest. Renal function improved with IV fluids. Hg is stable from before, no ongoing bleeding. Follow up with PCP and machine sander as you have previously scheduled. Discharge orders & Medications Prescriptions: Continued gemfibrozil 600 mg tablet See Rx Instructions .ROUTE .COMPLEX Qty: 90 3RF Dose Instruction: take 1 tablet by mouth once daily Rx Instructions: take 1 tablet by mouth once daily at bedtime cholecalciferol (vitamin D3) 50 mcg (2,000 unit) capsule 50 mcg PO DAILY donepezil 10 mg tablet 10 mg PO DAILY metoprolol succinate 25 mg tablet extended release 24 hr 12.5 mg PO BEDTIME valsartan 40 mg tablet 40 mg PO DAILY rosuvastatin 10 mg tablet 10 mg PO QPM memantine 5 mg tablet 5 mg PO BID magnesium gluconate 12.5 mg magne- sium (250 mg) Tablet 1,000 mg PO BEDTIME inulin 2 gram Tablet,Chewable 2 g PO BEDTIME vwpajnmq-hrd-vels-vitamin K 18 mg iron-25 mcg Tablet 1 tab PO DAILY diltiazem HCl [Cardizem CD] 180 mg Capsule,Extended Release 24hr 180 mg PO BID Qty: 60 0RF pantoprazole [Protonix] 40 mg tablet,delayed release (DR/EC) 40 mg PO BID Qty: 60 0RF Rx Instructions: Take for your ulcer; refill requests to be faxed to PCP sucralfate [Carafate] 100 mg/mL suspension 10 ml PO QACHS Qty: 420 0RF Discontinued hydrochlorothiazide 25 mg tablet 25 mg PO DAILY Follow up/Referrals: Deacon Weller, [Primary Care Provider] - Diet/Activity/Treatments Diet: Diet as Tolerated and Regular Activity: As tolerated, no restrictions. Visit Report/Discharge Packet Instructions: Ileus, DI for Acute Kidney Injury Stand Alone Forms: Patient Portal/API, Stroke Signs & Symptoms Discharge Data Primary Care Provider: Deacon Weller Quality VTE Deep Vein Thrombosis/Pulmonary Embolism Present on Admission: No
--- NOTE | 2024-12-28 16:38 | PC.NURSE ---
Patient d/c teaching done at bedside with and patient. Patient states already has a f/u appt w/ PCP and cardiology next week. Patient encouraged to keep appts. and discuss recent changed to medication by hospitalist. IV and tele removed. Pt was escorted down to private vehicle vai WC by DIRECTOR PRESALES. Patient in stable condition able to ambulate self to WC, and stood at bedside to listen to d/c teaching.
== END 2024-12-28 16:40 | disposition home or self-care (01) | DRG 389 ==
LOC: ED 18:17 → AC 18:47
PROVIDERS: Admitting Provider Internal Medicine; Emergency Provider Emergency Medicine; PCP Family Medicine; Referring Provider Emergency Medicine; Visit Provider Internal Medicine
DX: K56.609 Unspecified intestinal obstruction, unspecified as to partial versus complete obstruction (principal); E87.1 Hypo-osmolality and hyponatremia; N17.9 Acute kidney failure, unspecified; I48.20 Chronic atrial fibrillation, unspecified; I10 Essential (primary) hypertension; I95.9 Hypotension, unspecified; K26.9 Duodenal ulcer, unspecified as acute or chronic, without hemorrhage or perforation; E78.5 Hyperlipidemia, unspecified; F03.90 Unspecified dementia, unspecified severity, without behavioral disturbance, psychotic disturbance, mood disturbance, and anxiety; E86.1 Hypovolemia; Z82.49 Family history of ischemic heart disease and other diseases of the circulatory system; Z82.3 Family history of stroke; Z95.818 Presence of other cardiac implants and grafts; K21.9 Gastro-esophageal reflux disease without esophagitis; Z88.5 Allergy status to narcotic agent
CPT/HCPCS: 36415; 71045; 71275; 74018; 74174; 80048; 80053; 80076; 82550; 83605; 83735; 83880; 84484; 85025; 85610; 85730; 86850; 86900; 86901; 93005; 96361; 96374; 96375; 97116; 97129; 97161; 97166; 97535; 99284; J1171; J2405; J2470; Q9967

== ENCOUNTER → 2025-01-02 10:22 | Outpatient (CLI) | payer OTHER, SELFPAY ==
[2024-12-26 18:48] VITALS: BMI 36.8
[2025-01-02 11:01] LABS: Hematocrit 23.8 % (41-53); Hemoglobin 7.9 g/dL (13.5-17.5)
[2025-01-02 11:17] LABS: BUN Creatinine Ratio 19.9 (6-22); Blood Urea Nitrogen 44 mg/dL (9-20); Calcium 8.3 mg/dL (8.4-10.2); Carbon Dioxide 19 mmol/L (22-32); Chloride 96 mmol/L (98-107); Estimated Glomerular Filt Rate 29 mL/min (>60); Glucose 109 mg/dL (70-99); HEMOLYSIS < 15 (0-50); Potassium 4.3 mmol/L (3.4-5.1); Sodium 124 mmol/L (137-145)
[2025-01-02 12:23] LABS: Creatinine Urine Random 138.06 mg/dL; Protein (Total) Urine Random 14 mg/dL (0-12)
[2025-01-03 07:08] LABS: Parathyroid Hormone Int 114 pg/mL (15-65)
== END ==
PROVIDERS: PCP Family Medicine; Referring Provider Family Medicine; Visit Provider Student in an Organized Health Care Education/Training Program
DX: N05.9 Unspecified nephritic syndrome with unspecified morphologic changes (principal); D70.9 Neutropenia, unspecified; D63.1 Anemia in chronic kidney disease; N25.81 Secondary hyperparathyroidism of renal origin; R80.9 Proteinuria, unspecified
CPT/HCPCS: 36415; 80048; 82570; 83970; 84156; 85014; 85018

== ENCOUNTER 2025-01-02 11:37 | Emergency (ER) | payer OTHER, SELFPAY ==
[2024-12-26 18:48] VITALS: BMI 36.8
[2025-01-02] VITALS (17 sets, daily range): BP systolic 114–135; BP diastolic 55–91; PULSE 44–72; RESP 18; TEMP 36.2–37.2; O2SAT 72–99
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
--- NOTE | 2025-01-02 11:42 | DI.RAD.S_ITS ---
PROCEDURE: XR HAND LT MIN 3V INDICATIONS: fall, laceration, pain TECHNIQUE: 3 views of the hand(s) acquired. COMPARISON: None. FINDINGS: Bones: No fractures or dislocations. 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 Carpal bones are normally aligned. No suspicious bony lesions. Soft tissues: No suspicious soft tissue calcifications. 2nd finger soft tissue swelling. 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 However, there is definitely swelling involving the 2nd digit. Discussion with the patient regarding the chronicity of the deformity of the 2nd finger is suggested. No obvious fractures. Dictated by: Toño Foster M.D. on 01/02/2025 at 12:08 Approved by: Tñoo Foster M.D. on 01/02/2025 at 12:12
--- NOTE | 2025-01-02 12:41 | EKG_ITS ---
[address] [address] [place] [address] Test Date: 2025-01-02 Pat Name: Carlos Love Department: Room: Gender: Male Wood Repatcher: NANILORETTAEDISON : 1940 Requested By: Order Number: [id number] Reading MD: Margarito Goldsmith MD Measurements Intervals [place] Rate: 53 P: DC: QRS: 31 QRSD: 92 T: 10 QT: 484 QTc: 454 Interpretive Statements Atrial fibrillation with slow ventricular response Low voltage QRS Nonspecific ST abnormality Electronically Signed On 01-02-2025 14:32:15 PDT by Margarito Goldsmith MD
--- NOTE | 2025-01-02 13:03 | ED.FALL ---
HPI - Fall General Chief Complaint: Trauma Stated Complaint: Fall, hit head, thinners Time Seen by Provider: 01/02/25 11:45 Source: patient and EMS Mode of arrival: EMS History of Present Illness HPI Narrative: Patient 84-year-old male history of atrial fibrillation currently not on anticoagulation has Watchman off Plavix recent GI bleed presenting today as a ground level fall. He was here for outpatient blood work. Recent admission December 26 through December 28. He reports he was in the parking getting a newspaper when he tripped and fell landing straight on his face. He does have significant left hand laceration facial contusion. No loss of consciousness no numbness or tingling. He is able to stand and weightbear. Related Data Home Medications Medication Instructions Recorded Confirmed cholecalciferol (vitamin D3) 50 50 mcg PO DAILY 11/25/19 12/30/24 mcg (2,000 unit) capsule donepezil 10 mg tablet 10 mg PO DAILY 12/20/24 12/30/24 magnesium gluconate 12.5 mg 1,000 mg PO BEDTIME 12/20/24 12/30/24 magnesium (250 mg) tablet memantine 5 mg tablet 5 mg PO BID 12/20/24 12/30/24 metoprolol succinate 25 mg 12.5 mg PO BEDTIME 12/20/24 12/30/24 tablet,extended release 24 hr multivitamin h-ufgrzqba-ahghgne 1 tab PO DAILY 12/20/24 12/30/24 fumarate 18 mg-vitamin K 25 mcg tablet rosuvastatin 10 mg tablet 10 mg PO QPM 12/20/24 12/30/24 valsartan 40 mg tablet 40 mg PO DAILY 12/20/24 12/30/24 acetaminophen 500 mg tablet 500 mg PO DAILY PRN pain 12/30/24 12/30/24 cetirizine 10 mg tablet (Zyrtec) 10 mg PO DAILY PRN allergies 12/30/24 12/30/24 inulin 2 gram chewable tablet 2 g PO BEDTIME Fiber Gummies 12/30/24 12/30/24 Previous Rx's Medication Instructions Recorded gemfibrozil 600 mg tablet See Rx Instructions .Route 04/21/24 .COMPLEX #90 tabs diltiazem HCl 180 mg 180 mg PO BID #60 caps 12/25/24 capsule,extended release 24 hr (Cardizem CD) pantoprazole 40 mg tablet,delayed 40 mg PO BID Ulcer #60 tabs 12/25/24 release (Protonix) sucralfate 100 mg/mL oral 10 ml PO QACHS #420 mL 12/25/24 suspension (Carafate) Allergies Allergy/AdvReac Type Severity Reaction Status Date / Time morphine [MORPHINE] Allergy Intermediate RASH Verified 12/02/24 10:03 Patient History Medical History Leg edema Lower GI bleed Chronic bronchitis with productive mucopurulent cough Chronic kidney disease Anemia Dementia Nightmares Gastroenteritis Tricuspid regurgitation Seasonal allergic rhinitis Bronchitis Cerumen impaction Chronic atrial fibrillation Ventral incisional hernia Corns and callosities Finger injury Well adult exam BPH loc w/o ur obs/LUTS GERD (gastroesophageal reflux disease) Left lower quadrant abdominal pain Renal insufficiency Osteopenia GI bleed Hiatal hernia Atrial fibrillation Cataracts, bilateral (~08/2016) Hypertension BPH (benign prostatic hyperplasia) Colon polyps Diverticular disease Hyperlipidemia Surgical History Hx of pyloroplasty Hx of cholecystectomy History of repair of hiatal hernia Family History Father Heart disease Stroke Mother History of breast cancer Sister History of breast cancer Social History household members: spouse alcohol intake frequency: 0-2 drinks per day Exam Initial Vital Signs Initial Vital Signs: Vital Signs Respiratory Rate 18 01/02/25 11:59 Blood Pressure 114/55 L 01/02/25 11:59 Oxygen Delivery Method Room Air 01/02/25 11:59 GENERAL: Alert 84-year-old male HEENT: Head forehead contusion abrasions EOMI, pupils reactive, face symmetric, moist mucous membranes, no laceration 2 cm no bony deformity, no septal hematoma NECK: Supple, full range of motion, no step-offs, nontender on vertebrae CARDIOVASCULAR: Regular rate and rhythm without murmurs, rubs or gallops. RESPIRATORY: Mild tachypnea slight wheezing ABDOMEN: Soft, nontender. Normoactive bowel sounds all 4 quadrants. No guarding or rebound. PELVIS: stable. EXTREMITIES: Normal range of motion, no clubbing or edema. 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 SKIN: Warm, dry, no petechiae, no rashes or lesions, no contusions or ecchymosis Procedures Laceration Repair Laceration 1: Site: face (nose) Size (cm): 2 Description: linear Depth: simple, single layer Local Anesthetic: lidocaine 1% Amount of anesthesia used (mL): 2 Pre-repair: wound explored, irrigated extensively and deep structures intact Skin layer closed with: nylon Skin layer suture size: 5-0 Number of sutures: 2 Technique: simple, interrupted Laceration 2: Site: hand (palm) Side (If applicable): left Size (cm): 7 Description: linear Depth: simple, single layer Local Anesthetic: lidocaine 1% Amount of anesthesia used (mL): 10 Pre-repair: wound explored, irrigated extensively and deep structures intact Skin layer closed with: nylon Skin layer suture size: 4-0 Number of sutures: 12 Technique: simple, interrupted Course Orders Ordered: ED Orders 01/02/25 11:41 CT cervical spine wo con Stat CT facial bones wo con Stat CT head/brain wo con Stat 01/02/25 11:42 XR hand LT min 3V Stat 01/02/25 12:50 BNP [NT-proBNP (BNP-Adult 18+)] Stat Troponin & CK Cardiac Panel Stat 01/02/25 13:35 Chest [XR chest 1V] Stat EKG-12 Lead Stat Discontinued Medications Acetaminophen (Acetaminophen 325 Mg Tablet) 975 mg PO NOW ONE Stop: 01/02/25 13:12 Last Admin: 01/02/25 13:16 Dose: 975 mg Documented By: TC Furosemide (Furosemide 40 Mg/4 Ml Vial) 40 mg IV NOW ONE Stop: 01/02/25 14:26 Last Admin: 01/02/25 14:36 Dose: 40 mg Documented By: TC Lidocaine HCl (Lidocaine 1% 20 Ml) 3 ml SUBCUT NOW ONE Stop: 01/02/25 13:56 Last Admin: 01/02/25 14:38 Dose: 3 ml Documented By: TC Vital Signs Vital signs: Vital Signs - 8 hr 01/02/25 12:30 01/02/25 12:52 01/02/25 12:52 Temperature Pulse Rate 57 L 72 Respiratory Rate Blood Pressure 129/91 H Pulse Oximetry 99 92 Oxygen Delivery Method 01/02/25 13:00 01/02/25 13:01 01/02/25 13:01 Temperature Pulse Rate 65 53 L Respiratory Rate Blood Pressure 121/56 L Pulse Oximetry 92 92 Oxygen Delivery Method 01/02/25 13:30 01/02/25 13:30 01/02/25 14:00 Temperature Pulse Rate 67 44 L Respiratory Rate Blood Pressure 132/60 Pulse Oximetry 83 L 82 L Oxygen Delivery Method 01/02/25 14:01 01/02/25 14:01 01/02/25 14:30 Temperature Pulse Rate 48 L 47 L Respiratory Rate Blood Pressure 123/63 Pulse Oximetry 83 L 97 Oxygen Delivery Method 01/02/25 14:31 01/02/25 14:31 01/02/25 15:00 Temperature Pulse Rate 46 L 63 Respiratory Rate Blood Pressure 129/59 L Pulse Oximetry 98 95 Oxygen Delivery Method 01/02/25 15:01 01/02/25 15:01 01/02/25 15:30 Temperature Pulse Rate 56 L Respiratory Rate Blood Pressure 123/57 L 135/68 Pulse Oximetry 86 L Oxygen Delivery Method 01/02/25 15:30 01/02/25 15:59 01/02/25 15:59 Temperature Pulse Rate 44 L 45 L Respiratory Rate Blood Pressure 132/81 Pulse Oximetry 97 72 L Oxygen Delivery Method 01/02/25 16:00 01/02/25 16:20 Temperature 97.2 F L Pulse Rate 65 Respiratory Rate 18 Blood Pressure 130/65 135/68 Pulse Oximetry 98 Oxygen Delivery Method Room Air MDM - Fall Lab Data Labs: Lab Results 01/02/25 Range/Units 12:50 Total Creatine Kinase 103 (55-170) U/L Troponin I 0.023 (0.01-0.034) ng/mL NT-Pro-B Natriuret Pep 2520 H (<450) pg/mL Imaging Data Chest x-ray: Radiologist's Impression: PROCEDURE: XR CHEST 1V INDICATIONS: sob TECHNIQUE: One view of the chest was acquired. COMPARISON: [facility], , XR CHEST 1V, 12/26/2024, 19:30. FINDINGS: Surgical changes and devices: None. Lungs and pleura: Small left pleural effusion is seen. No definite focal infiltrate. No pneumothorax.. Mediastinum: Mediastinal contours appear normal. Heart size is enlarged. Bones and chest wall: No suspicious bony lesions. Overlying soft tissues appear unremarkable. IMPRESSION: Cardiomegaly and small left pleural effusion. No definite focal infiltrate. No pneumothorax. Dictated by: Pete Diaz M.D. on 01/02/2025 at 14 ECG Data Attestation: I personally reviewed and interpreted this ECG as follows: Prior ECG tracings: available for review Interpretation: Atrial fibrillation rate 53 low voltage no acute ischemia MDM Narrative Medical decision making narrative: MDM CC: Ground level fall Complicating co-morbidities: Chronic kidney disease, atrial fibrillation, GI bleed, dementia hypertension Data collected from: at bedside and previous medical records Medical records reviewed: Blood work from earlier today Hemoglobin 7.9 hematocrit 23.8 similar to December 28 it was 7.8/23 Sodium 124 previously 129 potassium 4.3 chloride 96 carbon dioxide 19 BUN 44 creatinine 2.2 previously 1.6 and prior to that 2.1 Differential considered: Mechanical intracranial hemorrhage electrolyte abnormality anemia Exam documented above, pertinent findings include: Significant forehead contusion on the left side nasal bone laceration left hand laceration 7 cm but moving all fingers no evidence of tendon damage he will fascia seen Lab Test results independently reviewed as above. Pertinent findings: [ ED labs today troponin 0.023 with BNP 2520 Independently reviewed EKG as above atrial fibrillation ischemia low voltage Imaging studies independently reviewed: Chest x-ray cardiomegaly small pleural effusion Consultations: None Treatments: Lasix, suturing, Tylenol Re-evaluations: Patient ambulated without oxygen reports it breathing feels okay. Oxygen remained stable. Discussion: Patient 84-year-old male presenting today with mechanical ground level fall. He did have outpatient work today which overall appears stable. In the ED he was noted to have some shortness of breath. X-ray was done which shows some cardiomegaly BNP is stable troponin negative EKGs negative. He was given a dose of Lasix he did urinate some. After ambulation he denies having significant shortness of breath feels like he could go home. Oxygen level remained stable does not require any oxygen. Discussion of admission versus going home both patient and feel comfortable going tongue. Lacerations were easily sutured with help \PA-C Discharge Plan Departure Patient Disposition: Home Clinical Impression: Laceration of hand, left, Anemia, Chronic kidney disease, Laceration of nose, Closed head injury Instructions: DI for Laceration Repair Activity Restrictions/Additional Instructions: *You have been diagnosed with left hand laceration, fall, closed head injury nasal laceration *What to do: Have sutures removed in about 7-10 days. Keep hand clean and dry with soap and water. Okay to bathe and shower. May change dressing tomorrow. *Continue to take medications as directed Tylenol as needed for pain *Follow up with your primary care provider in 2-3 days or call [phone] Please follow-up with all your providers this week as previously scheduled *Return to ER if you should have increasing redness swelling pain shortness of breath chest pain or any new, worsening or concerning symptoms Prescriptions: No Action gemfibrozil 600 mg tablet See Rx Instructions .ROUTE .COMPLEX Qty: 90 3RF Dose Instruction: take 1 tablet by mouth once daily Rx Instructions: take 1 tablet by mouth once daily at bedtime acetaminophen 500 mg tablet 500 mg PO DAILY PRN (Reason: pain) cetirizine [Zyrtec] 10 mg tablet 10 mg PO DAILY PRN (Reason: allergies) inulin 2 gram tablet,chewable 2 g PO BEDTIME cholecalciferol (vitamin D3) 50 mcg (2,000 unit) capsule 50 mcg PO DAILY donepezil 10 mg tablet 10 mg PO DAILY metoprolol succinate 25 mg tablet extended release 24 hr 12.5 mg PO BEDTIME valsartan 40 mg tablet 40 mg PO DAILY rosuvastatin 10 mg tablet 10 mg PO QPM memantine 5 mg tablet 5 mg PO BID magnesium gluconate 12.5 mg magne- sium (250 mg) Tablet 1,000 mg PO BEDTIME svfosvkc-xie-xwig-vitamin K 18 mg iron-25 mcg Tablet 1 tab PO DAILY diltiazem HCl [Cardizem CD] 180 mg Capsule,Extended Release 24hr 180 mg PO BID Qty: 60 0RF pantoprazole [Protonix] 40 mg tablet,delayed release (DR/EC) 40 mg PO BID Qty: 60 0RF Rx Instructions: Take for your ulcer; refill requests to be faxed to PCP sucralfate [Carafate] 100 mg/mL suspension 10 ml PO QACHS Qty: 420 0RF Referrals: Deacon Weller, [Primary Care Provider] - Stand Alone Forms: Patient Portal/API/Survey
[2025-01-02] MEDS: ACETAMINOPHEN 325 MG TABLET 975 MG PO (13:16)
--- NOTE | 2025-01-02 13:35 | DI.RAD.S_ITS ---
PROCEDURE: XR CHEST 1V INDICATIONS: sob TECHNIQUE: One view of the chest was acquired. COMPARISON: [facility], CR, XR CHEST 1V, 12/26/2024, 19:30. FINDINGS: Surgical changes and devices: None. Lungs and pleura: Small left pleural effusion is seen. No definite focal infiltrate. No pneumothorax.. Mediastinum: Mediastinal contours appear normal. Heart size is enlarged. Bones and chest wall: No suspicious bony lesions. Overlying soft tissues appear unremarkable. IMPRESSION: Cardiomegaly and small left pleural effusion. No definite focal infiltrate. No pneumothorax. Dictated by: Pete Diaz M.D. on 01/02/2025 at 14:52 Approved by: Pete Diaz M.D. on 01/02/2025 at 14:53
[2025-01-02 13:57] LABS: Creatine Kinase 103 U/L (55-170)
[2025-01-02 14:11] LABS: NT-proBNP (BNP-Adult 18+) 2520 pg/mL (<450); Troponin I 0.023 ng/mL (0.01-0.034)
[2025-01-02] MEDS: FUROSEMIDE 40 MG/4 ML VIAL IV (14:36)
[2025-01-02] MEDS: LIDOCAINE 1% 20 ML 3 ML SUBCUT (14:38)
--- NOTE | 2025-01-02 15:46 | PC.NURSE ---
Patient to the bathroom with a walker and SBA. O2 stayed 94-98% during ambulation
== END 2025-01-02 16:22 | disposition home or self-care (01) ==
PROVIDERS: Emergency Provider Emergency Medicine; PCP Family Medicine
DX: S09.8XXA Other specified injuries of head, initial encounter (principal); S01.21XA Laceration without foreign body of nose, initial encounter; S61.412A Laceration without foreign body of left hand, initial encounter; N18.9 Chronic kidney disease, unspecified; D63.1 Anemia in chronic kidney disease; R06.02 Shortness of breath; I48.91 Unspecified atrial fibrillation; N05.9 Unspecified nephritic syndrome with unspecified morphologic changes; D70.9 Neutropenia, unspecified; W01.0XXA Fall on same level from slipping, tripping and stumbling without subsequent striking against object, initial encounter; Z95.818 Presence of other cardiac implants and grafts; N25.81 Secondary hyperparathyroidism of renal origin; R80.9 Proteinuria, unspecified
CPT/HCPCS: 12002; 12011; 36415; 70450; 70486; 71045; 72125; 73130; 80048; 82550; 82570; 83880; 83970; 84156; 84484; 85014; 85018; 93005; 93010; 96374; 99284; J1938

== ENCOUNTER → 2025-01-09 10:25 | Outpatient (CLI) | payer OTHER, SELFPAY ==
[2025-01-05 11:40] VITALS: BMI 36.8
[2025-01-09 11:10] LABS: Add Manual Diff / Slide Review NO; Basophils Absolute Auto 100 /uL (0-100); Basophils Percent Auto 1.4 % (0-2); Eosinophils Absolute Auto 100 /uL (0-450); Eosinophils Percent Auto 1.3 % (2-4); Lymphocytes Absolute Auto 700 /uL (1100-4500); Lymphocytes Percent Auto 14.2 % (25-40); Mean Corpuscular HGB Conc 33.5 % (30-36); Mean Corpuscular Volume 80.7 fL (80-100); Monocytes Absolute Auto 700 /uL (0-900); Neutrophils Absolute Auto 3500 /uL (1500-7000); Neutrophils Percent Auto 70.1 % (50-75); Platelet Count 226 X10^3/uL (150-400); Red Blood Cell Count 2.97 X10^6/uL (4.5-5.9); Red Cell Distribution Width 17.3 % (11.6-14.8)
[2025-01-09 11:11] LABS: Hematocrit 24.3 % (41-53)
[2025-01-09 11:37] LABS: Iron 162 ug/dL (49-181)
[2025-01-09 11:38] LABS: BUN Creatinine Ratio 21.3 (6-22); Blood Urea Nitrogen 37 mg/dL (9-20); Calcium 8.9 mg/dL (8.4-10.2); Carbon Dioxide 32 mmol/L (22-32); Chloride 99 mmol/L (98-107); Estimated Glomerular Filt Rate 39 mL/min (>60); Glucose 86 mg/dL (70-99); HEMOLYSIS < 15 (0-50); Potassium 3.6 mmol/L (3.4-5.1); Sodium 140 mmol/L (137-145)
[2025-01-09 11:40] LABS: HEMOLYSIS < 15 (0-50); Iron 188 ug/dL (49-181)
[2025-01-09 11:43] LABS: Alanine Aminotransferase 20 IU/L (<50); Albumin 3.8 g/dL (3.5-5.0); Albumin Globulin Ratio 1.3 (1.0-2.8); Alkaline Phosphatase 80 U/L (38-126); Aspartate Aminotransferase 31 IU/L (17-59); BUN Creatinine Ratio 21.7 (6-22); Blood Urea Nitrogen 38 mg/dL (9-20); Carbon Dioxide 32 mmol/L (22-32); Chloride 99 mmol/L (98-107); Estimated Glomerular Filt Rate 38 mL/min (>60); Glucose 85 mg/dL (70-99); HEMOLYSIS < 15 (0-50); Potassium 3.6 mmol/L (3.4-5.1); Sodium 141 mmol/L (137-145); Total Protein 6.8 g/dL (6.3-8.2)
[2025-01-09 11:49] LABS: NT-proBNP (BNP-Adult 18+) 3970 pg/mL (<450)
[2025-01-09 11:52] LABS: Percent Iron Saturation 43 % (20-50); Total Iron Binding Capacity 438 ug/dL (261-462); Transferrin 354 mg/dL (206-381)
[2025-01-09 12:14] LABS: Ferritin 14 ng/mL (18-464)
[2025-01-09 12:33] LABS: Vitamin B12 810 pg/mL (239-931)
== END ==
PROVIDERS: PCP Family Medicine; Referring Provider Student in an Organized Health Care Education/Training Program; Visit Provider Student in an Organized Health Care Education/Training Program
DX: N05.9 Unspecified nephritic syndrome with unspecified morphologic changes (principal); I50.32 Chronic diastolic (congestive) heart failure; D50.0 Iron deficiency anemia secondary to blood loss (chronic); N40.0 Benign prostatic hyperplasia without lower urinary tract symptoms; I48.20 Chronic atrial fibrillation, unspecified; D64.9 Anemia, unspecified; D63.1 Anemia in chronic kidney disease; D70.9 Neutropenia, unspecified; I11.0 Hypertensive heart disease with heart failure
CPT/HCPCS: 36415; 80048; 80053; 82607; 82728; 83540; 83550; 83880; 85014; 85018; 85025

== ENCOUNTER → 2025-01-26 15:54 | Outpatient (CLI) | payer OTHER, SELFPAY ==
[2025-01-05 11:40] VITALS: BMI 36.8
--- NOTE | 2025-01-26 15:56 | DI.ECHO.S_ITS ---
[facility]+ [facility] : : [address] : : [place] : : [id number] : : Phone: [phone] Echocardiogram Report + + :Name: WENDY TRIVEDI Study Date: 01/26/2025 Height: 68 in : [id number] ReadingLocation: Weight: 181 lb : : Gender: Male BSA: 2.0 m2 : :: 1940 Age: 84 yrs BP: 140/83 mmHg: :Reason For Study: CONGESTIVE HEART FAILURE : :Ordering Physician: MITESH, : :FCO Performed By: Christiano Singh : :Referring: FCO SAGASTUME : + + Interpretation Summary 1. Left ventricular contractility is borderline. Estimated ejection fraction is 50 to 55% with no segmental wall motion abnormalities. Mild asymmetrical septal hypertrophy with no obstruction. Unable to comment on diastolic function. 2. The right ventricular contractility is normal. 3. Severe biatrial enlargement. The right ventricular cavity is also severely dilated. The left ventricle is of normal size. 4. Moderate-severe tricuspid regurgitation with estimated pulmonary systolic artery pressures of 55 mmHg. 5. Mild to moderate mitral regurgitation. 6. No obvious intracardiac shunts. 7. No hemodynamically significant pericardial effusion. 8. Elevated right-sided filling pressures. Conclusion: Severely dilated right ventricle with normal right ventricular systolic function. There is moderate to severe tricuspid regurgitation with severely elevated pulmonary systolic artery pressures. When compared to previous echocardiogram, there is significant enlargement of the right ventricular cavity with worsening valvular insufficiencies. Procedure: A two-dimensional transthoracic echocardiogram with color flow and Doppler was performed. The study quality was technically good. Comparison is made with the echocardiogram of 02/28/2016. The patient was in atrial fibrillation with heart rates between 63-88 bpm during the exam. Left Ventricle: The left ventricle is normal in size. Left ventricular wall thickness is mildly increased. There is no ventricular septal defect visualized. The ejection fraction is estimated to be 50-55%. There are no focal wall motion abnormalities. Diastolic function could not be accurately assessed due to atrial fibrillation. Right Ventricle: The right ventricle is moderate to severely dilated. The right ventricular systolic function is normal. Atria: The left atrium is severely dilated. The right atrium is severely dilated. There is no Doppler evidence for an interatrial shunt. Mitral Valve: The mitral valve leaflets appear mildly thickened, but open well. The mitral valve leaflets are mildly calcified. There is mild to moderate mitral regurgitation. Aortic Valve: The aortic valve is trileaflet. The aortic valve opens well. No aortic regurgitation is present. Tricuspid Valve: The tricuspid valve leaflets are thin and pliable. There is moderate to severe tricuspid regurgitation. The right ventricular systolic pressure is estimated to be at least 55 mmHg based on an estimated right atrial pressure of 15 mm Hg. Pulmonic Valve: The pulmonic valve leaflets are thin and pliable; valve motion is normal. There is trace pulmonic regurgitation. Great Vessels: The aortic root is normal size. The dimensions of the ascending aorta are normal. The pulmonary artery is normal size. The IVC is dilated (diameter is greater than 2.1 cm) and it collapses less than 50% with a sniff. This suggests a high right atrial pressure of 15 mm Hg. Pericardium/ Pleura There is no pericardial effusion. There is no pleural effusion. MMode/2D Measurements & Calculations LVIDd: 4.4 cm LVOT diam: 2.1 cm LVIDs: 3.1 cm Ao root diam: 3.9 cm FS: 29.0 % asc Aorta Diam: 3.6 cm EPSS: 0.75 cm IVSd: 1.2 cm LVPWd: 0.99 cm LV loera. diameter/BSA (cm/m^2): 2.2 LV sys. diameter/BSA (cm/m^2): 1.6 LA A2 area: 34.6 cm2 RA long axis: 7.0 cm LA A4 area: 29.0 cm2 RA area: 31.0 cm2 LA length (vol): 6.4 cm RA vol: 115.6 ml LA vol: 133.8 ml RA : 59.0 ml/m2 LA vol index: 68.3 ml/m2 IVC diam: 2.9 cm RVD1 (basal): 6.1 cm RVD2 (mid): 5.1 cm TAPSE: 1.7 cm Doppler Measurements & Calculations Ao V2 max: 93.4 cm/sec LVOT Max Mathieu: 78.4 cm/sec Ao V2 mean: 67.2 cm/sec LV V1 max P.5 mmHg Ao max P.5 mmHg LV V1 VTI: 17.5 cm Ao mean P.0 mmHg DMITRIY(I,D): 2.9 cm2 Ao V2 VTI: 19.9 cm DMITRIY(V,D): 2.8 cm2 sev ratio: 0.88 DMITRIY indexed to BSA (cm^2/m^2): 1.5 MV E max mathieu: 90.8 cm/sec TR max mathieu: 317.0 cm/sec MV A max mathieu: 21.7 cm/sec TR max P.2 mmHg MV E/A: 4.2 PA V2 max: 85.7 cm/sec Med Peak E' Mathieu: 9.0 cm/sec PA V2 mean: 57.5 cm/sec E/E' med: 10.1 PA mean P.5 mmHg Lat Peak E' Mathieu: 11.4 cm/sec PA pr(Accel): 65.3 mmHg E/E' lat: 8.0 E/e' average: 9.0 MV dec time: 0.18 sec SV(LVOT): 58.3 ml Reading Physician:OMI
== END ==
PROVIDERS: PCP Family Medicine; Referring Provider Family Medicine; Visit Provider Nurse Practitioner
DX: I08.1 Rheumatic disorders of both mitral and tricuspid valves (principal); I48.20 Chronic atrial fibrillation, unspecified; I50.9 Heart failure, unspecified
CPT/HCPCS: 93306

== ENCOUNTER 2025-01-31 04:33 | Emergency (ER) | payer OTHER, SELFPAY ==
[2025-01-05 11:40] VITALS: BMI 36.8
[2025-01-31] VITALS (49 sets, daily range): BP systolic 86–107; BP diastolic 50–62; PULSE 86–113; RESP 21–34; TEMP 37.8–38.3; O2SAT 91–96
[2025-01-31] MEDS: ONDANSETRON 4 MG/2 ML INJ IV (04:50)
--- NOTE | 2025-01-31 04:51 | DI.RAD.S_ITS ---
PROCEDURE: XR CHEST 1V INDICATIONS: GI bleed TECHNIQUE: One view of the chest was acquired. COMPARISON: [facility], CR, XR CHEST 1V, 01/02/2025, 13:37. [facility], CR, XR CHEST 1V, 12/26/2024, 19:30. FINDINGS AND IMPRESSION: Multifocal consolidations, most confluent in the right mid and lower lung. This is likely infectious. No drainable pleural effusions. Consider future imaging surveillance to assess for resolution. Cardiomegaly. Degenerative osseous changes. No significant changes from the preliminary port Dictated by: Nolan Nava M.D. on 01/31/2025 at 7:13 Approved by: Nolan Nava M.D. on 01/31/2025 at 7:14
[2025-01-31] MEDS: PANTOPRAZOLE 40 MG VIAL 80 MG IV (04:52)
--- NOTE | 2025-01-31 04:55 | EKG_ITS ---
[address] [address] Test Date: 2025-01-31 Pat Name: Carlos Love Department: Room: Gender: Male [employer]er: : 1940 Requested By: Order Number: [id number] Reading MD: Josiah Stephenson Measurements Intervals [place] Rate: 104 P: DC: QRS: 2 QRSD: 88 T: -25 QT: 416 QTc: 547 Interpretive Statements Atrial fibrillation with rapid ventricular response Nonspecific ST abnormality Prolonged QT Electronically Signed On 02-02-2025 17:12:12 PDT by Josiah Stephenson
[2025-01-31] MEDS: POTASSIUM CHLORIDE IN WATER 10 MEQ/100 ML PIGGYBACK 100 MEQ IV ×4 (06:10→09:45)
[2025-01-31] MEDS: SODIUM CHLORIDE 0.9% 1,000 ML 1000 ML IV (06:28)
[2025-01-31] MEDS: cefTRIAXone 1,000 MG in SODIUM CHLORIDE 0.9% 100 ML 200 MG IV (06:28)
[2025-01-31] MEDS: DOXYCYCLINE 100 MG in SODIUM CHLORIDE 0.9% 100 ML IV (06:47)
--- NOTE | 2025-01-31 07:25 | PC.NURSE ---
Please see downtime paper charting
--- NOTE | 2025-01-31 07:33 | ED.GENADULT ---
HPI - General Adult <Demetrius Brannon MD - Last Filed: 01/31/25 15:37> General Chief complaint: GI Bleed Stated complaint: GI Bleed Time Seen by Provider: 01/31/25 07:25 History of Present Illness HPI narrative: (initial presentation during Downtime, intial orders and documentation via paper charting, then transitioned to EHR; patient was seen by be at bedside on arrival) 84-year-old male with history of atrial fibrillation status post Watchman procedure, no longer on Eliquis, history of lower gastrointestinal bleeding October 2024, history of upper gastrointestinal bleeding November 2024 that believes was due to a duodenal ulcer, got up to the bathroom early this morning about 2:00 a.m. seemed to be okay per , went to bed, shortly thereafter awoke with coughing fit, and then had emesis of bright red blood. He was transported by private vehicle driven by family. Related Data Home Medications ?Medication ?Instructions ?Recorded ?Confirmed cholecalciferol (vitamin D3) 50 50 mcg PO DAILY 11/25/19 01/05/25 mcg (2,000 unit) capsule donepezil 10 mg tablet 10 mg PO DAILY 12/20/24 01/05/25 memantine 5 mg tablet 5 mg PO BID 12/20/24 01/05/25 metoprolol succinate 25 mg 12.5 mg PO BEDTIME 12/20/24 01/05/25 tablet,extended release 24 hr multivitamin [id number]-[id number] 1 tab PO DAILY 12/20/24 01/05/25 fumarate 18 mg-vitamin K 25 mcg tablet rosuvastatin 10 mg tablet 10 mg PO QPM 12/20/24 01/05/25 acetaminophen 500 mg tablet 500 mg PO DAILY PRN pain 12/30/24 01/05/25 cetirizine 10 mg tablet (Zyrtec) 10 mg PO DAILY PRN allergies 12/30/24 01/05/25 inulin 2 gram chewable tablet 2 g PO BEDTIME Fiber Gummies 12/30/24 01/05/25 torsemide 20 mg tablet 20 mg PO DAILY 01/05/25 01/05/25 Previous Rx's ?Medication ?Instructions ?Recorded sucralfate 1 gram tablet (Carafate) 1 g PO BID #60 tabs 01/11/25 pantoprazole 40 mg tablet,delayed 40 mg PO BID Ulcer #60 tabs 01/20/25 release (Protonix) Allergies Allergy/AdvReac Type Severity Reaction Status Date / Time morphine (MORPHINE) Allergy Intermediate RASH Verified 01/05/25 10:52 Patient History <Demetrius Brannon MD - Last Filed: 01/31/25 15:37> Medical History (Updated 01/31/25 @ 07:44 by Demetrius Brannon MD) Acute hypernatremia Leg edema Lower GI bleed Chronic bronchitis with productive mucopurulent cough Chronic kidney disease Anemia Dementia Nightmares Gastroenteritis Tricuspid regurgitation Seasonal allergic rhinitis Bronchitis Cerumen impaction Chronic atrial fibrillation Ventral incisional hernia Corns and callosities Finger injury Well adult exam BPH loc w/o ur obs/LUTS GERD (gastroesophageal reflux disease) Left lower quadrant abdominal pain Renal insufficiency Osteopenia GI bleed Hiatal hernia Atrial fibrillation Cataracts, bilateral (~08/2016) Hypertension BPH (benign prostatic hyperplasia) Colon polyps Diverticular disease Hyperlipidemia Surgical History Hx of pyloroplasty Hx of cholecystectomy History of repair of hiatal hernia Family History Father Heart disease Stroke Mother History of breast cancer Sister History of breast cancer Social History household members: spouse alcohol intake frequency: 0-2 drinks per day Exam <Demetrius Brannon MD - Last Filed: 01/31/25 15:37> Narrative Exam Narrative: GENERAL: Well-developed patient, in mild distress. HEAD: Atraumatic. Normocephalic. EYES: Pupils equal round and reactive. Extraocular motions intact. No scleral icterus. No injection or drainage. ENT: Nose without bleeding, purulent drainage. Throat without erythema, tonsillar hypertrophy or exudate. Airway patent. NECK: Trachea midline. Non tender CARDIOVASCULAR: Regular rate and rhythm without murmurs, gallops, or rubs. RESPIRATORY: Clear to auscultation. Breath sounds equal bilaterally. No wheezes, rales, or rhonchi. GASTROINTESTINAL: Abdomen soft, non-tender, nondistended. EXTREMITIES: No edema or joint tenderness. BACK: Nontender without deformity or crepitance. No flank tenderness. NEURO: AOx3. Motor functions grossly nonfocal SKIN: No rash or erythema of visible areas Initial Vital Signs Initial Vital Signs: Vital Signs Pulse Rate 106 H 01/31/25 07:50 Respiratory Rate 23 01/31/25 07:50 Blood Pressure 91/55 L 01/31/25 07:50 Pulse Oximetry 95 01/31/25 07:50 Oxygen Delivery Method Nasal Cannula 01/31/25 07:50 Oxygen Flow Rate 2 01/31/25 07:50 <Schuyler Corcoran MD - Last Filed: 01/31/25 20:00> Initial Vital Signs Initial Vital Signs: Vital Signs Pulse Rate 106 H 01/31/25 07:50 Respiratory Rate 23 01/31/25 07:50 Blood Pressure 91/55 L 01/31/25 07:50 Pulse Oximetry 95 01/31/25 07:50 Oxygen Delivery Method Nasal Cannula 01/31/25 07:50 Oxygen Flow Rate 2 01/31/25 07:50 Course <Demetrius Brannon MD - Last Filed: 01/31/25 15:37> Orders Ordered: ED Orders 01/31/25 11:08 BMP [Basic Metabolic Panel] Stat 01/31/25 11:55 Urinalysis and Microscopic Stat 01/31/25 12:05 Hemoglobin and Hematocrit Stat Discontinued Medications Acetaminophen (Acetaminophen 325 Mg Tablet) 975 mg PO NOW ONE Stop: 01/31/25 08:29 Last Admin: 01/31/25 08:34 Dose: Not Given Documented By: HARPREET Acetaminophen (Acetaminophen 650 Mg Supp) 650 mg IN NOW ONE Stop: 01/31/25 08:33 Last Admin: 01/31/25 08:36 Dose: 650 mg Documented By: HARPREET Piperacillin Sod/Tazobactam (Sod 4.5 gm/ Sodium Chloride) 100 mls @ 200 mls/hr IV NOW ONE Stop: 01/31/25 07:49 Last Infusion: 01/31/25 08:51 Dose: Infused Documented By: Admin: 01/31/25 07:52 Dose: 200 mls/hr Documented By: HARPREET Sodium Chloride (Normal Saline 0.9%) 1,000 mls @ 1,000 mls/hr IV BOLUS ONE Stop: 01/31/25 06:28 Last Infusion: 01/31/25 08:52 Dose: Infused Documented By: Infusion: 01/31/25 07:10 Dose: 0 mls/hr Documented By: Admin: 01/31/25 06:28 Dose: 1,000 mls/hr Documented By: HARPREET Ceftriaxone Sodium 1,000 mg/ (Sodium Chloride) 100 mls @ 200 mls/hr IV NOW ONE Stop: 01/31/25 06:29 Last Infusion: 01/31/25 06:58 Dose: Infused Documented By: Admin: 01/31/25 06:28 Dose: 200 mls/hr Documented By: HARPREET Doxycycline Hyclate 100 mg/ (Sodium Chloride) 100 mls @ 100 mls/hr IV NOW ONE Stop: 01/31/25 06:59 Last Infusion: 01/31/25 07:47 Dose: Infused Documented By: Admin: 01/31/25 06:47 Dose: 100 mls/hr Documented By: HARPREET POTASSIUM CHLORIDE IN WATER (Potassium Cl 10 Meq/100 Ml Blanca) 10 meq in 100 mls @ 100 mls/hr IV Q1H CLAUDIO Stop: 01/31/25 10:09 Last Infusion: 01/31/25 11:00 Dose: Infused Documented By: Admin: 01/31/25 09:45 Dose: 100 mls/hr Documented By: Infusion: 01/31/25 09:43 Dose: Infused Documented By: Admin: 01/31/25 08:43 Dose: 100 mls/hr Documented By: Infusion: 01/31/25 08:20 Dose: Infused Documented By: Admin: 01/31/25 07:10 Dose: 100 mls/hr Documented By: Infusion: 01/31/25 07:10 Dose: Infused Documented By: Admin: 01/31/25 06:10 Dose: 100 mls/hr Documented By: HARPREET Lidocaine HCl (Lidocaine 2% (Glydo) 6 Ml Gel) 6 ml TOP NOW ONE Stop: 01/31/25 11:23 Last Admin: 01/31/25 11:23 Dose: 6 ml Documented By: HARPREET Ondansetron HCl (Ondansetron 4 Mg/2 Ml Inj) 4 mg IV NOW ONE Stop: 01/31/25 05:30 Last Admin: 01/31/25 04:50 Dose: 4 mg Documented By: HARPREET Pantoprazole Sodium (Pantoprazole 40 Mg Vial) 80 mg IV NOW ONE Stop: 01/31/25 05:30 Last Admin: 01/31/25 04:52 Dose: 80 mg Documented By: HARPREET Vital Signs Vital signs: Vital Signs - 8 hr 01/31/25 12:05 01/31/25 12:05 01/31/25 12:10 Temperature 100.0 F H Pulse Rate 86 Respiratory Rate 22 Blood Pressure 94/54 L 95/54 L Pulse Oximetry 93 Oxygen Delivery Method Oxygen Flow Rate 01/31/25 12:10 01/31/25 12:15 01/31/25 12:15 Temperature 100.0 F H 100.0 F H Pulse Rate 91 H 96 H Respiratory Rate 21 28 H Blood Pressure 96/57 L Pulse Oximetry 93 96 Oxygen Delivery Method Oxygen Flow Rate 01/31/25 12:20 01/31/25 12:20 Temperature Pulse Rate 96 H Respiratory Rate 26 H Blood Pressure 105/58 L Pulse Oximetry 96 Oxygen Delivery Method Nasal Cannula Oxygen Flow Rate 2 <Schuyler Corcoran MD - Last Filed: 01/31/25 20:00> Orders Ordered: ED Orders 01/31/25 11:08 BMP [Basic Metabolic Panel] Stat 01/31/25 11:55 Urinalysis and Microscopic Stat 01/31/25 12:05 Hemoglobin and Hematocrit Stat Discontinued Medications Acetaminophen (Acetaminophen 325 Mg Tablet) 975 mg PO NOW ONE Stop: 01/31/25 08:29 Last Admin: 01/31/25 08:34 Dose: Not Given Documented By: HARPREET Acetaminophen (Acetaminophen 650 Mg Supp) 650 mg IN NOW ONE Stop: 01/31/25 08:33 Last Admin: 01/31/25 08:36 Dose: 650 mg Documented By: HARPREET Piperacillin Sod/Tazobactam (Sod 4.5 gm/ Sodium Chloride) 100 mls @ 200 mls/hr IV NOW ONE Stop: 01/31/25 07:49 Last Infusion: 01/31/25 08:51 Dose: Infused Documented By: Admin: 01/31/25 07:52 Dose: 200 mls/hr Documented By: HARPREET Sodium Chloride (Normal Saline 0.9%) 1,000 mls @ 1,000 mls/hr IV BOLUS ONE Stop: 01/31/25 06:28 Last Infusion: 01/31/25 08:52 Dose: Infused Documented By: Infusion: 01/31/25 07:10 Dose: 0 mls/hr Documented By: Admin: 01/31/25 06:28 Dose: 1,000 mls/hr Documented By: HARPREET Ceftriaxone Sodium 1,000 mg/ (Sodium Chloride) 100 mls @ 200 mls/hr IV NOW ONE Stop: 01/31/25 06:29 Last Infusion: 01/31/25 06:58 Dose: Infused Documented By: Admin: 01/31/25 06:28 Dose: 200 mls/hr Documented By: HARPREET Doxycycline Hyclate 100 mg/ (Sodium Chloride) 100 mls @ 100 mls/hr IV NOW ONE Stop: 01/31/25 06:59 Last Infusion: 01/31/25 07:47 Dose: Infused Documented By: Admin: 01/31/25 06:47 Dose: 100 mls/hr Documented By: HARPREET POTASSIUM CHLORIDE IN WATER (Potassium Cl 10 Meq/100 Ml [place]anca) 10 meq in 100 mls @ 100 mls/hr IV Q1H CLAUDIO Stop: 01/31/25 10:09 Last Infusion: 01/31/25 11:00 Dose: Infused Documented By: Admin: 01/31/25 09:45 Dose: 100 mls/hr Documented By: Infusion: 01/31/25 09:43 Dose: Infused Documented By: Admin: 01/31/25 08:43 Dose: 100 mls/hr Documented By: Infusion: 01/31/25 08:20 Dose: Infused Documented By: Admin: 01/31/25 07:10 Dose: 100 mls/hr Documented By: Infusion: 01/31/25 07:10 Dose: Infused Documented By: Admin: 01/31/25 06:10 Dose: 100 mls/hr Documented By: HARPREET Lidocaine HCl (Lidocaine 2% (Glydo) 6 Ml Gel) 6 ml TOP NOW ONE Stop: 01/31/25 11:23 Last Admin: 01/31/25 11:23 Dose: 6 ml Documented By: HARPREET Ondansetron HCl (Ondansetron 4 Mg/2 Ml Inj) 4 mg IV NOW ONE Stop: 01/31/25 05:30 Last Admin: 01/31/25 04:50 Dose: 4 mg Documented By: HARPREET Pantoprazole Sodium (Pantoprazole 40 Mg Vial) 80 mg IV NOW ONE Stop: 01/31/25 05:30 Last Admin: 01/31/25 04:52 Dose: 80 mg Documented By: HARPREET Vital Signs Vital signs: Vital Signs - 8 hr 01/31/25 12:05 01/31/25 12:05 01/31/25 12:10 Temperature 100.0 F H Pulse Rate 86 Respiratory Rate 22 Blood Pressure 94/54 L 95/54 L Pulse Oximetry 93 Oxygen Delivery Method Oxygen Flow Rate 01/31/25 12:10 01/31/25 12:15 01/31/25 12:15 Temperature 100.0 F H 100.0 F H Pulse Rate 91 H 96 H Respiratory Rate 21 28 H Blood Pressure 96/57 L Pulse Oximetry 93 96 Oxygen Delivery Method Oxygen Flow Rate 01/31/25 12:20 01/31/25 12:20 Temperature Pulse Rate 96 H Respiratory Rate 26 H Blood Pressure 105/58 L Pulse Oximetry 96 Oxygen Delivery Method Nasal Cannula Oxygen Flow Rate 2 Medical Decision Making <Demetrius Brannon MD - Last Filed: 01/31/25 15:37> Medical Records Medical records reviewed: Yes I reviewed the patient's medical records. Lab Data 01/31/25 12:05 01/31/25 11:08 Labs: Lab Results 01/31/25 01/31/25 01/31/25 Range/Units 04:35 04:52 07:55 WBC 4.5 (4.5-11.0) X10^3/uL RBC 4.31 L (4.5-5.9) X10^6/uL Hgb 11.6 L (13.5-17.5) g/dL Hct 36.2 L (41-53) % MCV 84.1 (80-100) fL MCH 26.8 (26-34) PG MCHC 31.9 (30-36) % RDW 22.1 H (11.6-14.8) % Plt Count 212 (150-400) X10^3/uL Neut % (Auto) 89.8 H (50-75) % Lymph % (Auto) 8.3 L (25-40) % [place] % (Auto) 1.3 L (3-14) % Eos % (Auto) 0.1 L (2-4) % Baso % (Auto) 0.5 (0-2) % Neut # (Auto) 4100 (3023-9648) /uL Lymph # (Auto) 400 L (1300-4005) /uL [place] # (Auto) 100 (0-900) /uL Eos # (Auto) 0 (0-450) /uL Baso # (Auto) 0 (0-100) /uL RBC Morphology Not Reportable Poikilocytosis 1+ H Anisocytosis 1+ H PT 14.4 H (9.4-12.5) SECONDS INR 1.3 (0.9-1.3) Sodium 136 L (137-145) mmol/L Potassium 3.3 L (3.4-5.1) mmol/L Chloride 98 (98-107) mmol/L Carbon Dioxide 19 L (22-32) mmol/L BUN 36 H (9-20) mg/dL Creatinine 1.83 H (0.66-1.25) mg/dL Estimated GFR 36 L (>60) mL/min BUN/Creatinine Ratio 19.7 (6-22) Glucose 154 H (70-99) mg/dL Lactate 8.0 H* 1.8 (0.7-2.1) mmol/L Calcium 8.9 (8.4-10.2) mg/dL Total Bilirubin 2.0 H (0.2-1.3) mg/dL AST 43 (17-59) IU/L ALT 33 (<50) IU/L Alkaline Phosphatase 78 (38-126) U/L Troponin I 0.039 H (0.01-0.034) ng/mL Total Protein 7.5 (6.3-8.2) g/dL Albumin 4.2 (3.5-5.0) g/dL Globulin 3.3 (1.7-4.1) g/dL Albumin/Globulin Ratio 1.3 (1.0-2.8) Urine Color Urine Appearance Urine pH (4.5-8.0) Ur Specific [place] (1.000-1.035) Urine Protein (Negative) Urine Glucose (UA) (Negative) g/dL Urine Ketones (NEGATIVE) Urine Occult Blood (Negative) Urine Nitrate (Negative) Urine Bilirubin (NEGATIVE) Urine Urobilinogen (0.2) E.U./dL Ur Leukocyte Esterase (NEGATIVE) Urine RBC (0-5/HPF) Urine WBC (0-5/HPF) Ur Squamous Epith Cells (0-5/HPF) Urine Bacteria (None) Ur Culture Indicated? Vol Urine Centrifuged Chlamy pneumoniae PCR Not detected (Not Detect) Adenovirus (PCR) Not detected (Not Detect) B. pertussis DNA (PCR) Not detected (Not Detect) B.parapertussis DNA PCR Not detected (Not Detecte) Coronavirus OC43 (PCR) Not detected (Not Detect) Coronavirus HKU1 (PCR) Not detected (Not Detect) Coronavirus 229E (PCR) Not detected (Not Detect) SARS-CoV-2 (PCR) Not detected (Not Detecte) Coronavirus NL63 (PCR) Not detected (Not Detect) Human Metapneumovir PCR Not detected (Not Detect) Influenza Type A (PCR) Not detected (Not Detect) Influenza Type B (PCR) Not detected (Not Detect) M. pneumoniae (PCR) Not detected (Not Detect) Parainfluenza 1 (PCR) Not detected (Not Detect) Parainfluenza 2 (PCR) Not detected (Not Detect) Parainfluenza 3 (PCR) Not detected (Not Detect) Parainfluenza 4 (PCR) Not detected (Not Detect) RSV (PCR) Not detected (Not Detect) Entero/Rhino (PCR) Not detected (Not Detect) Blood Type A Positive Antibody Screen Negative Crossmatch See Detail 01/31/25 01/31/25 01/31/25 Range/Units 09:55 11:08 11:55 WBC (4.5-11.0) X10^3/uL RBC (4.5-5.9) X10^6/uL Hgb (13.5-17.5) g/dL Hct (41-53) % MCV (80-100) fL MCH (26-34) PG MCHC (30-36) % RDW (11.6-14.8) % Plt Count (150-400) X10^3/uL Neut % (Auto) (50-75) % Lymph % (Auto) (25-40) % [place] % (Auto) (3-14) % Eos % (Auto) (2-4) % Baso % (Auto) (0-2) % Neut # (Auto) (9774-4146) /uL Lymph # (Auto) (6562-9885) /uL [place] # (Auto) (0-900) /uL Eos # (Auto) (0-450) /uL Baso # (Auto) (0-100) /uL RBC Morphology Poikilocytosis Anisocytosis PT (9.4-12.5) SECONDS INR (0.9-1.3) Sodium 136 L (137-145) mmol/L Potassium 3.6 (3.4-5.1) mmol/L Chloride 103 (98-107) mmol/L Carbon Dioxide 24 (22-32) mmol/L BUN 36 H (9-20) mg/dL Creatinine 1.72 H (0.66-1.25) mg/dL Estimated GFR 39 L (>60) mL/min BUN/Creatinine Ratio 20.9 (6-22) Glucose 106 H (70-99) mg/dL Lactate (0.7-2.1) mmol/L Calcium 8.1 L (8.4-10.2) mg/dL Total Bilirubin (0.2-1.3) mg/dL AST (17-59) IU/L ALT (<50) IU/L Alkaline Phosphatase (38-126) U/L Troponin I 0.064 H (0.01-0.034) ng/mL Total Protein (6.3-8.2) g/dL Albumin (3.5-5.0) g/dL Globulin (1.7-4.1) g/dL Albumin/Globulin Ratio (1.0-2.8) Urine Color Yellow Urine Appearance Clear Urine pH 5.5 (4.5-8.0) Ur Specific [place] 1.010 (1.000-1.035) Urine Protein Negative (Negative) Urine Glucose (UA) Negative (Negative) g/dL Urine Ketones Negative (NEGATIVE) Urine Occult Blood Negative (Negative) Urine Nitrate Negative (Negative) Urine Bilirubin Negative (NEGATIVE) Urine Urobilinogen 0.2 (0.2) E.U./dL Ur Leukocyte Esterase Negative (NEGATIVE) Urine RBC None seen (0-5/HPF) Urine WBC 1-5/hpf (0-5/HPF) Ur Squamous Epith Cells None seen (0-5/HPF) Urine Bacteria None seen (None) Ur Culture Indicated? Cult not indicated Vol Urine Centrifuged 10ml (spun) Chlamy pneumoniae PCR (Not Detect) Adenovirus (PCR) (Not Detect) B. pertussis DNA (PCR) (Not Detect) B.parapertussis DNA PCR (Not Detecte) Coronavirus OC43 (PCR) (Not Detect) Coronavirus HKU1 (PCR) (Not Detect) Coronavirus 229E (PCR) (Not Detect) SARS-CoV-2 (PCR) (Not Detecte) Coronavirus NL63 (PCR) (Not Detect) Human Metapneumovir PCR (Not Detect) Influenza Type A (PCR) (Not Detect) Influenza Type B (PCR) (Not Detect) M. pneumoniae (PCR) (Not Detect) Parainfluenza 1 (PCR) (Not Detect) Parainfluenza 2 (PCR) (Not Detect) Parainfluenza 3 (PCR) (Not Detect) Parainfluenza 4 (PCR) (Not Detect) RSV (PCR) (Not Detect) Entero/Rhino (PCR) (Not Detect) Blood Type Antibody Screen Crossmatch 01/31/25 Range/Units 12:05 WBC (4.5-11.0) X10^3/uL RBC (4.5-5.9) X10^6/uL Hgb 11.4 L (13.5-17.5) g/dL Hct 34.9 L (41-53) % MCV (80-100) fL MCH (26-34) PG MCHC (30-36) % RDW (11.6-14.8) % Plt Count (150-400) X10^3/uL Neut % (Auto) (50-75) % Lymph % (Auto) (25-40) % [place] % (Auto) (3-14) % Eos % (Auto) (2-4) % Baso % (Auto) (0-2) % Neut # (Auto) (2359-8187) /uL Lymph # (Auto) (7718-6164) /uL [place] # (Auto) (0-900) /uL Eos # (Auto) (0-450) /uL Baso # (Auto) (0-100) /uL RBC Morphology Poikilocytosis Anisocytosis PT (9.4-12.5) SECONDS INR (0.9-1.3) Sodium (137-145) mmol/L Potassium (3.4-5.1) mmol/L Chloride (98-107) mmol/L Carbon Dioxide (22-32) mmol/L BUN (9-20) mg/dL Creatinine (0.66-1.25) mg/dL Estimated GFR (>60) mL/min BUN/Creatinine Ratio (6-22) Glucose (70-99) mg/dL Lactate (0.7-2.1) mmol/L Calcium (8.4-10.2) mg/dL Total Bilirubin (0.2-1.3) mg/dL AST (17-59) IU/L ALT (<50) IU/L Alkaline Phosphatase (38-126) U/L Troponin I (0.01-0.034) ng/mL Total Protein (6.3-8.2) g/dL Albumin (3.5-5.0) g/dL Globulin (1.7-4.1) g/dL Albumin/Globulin Ratio (1.0-2.8) Urine Color Urine Appearance Urine pH (4.5-8.0) Ur Specific [place] (1.000-1.035) Urine Protein (Negative) Urine Glucose (UA) (Negative) g/dL Urine Ketones (NEGATIVE) Urine Occult Blood (Negative) Urine Nitrate (Negative) Urine Bilirubin (NEGATIVE) Urine Urobilinogen (0.2) E.U./dL Ur Leukocyte Esterase (NEGATIVE) Urine RBC (0-5/HPF) Urine WBC (0-5/HPF) Ur Squamous Epith Cells (0-5/HPF) Urine Bacteria (None) Ur Culture Indicated? Vol Urine Centrifuged Chlamy pneumoniae PCR (Not Detect) Adenovirus (PCR) (Not Detect) B. pertussis DNA (PCR) (Not Detect) B.parapertussis DNA PCR (Not Detecte) Coronavirus OC43 (PCR) (Not Detect) Coronavirus HKU1 (PCR) (Not Detect) Coronavirus 229E (PCR) (Not Detect) SARS-CoV-2 (PCR) (Not Detecte) Coronavirus NL63 (PCR) (Not Detect) Human Metapneumovir PCR (Not Detect) Influenza Type A (PCR) (Not Detect) Influenza Type B (PCR) (Not Detect) M. pneumoniae (PCR) (Not Detect) Parainfluenza 1 (PCR) (Not Detect) Parainfluenza 2 (PCR) (Not Detect) Parainfluenza 3 (PCR) (Not Detect) Parainfluenza 4 (PCR) (Not Detect) RSV (PCR) (Not Detect) Entero/Rhino (PCR) (Not Detect) Blood Type Antibody Screen Crossmatch MDM Narrative Medical decision making narrative: 84-year-old male with history of upper and lower GI bleeds, no longer on anticoagulation, had coughing episode and then emesis of bright red blood. POV arrival, on arrival systolic blood pressure 90 with heart rate 100. IV Protonix 80 mg bolus, IV Zofran. Keep NPO. Transfusion 2 units packed cells ordered. Two peripheral lines. Saline 1 L bolus initially then lactated Ringer's. CT angiogram abdomen and pelvis gastrointestinal bleeding protocol ordered. EKG shows atrial fibrillation with ventricular response rate 104. No obvious ST segment elevation changes. Chest x-ray shows multifocal pulmonary infiltrates. Blood cultures requested. IV ceftriaxone, IV doxycycline. Potassium 3.3 low, IV potassium ordered. NPO. Initial labs. White blood cell count 4500, hemoglobin 11.6, platelets 212,000. Sodium 136, potassium 3.3, chloride 98, serum CO2 19. BUN 36 with creatinine 1.83, glucose 154. Total bilirubin 2.0, AST 43, ALT 33, alkaline phosphatase 78. INR 1.27. Respiratory panel negative. CT angiogram abdomen and pelvis. Shows multifocal pulmonary infiltrates at bases, also shows dilated small bowel loops, left mid abdominal transition point noted, suspicious for evolving SBO. See radiology report. NG tube to low intermittent wall suction ordered. Lactate added, elevation 8.0 noted, IV fluid bolus in progress, IV transfusion 1st unit packed cells also hanging. We broaden antibiotic coverage with IV Zosyn. IV ceftriaxone/doxycycline given prior. 06, case discussed with surgery Dr. Andrade, who requests transfer to higher level of care with GI services, stated to me that he does not do therapeutic EGD, only does diagnostic ED. this recommendations was relayed to patient and family, who agreed to transfer. [employer] to query for transfer accepting sites. [id number], signed out to [facility] ED shift physician Dr. Corcoran. Repeat H&H and repeat BMP ordered on prior paper charting to be drawn post transfusion completion of 2nd unit packed red blood cells, 1st unit PRBCs still infusing. Will need repeat lactate. begin documentation Schuyler Corcoran - patient signed out to me pending transfer to outside facility due to inability to perform upper GI scope at [facility], patient appears to be dealing with a multifocal pneumonia, potential small-bowel obstruction, potential upper GI bleeding, hypokalemia - for patient's pneumonia he has been placed on 3 L nasal cannula with saturations greater than 95%, he has received multiple antibiotics as discussed above initial lactate 8, repeat 1.8 - for upper GI bleeding patient received dose of Protonix, has received 2 units of blood, working on transferring patient to outside hospital - for small bowel obstruction we will discuss case with surgical team, at this time does not have peritonitic abdominal exam. - multiple calls to [facility] who is requesting preauthorization prior to transfer, have communicated to them the seriousness of patient's condition and the need for transfer from our facility. - patient has mildly elevated troponin that I suspect is secondary to global ischemia in the context of bowel obstruction, GI bleed, pneumonia. no specific chest pain at this time. - Patient is accepted to [facility] Emergency Department, accepting physician Jaylen Flores <Schuyler Corcoran MD - Last Filed: 01/31/25 20:00> Lab Data Labs: Lab Results 01/31/25 01/31/25 01/31/25 Range/Units 04:35 04:52 07:55 WBC 4.5 (4.5-11.0) X10^3/uL RBC 4.31 L (4.5-5.9) X10^6/uL Hgb 11.6 L (13.5-17.5) g/dL Hct 36.2 L (41-53) % MCV 84.1 (80-100) fL MCH 26.8 (26-34) PG MCHC 31.9 (30-36) % RDW 22.1 H (11.6-14.8) % Plt Count 212 (150-400) X10^3/uL Neut % (Auto) 89.8 H (50-75) % Lymph % (Auto) 8.3 L (25-40) % [place] % (Auto) 1.3 L (3-14) % Eos % (Auto) 0.1 L (2-4) % Baso % (Auto) 0.5 (0-2) % Neut # (Auto) 4100 (0226-3568) /uL Lymph # (Auto) 400 L (7174-9120) /uL [place] # (Auto) 100 (0-900) /uL Eos # (Auto) 0 (0-450) /uL Baso # (Auto) 0 (0-100) /uL RBC Morphology Not Reportable Poikilocytosis 1+ H Anisocytosis 1+ H PT 14.4 H (9.4-12.5) SECONDS INR 1.3 (0.9-1.3) Sodium 136 L (137-145) mmol/L Potassium 3.3 L (3.4-5.1) mmol/L Chloride 98 (98-107) mmol/L Carbon Dioxide 19 L (22-32) mmol/L BUN 36 H (9-20) mg/dL Creatinine 1.83 H (0.66-1.25) mg/dL Estimated GFR 36 L (>60) mL/min BUN/Creatinine Ratio 19.7 (6-22) Glucose 154 H (70-99) mg/dL Lactate 8.0 H* 1.8 (0.7-2.1) mmol/L Calcium 8.9 (8.4-10.2) mg/dL Total Bilirubin 2.0 H (0.2-1.3) mg/dL AST 43 (17-59) IU/L ALT 33 (<50) IU/L Alkaline Phosphatase 78 (38-126) U/L Troponin I 0.039 H (0.01-0.034) ng/mL Total Protein 7.5 (6.3-8.2) g/dL Albumin 4.2 (3.5-5.0) g/dL Globulin 3.3 (1.7-4.1) g/dL Albumin/Globulin Ratio 1.3 (1.0-2.8) Urine Color Urine Appearance Urine pH (4.5-8.0) Ur Specific [place] (1.000-1.035) Urine Protein (Negative) Urine Glucose (UA) (Negative) g/dL Urine Ketones (NEGATIVE) Urine Occult Blood (Negative) Urine Nitrate (Negative) Urine Bilirubin (NEGATIVE) Urine Urobilinogen (0.2) E.U./dL Ur Leukocyte Esterase (NEGATIVE) Urine RBC (0-5/HPF) Urine WBC (0-5/HPF) Ur Squamous Epith Cells (0-5/HPF) Urine Bacteria (None) Ur Culture Indicated? Vol Urine Centrifuged Chlamy pneumoniae PCR Not detected (Not Detect) Adenovirus (PCR) Not detected (Not Detect) B. pertussis DNA (PCR) Not detected (Not Detect) B.parapertussis DNA PCR Not detected (Not Detecte) Coronavirus OC43 (PCR) Not detected (Not Detect) Coronavirus HKU1 (PCR) Not detected (Not Detect) Coronavirus 229E (PCR) Not detected (Not Detect) SARS-CoV-2 (PCR) Not detected (Not Detecte) Coronavirus NL63 (PCR) Not detected (Not Detect) Human Metapneumovir PCR Not detected (Not Detect) Influenza Type A (PCR) Not detected (Not Detect) Influenza Type B (PCR) Not detected (Not Detect) M. pneumoniae (PCR) Not detected (Not Detect) Parainfluenza 1 (PCR) Not detected (Not Detect) Parainfluenza 2 (PCR) Not detected (Not Detect) Parainfluenza 3 (PCR) Not detected (Not Detect) Parainfluenza 4 (PCR) Not detected (Not Detect) RSV (PCR) Not detected (Not Detect) Entero/Rhino (PCR) Not detected (Not Detect) Blood Type A Positive Antibody Screen Negative Crossmatch See Detail 01/31/25 01/31/25 01/31/25 Range/Units 09:55 11:08 11:55 WBC (4.5-11.0) X10^3/uL RBC (4.5-5.9) X10^6/uL Hgb (13.5-17.5) g/dL Hct (41-53) % MCV (80-100) fL MCH (26-34) PG MCHC (30-36) % RDW (11.6-14.8) % Plt Count (150-400) X10^3/uL Neut % (Auto) (50-75) % Lymph % (Auto) (25-40) % [place] % (Auto) (3-14) % Eos % (Auto) (2-4) % Baso % (Auto) (0-2) % Neut # (Auto) (6982-6748) /uL Lymph # (Auto) (3588-5956) /uL [place] # (Auto) (0-900) /uL Eos # (Auto) (0-450) /uL Baso # (Auto) (0-100) /uL RBC Morphology Poikilocytosis Anisocytosis PT (9.4-12.5) SECONDS INR (0.9-1.3) Sodium 136 L (137-145) mmol/L Potassium 3.6 (3.4-5.1) mmol/L Chloride 103 (98-107) mmol/L Carbon Dioxide 24 (22-32) mmol/L BUN 36 H (9-20) mg/dL Creatinine 1.72 H (0.66-1.25) mg/dL Estimated GFR 39 L (>60) mL/min BUN/Creatinine Ratio 20.9 (6-22) Glucose 106 H (70-99) mg/dL Lactate (0.7-2.1) mmol/L Calcium 8.1 L (8.4-10.2) mg/dL Total Bilirubin (0.2-1.3) mg/dL AST (17-59) IU/L ALT (<50) IU/L Alkaline Phosphatase (38-126) U/L Troponin I 0.064 H (0.01-0.034) ng/mL Total Protein (6.3-8.2) g/dL Albumin (3.5-5.0) g/dL Globulin (1.7-4.1) g/dL Albumin/Globulin Ratio (1.0-2.8) Urine Color Yellow Urine Appearance Clear Urine pH 5.5 (4.5-8.0) Ur Specific [place] 1.010 (1.000-1.035) Urine Protein Negative (Negative) Urine Glucose (UA) Negative (Negative) g/dL Urine Ketones Negative (NEGATIVE) Urine Occult Blood Negative (Negative) Urine Nitrate Negative (Negative) Urine Bilirubin Negative (NEGATIVE) Urine Urobilinogen 0.2 (0.2) E.U./dL Ur Leukocyte Esterase Negative (NEGATIVE) Urine RBC None seen (0-5/HPF) Urine WBC 1-5/hpf (0-5/HPF) Ur Squamous Epith Cells None seen (0-5/HPF) Urine Bacteria None seen (None) Ur Culture Indicated? Cult not indicated Vol Urine Centrifuged 10ml (spun) Chlamy pneumoniae PCR (Not Detect) Adenovirus (PCR) (Not Detect) B. pertussis DNA (PCR) (Not Detect) B.parapertussis DNA PCR (Not Detecte) Coronavirus OC43 (PCR) (Not Detect) Coronavirus HKU1 (PCR) (Not Detect) Coronavirus 229E (PCR) (Not Detect) SARS-CoV-2 (PCR) (Not Detecte) Coronavirus NL63 (PCR) (Not Detect) Human Metapneumovir PCR (Not Detect) Influenza Type A (PCR) (Not Detect) Influenza Type B (PCR) (Not Detect) M. pneumoniae (PCR) (Not Detect) Parainfluenza 1 (PCR) (Not Detect) Parainfluenza 2 (PCR) (Not Detect) Parainfluenza 3 (PCR) (Not Detect) Parainfluenza 4 (PCR) (Not Detect) RSV (PCR) (Not Detect) Entero/Rhino (PCR) (Not Detect) Blood Type Antibody Screen Crossmatch 01/31/25 Range/Units 12:05 WBC (4.5-11.0) X10^3/uL RBC (4.5-5.9) X10^6/uL Hgb 11.4 L (13.5-17.5) g/dL Hct 34.9 L (41-53) % MCV (80-100) fL MCH (26-34) PG MCHC (30-36) % RDW (11.6-14.8) % Plt Count (150-400) X10^3/uL Neut % (Auto) (50-75) % Lymph % (Auto) (25-40) % [place] % (Auto) (3-14) % Eos % (Auto) (2-4) % Baso % (Auto) (0-2) % Neut # (Auto) (0857-0028) /uL Lymph # (Auto) (5905-6516) /uL [place] # (Auto) (0-900) /uL Eos # (Auto) (0-450) /uL Baso # (Auto) (0-100) /uL RBC Morphology Poikilocytosis Anisocytosis PT (9.4-12.5) SECONDS INR (0.9-1.3) Sodium (137-145) mmol/L Potassium (3.4-5.1) mmol/L Chloride (98-107) mmol/L Carbon Dioxide (22-32) mmol/L BUN (9-20) mg/dL Creatinine (0.66-1.25) mg/dL Estimated GFR (>60) mL/min BUN/Creatinine Ratio (6-22) Glucose (70-99) mg/dL Lactate (0.7-2.1) mmol/L Calcium (8.4-10.2) mg/dL Total Bilirubin (0.2-1.3) mg/dL AST (17-59) IU/L ALT (<50) IU/L Alkaline Phosphatase (38-126) U/L Troponin I (0.01-0.034) ng/mL Total Protein (6.3-8.2) g/dL Albumin (3.5-5.0) g/dL Globulin (1.7-4.1) g/dL Albumin/Globulin Ratio (1.0-2.8) Urine Color Urine Appearance Urine pH (4.5-8.0) Ur Specific [place] (1.000-1.035) Urine Protein (Negative) Urine Glucose (UA) (Negative) g/dL Urine Ketones (NEGATIVE) Urine Occult Blood (Negative) Urine Nitrate (Negative) Urine Bilirubin (NEGATIVE) Urine Urobilinogen (0.2) E.U./dL Ur Leukocyte Esterase (NEGATIVE) Urine RBC (0-5/HPF) Urine WBC (0-5/HPF) Ur Squamous Epith Cells (0-5/HPF) Urine Bacteria (None) Ur Culture Indicated? Vol Urine Centrifuged Chlamy pneumoniae PCR (Not Detect) Adenovirus (PCR) (Not Detect) B. pertussis DNA (PCR) (Not Detect) B.parapertussis DNA PCR (Not Detecte) Coronavirus OC43 (PCR) (Not Detect) Coronavirus HKU1 (PCR) (Not Detect) Coronavirus 229E (PCR) (Not Detect) SARS-CoV-2 (PCR) (Not Detecte) Coronavirus NL63 (PCR) (Not Detect) Human Metapneumovir PCR (Not Detect) Influenza Type A (PCR) (Not Detect) Influenza Type B (PCR) (Not Detect) M. pneumoniae (PCR) (Not Detect) Parainfluenza 1 (PCR) (Not Detect) Parainfluenza 2 (PCR) (Not Detect) Parainfluenza 3 (PCR) (Not Detect) Parainfluenza 4 (PCR) (Not Detect) RSV (PCR) (Not Detect) Entero/Rhino (PCR) (Not Detect) Blood Type Antibody Screen Crossmatch MDM Narrative Medical decision making narrative: 84-year-old male with history of upper and lower GI bleeds, no longer on anticoagulation, had coughing episode and then emesis of bright red blood. POV arrival, on arrival systolic blood pressure 90 with heart rate 100. IV Protonix 80 mg bolus, IV Zofran. Keep NPO. Transfusion 2 units packed cells ordered. Two peripheral lines. Saline 1 L bolus initially then lactated Ringer's. CT angiogram abdomen and pelvis gastrointestinal bleeding protocol ordered. EKG shows atrial fibrillation with ventricular response rate 104. No obvious ST segment elevation changes. Chest x-ray shows multifocal infiltrates. Blood cultures requested. IV ceftriaxone, IV doxycycline. Potassium 3.3 low, IV potassium ordered. Initial labs. White blood cell count 4500, hemoglobin 11.6, platelets 212,000. Sodium 136, potassium 3.3, chloride 98, serum CO2 19. BUN 36 with creatinine 1.83, glucose 154. Total bilirubin 2.0, AST 43, ALT 33, alkaline phosphatase 78. INR 1.27. Respiratory panel negative. CT angiogram abdomen and pelvis. Shows multifocal pulmonary infiltrates at bases, also shows dilated small bowel loops, left mid abdominal transition point noted, suspicious for evolving SBO. See radiology report. NG tube to low intermittent wall suction ordered. Lactate elevation 8.0 noted, IV fluid bolus in progress, IV transfusion 1st unit packed cells also hanging. We will expand antibiotic coverage with IV Zosyn. IV ceftriaxone/doxycycline given prior. 0620, case discussed with surgery Dr. Andrade, who requests transfer to higher level of care with GI services, stated to me that he does not do therapeutic EGD but only does diagnostic ED. this recommendations was relayed to patient and family, who agreed to transfer. [employer] to query for transfer accepting sites. 0700, signed out to [facility] ED shift physician Dr. Corcoran. Repeat H&H and repeat BNP ordered post transfusion completion of 2nd unit packed red blood cells, 1st unit still infusing. Will need repeat lactate. begin documentation Schuyler Corcoran - patient signed out to me pending transfer to outside facility due to inability to perform upper GI scope at [facility], patient appears to be dealing with a multifocal pneumonia, potential small-bowel obstruction, potential upper GI bleeding, hypokalemia - for patient's pneumonia he has been placed on 3 L nasal cannula with saturations greater than 95%, he has received multiple antibiotics as discussed above initial lactate 8, repeat 1.8 - for upper GI bleeding patient received dose of Protonix, has received 2 units of blood, working on transferring patient to outside hospital - for small bowel obstruction we will discuss case with surgical team, at this time does not have peritonitic abdominal exam. - multiple calls to [facility] who is requesting preauthorization prior to transfer, have communicated to them the seriousness of patient's condition and the need for transfer from our facility. - patient has mildly elevated troponin that I suspect is secondary to global ischemia in the context of bowel obstruction, GI bleed, pneumonia. no specific chest pain at this time. - Patient is accepted to [facility] Emergency Department, accepting physician Jaylen Flores Discharge Plan Departure Patient Disposition: [facility] Clinical Impression: Acute upper gastrointestinal bleeding, Small bowel obstruction, Hypokalemia, Renal insufficiency, Pneumonia Prescriptions: No Action acetaminophen 500 mg tablet 500 mg PO DAILY PRN (Reason: pain) cetirizine [Zyrtec] 10 mg tablet 10 mg PO DAILY PRN (Reason: allergies) inulin 2 gram tablet,chewable 2 g PO BEDTIME sucralfate [Carafate] 1 gram tablet 1 g PO BID Qty: 60 1RF pantoprazole [Protonix] 40 mg tablet,delayed release (DR/EC) 40 mg PO BID Qty: 60 0RF Rx Instructions: Take for your ulcer; cholecalciferol (vitamin D3) 50 mcg (2,000 unit) capsule 50 mcg PO DAILY torsemide 20 mg tablet 20 mg PO DAILY donepezil 10 mg tablet 10 mg PO DAILY metoprolol succinate 25 mg tablet extended release 24 hr 12.5 mg PO BEDTIME rosuvastatin 10 mg tablet 10 mg PO QPM memantine 5 mg tablet 5 mg PO BID [id number]-vitamin K 18 mg iron-25 mcg Tablet 1 tab PO DAILY Referrals: Deacon Weller DO [Primary Care Provider, Family Practice]
[2025-01-31 07:43] LABS: Alanine Aminotransferase 33 IU/L (<50); Albumin 4.2 g/dL (3.5-5.0); Albumin Globulin Ratio 1.3 (1.0-2.8); Alkaline Phosphatase 78 U/L (38-126); Aspartate Aminotransferase 43 IU/L (17-59); BUN Creatinine Ratio 19.7 (6-22); Blood Urea Nitrogen 36 mg/dL (9-20); Calcium 8.9 mg/dL (8.4-10.2); Carbon Dioxide 19 mmol/L (22-32); Chloride 98 mmol/L (98-107); Estimated Glomerular Filt Rate 36 mL/min (>60); Globulin 3.3 g/dL (1.7-4.1); Glucose 154 mg/dL (70-99); HEMOLYSIS < 15 (0-50); Potassium 3.3 mmol/L (3.4-5.1); Sodium 136 mmol/L (137-145); Total Protein 7.5 g/dL (6.3-8.2); Troponin I 0.039 ng/mL (0.01-0.034)
[2025-01-31 07:44] LABS: Add Manual Diff / Slide Review NO; Basophils Absolute Auto 0 /uL (0-100); Basophils Percent Auto 0.5 % (0-2); Eosinophils Absolute Auto 0 /uL (0-450); Eosinophils Percent Auto 0.1 % (2-4); Hematocrit 36.2 % (41-53); Hemoglobin 11.6 g/dL (13.5-17.5); Lymphocytes Absolute Auto 400 /uL (1100-4500); Lymphocytes Percent Auto 8.3 % (25-40); Mean Corpuscular HGB Conc 31.9 % (30-36); Mean Corpuscular Hemoglobin 26.8 PG (26-34); Mean Corpuscular Volume 84.1 fL (80-100); Monocytes Absolute Auto 100 /uL (0-900); Monocytes Percent Auto 1.3 % (3-14); Neutrophils Absolute Auto 4100 /uL (1500-7000); Neutrophils Percent Auto 89.8 % (50-75); Platelet Count 212 X10^3/uL (150-400); Red Blood Cell Count 4.31 X10^6/uL (4.5-5.9); Red Cell Distribution Width 22.1 % (11.6-14.8); White Blood Cell Count 4.5 X10^3/uL (4.5-11.0)
[2025-01-31 07:45] LABS: INR 1.3 (0.9-1.3); Prothrombin Time 14.4 SECONDS (9.4-12.5)
--- NOTE | 2025-01-31 07:48 | PC.NURSE ---
2nd bag of potassium hung to infuse
[2025-01-31 07:49] LABS: Adenovirus Not Detected (Not Detect); B. parapertussis Not Detected (Not Detecte); Bordetella pertussis Not Detected (Not Detect); Chlamydophila pneumoniae Not Detected (Not Detect); Coronavirus 229E Not Detected (Not Detect); Coronavirus HKU1 Not Detected (Not Detect); Coronavirus NL 63 Not Detected (Not Detect); Coronavirus OC43 Not Detected (Not Detect); Human Metapneumovirus Not Detected (Not Detect); Human Rhinovirus/Enterovirus Not Detected (Not Detect); Influenza A Not Detected (Not Detect); Influenza B Not Detected (Not Detect); Mycoplasma pneumoniae Not Detected (Not Detect); Parainfluenza Virus 1 Not Detected (Not Detect); Parainfluenza Virus 2 Not Detected (Not Detect); Parainfluenza Virus 3 Not Detected (Not Detect); Parainfluenza Virus 4 Not Detected (Not Detect); Respiratory Syncytial Virus Not Detected (Not Detect); SARS- CoV-2 Not Detected (Not Detecte)
[2025-01-31] MEDS: PIPERACILLIN/TAZO 4.5 GM in SODIUM CHLORIDE 0.9% 100 ML IV (07:52)
[2025-01-31 08:12] LABS: Anisocytosis 1+; Poikilocytosis 1+
[2025-01-31 08:14] LABS: Lactate (Lactic Acid) 1.8 mmol/L (0.7-2.1)
--- NOTE | 2025-01-31 08:23 | DI.CT.S_ITS ---
PROCEDURE: CT ANGIO ABD/PEL GI BLEED INDICATIONS: GI Bleed TECHNIQUE: After the administration of intravenous contrast, 2.5 mm thick sections acquired from the diaphragm to the symphysis. 10 mm maximum-intensity projection (MIP) reformats were then acquired. For radiation dose reduction, the following was used: automated exposure control. COMPARISON: [facility], CT, CT ANGIO ABD/PEL GI BLEED, 10/09/2024, 2:38. [facility], CT, CT ANGIO CHEST ABDOMEN PELVIS, 12/26/2024, 15:17. FINDINGS: Image quality: Diagnostic Lower chest: Partially seen right lung consolidations. No pleural effusions. Small hiatal hernia. Nonspecific periesophageal fluid in the lower mediastinum again seen. Nonspecific mild distal esophageal wall thickening. Cardiomegaly and coronary calcifications. Liver: Probable hemangioma and perfusion heterogeneity at the periphery of segment 5, with long-term stability. Gallbladder and biliary system: Cholecystectomy clips. Nondilated biliary system Pancreas: [id number] parenchymal atrophy without ductal dilation Spleen: Splenic granulomas Adrenals: No discrete nodules Kidneys: Scattered cysts. No hydronephrosis. No solid renal mass Vessels and lymph nodes: Main portal vein is patent. 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 The major mesenteric vessels appear patent. No enlarged lymph nodes by size criteria Bowel and peritoneum: Small bowel obstruction. Transition point is in the left mid abdomen. No drainable fluid collection or abscess. No drainable ascites. Wall thickening of the distal colon and colonic diverticula also present. Mild wall thickening also seen in the cecum. These are similar to prior imaging. Possible fluid/trapped ascites near the ileocecal valve, without rim enhancement. Body wall: Small fat and fluid containing inguinal hernias. Fat and bowel containing umbilical hernia, which does not seem to be the obstructing site. Other small fat containing ventral body wall hernias are present. Pelvis: Small bladder diverticula. TURP changes. Bones: There are degenerative changes. No aggressive appearing osseous abnormalities. IMPRESSION: Small bowel obstruction with transition in the left mid abdomen. Suspect diffuse chronic diverticular disease with wall thickening throughout the colon. Nonspecific mild distal esophageal wall thickening and small hiatal hernia. Consider upper and lower endoscopy correlation if not recently obtained in the setting of GI bleeding. Partially seen right lung consolidations, likely infectious. Consider future imaging surveillance to assess for resolution. Other incidental and nonacute findings above. No significant discrepancy from the prelim report. Dictated by: Nolan Nava M.D. on 01/31/2025 at 7:15 Approved by: Nolan Nava M.D. on 01/31/2025 at 7:32
[2025-01-31] MEDS: ACETAMINOPHEN 650 MG SUPP PR (08:36)
--- NOTE | 2025-01-31 08:54 | DI.RAD.S_ITS ---
PROCEDURE: XR CHEST 1V INDICATIONS: SOB TECHNIQUE: One view of the chest was acquired. COMPARISON: [facility], CR, XR CHEST 1V, 01/31/2025, 4:51. [facility], CR, XR CHEST 1V, 01/02/2025, 13:37. FINDINGS: Surgical changes and devices: None. Lungs and pleura: Patchy airspace opacities at the mid to lower are right lung zone do not appear significantly changed when compared to the exam from earlier the same date. Mediastinum: Cardiac silhouette is enlarged. Bones and chest wall: Old healed left-sided rib fractures. No suspicious bony lesions. Overlying soft tissues appear unremarkable. IMPRESSION: No significant change in predominantly right-sided pulmonary opacities. Approved by: Wilfred Gandhi M.D. on 01/31/2025 at 9:22
--- NOTE | 2025-01-31 09:05 | PC.NURSE ---
Blood product infusion rate increased to 125cc/hr. Verified with Violetta GOMEZ. 2hr 32 min remaining. Temp decreased to 100.4 axillary. 99.2 tympanic.
--- NOTE | 2025-01-31 09:11 | PC.NURSE ---
Pharmacy gave this RN barcodes for medication administered for pt prior to RN coming on shift. RN documented for transfer purposes. RN did not administer medications prior to 0700 approx 2.5 L fluid administered prior to shift change
[2025-01-31 09:14] LABS: Reflexed Lactate in 2 Hours Y
--- NOTE | 2025-01-31 09:17 | PC.NURSE ---
Upper respiratory wheezing noted; [facility] stated to continue to monitor and rpt chest xray. States no albuterol for right now. no hx of copd or asthma. states he has been wheezing since last night.
[2025-01-31 10:28] LABS: Troponin I 0.064 ng/mL (0.01-0.034)
[2025-01-31] MEDS: LIDOCAINE 2% (GLYDO) 6 ML GEL TOP (11:23)
[2025-01-31 11:24] LABS: BUN Creatinine Ratio 20.9 (6-22); Blood Urea Nitrogen 36 mg/dL (9-20); Calcium 8.1 mg/dL (8.4-10.2); Carbon Dioxide 24 mmol/L (22-32); Chloride 103 mmol/L (98-107); Estimated Glomerular Filt Rate 39 mL/min (>60); Glucose 106 mg/dL (70-99); HEMOLYSIS < 15 (0-50); Potassium 3.6 mmol/L (3.4-5.1); Sodium 136 mmol/L (137-145)
[2025-01-31 12:15] LABS: Hematocrit 34.9 % (41-53); Hemoglobin 11.4 g/dL (13.5-17.5)
[2025-01-31 12:15] LABS: Appearance Urine UA CLEAR; Bilirubin Urine UA NEGATIVE (NEGATIVE); Color Urine UA YELLOW; Glucose Urine UA NEGATIVE (Negative); Ketones Urine UA NEGATIVE (NEGATIVE); Leukocyte Esterase Urine UA NEGATIVE (NEGATIVE); Nitrite Urine UA NEGATIVE (Negative); Occult Blood Urine UA NEGATIVE (Negative); Protein Urine UA NEGATIVE (Negative); Urobilinogen Urine UA 0.2 E.U./dL (0.2); pH Urine UA 5.5 (4.5-8.0)
[2025-01-31 12:31] LABS: Bacteria Urine None Seen; Culture Indicated Urine Cult Not Indicated; RBC Urine None Seen (0-5/HPF); Squamous Epithelial Cell Urine None Seen (0-5/HPF); Urine Volume 10mL (spun); WBC Urine 1-5/HPF (0-5/HPF)
== END 2025-01-31 12:38 | disposition short-term general hospital (02) ==
PROVIDERS: Emergency Medicine; Emergency Provider Emergency Medicine; PCP Family Medicine
DX: K92.0 Hematemesis (principal); K56.609 Unspecified intestinal obstruction, unspecified as to partial versus complete obstruction; E87.6 Hypokalemia; N28.9 Disorder of kidney and ureter, unspecified; J18.9 Pneumonia, unspecified organism; I48.91 Unspecified atrial fibrillation; Z95.818 Presence of other cardiac implants and grafts; Z87.19 Personal history of other diseases of the digestive system
CPT/HCPCS: 36415; 36430; 51798; 71045; 74174; 80048; 80053; 81001; 83605; 84484; 85014; 85018; 85025; 85610; 86850; 86900; 86901; 87040; 87633; 93005; 96365; 96366; 96367; 96368; 96375; 99285; P9016; J0696; J2405; J2470; J2543